=== PATIENT | female | born 1960 | race Caucasian/White ===

== ENCOUNTER → 2016-12-06 | Day surgery (SDC) | payer OTHER ==
[2016-12-06] VITALS (7 sets, daily range): BP systolic 112–132; BP diastolic 55–71; PULSE 58–78; RESP 16–20; TEMP 98.1–98.3; O2SAT 91–96
[~2016-12-06] VITALS: Ht 175.3 cm; Wt 69.9 kg
[~2016-12-06] MED LIST: ALBU6.7H INH; ALBUAER3 INH; ALPR0.5T3 PO; AMLO5TAB2 PO; CHLORHEXIDINE GLUCONATE 2 % 1 PACK (2 CLOTHS) TOPICAL PRN; FURO20TA PO; GABA300C5 PO; GLUCAGON 1 MG/ML VIAL IV PUSH ONE; HYDR200T3 PO; INSULIN HUMAN REGULAR 1,000 UNITS/10 ML VIAL SQ PRN; LACTATED RINGER'S 1000 ML IV PRN; LAMI250T PO; LEVO.125 PO; MACI1TAB2 PO; METOPROLOL TARTRATE 25 MG TAB PO PRN; MIDAZOLAM HCL 2 MG/2 ML VIAL ONE; OMEP20TA PO; ONDANSETRON HCL 4 MG/2 ML VIAL IV PUSH ONE; POVIDONE IODINE 5% (ANTISEPSIS KIT) 4 APPLICATIONS EACH NARE PRN; PRIL20CA9 PO; PROPOFOL 200 MG/20 ML AMP IV ONE; SILD20TA11 PO; SODIUM CHLORID 0.9% 500 ML IV PRN; SOMA350T PO; SPIRCAP INH; ZANT150T2 PO; ZOCO20TA PO
--- NOTE | 2016-12-06 11:06 | PD ---
HPI Chief Complaint: Foreign Body Time Seen by Provider: 11:03 Travel History International Travel<30 days: No Contact w/Intl Traveler<30days: No Traveled to known affect area: No History of Present Illness HPI 56-year-old female with history of scleroderma and crest syndrome, presents to the ER today because she states that she had eaten steak last night, choked on it, and some he had performed the Heimlich maneuver on her bringing up a small piece but she still feels like there is a piece stuck in her esophagus. She states it feels it is at the epigastric area and she has tried to eat and drink this morning but it feels like is not going down, she is bringing the liquid back up. She denies any trouble breathing or any other issues. Modifying Factors: None Associated Signs & Symptoms: Foreign body in esophagus Risk Factors scleroderma, crest syndrome PFSH Past Medical History Asthma: Yes Autoimmune Disease: Yes (CREST SYNDROME SCERODERMA) Blood Disorders: No Anxiety: Yes Depression: No Heart Rhythm Problems: No Cancer: No Cardiovascular Problems: No High Cholesterol: No Chemotherapy: No Chest Pain: No Congestive Heart Failure: No COPD: No Diabetes: No Diminished Hearing: No Endocrine: Yes Gastrointestinal Disorders: No GERD: Yes Genitourinary: No Hepatitis: No Hiatal Hernia: Yes Hypertension: No Immune Disorder: No Implanted Vascular Access Dvce: No Musculoskeletal: No Neurologic: No Psychiatric: No Reproductive: No Respiratory: Yes (COPD) Immunizations Current: Yes Radiation Therapy: No Sleep Apnea: Yes Thyroid Disease: Yes (HYPOTHYROID ) ?: Not Menopausal: Yes Past Surgical History Section: Yes Gynecologic Surgery: Yes (2 C SECTIONS) Pacemaker: No Thoracic Surgery: Yes (PNEMOTHORAX LEFT 2011) Tonsillectomy: Yes Other Surgery: Yes (LEFT BREAST BENIGN LUMP REMOVED) Social History Alcohol Use: Yes (soc) Tobacco Use: No Substance Use: No Allergies-Medications (Allergen,Severity, Reaction): Coded Allergies: Codeine (Unverified Adverse Reaction, Unknown, NAUSEA, 12/06/16) Reported Meds & Prescriptions Reported Meds & Active Scripts Active Reported Spiriva Handihaler (Tiotropium Inh) 18 Mcg Cap 18 Mcg INH DAILY 1 capsule = 18 mcg Gabapentin 300 Mg Cap 300 Mg PO TID Hydroxychloroquine (Hydroxychloroquine Sulfate) 200 Mg Tab 200 Mg PO BID Takw with food Lamisil (Terbinafine) 250 Mg Tab 250 Mg PO DAILY Soma (Carisoprodol) 350 Mg Tab 350 Mg PO QID PRN Omeprazole 20 Mg Tab 20 Mg PO DAILY Opsumit (Macitentan) 10 Mg Tab 10 Mg PO DAILY Zocor (Simvastatin) 20 Mg Tab 20 Mg PO DAILY Synthroid (Levothyroxine Sodium) 125 Mcg Tab 125 Mcg PO DAILY Sildenafil 20 Mg Tab 40 Mg PO TID Zantac (Ranitidine HCl) 150 Mg Tab 150 Mg PO DAILY Furosemide 20 Mg Tab 20 Mg PO DAILY Amlodipine (Amlodipine Besylate) 5 Mg Tab 5 Mg PO DAILY Alprazolam 0.5 Mg Tab 0.5 Mg PO Q6H PRN Proventil Hfa 6.7 GM Inh (Albuterol Sulfate) 90 Mcg/Act Aer 2 Puff INH Q4-6H PRN Proair Hfa 8.5 GM Inh (Albuterol Sulfate) 90 Mcg/Act Aer 2 Puff INH Q6H PRN 108 mcg/actuation Review of Systems Except as stated in HPI: all other systems reviewed are Neg Physical Exam Narrative GENERAL: Well-developed middle age white female patient currently in mild distress. Awake and oriented 3. No drooling. Airway patent. SKIN: Focused skin assessment warm/dry. HEAD: Atraumatic. Normocephalic. EYES: Pupils equal and round. No scleral icterus. No injection or drainage. ENT: No nasal bleeding or discharge. Mucous membranes pink and moist. NECK: Trachea midline. No JVD. CARDIOVASCULAR: Regular rate and rhythm. No murmur appreciated. RESPIRATORY: No accessory muscle use. Clear to auscultation. Breath sounds equal bilaterally. GASTROINTESTINAL: Abdomen soft, non-tender, nondistended. Hepatic and splenic margins not palpable. MUSCULOSKELETAL: No obvious deformities. No clubbing. No cyanosis. No edema. NEUROLOGICAL: Awake and alert. No obvious cranial nerve deficits. Motor grossly within normal limits. Normal speech. PSYCHIATRIC: Appropriate mood and affect; insight and judgment normal. Data Data Last Documented VS Vital Signs Date Time Temp Pulse Resp B/P Pulse Ox O2 Delivery O2 Flow Rate FiO2 12/06/16 11:46 20 12/06/16 11:32 78 129/65 Room Air 12/06/16 10:46 98.3 91 Orders Complete Blood Count With Diff (12/06/16 11:03) Comprehensive Metabolic Panel (12/06/16 11:03) Glucagon Inj (Glucagon Inj) (12/06/16 11:15) Chest, Single Ap (12/06/16 11:04) Ondansetron Inj (Zofran Inj) (12/06/16 11:45) Labs Laboratory Tests Test 12/06/16 11:15 White Blood Count 4.3 TH/MM3 Red Blood Count 4.95 MIL/MM3 Hemoglobin 14.4 GM/DL Hematocrit 43.3 % Mean Corpuscular Volume 87.3 FL Mean Corpuscular Hemoglobin 29.0 PG Mean Corpuscular Hemoglobin 33.2 % Concent Red Cell Distribution Width 14.1 % Platelet Count 237 TH/MM3 Mean Platelet Volume 7.5 FL Neutrophils (%) (Auto) 68.9 % Lymphocytes (%) (Auto) 16.2 % Monocytes (%) (Auto) 8.8 % Eosinophils (%) (Auto) 5.3 % Basophils (%) (Auto) 0.8 % Neutrophils # (Auto) 3.0 TH/MM3 Lymphocytes # (Auto) 0.7 TH/MM3 Monocytes # (Auto) 0.4 TH/MM3 Eosinophils # (Auto) 0.2 TH/MM3 Basophils # (Auto) 0.0 TH/MM3 CBC Comment DIFF FINAL Differential Comment Sodium Level 136 MEQ/L Potassium Level 3.9 MEQ/L Chloride Level 102 MEQ/L Carbon Dioxide Level 25.5 MEQ/L Anion Gap 9 MEQ/L Blood Urea Nitrogen 21 MG/DL Creatinine 1.00 MG/DL Estimat Glomerular Filtration 57 ML/MIN Rate Random Glucose 94 MG/DL Calcium Level 9.6 MG/DL Total Bilirubin 0.5 MG/DL Aspartate Amino Transf 37 U/L (AST/SGOT) Alanine Aminotransferase 34 U/L (ALT/SGPT) Alkaline Phosphatase 86 U/L Total Protein 8.1 GM/DL Albumin 4.7 GM/DL [facility] Medical Decision Making Medical Screen Exam Complete: Yes Emergency Medical Condition: Yes Medical Record Reviewed: Yes Interpretation(s) Laboratory Tests Test 12/06/16 11:15 Monocytes (%) (Auto) 8.8 % (0.0-8.0) Eosinophils (%) (Auto) 5.3 % (0.0-4.0) Lymphocytes # (Auto) 0.7 TH/MM3 (1.0-4.8) Blood Urea Nitrogen 21 MG/DL (7-18) Estimat Glomerular Filtration 57 ML/MIN (>89) Rate Differential Diagnosis Foreign body in esophagus Narrative Course Chest x-ray did not show obvious foreign body. Patient was given glucagon and 50 sodium without significant improvement. She vomited up the soda. She was given Zofran. Case was discussed with Dr. Desai and he states he would like the patient to be transferred to same-day surgery at the main hospital for scope. Diagnosis Primary Impression: Esophageal foreign body Admitting Information Admitting Physician Requests: it Harley Juarez MD Dec 06, 2016 11:06
[2016-12-06 11:26] LABS: BASOPHIL % 0.8 % (0.0-2.0); EOSINOPHIL # 0.2 TH/MM3 (0-0.4); EOSINOPHIL % 5.3 % (0.0-4.0); HEMATOCRIT 43.3 % (35.0-46.0); HEMO FLAGS DIFF FINAL; LYMPH % 16.2 % (9.0-44.0); LYMPHOCYTE # 0.7 TH/MM3 (1.0-4.8); MEAN CELL VOLUME 87.3 FL (80.0-100.0); MEAN CORPUSCULAR HGB CONC 33.2 % (32.0-36.0); MONO % 8.8 % (0.0-8.0); NEUT % 68.9 % (16.0-70.0); PLATELET COUNT 237 TH/MM3 (150-450); RED BLOOD COUNT 4.95 MIL/MM3 (4.00-5.30); RED CELL DISTRIBUTION WIDTH 14.1 % (11.6-17.2); WHITE BLOOD COUNT 4.3 TH/MM3 (4.0-11.0)
[2016-12-06 11:38] LABS: CHLORIDE 102 MEQ/L (98-107); POTASSIUM 3.9 MEQ/L (3.5-5.1); SODIUM (NA) 136 MEQ/L (136-145)
[2016-12-06 11:43] LABS: ANION GAP 9 MEQ/L (5-15); BICARBONATE 25.5 MEQ/L (21.0-32.0); BLOOD UREA NITROGEN 21 MG/DL (7-18)
[2016-12-06 11:46] LABS: ALT (GPT) 34 U/L (10-53); AST (GOT) 37 U/L (15-37); GLOMERULAR FILTRATION RATE 57 ML/MIN (>89)
[2016-12-06 11:47] LABS: TOTAL BILIRUBIN ADULT 0.5 MG/DL (0.2-1.0)
[2016-12-06 11:48] LABS: ALKALINE PHOSPHATASE 86 U/L (45-117)
--- NOTE | 2016-12-06 11:51 | RADRPT ---
EXAM DATE/TIME: 12/06/2016 11:15 [facility] COMPARISON: No previous studies available for comparison. INDICATIONS : States may have foreign body struck in esophagus, feels like it is mid lower anterior chest, states s he is unable eat or drink MEDICAL HISTORY : Chronic obstructive pulmonary disease. SURGICAL HISTORY : None. ENCOUNTER: Initial ACUITY: 1 day PAIN SCORE: 0/10 LOCATION: Bilateral chest FINDINGS: A single view of the chest demonstrates the lungs to be symmetrically aerated without evidence of mas s, infiltrate or effusion. The cardiomediastinal contours are unremarkable. Osseous structures are intact. CONCLUSION: No acute disease. Aldair Padgett MD on December 06, 2016 at 11:49 Board Certified Radiologist. This report was verified electronically.
--- NOTE | 2016-12-06 21:37 | MB ---
cc: COURT TYLER M.D. DATE OF CONSULTATION 12/06/2016 DATE OF 1960 REFERRING PHYSICIAN ER. REASON FOR REFERRAL Dysphagia. HISTORY OF THE PRESENT ILLNESS Thank you for the consultation. A 56-year-old lady who has known history of scleroderma. The patient came complaining after eating steak yesterday, she felt that a piece of it was stuck in her esophagus, unable to swallow any fluids on her saliva. She came to the emergency room because of that. She had difficulty swallowing in the past that she managed either by inducing vomiting or by waiting and drinking some water to try to push it in, but this time this did not happen. The patient denied any hematemesis. No other GI complaints. PAST MEDICAL HISTORY Significant for: 1. COPD. 2. Asthma. 3. CREST syndrome with scleroderma. 4. Anxiety. 5. Coronary artery disease. 6. Hypothyroidism. PAST SURGICAL HISTORY Significant for: 1. Benign lump removed from the left breast. 2. Pneumothorax. SOCIAL HISTORY Positive for tobacco and alcohol. ALLERGIES CODEINE. MEDICATIONS Reviewed in the chart. REVIEW OF SYSTEMS All 12-point negative except HPI. PHYSICAL EXAMINATION GENERAL: Alert, oriented, no acute distress. VITAL SIGNS: Stable. HEENT: Pupils are round and reactive to light. NECK: Supple. CHEST: Clear to auscultation and percussion. CARDIOVASCULAR: Regular rate and rhythm. ABDOMEN: Soft, nondistended. EXTREMITIES: No edema or clubbing. NEUROLOGIC: Alert, oriented. No nerve deficits and overall normal. PSYCHOLOGIC: Appropriate. LABORATORY DATA White count 4.3, hemoglobin 14.4, platelet 237. Liver function test is normal. ASSESSMENT/PLAN A 56-year-old lady with dysphagia, foreign-body, most likely related to scleroderma. I am planning on doing upper endoscopy today and we will do intubation for the patient. If there is narrowing or stricturing we will plan on dilation. The patient understands the procedure and complications. She is agreeable to have it done. This will be done on urgent basis today. We will call the team for the procedure. MD SHELTON Vega/OSKAR /7:53 PM /9:35 PM
--- NOTE | 2016-12-07 07:27 | MR ---
cc: COURT TYLER M.D. DATE OF 1960 DATE OF PROCEDURE 12/06/2016 PROCEDURE Upper gastrointestinal endoscopy with foreign-body removal and dilation. INDICATION A 56-year-old lady who came to the emergency room with food impaction. Patient known to have history of scleroderma. PROCEDURE After informing the patient about the procedure and complication, consent was signed. The patient was intubated. The scope was placed in the mouth after intubation, advanced under video guidance. In the mid-esophagus there was a large piece of meat which was removed by a net and there was some small residual that was flush into the stomach. The scope was advanced to the stomach and into the duodenum. Retroflexion was performed. A guidewire was passed through the scope and dilator with size 17 mm was done without immediate complication. FINDINGS 1. Esophagus: Esophageal food impaction, removed. 2. Esophageal stricture status post dilation. 3. Otherwise normal exam. RECOMMENDATIONS 1. No NSAIDs. 2. Chew food well. 3. Soft mechanical diet. 4. Consider PPI if the patient has any reflux symptoms. MD SHELTON Vega/MARLEN /7:50 PM /7:26 AM
--- NOTE | 2016-12-07 19:38 | EKG ---
Date Performed: 12/06/2016 Time Performed: 12:47:21 PTAGE: 56 years EKG: Sinus rhythm POSSIBLE LEFT ATRIAL ENLARGEMENT INDETERMINATE AXIS ABNORMAL ECG PREVIOUS TRACING : 02/04/2013 12.56.04 Since previous tracing, no significant change noted DOCTOR: Amee Fleming Interpretating Date/Time 12/07/2016 19:37:44
== END | disposition home or self-care (01) ==
LOC: PHED 10:42 → PHSDC 12:04 → PHEDA 12:22 → PHSDC 12:22
PROVIDERS: ATTEND Hospitalist
DX: T18.128A Food in esophagus causing other injury, initial encounter (principal); M34.9 Systemic sclerosis, unspecified; R13.10 Dysphagia, unspecified; M34.1 CR(E)ST syndrome; J45.909 Unspecified asthma, uncomplicated; K21.9 Gastro-esophageal reflux disease without esophagitis; J44.9 Chronic obstructive pulmonary disease, unspecified; E03.9 Hypothyroidism, unspecified; I25.10 Atherosclerotic heart disease of native coronary artery without angina pectoris; R94.31 Abnormal electrocardiogram [ECG] [EKG]
CPT/HCPCS: 00740; 43247; 43248; 71010; 80053; 85025; 93005; 96374; 96375; 99285; C1769; J1610; J2250; J2405; J3010; J7120

== ENCOUNTER 2017-04-22 15:57 | Emergency (ER) | payer OTHER ==
[~2017-04-22] VITALS: Ht 175.3 cm; Wt 74.0 kg
[~2017-04-22 15:57] MED LIST changes: -CHLORHEXIDINE GLUCONATE 2 % 1 PACK (2 CLOTHS) TOPICAL PRN; -GLUCAGON 1 MG/ML VIAL IV PUSH ONE; -INSULIN HUMAN REGULAR 1,000 UNITS/10 ML VIAL SQ PRN; -LACTATED RINGER'S 1000 ML IV PRN; -METOPROLOL TARTRATE 25 MG TAB PO PRN; -MIDAZOLAM HCL 2 MG/2 ML VIAL ONE; -OMEP20TA PO; +OMEP20TA93 PO; -ONDANSETRON HCL 4 MG/2 ML VIAL IV PUSH ONE; -POVIDONE IODINE 5% (ANTISEPSIS KIT) 4 APPLICATIONS EACH NARE PRN; -PRIL20CA9 PO; -PROPOFOL 200 MG/20 ML AMP IV ONE; -SODIUM CHLORID 0.9% 500 ML IV PRN
[2017-04-22 16:00] VITALS: BP 132/63; PULSE 88; RESP 20; TEMP 100.6; O2SAT 88
[2017-04-22 16:10] VITALS: O2SAT 90
[2017-04-22 16:14] VITALS: BP 137/63; PULSE 84; RESP 16; TEMP 101.8; O2SAT 90
[2017-04-22] MEDS ORDERED: ACETAMINOPHEN 325 MG TAB PO ONE (16:15)
[2017-04-22] MEDS ORDERED: SODIUM CHLOR 0.9% 1000 ML INJ 1,000 ML IV ONE ×2 (16:15)
[2017-04-22] MEDS ORDERED: SODIUM CHLOR 0.9% 1000 ML INJ 400 ML IV ONE (16:15)
[2017-04-22] MEDS ORDERED: AZITHROMYCIN INJ 500 MG in SODIUM CHLOR 0.9% 250 ML INJ 250 ML IV STA (16:15)
[2017-04-22] MEDS ORDERED: cefTRIAXone INJ 2,000 MG in SODIUM CHLORIDE 0.9% INJ 100 ML IV STA (16:15)
[2017-04-22 16:40] LABS: AUTOMATED NEUTROPHIL # 9.1 TH/MM3 (1.8-7.7); BASOPHIL # 0.1 TH/MM3 (0-0.2); BASOPHIL % 0.6 % (0.0-2.0); EOSINOPHIL # 0.1 TH/MM3 (0-0.4); EOSINOPHIL % 0.6 % (0.0-4.0); LYMPHOCYTE # 0.4 TH/MM3 (1.0-4.8); MEAN CELL VOLUME 85.9 FL (80.0-100.0); MEAN CORPUSCULAR HEMOGLOBIN 27.1 PG (27.0-34.0); MEAN CORPUSCULAR HGB CONC 31.6 % (32.0-36.0); MONO % 7.3 % (0.0-8.0); NEUT % 87.5 % (16.0-70.0); PLATELET COUNT 259 TH/MM3 (150-450); RED CELL DISTRIBUTION WIDTH 14.5 % (11.6-17.2); WHITE BLOOD COUNT 10.5 TH/MM3 (4.0-11.0)
--- NOTE | 2017-04-22 16:42 | RADRPT ---
EXAM DATE/TIME: 04/22/2017 16:29 [facility] COMPARISON: CHEST SINGLE AP, December 06, 2016, 11:15. INDICATIONS : Shortness of breath and cough for 5 days. MEDICAL HISTORY : Hypertension. Congestive heart failure. Hypothyroidism. COPD. Pulmonary hypertension. SURGICAL HISTORY : None. ENCOUNTER: Initial ACUITY: 4 - 6 days PAIN SCORE: 0/10 LOCATION: Bilateral chest FINDINGS: A single AP erect view of the chest was obtained and demonstrates mild patchy opacity in the left sarita g base. The right lung appears clear. The heart and mediastinal structures are within normal limits. There are mild atherosclerotic changes in the aorta. The bony thorax is intact with overlying electro cardiogram leads. CONCLUSION: New patchy opacity in the left lung base which could indicate early pneumonia. Juvenal Morrow MD on April 22, 2017 at 16:34 Board Certified Radiologist. This report was verified electronically.
[2017-04-22 16:47] LABS: HEMO FLAGS DIFF FINAL
[2017-04-22 16:49] LABS: CHLORIDE 97 MEQ/L (98-107); POTASSIUM 3.3 MEQ/L (3.5-5.1); SODIUM (NA) 132 MEQ/L (136-145)
[2017-04-22 16:52] LABS: ANION GAP 10 MEQ/L (5-15); BICARBONATE 24.9 MEQ/L (21.0-32.0); BLOOD UREA NITROGEN 10 MG/DL (7-18)
[2017-04-22 16:55] LABS: ALT (GPT) 57 U/L (10-53); AST (GOT) 50 U/L (15-37); GLOMERULAR FILTRATION RATE 73 ML/MIN (>89)
[2017-04-22 16:56] LABS: TOTAL BILIRUBIN ADULT 0.7 MG/DL (0.2-1.0)
[2017-04-22 16:58] LABS: ALKALINE PHOSPHATASE 126 U/L (45-117)
[2017-04-22] MEDS ORDERED: CALCTAB19 PO (17:09)
[2017-04-22] MEDS ORDERED: MELO15TA20 PO (17:09)
[2017-04-22] MEDS ORDERED: ALBU0.08 NEB (17:09)
[2017-04-22] MEDS ORDERED: VITA250T3 PO (17:09)
[2017-04-22] MEDS ORDERED: SYMB80AE INH (17:09)
[2017-04-22] MEDS ORDERED: PROM12.54 PO (17:09)
[2017-04-22] MEDS ORDERED: SPIR50TA PO (17:09)
[2017-04-22] MEDS ORDERED: VENTAER INH (17:09)
[2017-04-22] MEDS ORDERED: OXYGENDME NAS.CANULA (17:09)
[2017-04-22] MEDS ORDERED: OMEP20TA93 PO (17:09)
[2017-04-22] MEDS ORDERED: VITA100018 PO (17:09)
[2017-04-22] MEDS ORDERED: VITA500T4 PO (17:09)
[2017-04-22] MEDS ORDERED: LIDO5%T TOPICAL (17:09)
--- NOTE | 2017-04-22 17:15 | PD ---
HPI . Cough and fever Chief Complaint: Respiratory Symptoms Time Seen by Provider: 16:14 Travel History International Travel<30 days: No Contact w/Intl Traveler<30days: No Traveled to known affect area: No History of Present Illness HPI This patient presents to us from her primary care physician's office for the evaluation of cough, low oxygen saturation and fever. She has a history of scleroderma and pulmonary hypertension. She is on home oxygen at 3 L. She states that she became ill 4 days ago with cough and fever. She saw her doctor today and found her to be febrile with low oxygen saturation. She was sent to us for further evaluation and treatment. Her initial oxygen saturation was 88% . It is now 90% on 3 L. PFSH Past Medical History Hx Anticoagulant Therapy: No Arthritis: Yes Asthma: Yes Autoimmune Disease: Yes (CREST SYNDROME SCLERODERMA) Blood Disorders: No Anxiety: Yes Depression: No Heart Rhythm Problems: No Cancer: No Cardiovascular Problems: Yes (CHF, PULMONARY HTN) High Cholesterol: Yes Chemotherapy: No Chest Pain: No Congestive Heart Failure: No COPD: Yes Diabetes: No Diminished Hearing: No Endocrine: Yes (thyroid) Gastrointestinal Disorders: No GERD: Yes Genitourinary: No Hepatitis: No Hiatal Hernia: Yes Hypertension: Yes Immune Disorder: No Implanted Vascular Access Dvce: No Medical other: Yes (SLEEP APNEA, GERD) Musculoskeletal: No Neurologic: No Psychiatric: No Reproductive: No Respiratory: Yes (COPD) Immunizations Current: Yes Radiation Therapy: No Sleep Apnea: Yes Thyroid Disease: Yes (HYPOTHYROID ) ?: Not Menopausal: Yes Past Surgical History Section: Yes Gynecologic Surgery: Yes (2 C SECTIONS) Pacemaker: No Thoracic Surgery: Yes (PNEMOTHORAX LEFT 2011) Tonsillectomy: Yes Other Surgery: Yes (LEFT BREAST BENIGN LUMP REMOVED) Social History Alcohol Use: Yes (soc) Tobacco Use: No (quit 5 years ago) Substance Use: No Allergies-Medications (Allergen,Severity, Reaction): Coded Allergies: codeine (Unverified Adverse Reaction, Unknown, NAUSEA, 04/22/17) Reported Meds & Prescriptions Reported Meds & Active Scripts Active Reported Vitamin D3 (Cholecalciferol) 1,000 Unit Tab 1,000 Units PO DAILY Vitamin C (Ascorbic Acid) 250 Mg Tab 500 Mg PO DAILY Vitamin B-12 (Cyanocobalamin) 500 Mcg Tab 1,000 Mcg PO DAILY Ventolin Hfa 18 GM Inh (Albuterol Sulfate) 90 Mcg/Act Aer 2 Puff INH Q4-6H PRN Symbicort Inh (Budesonide/Formoterol Fumarate) 80-4.5 Mcg/Act Aero 1 Puff INH Q12HR Spironolactone 50 Mg Tab 50 Mg PO DAILY Promethazine (Promethazine HCl) 12.5 Mg Tab 12.5 Mg PO Q4H PRN Oxygen (O2) Device Liter BETITO.CANULA CONTINUOUS Oxygen Concentrator Portable Gaseous 2 L/min via Nasal Canula Continuous For 99 months Omeprazole 20 Mg Tab 20 Mg PO DAILY Meloxicam 15 Mg Tab 15 Mg PO DAILY PRN Lidocaine Topical (Lidocaine HCl) 5 % Oint 1 Applic TOPICAL QID PRN Calcium 600+D 200 (Calcium Carbonate-Vitamin D) 600-200 Mg-Unit Tab 1 Tab PO BID Albuterol Neb (Albuterol Sulfate) 2.5 Mg/3 Ml Neb 2.5 Mg NEB Q6HR NEB PRN While awake Spiriva Handihaler (Tiotropium Inh) 18 Mcg Cap 18 Mcg INH DAILY 1 capsule = 18 mcg Gabapentin 300 Mg Cap 300 Mg PO QID Lamisil (Terbinafine) 250 Mg Tab 250 Mg PO DAILY Soma (Carisoprodol) 350 Mg Tab 350 Mg PO BID PRN Opsumit (Macitentan) 10 Mg Tab 10 Mg PO DAILY Zocor (Simvastatin) 20 Mg Tab 20 Mg PO DAILY Synthroid (Levothyroxine Sodium) 125 Mcg Tab 137 Mcg PO DAILY Sildenafil 20 Mg Tab 40 Mg PO TID Furosemide 20 Mg Tab 60 Mg PO BID Amlodipine (Amlodipine Besylate) 5 Mg Tab 10 Mg PO DAILY Alprazolam 0.5 Mg Tab 1 Mg PO Q8HR PRN Review of Systems Except as stated in HPI: all other systems reviewed are Neg General / Constitutional: Positive: Fever, Chills Respiratory: Positive: Cough, Shortness of Breath Physical Exam Narrative GENERAL: This is a chronically ill-appearing patient. SKIN: warm/dry. Oscar. HEAD: Normocephalic. Atraumatic. EYES: Pupils equal and round. No scleral icterus. No injection or drainage. ENT: No nasal bleeding or discharge. Mucous membranes pink and moist. NECK: Trachea midline. Full range of motion without pain.. CARDIOVASCULAR: Regular rate and rhythm. Systolic ejection murmur. RESPIRATORY: No accessory muscle use. Rhonchi in the left mid lung field. Breath sounds equal bilaterally. GASTROINTESTINAL: Abdomen soft. Nontender. Bowel sounds present. Nondistended. : Deferred MUSCULOSKELETAL: No obvious deformities. No peripheral edema. NEUROLOGICAL: Awake and alert. No obvious cranial nerve deficits. Motor grossly within normal limits. Normal speech. PSYCHIATRIC: Appropriate mood and affect; insight and judgment normal. Data Data Last Documented VS Vital Signs Date Time Temp Pulse Resp B/P (MAP) Pulse Ox O2 Delivery O2 Flow Rate FiO2 04/22/17 17:31 101.2 80 16 119/54 (75) 91 Nasal Cannula 3.00 Orders Orders Sepsis Workup Initiated (04/22/17 ) Complete Blood Count With Diff (04/22/17 16:15) Comprehensive Metabolic Panel (04/22/17 16:15) Lactic Acid Sepsis Protocol (04/22/17 16:15) Urinalysis - C+S If Indicated (04/22/17 16:15) Blood Culture (04/22/17 16:15) Chest, Single Ap (04/22/17 16:15) Blood Glucose (04/22/17 16:15) Ecg Monitoring (04/22/17 16:15) Iv Access Insert/Monitor (04/22/17 16:15) Oximetry (04/22/17 16:15) Oxygen Administration (04/22/17 16:15) Acetaminophen (Tylenol) (04/22/17 16:15) Ceftriaxone Inj (Rocephin Inj) (04/22/17 16:15) Azithromycin Inj (Zithromax Inj) (04/22/17 16:15) B-Type Natriuretic Peptide (04/22/17 16:39) Labs Laboratory Tests Test 04/22/17 16:25 04/22/17 16:28 White Blood Count 10.5 TH/MM3 Red Blood Count 4.30 MIL/MM3 Hemoglobin 11.7 GM/DL Hematocrit 37.0 % Mean Corpuscular Volume 85.9 FL Mean Corpuscular Hemoglobin 27.1 PG Mean Corpuscular Hemoglobin Concent 31.6 % Red Cell Distribution Width 14.5 % Platelet Count 259 TH/MM3 Mean Platelet Volume 7.4 FL Neutrophils (%) (Auto) 87.5 % Lymphocytes (%) (Auto) 4.0 % Monocytes (%) (Auto) 7.3 % Eosinophils (%) (Auto) 0.6 % Basophils (%) (Auto) 0.6 % Neutrophils # (Auto) 9.1 TH/MM3 Lymphocytes # (Auto) 0.4 TH/MM3 Monocytes # (Auto) 0.8 TH/MM3 Eosinophils # (Auto) 0.1 TH/MM3 Basophils # (Auto) 0.1 TH/MM3 CBC Comment DIFF FINAL Differential Comment Blood Urea Nitrogen 10 MG/DL Creatinine 0.81 MG/DL Random Glucose 119 MG/DL Total Protein 7.8 GM/DL Albumin 3.5 GM/DL Calcium Level 8.5 MG/DL Alkaline Phosphatase 126 U/L Aspartate Amino Transf (AST/SGOT) 50 U/L Alanine Aminotransferase (ALT/SGPT) 57 U/L Total Bilirubin 0.7 MG/DL Sodium Level 132 MEQ/L Potassium Level 3.3 MEQ/L Chloride Level 97 MEQ/L Carbon Dioxide Level 24.9 MEQ/L Anion Gap 10 MEQ/L Estimat Glomerular Filtration Rate 73 ML/MIN Lactic Acid Level 0.7 mmol/L B-Type Natriuretic Peptide 287 PG/ML MDM Medical Decision Making Medical Screen Exam Complete: Yes Emergency Medical Condition: Yes Differential Diagnosis Differential diagnosis includes but is not limited to viral respiratory illness , bronchitis, pneumonia, allergies, CHF, asthma/COPD. Narrative Course Vital Signs Date Time Temp Pulse Resp B/P (MAP) Pulse Ox O2 Delivery O2 Flow Rate FiO2 04/22/17 16:10 90 Nasal Cannula 3.00 04/22/17 16:10 90 Nasal Cannula 3.00 04/22/17 16:10 90 Nasal Cannula 3.00 04/22/17 16:00 100.6 88 20 132/63 (86) 88 Patient presents with a cough, fever and low oxygen saturation. She has a history of scleroderma and pulmonary hypertension and is on home oxygen at 3 L. Septic workup has been initiated. She has been empirically treated with Rocephin and Zithromax. Last Impressions Chest X-Ray 04/22/17 1615 Signed Impressions: Service Date/Time: , April 22, 2017 16:29 - CONCLUSION: New patchy opacity in the left lung base which could indicate early pneumonia. Juvenal Morrow MD The chest x-ray was independently viewed by me. She does not meet SIRS criteria. We may be able to treat her as an outpatient. She has oxygen at home. I'll see what turns up with her lab work. CBC & BMP Diagram 04/22/17 16:25 Total Protein 7.8, Albumin 3.5, Calcium Level 8.5, Alkaline Phosphatase 126 H, Aspartate Amino Transf (AST/SGOT) 50 H, Alanine Aminotransferase (ALT/SGPT) 57 H , Total Bilirubin 0.7 LA 0.7 BNP 287 The patient is comfortable going home. She reports that her usual saturation on 3 L of oxygen is about 88%. Diagnosis Primary Impression: Pneumonia Qualified Codes: J18.1 - Lobar pneumonia, unspecified organism Patient Instructions: Community Acquired Pneumonia (DC), General Instructions Med/Other Pt SpecificInfo: Prescription(s) given Scripts Guaifenesin ER 12 HR (Guaifenesin ER 12 HR) 1,200 Mg Luis Alfredo 1200 MG PO BID for Chest Congestion/Cough for 10 Days, #2 TAB 0 Refills Prov: Binta Gilliam MD 04/22/17 Hydrocodone-Acetaminophen (Cheriton) 5 Mg-325 Mg Tab 1 TAB PO Q4H Y for PAIN, #12 TAB 0 Refills Prov: Binta Gilliam MD 04/22/17 Azithromycin (Zithromax) 250 Mg Tab 250 MG PO DIRECTED for Infection, #4 TAB 0 Refills Take 2 tabs (500 mg) on day 1 then 1 tab daily x 4 days. Prov: Binta Gilliam MD 04/22/17 Disposition: 01 DISCHARGE HOME Condition: Stable Binta Gilliam MD Apr 22, 2017 17:15
[2017-04-22 17:31] VITALS: BP 119/54; PULSE 80; RESP 16; TEMP 101.2; O2SAT 91
[2017-04-22] MEDS ORDERED: ZITH250T PO (18:23)
[2017-04-22] MEDS ORDERED: NORC5TAB PO (18:24)
[2017-04-22] MEDS ORDERED: GUAI10TA PO (18:24)
[2017-04-22 19:17] VITALS: BP 116/61; TEMP 98.9
== END 2017-04-22 19:22 | disposition home or self-care (01) ==
LOC: PHED 15:57
DX: J18.1 Lobar pneumonia, unspecified organism (principal); J44.0 Chronic obstructive pulmonary disease with (acute) lower respiratory infection; E03.9 Hypothyroidism, unspecified; I50.9 Heart failure, unspecified; I11.0 Hypertensive heart disease with heart failure; I27.20 Pulmonary hypertension, unspecified; Z87.891 Personal history of nicotine dependence; Z99.81 Dependence on supplemental oxygen
CPT/HCPCS: 71010; 80053; 83605; 83880; 85025; 87040; 96365; 96366; 96367; 99284; J0456; J0696; J7050

== ENCOUNTER 2017-07-03 11:31 | Inpatient (IN) | payer OTHER ==
[~2017-07-03] VITALS: Ht 170.2 cm; Wt 70.5 kg
[2017-07-03] VITALS (14 sets, daily range): BP systolic 125–196; BP diastolic 59–81; PULSE 65–114; RESP 16–32; TEMP 98–99; O2SAT 88–100
[~2017-07-03 11:31] MED LIST changes: +ALBU0.08 NEB; -ALBU6.7H INH; -ALBUAER3 INH; +CALCTAB19 PO; +GUAI10TA PO; -HYDR200T3 PO; +LIDO5%T TOPICAL; +MELO15TA20 PO; +NORC5TAB PO; +OXYGENDME NAS.CANULA; +PROM12.54 PO; +SPIR50TA PO; +SYMB80AE INH; +VENTAER INH; +VITA100018 PO; +VITA250T3 PO; +VITA500T4 PO; -ZANT150T2 PO; +ZITH250T PO
--- NOTE | 2017-07-03 11:37 | PD ---
HPI Chief Complaint: shortness of breath Time Seen by Provider: 11:33 Travel History International Travel<30 days: No Contact w/Intl Traveler<30days: No Traveled to known affect area: No History of Present Illness HPI 56-year-old patient with history of scleroderma, COPD, right sided heart failure , pulmonary hypertension, presents to the ER today, states that she had a coughing fit this morning and then started feeling right sided chest tightness, feels like she is very short of breath. She denies any fevers or any other issues. Modifying Factors: None Associated Signs & Symptoms: Right sided chest discomfort, shortness of breath Risk Factors: COPD, CHF history PFSH Past Medical History Hx Anticoagulant Therapy: No Arthritis: Yes Asthma: Yes Autoimmune Disease: Yes (CREST SYNDROME SCLERODERMA) Blood Disorders: No Anxiety: Yes Depression: No Heart Rhythm Problems: No Cancer: No Cardiovascular Problems: Yes (CHF, PULMONARY HTN) High Cholesterol: Yes Chemotherapy: No Chest Pain: No Congestive Heart Failure: No COPD: Yes Diabetes: No Diminished Hearing: No Endocrine: Yes (thyroid) Gastrointestinal Disorders: No GERD: Yes Genitourinary: No Hepatitis: No Hiatal Hernia: Yes Hypertension: Yes Immune Disorder: No Implanted Vascular Access Dvce: No Musculoskeletal: No Neurologic: No Psychiatric: No Reproductive: No Respiratory: Yes (COPD) Immunizations Current: Yes Radiation Therapy: No Sleep Apnea: Yes Thyroid Disease: Yes (HYPOTHYROID ) Menopausal: Yes Past Surgical History Section: Yes Gynecologic Surgery: Yes (2 C SECTIONS) Pacemaker: No Thoracic Surgery: Yes (PNEMOTHORAX LEFT 2012) Tonsillectomy: Yes Other Surgery: Yes (LEFT BREAST BENIGN LUMP REMOVED) Social History Alcohol Use: Yes (soc) Tobacco Use: No (quit 5 years ago) Substance Use: No Allergies-Medications (Allergen,Severity, Reaction): Coded Allergies: codeine (Unverified Adverse Reaction, Unknown, NAUSEA, 07/03/17) Reported Meds & Prescriptions Reported Meds & Active Scripts Active Guaifenesin ER 12 HR (Guaifenesin) 1,200 Mg Luis Alfredo 1,200 Mg PO BID 10 Days [place] (Hydrocodone-Acetaminophen) 5 Mg-325 Mg Tab 1 Tab PO Q4H PRN Zithromax (Azithromycin) 250 Mg Tab 250 Mg PO DIRECTED Take 2 tabs (500 mg) on day 1 then 1 tab daily x 4 days. Reported Vitamin D3 (Cholecalciferol) 1,000 Unit Tab 1,000 Units PO DAILY Vitamin C (Ascorbic Acid) 250 Mg Tab 500 Mg PO DAILY Vitamin B-12 (Cyanocobalamin) 500 Mcg Tab 1,000 Mcg PO DAILY Ventolin Hfa 18 GM Inh (Albuterol Sulfate) 90 Mcg/Act Aer 2 Puff INH Q4-6H PRN Symbicort Inh (Budesonide/Formoterol Fumarate) 80-4.5 Mcg/Act Aero 1 Puff INH Q12HR Spironolactone 50 Mg Tab 50 Mg PO DAILY Promethazine (Promethazine HCl) 12.5 Mg Tab 12.5 Mg PO Q4H PRN Oxygen (O2) Device Liter BETITO.CANULA CONTINUOUS Oxygen Concentrator Portable Gaseous 2 L/min via Nasal Canula Continuous For 99 months Omeprazole 20 Mg Tab 20 Mg PO DAILY Meloxicam 15 Mg Tab 15 Mg PO DAILY PRN Lidocaine Topical (Lidocaine HCl) 5 % Oint 1 Applic TOPICAL QID PRN Calcium 600+D 200 (Calcium Carbonate-Vitamin D) 600-200 Mg-Unit Tab 1 Tab PO BID Albuterol Neb (Albuterol Sulfate) 2.5 Mg/3 Ml Neb 2.5 Mg NEB Q6HR NEB PRN While awake Spiriva Handihaler (Tiotropium Inh) 18 Mcg Cap 18 Mcg INH DAILY 1 capsule = 18 mcg Gabapentin 300 Mg Cap 300 Mg PO QID Lamisil (Terbinafine) 250 Mg Tab 250 Mg PO DAILY Soma (Carisoprodol) 350 Mg Tab 350 Mg PO BID PRN Opsumit (Macitentan) 10 Mg Tab 10 Mg PO DAILY Zocor (Simvastatin) 20 Mg Tab 20 Mg PO DAILY Synthroid (Levothyroxine Sodium) 125 Mcg Tab 137 Mcg PO DAILY Sildenafil 20 Mg Tab 40 Mg PO TID Furosemide 20 Mg Tab 60 Mg PO BID Amlodipine (Amlodipine Besylate) 5 Mg Tab 10 Mg PO DAILY Alprazolam 0.5 Mg Tab 1 Mg PO Q8HR PRN Review of Systems Except as stated in HPI: all other systems reviewed are Neg Physical Exam Narrative GENERAL: Well-developed middle age female patient who appears currently anxious and in moderate respiratory distress. Awake and oriented 3. SKIN: Focused skin assessment warm/dry. HEAD: Atraumatic. Normocephalic. EYES: Pupils equal and round. No scleral icterus. No injection or drainage. ENT: No nasal bleeding or discharge. Mucous membranes pink and moist. NECK: Trachea midline. No JVD. CARDIOVASCULAR: Regular rate and rhythm. No murmur appreciated. RESPIRATORY: Moderate accessory muscle use. With decreased breath sounds throughout. Breath sounds more pronounced in the left compared to the right. GASTROINTESTINAL: Abdomen soft, non-tender, nondistended. Hepatic and splenic margins not palpable. MUSCULOSKELETAL: No obvious deformities. No clubbing. No cyanosis. No edema. NEUROLOGICAL: Awake and alert. No obvious cranial nerve deficits. Motor grossly within normal limits. Normal speech. PSYCHIATRIC: Appropriate mood and affect; insight and judgment normal. Data Data Last Documented VS Vital Signs Date Time Temp Pulse Resp B/P (MAP) Pulse Ox O2 Delivery O2 Flow Rate FiO2 07/03/17 12:53 87 16 151/66 (94) 94 Nasal Cannula 5.00 07/03/17 11:42 98.0 Orders Orders Complete Blood Count With Diff (07/03/17 11:33) Comprehensive Metabolic Panel (07/03/17 11:33) B-Type Natriuretic Peptide (07/03/17 11:33) Iv Access Insert/Monitor (07/03/17 11:33) Electrocardiogram (07/03/17 11:33) Ecg Monitoring (07/03/17 11:33) Oximetry (07/03/17 11:33) Oxygen Administration (07/03/17 11:33) Chest, Single Ap (07/03/17 11:33) Sodium Chloride 0.9% Flush (Ns Flush) (07/03/17 11:45) Methylprednisolone So Succ Inj (Solumedr (07/03/17 11:45) Albuterol-Ipratropium Neb (Duoneb Neb) (07/03/17 11:45) Lidocaine 1% Inj (50 Ml) (Xylocaine 1% I (07/03/17 12:00) Lidocaine 1% Inj (Xylocaine 1% Inj) (07/03/17 11:57) Chest, Single Ap (07/03/17 12:23) Consult General Surgery (07/03/17 ) Ct Thorax/ Chest Wo Iv Contras (07/03/17 13:10) Morphine Inj (Morphine Inj) (07/03/17 13:15) Ondansetron Inj (Zofran Inj) (07/03/17 13:15) (Hub Use Only)Inp Phy Cons/Ref (07/03/17 ) Admit Order (Ed Use Only) (07/03/17 13:15) Inpatient Certification (07/03/17 13:16) Labs Laboratory Tests Test 07/03/17 11:40 White Blood Count 16.9 TH/MM3 Red Blood Count 5.28 MIL/MM3 Hemoglobin 14.0 GM/DL Hematocrit 43.7 % Mean Corpuscular Volume 82.8 FL Mean Corpuscular Hemoglobin 26.6 PG Mean Corpuscular Hemoglobin Concent 32.1 % Red Cell Distribution Width 15.6 % Platelet Count 417 TH/MM3 Mean Platelet Volume 7.7 FL Neutrophils (%) (Auto) 84.8 % Lymphocytes (%) (Auto) 11.0 % Monocytes (%) (Auto) 2.5 % Eosinophils (%) (Auto) 0.6 % Basophils (%) (Auto) 1.1 % Neutrophils # (Auto) 14.3 TH/MM3 Lymphocytes # (Auto) 1.9 TH/MM3 Monocytes # (Auto) 0.4 TH/MM3 Eosinophils # (Auto) 0.1 TH/MM3 Basophils # (Auto) 0.2 TH/MM3 CBC Comment DIFF FINAL Differential Comment Blood Urea Nitrogen 19 MG/DL Creatinine 0.89 MG/DL Random Glucose 179 MG/DL Total Protein 8.2 GM/DL Albumin 4.5 GM/DL Calcium Level 9.7 MG/DL Alkaline Phosphatase 84 U/L Aspartate Amino Transf (AST/SGOT) 41 U/L Alanine Aminotransferase (ALT/SGPT) 30 U/L Total Bilirubin 0.4 MG/DL Sodium Level 131 MEQ/L Potassium Level 3.8 MEQ/L Chloride Level 96 MEQ/L Carbon Dioxide Level 25.9 MEQ/L Anion Gap 9 MEQ/L Estimat Glomerular Filtration Rate 66 ML/MIN B-Type Natriuretic Peptide 225 PG/ML MDM Medical Decision Making Medical Screen Exam Complete: Yes Emergency Medical Condition: Yes Medical Record Reviewed: Yes Interpretation(s) Last 24 hours Impressions Chest X-Ray 07/03/17 1223 Signed Impressions: Service Date/Time: Monday, July 03, 2017 12:46 - CONCLUSION: Placement of a right-sided chest tube with minimal reexpansion of the right lung.. Julissa Lewis MD Chest X-Ray 07/03/17 1133 Signed Impressions: Service Date/Time: Monday, July 03, 2017 11:44 - CONCLUSION: Large right-sided pneumothorax. No evidence of tension pneumothorax.. Julissa Lewis MD Laboratory Tests Test 07/03/17 11:40 White Blood Count 16.9 TH/MM3 (4.0-11.0) Mean Corpuscular Hemoglobin 26.6 PG (27.0-34.0) Neutrophils (%) (Auto) 84.8 % (16.0-70.0) Neutrophils # (Auto) 14.3 TH/MM3 (1.8-7.7) Blood Urea Nitrogen 19 MG/DL (7-18) Random Glucose 179 MG/DL (74-106) Aspartate Amino Transf (AST/SGOT) 41 U/L (15-37) Sodium Level 131 MEQ/L (136-145) Chloride Level 96 MEQ/L (98-107) Estimat Glomerular Filtration Rate 66 ML/MIN (>89) B-Type Natriuretic Peptide 225 PG/ML (0-100) Differential Diagnosis Pneumonia versus COPD exacerbation versus pneumothorax Narrative Course Chest x-ray shows a right sided large pneumothorax. A right sided pigtail was placed by me in the ER, and chest x-ray was done, shows some improvement in pneumothorax but not complete reexpansion. At this point, the case was discussed with Dr. Brink who states that he would like the patient to get a CAT scan and to be admitted to the [facility] for further treatment of this issue. He states that it is quite possible that she had ruptured a lung bleb that has caused the pneumothorax that she may have persistent air leak that could be causing persistent pneumothorax. At this point, plan would be to admit the patient for further treatment. Case is discussed with her to control care Dr. Yoon for admission. Aggregate critical care time was 30 minutes. Time to perform other separately billable procedures was not included in the critical care time. My time did not include minutes spent treating any other patients simultaneously or on activities that did not directly contribute to the patient's treatment. The services I provided to this patient were to treat and/or prevent clinically significant deterioration that could result in: Worsening pneumothorax, tension pneumothorax, respiratory arrest, I provided critical care services requiring my management, as noted below: Chart data review, documentation time, medication orders and management, vital sign assessments/reviewing monitor data, ordering and reviewing lab tests, ordering and interpreting/reviewing x-rays and diagnostic studies, care of the patient and discussion of the patient with the admitting physicians. Diagnosis Primary Impression: Pneumothorax, right Admitting Information Admitting Physician Requests: it Harley Juarez MD Jul 03, 2017 11:37
[2017-07-03] MEDS: RESP: ALBUTEROL 2.5 MG/IPRATROPIUM 0.5 MG NEB (SCH) INH ×3 (11:43→22:00)
[2017-07-03] MEDS ORDERED: SODIUM CHLORIDE 0.9% FLUSH 10 ML FLUSH IVF PRN (11:45)
[2017-07-03] MEDS ORDERED: methylPREDNISolone SOD SUCC 125 MG/2 ML VIAL IV PUSH ONE (11:45)
[2017-07-03 11:47] LABS: AUTOMATED NEUTROPHIL # 14.3 TH/MM3 (1.8-7.7); BASOPHIL # 0.2 TH/MM3 (0-0.2); BASOPHIL % 1.1 % (0.0-2.0); EOSINOPHIL # 0.1 TH/MM3 (0-0.4); EOSINOPHIL % 0.6 % (0.0-4.0); HEMATOCRIT 43.7 % (35.0-46.0); LYMPHOCYTE # 1.9 TH/MM3 (1.0-4.8); MEAN CELL VOLUME 82.8 FL (80.0-100.0); MEAN CORPUSCULAR HEMOGLOBIN 26.6 PG (27.0-34.0); MEAN CORPUSCULAR HGB CONC 32.1 % (32.0-36.0); MEAN PLATELET VOLUME 7.7 FL (7.0-11.0); MONO % 2.5 % (0.0-8.0); MONOCYTE # 0.4 TH/MM3 (0-0.9); NEUT % 84.8 % (16.0-70.0); PLATELET COUNT 417 TH/MM3 (150-450); RED BLOOD COUNT 5.28 MIL/MM3 (4.00-5.30); RED CELL DISTRIBUTION WIDTH 15.6 % (11.6-17.2); WHITE BLOOD COUNT 16.9 TH/MM3 (4.0-11.0)
[2017-07-03 11:57] LABS: CHLORIDE 96 MEQ/L (98-107); SODIUM (NA) 131 MEQ/L (136-145)
[2017-07-03] MEDS ORDERED: LIDOCAINE HCL 1% 30 ML VIAL ONE (11:57)
[2017-07-03 12:00] LABS: ALBUMIN 4.5 GM/DL (3.4-5.0); BICARBONATE 25.9 MEQ/L (21.0-32.0); BLOOD UREA NITROGEN 19 MG/DL (7-18); CALCIUM 9.7 MG/DL (8.5-10.1); GLUCOSE,RANDOM 179 MG/DL (74-106)
[2017-07-03] MEDS ORDERED: LIDOCAINE HCL 1% 50 ML VIAL INFIL ONE (12:00)
[2017-07-03 12:03] LABS: ALT (GPT) 30 U/L (10-53); AST (GOT) 41 U/L (15-37); CREATININE 0.89 MG/DL (0.50-1.00); GLOMERULAR FILTRATION RATE 66 ML/MIN (>89)
[2017-07-03 12:05] LABS: TOTAL BILIRUBIN ADULT 0.4 MG/DL (0.2-1.0); TOTAL PROTEIN 8.2 GM/DL (6.4-8.2)
[2017-07-03 12:06] LABS: ALKALINE PHOSPHATASE 84 U/L (45-117)
--- NOTE | 2017-07-03 12:13 | RADRPT ---
EXAM DATE/TIME: 07/03/2017 11:44 [facility] COMPARISON: CHEST SINGLE AP, April 22, 2017, 16:29. INDICATIONS : Short of breath MEDICAL HISTORY : Chronic obstructive pulmonary disease. Congestive heart failure. Hyperthyroidism. Pulmonary hyper tension SURGICAL HISTORY : None. ENCOUNTER: Initial ACUITY: 1 day PAIN SCORE: 5/10 LOCATION: Bilateral chest FINDINGS: There is a large right-sided pneumothorax present. No shift of the mediastinum. The left hemithorax i s clear. R. size is normal. CONCLUSION: Large right-sided pneumothorax. No evidence of tension pneumothorax.. Julissa Lewis MD on July 03, 2017 at 12:09 Board Certified Radiologist. This report was verified electronically.
--- NOTE | 2017-07-03 13:01 | RADRPT ---
EXAM DATE/TIME: 07/03/2017 12:46 [facility] COMPARISON: CHEST SINGLE AP, July 03, 2017, 11:44. INDICATIONS : Post chest tube placement MEDICAL HISTORY : Chronic obstructive pulmonary disease. Congestive heart failure. Hyperthyroidism. pulmonary hyper tension SURGICAL HISTORY : None. ENCOUNTER: Initial ACUITY: 1 day PAIN SCORE: 5/10 LOCATION: Right chest FINDINGS: Several right-sided chest tube. Minimal expansion of the right-sided pneumothorax. Left hemithorax re liliana clear. CONCLUSION: Placement of a right-sided chest tube with minimal reexpansion of the right lung.. Julissa Lewis MD on July 03, 2017 at 12:57 Board Certified Radiologist. This report was verified electronically.
[2017-07-03] MEDS ORDERED: ONDANSETRON HCL 4 MG/2 ML VIAL IV PUSH ONE (13:15)
[2017-07-03] MEDS ORDERED: MORPHINE SULFATE 2 MG/ML INJ IV PUSH ONE ×2 (13:15→14:45)
--- NOTE | 2017-07-03 14:19 | RADRPT ---
EXAM DATE/TIME: 07/03/2017 13:56 [facility] COMPARISON: CHEST SINGLE AP, July 03, 2017, 12:46. INDICATIONS : Spontaneous pneumothorax RADIATION DOSE: 8.92 CTDIvol (mGy) MEDICAL HISTORY : Chronic obstructive pulmonary disease. Pulmonary HTN, CHF,Chest syndrome scleroderma SURGICAL HISTORY : C sections, knee arthroscopy ENCOUNTER: Initial ACUITY: 1 day PAIN SCALE: 9/10 LOCATION: Right chest TECHNIQUE: Volumetric scanning of the chest was performed. Using automated exposure control and adjustment of t he mA and/or kV according to patient size, radiation dose was kept as low as reasonably achievable to obtain optimal diagnostic quality images. DICOM format image data is available electronically for r eview and comparison. Follow-up recommendations for detected pulmonary nodules are based at a minimum on nodule size and pa tient risk factors according to Fleischner Society Guidelines. FINDINGS: The bony structures are intact no evidence of fracture. Heart is normal size and configuration with s ome flecks of calcification left anterior descending coronary artery. There is a small bore right anterior chest tube in place pi gtailed in the anterior aspect of the mid to basilar lung sandhu with a large right pneumothorax. The re is mild collapse of the right lung with an area consolidation in the anterior aspect of the right mid lung field with no evidence of mass or adenopathy in normal open patent tracheobronchial tree. CONCLUSION: Moderate to large right pneumothorax with partial collapse of the right lung . No evidence of mass or adenopathy and bony structures are intact. Minimal area of parenchymal consolidation anterior to the right mid michael and in the right base Quinton Riggs MD on July 03, 2017 at 14:09 Board Certified Radiologist. This report was verified electronically.
[2017-07-03] MEDS ORDERED: RESP: ALBUTEROL 2.5 MG/IPRATROPIUM 0.5 MG NEB (PRN) INH (17:00)
[2017-07-03] MEDS ORDERED: BISACODYL 10 MG SUPP RECTAL PRN (17:00)
[2017-07-03] MEDS ORDERED: MISCELLANEOUS NURSING INFORMATION XX SCH (17:00)
[2017-07-03] MEDS ORDERED: ACETAMINOPHEN 325 MG TAB PO PRN (17:00)
[2017-07-03] MEDS ORDERED: SENNOSIDES 8.6 MG TAB PO PRN (17:00)
[2017-07-03] MEDS ORDERED: LACTULOSE SYRUP 20 GM/30 ML CUP PO PRN (17:00)
[2017-07-03] MEDS ORDERED: SODIUM CHLORIDE 0.9% FLUSH 10 ML FLUSH IV FLUSH PRN (17:00)
[2017-07-03] MEDS ORDERED: CHLORHEXIDINE GLUCONATE 2 % 1 PACK (2 CLOTHS) TOP PRN (17:00)
[2017-07-03] MEDS ORDERED: MAGNESIUM HYDROXIDE SUSP 30 ML CUP PO PRN (17:00)
[2017-07-03] MEDS ORDERED: DEXTROSE 50% IN WATER 50 ML VIAL(D50) IV PUSH PRN (17:15)
[2017-07-03] MEDS ORDERED: CARISOPRODOL 350 MG TAB PO PRN (17:15)
[2017-07-03] MEDS ORDERED: GLUCAGON 1 MG/ML VIAL OTHER PRN (17:15)
[2017-07-03] MEDS ORDERED: MELOXICAM 15 MG TAB PO PRN (17:15)
--- NOTE | 2017-07-03 17:37 | HHI.HP ---
HPI Service Critical Care Medicine Primary Care Physician Unknown Admission Diagnosis right pneumothorax/status post pigtail thoracostomy/incomplete reexp Diagnosis: Travel History International Travel<30 Days: No Contact w/Intl Traveler <30 Da: No Traveled to Known Affected Are: No History of Present Illness HPI This is a 56-year-old patient with history of scleroderma, COPD, right sided heart failure, pulmonary hypertension, esophageal dysmotility presents to the [facility] today, states that she had a coughing fit this morning and then started feeling right sided chest tightness, feels like she is very short of breath. She denies any fevers or any other issues. Imaging studies were performed that revealed a right pneumothorax. A chest tube was placed in the ED , Dr. Brink was consulted by ED physician. CT scan was ordered pending. The patient was transferred to [facility]. Critical care medicine was consulted. Of note patient is being seen by [facility] by research and development director and laborer concrete paving, no records request has been initiated. Modifying Factors: None Associated Signs & Symptoms: Right sided chest discomfort, shortness of breath Risk Factors: COPD, CHF history History PFSH Past Medical History Hx Anticoagulant Therapy: No Arthritis: Yes Asthma: Yes Autoimmune Disease: Yes (CREST SYNDROME SCLERODERMA) Blood Disorders: No Anxiety: Yes Depression: No Heart Rhythm Problems: No Cancer: No Cardiovascular Problems: Yes (CHF, PULMONARY HTN) High Cholesterol: Yes Chemotherapy: No Chest Pain: No Congestive Heart Failure: No COPD: Yes Diabetes: No Diminished Hearing: No Endocrine: Yes (thyroid) Gastrointestinal Disorders: No GERD: Yes Genitourinary: No Hepatitis: No Hiatal Hernia: Yes Hypertension: Yes Immune Disorder: No Implanted Vascular Access Dvce: No Musculoskeletal: No Neurologic: No Psychiatric: No Reproductive: No Respiratory: Yes (COPD) Immunizations Current: Yes Radiation Therapy: No Sleep Apnea: Yes Thyroid Disease: Yes (HYPOTHYROID ) Menopausal: Yes Past Surgical History Section: Yes Gynecologic Surgery: Yes (2 C SECTIONS) Pacemaker: No Thoracic Surgery: Yes (PNEMOTHORAX LEFT 2011) Tonsillectomy: Yes Other Surgery: Yes (LEFT BREAST BENIGN LUMP REMOVED) Social History Alcohol Use: Yes (soc) Tobacco Use: No (quit 5 years ago) Substance Use: No Allergies-Medications Allergies-Medications (Allergen,Severity, Reaction): Coded Allergies: codeine (Unverified Adverse Reaction, Unknown, NAUSEA, 07/03/17) Reported Meds & Prescriptions Reported Meds & Active Scripts Active Guaifenesin ER 12 HR (Guaifenesin) 1,200 Mg Luis Alfredo 1,200 Mg PO BID 10 Days [place] (Hydrocodone-Acetaminophen) 5 Mg-325 Mg Tab 1 Tab PO Q4H PRN Zithromax (Azithromycin) 250 Mg Tab 250 Mg PO DIRECTED Take 2 tabs (500 mg) on day 1 then 1 tab daily x 4 days. Reported Vitamin D3 (Cholecalciferol) 1,000 Unit Tab 1,000 Units PO DAILY Vitamin C (Ascorbic Acid) 250 Mg Tab 500 Mg PO DAILY Vitamin B-12 (Cyanocobalamin) 500 Mcg Tab 1,000 Mcg PO DAILY Ventolin Hfa 18 GM Inh (Albuterol Sulfate) 90 Mcg/Act Aer 2 Puff INH Q4-6H PRN Symbicort Inh (Budesonide/Formoterol Fumarate) 80-4.5 Mcg/Act Aero 1 Puff INH Q12HR Spironolactone 50 Mg Tab 50 Mg PO DAILY Promethazine (Promethazine HCl) 12.5 Mg Tab 12.5 Mg PO Q4H PRN Oxygen (O2) Device Liter BETITO.CANULA CONTINUOUS Oxygen Concentrator Portable Gaseous 2 L/min via Nasal Canula Continuous For 99 months Omeprazole 20 Mg Tab 20 Mg PO DAILY Meloxicam 15 Mg Tab 15 Mg PO DAILY PRN Lidocaine Topical (Lidocaine HCl) 5 % Oint 1 Applic TOPICAL QID PRN Calcium 600+D 200 (Calcium Carbonate-Vitamin D) 600-200 Mg-Unit Tab 1 Tab PO BID Albuterol Neb (Albuterol Sulfate) 2.5 Mg/3 Ml Neb 2.5 Mg NEB Q6HR NEB PRN While awake Spiriva Handihaler (Tiotropium Inh) 18 Mcg Cap 18 Mcg INH DAILY 1 capsule = 18 mcg Gabapentin 300 Mg Cap 300 Mg PO QID Lamisil (Terbinafine) 250 Mg Tab 250 Mg PO DAILY Soma (Carisoprodol) 350 Mg Tab 350 Mg PO BID PRN Opsumit (Macitentan) 10 Mg Tab 10 Mg PO DAILY Zocor (Simvastatin) 20 Mg Tab 20 Mg PO DAILY Synthroid (Levothyroxine Sodium) 125 Mcg Tab 137 Mcg PO DAILY Sildenafil 20 Mg Tab 40 Mg PO TID Furosemide 20 Mg Tab 60 Mg PO BID Amlodipine (Amlodipine Besylate) 5 Mg Tab 10 Mg PO DAILY Alprazolam 0.5 Mg Tab 1 Mg PO Q8HR PRN ROS Review of Systems Except as stated in HPI: all other systems reviewed are Neg Physical Exam Vital Signs Vital Signs Date Time Temp Pulse Resp B/P (MAP) Pulse Ox O2 Delivery O2 Flow Rate FiO2 07/03/17 16:00 98 Non-Rebreather 100 07/03/17 15:55 86 Nasal Cannula 5.00 07/03/17 15:17 07/03/17 15:17 81 18 152/70 (97) 93 Nasal Cannula 5.00 07/03/17 14:19 76 20 140/63 (88) 95 Nasal Cannula 5.00 07/03/17 13:28 82 18 145/65 (91) 93 Nasal Cannula 5.00 07/03/17 12:53 87 16 151/66 (94) 94 Nasal Cannula 5.00 07/03/17 12:50 98 Nasal Cannula 2.00 07/03/17 12:36 (119) 07/03/17 12:20 86 18 138/72 (94) 100 Nasal Cannula 5.00 07/03/17 12:10 112 26 96 Nasal Cannula 10.00 07/03/17 12:05 114 26 172/76 (108) 97 Nasal Cannula 10.00 07/03/17 11:45 96 15.00 07/03/17 11:45 98 Non-Rebreather 15.00 07/03/17 11:42 88 Non-Rebreather 10.00 07/03/17 11:42 98.0 86 28 196/81 (119) 88 Non-Rebreather 10.00 07/03/17 11:42 88 Non-Rebreather 10.00 07/03/17 11:42 88 Non-Rebreather 10.00 Laboratory Laboratory Tests Test 07/03/17 11:40 07/03/17 16:30 White Blood Count 16.9 Red Blood Count 5.28 Hemoglobin 14.0 Hematocrit 43.7 Mean Corpuscular Volume 82.8 Mean Corpuscular Hemoglobin 26.6 Mean Corpuscular Hemoglobin Concent 32.1 Red Cell Distribution Width 15.6 Platelet Count 417 Mean Platelet Volume 7.7 Neutrophils (%) (Auto) 84.8 Lymphocytes (%) (Auto) 11.0 Monocytes (%) (Auto) 2.5 Eosinophils (%) (Auto) 0.6 Basophils (%) (Auto) 1.1 Neutrophils # (Auto) 14.3 Lymphocytes # (Auto) 1.9 Monocytes # (Auto) 0.4 Eosinophils # (Auto) 0.1 Basophils # (Auto) 0.2 CBC Comment DIFF FINAL Differential Comment Blood Urea Nitrogen 19 Creatinine 0.89 Random Glucose 179 Total Protein 8.2 Albumin 4.5 Calcium Level 9.7 Alkaline Phosphatase 84 Aspartate Amino Transf (AST/SGOT) 41 Alanine Aminotransferase (ALT/SGPT) 30 Total Bilirubin 0.4 Sodium Level 131 Potassium Level 3.8 Chloride Level 96 Carbon Dioxide Level 25.9 Anion Gap 9 Estimat Glomerular Filtration Rate 66 B-Type Natriuretic Peptide 225 Result Diagram: 07/03/17 1140 07/03/17 1140 Imaging Last Impressions Chest CT 07/03/17 1310 Signed Impressions: Service Date/Time: Monday, July 03, 2017 13:56 - CONCLUSION: Moderate to large right pneumothorax with partial collapse of the right lung . No evidence of mass or adenopathy and bony structures are intact. Minimal area of parenchymal consolidation anterior to the right mid michael and in the right base Quinton Riggs MD Chest X-Ray 07/03/17 1223 Signed Impressions: Service Date/Time: Monday, July 03, 2017 12:46 - CONCLUSION: Placement of a right-sided chest tube with minimal reexpansion of the right lung.. Julissa Lewis MD Septic Shock Reassessment Septic shock perfusion: reassessment completed Caprini VTE Risk Assessment Caprini VTE Risk Assessment: Mod/High Risk (score >= 2) Caprini Risk Assessment Model Point Value = 1 Point Value = 2 Point Value = 3 Point Value = 5 Age 41-60 Minor surgery BMI > 25 kg/m2 Swollen legs Varicose veins or History of unexplained or recurrent spontaneous Oral contraceptives or hormone replacement Sepsis (< 1 month) Serious lung disease, including pneumonia (< 1 month) Abnormal pulmonary function Acute myocardial infarction Congestive heart failure (< 1 month) History of inflammatory bowel disease Medical patient at bed rest Age 61-74 Arthroscopic surgery Major open surgery (> 45 min) Laparoscopic surgery (> 45 min) Malignancy Confined to bed (> 72 hours) Immobilizing plaster cast Central venous access Age >= 75 History of VTE Family history of VTE Factor V Leiden Prothrombin [id number] Lupus anticoagulant Anticardiolipin antibodies Elevated serum homocysteine Heparin-induced thrombocytopenia Other congenital or acquired thrombophilia Stroke (< 1 month) Elective arthroplasty Hip, pelvis, or leg fracture Acute spinal cord injury (< 1 month) Prophylaxis Regimen Total Risk Factor Score Risk Level Prophylaxis Regimen 0-1 Low Early ambulation 2 Moderate Order ONE of the following: *Sequential Compression Device (SCD) *Heparin 5000 units SQ BID 3-4 Higher Order ONE of the following medications: *Heparin 5000 units SQ TID *Enoxaparin/Lovenox 40 mg SQ daily (WT < 150 kg, CrCl > 30 mL/min) *Enoxaparin/Lovenox 30 mg SQ daily (WT < 150 kg, CrCl > 10-29 mL/min) *Enoxaparin/Lovenox 30 mg SQ BID (WT < 150 kg, CrCl > 30 mL/min) AND/OR *Sequential Compression Device (SCD) 5 or more Highest Order ONE of the following medications: *Heparin 5000 units SQ TID (Preferred with Epidurals) *Enoxaparin/Lovenox 40 mg SQ daily (WT < 150 kg, CrCl > 30 mL/min) *Enoxaparin/Lovenox 30 mg SQ daily (WT < 150 kg, CrCl > 10-29 mL/min) *Enoxaparin/Lovenox 30 mg SQ BID (WT < 150 kg, CrCl > 30 mL/min) AND *Sequential Compression Device (SCD) Assessment and Plan Problem List: (1) Leukocytosis, unspecified ICD Code: D72.829 - Elevated white blood cell count, unspecified (2) Esophageal dysmotility due to systemic disease ICD Code: K22.4 - Dyskinesia of esophagus (3) Scleroderma ICD Code: M34.9 - Scleroderma Status: Acute (4) COPD (chronic obstructive pulmonary disease) ICD Code: J44.9 - COPD (chronic obstructive pulmonary disease) Status: Acute (5) Pulmonary hypertension ICD Code: I27.0 - Pulmonary hypertension Status: Acute (6) Hypothyroidism ICD Code: E03.9 - Hypothyroidism Status: Acute (7) Right knee pain ICD Code: M25.561 - Right knee pain Status: Acute (8) Gout ICD Code: M10.9 - Gout Status: Acute (9) Pneumothorax, right ICD Code: J93.9 - Pneumothorax, unspecified Status: Acute (10) Gouty arthritis ICD Code: M10.9 - Gout, unspecified Status: Acute Assessment and Plan This is a 56-year-old female with multiple comorbidities, with a rather large spontaneous pneumothorax S/P pigtail chest tube placement. Currently the patient is on a nonrebreather mask to maintain O2 saturation greater than 90%. Dr. Domingo vascular surgery has been consulted by ED reevaluation. Chest to suction increased to -30cm H20. A chin with acute respiratory insufficiency is at risk for possible intubation admit to ICU. Plan by systems: Neurologic: Anxiety disorder Chronic pain syndrome Continue home medications Soma Continue gabapentin 300 mg QID Alprazolam 0.25 mg q 4 hr PRN Dilaudid 1 mg every 4 hours when necessary for pain level 7-10 Tylenol 650 mg for temp greater than 101 Respiratory: Large right pneumothorax Acute hypoxic respiratory insufficiency Pulmonary hypertension Maintain chest tube to -[id number] ,may advance to -40 Currently on 100% nonrebreather mask, continue to wean Continue home medications-inhalers Symbicort and Spiriva Continue home medications for pulmonary hypertension-sildenafil 20 mg every 8 hours, Opsimid, and Macitentan Pulmonology consult Duo nebs every 6 hours scheduled every 4 hours when necessary Maintain O2 sat greater than 92% Dr. Brink consulted follow-up recommendations Cardiovascular: Hypertension Continue home medication amlodipine Renal: Insert Dodson-patient receiving diuretics-home meds include Lasix and spironolactone -- Strict I/Os FEN/GI: Hiatal hernia Esophageal dysmotility Zofran for nausea Maintain nothing by mouth status with exception of meds, tonight patient is at risk for intubation GI consulted Heme/ID: Leukocytosis Obtain blood urine and sputum cultures Obtain Legionella pneumococcal , influenza antigens Monitor CBC Endocrine: Hypothyroidism Hyperglycemia of critical illness Glucose monitoring per ICU protocol. Low dose regimen Continue home medication levothyroxine 137 mcg/d -- SSI Prophylaxis: GI Prophylaxis Famotidine DVT Prophylaxis -- SCDs Heparin SQ BID Lines: Peripheral IVs 2. Central line if indicated Dispo: my billing statement This patient remains critically ill with one or more organ systems which are or may become a threat to life. I have spent in excess of 30 minutes discontinuously in the care and management of this patient. This time is exclusive of procedures, and includes, but is not limited to, evaluation of the patient, review of the medical record, discussions with family, consultants, nursing staff, or respiratory therapy, and documentation in the medical record. Medical release form signed by patient attempts being made to obtain records from [facility] to include pulmonology and gastroenterology Code Status Full Discussed Condition With Dr. Larsen, patient, and TREAD BOOKER at bedside (Jayla) Brooke Huang MD Jul 03, 2017 17:37
[2017-07-03] MEDS: SODIUM CHLOR 0.9% 1000 ML INJ 1,000 ML IV SCH (18:15)
[2017-07-03] MEDS: HYDROmorphone HCL PF 2 MG/ML VIAL IV PRN ×2 (18:15→22:36)
[2017-07-03] MEDS: ALPRAZolam 1 MG TAB PO PRN (19:17)
[2017-07-03] MEDS: GABAPENTIN 300 MG CAP PO SCH ×2 (19:17→21:37)
[2017-07-03] MEDS: HEPARIN SODIUM - SQ 10,000 UNITS/ML VIAL SQ SCH (19:17)
[2017-07-03] MEDS: DOCUSATE SODIUM 50 MG/SENNA 8.6 MG TAB PO SCH (21:00)
[2017-07-03] MEDS: INSULIN ASPART SUPPLEMENTAL SCALE SQ SCH (21:00)
[2017-07-03] MEDS: FUROSEMIDE 20 MG TAB PO SCH (21:00)
[2017-07-03] MEDS: FAMOTIDINE 20 MG/2 ML VIAL IV PUSH SCH (21:37)
[2017-07-03] MEDS: SODIUM CHLORIDE 0.9% FLUSH 10 ML FLUSH IV FLUSH SCH (21:38)
[2017-07-03] MEDS: BUDESONIDE-FORMOTEROL 80/4.5 MCG INHALER INH SCH (21:38)
[2017-07-03] MEDS: SILDENAFIL CITRATE 20 MG TAB PO SCH (22:30)
[2017-07-04] VITALS (8 sets, daily range): BP systolic 119–150; BP diastolic 54–70; PULSE 48–70; RESP 16–20; TEMP 97.6–98.2; O2SAT 92–99
--- NOTE | 2017-07-04 00:41 | EKG ---
Date Performed: 07/03/2017 Time Performed: 17:32:58 PTAGE: 56 years EKG: Sinus rhythm Indeterminate axis Poor R wave progression - probable normal variant Borderline ECG PREVIOUS TRACING : 07/03/2017 12.44 Since the prior tracing, there has been no significant lane DOCTOR: En Capellan Interpretating Date/Time 07/04/2017 00:40:36
[2017-07-04] MEDS: HYDROmorphone HCL PF 2 MG/ML VIAL IV PRN ×5 (03:33→20:58)
[2017-07-04] MEDS: RESP: ALBUTEROL 2.5 MG/IPRATROPIUM 0.5 MG NEB (SCH) INH ×4 (03:58→21:48)
[2017-07-04] MEDS: CHLORHEXIDINE GLUCONATE 2 % 1 PACK (2 CLOTHS) TOP SCH (04:00)
[2017-07-04 04:37] LABS: AUTOMATED NEUTROPHIL # 7.5 TH/MM3 (1.8-7.7); BASOPHIL % 0.2 % (0.0-2.0); HEMATOCRIT 38.1 % (35.0-46.0); HEMOGLOBIN 12.8 GM/DL (11.6-15.3); LYMPH % 6.3 % (9.0-44.0); LYMPHOCYTE # 0.5 TH/MM3 (1.0-4.8); MEAN CELL VOLUME 82.6 FL (80.0-100.0); MEAN CORPUSCULAR HEMOGLOBIN 27.7 PG (27.0-34.0); MEAN CORPUSCULAR HGB CONC 33.5 % (32.0-36.0); MEAN PLATELET VOLUME 7.6 FL (7.0-11.0); MONO % 6.7 % (0.0-8.0); MONOCYTE # 0.6 TH/MM3 (0-0.9); NEUT % 86.8 % (16.0-70.0); PLATELET COUNT 276 TH/MM3 (150-450); RED BLOOD COUNT 4.61 MIL/MM3 (4.00-5.30); RED CELL DISTRIBUTION WIDTH 16.6 % (11.6-17.2); WHITE BLOOD COUNT 8.6 TH/MM3 (4.0-11.0)
[2017-07-04 04:49] LABS: BICARBONATE 29.9 MEQ/L (21.0-32.0); CALCIUM 8.9 MG/DL (8.5-10.1); CREATININE 0.7 MG/DL (0.50-1.00); MAGNESIUM 2.1 MG/DL (1.5-2.5); PHOSPHORUS 4.8 MG/DL (2.5-4.9)
[2017-07-04] MEDS: ONDANSETRON HCL 4 MG/2 ML VIAL IV PUSH PRN ×3 (05:03→20:59)
--- NOTE | 2017-07-04 05:30 | RADRPT ---
EXAM DATE/TIME: 07/04/2017 04:17 [place] COMPARISON: CHEST SINGLE AP, July 03, 2017, 12:46. INDICATIONS : Evaluate for pneumothorax, Right side chest tube MEDICAL HISTORY : Chronic obstructive pulmonary disease. Pulmonary HTN, CHF, SURGICAL HISTORY : section. ENCOUNTER: Subsequent ACUITY: 2 days PAIN SCORE: 7/10 LOCATION: Bilateral chest FINDINGS: A single view of the chest demonstrates a right-sided chest tube with a moderate to large right pneum othorax which is slightly larger than on the examination from July 03. Mild hazy airspace disease in left lung. No significant effusion. CONCLUSION: 1. Right chest tube present with slight increase in size of moderate to large right pneumothorax over the last day. Shade Suh MD on July 04, 2017 at 5:25 Board Certified Radiologist. This report was verified electronically.
[2017-07-04] MEDS: LEVOTHYROXINE SODIUM 25 MCG TAB PO SCH (06:02)
[2017-07-04] MEDS: LEVOTHYROXINE SODIUM 112 MCG TAB PO SCH (06:02)
[2017-07-04] MEDS: HEPARIN SODIUM - SQ 10,000 UNITS/ML VIAL SQ SCH ×2 (06:04→18:17)
[2017-07-04] MEDS: INSULIN ASPART SUPPLEMENTAL SCALE SQ SCH ×4 (08:00→21:00)
--- NOTE | 2017-07-04 08:05 | HHI.CCPN ---
Subjective Remarks/Hospital Course This is a 56-year-old patient with history of scleroderma, COPD, right sided heart failure, pulmonary hypertension, esophageal dysmotility presents to the [facility] today, states that she had a coughing fit this morning and then started feeling right sided chest tightness, feels like she is very short of breath. She denies any fevers or any other issues. Imaging studies were performed that revealed a right pneumothorax. A chest tube was placed in the ED , Dr. Brink was consulted by ED physician. CT scan was ordered pending. The patient was transferred to [facility]. Critical care medicine was consulted. Of note patient is being seen by [facility] by operations management trainee and hydrometer finisher, medical records request has been initiated. Subjective: 07/04: Afebrile. Leukocytosis resolved. Overnight the patient's oxygen requirements have decreased now currently on partial nonrebreather mask, however chest x-ray has worsened overnight a chin continues to have large right pneumothorax despite chest tube suction -[address] Hurst contacted this a.m., and he plans to replace chest tube this a.m.. Objective Vital Signs Date Time Temp Pulse Resp B/P (MAP) Pulse Ox O2 Delivery O2 Flow Rate FiO2 07/04/17 07:14 98 Partial Rebreather 12.00 07/04/17 05:03 18 07/04/17 03:00 97.6 48 121/58 (79) 07/04/17 03:00 70 Intake and Output 07/04/17 07/04/17 07/05/17 08:00 16:00 00:00 Intake Total 500 ml Output Total 1250 ml Balance -750 ml Result Diagram: 07/04/17 0320 07/04/17 0320 Other Results Microbiology Date/Time Source Procedure Growth Status 07/03/17 18:30 Nasal Washing Influenza Types A,B Antigen ([facility]) - Final NEGATIVE FOR FLU A AND B ANTIGEN.... Complete Imaging Last Impressions Chest X-Ray 07/04/17 0600 Signed Impressions: Service Date/Time: Tuesday, July 04, 2017 04:17 - CONCLUSION: 1. Right chest tube present with slight increase in size of moderate to large right pneumothorax over the last day. Shade Suh MD Chest CT 07/03/17 1310 Signed Impressions: Service Date/Time: Monday, July 03, 2017 13:56 - CONCLUSION: Moderate to large right pneumothorax with partial collapse of the right lung . No evidence of mass or adenopathy and bony structures are intact. Minimal area of parenchymal consolidation anterior to the right mid michael and in the right base Quinton Riggs MD Last Impressions Chest CT 07/03/17 1310 Signed Impressions: Service Date/Time: Monday, July 03, 2017 13:56 - CONCLUSION: Moderate to large right pneumothorax with partial collapse of the right lung . No evidence of mass or adenopathy and bony structures are intact. Minimal area of parenchymal consolidation anterior to the right mid michael and in the right base Quinton Riggs MD Chest X-Ray 07/03/17 1223 Signed Impressions: Service Date/Time: Monday, July 03, 2017 12:46 - CONCLUSION: Placement of a right-sided chest tube with minimal reexpansion of the right lung.. Julissa Lewis MD Objective Remarks GENERAL: This is a well-developed well-nourished female, in no respiratory distress currently on nonrebreather mask SKIN: Warm and dry. HEAD: Atraumatic. Normocephalic. EYES: Pupils equal and round. No scleral icterus. No injection or drainage. ENT: No nasal bleeding or discharge. Mucous membranes pink and moist. NECK: Trachea midline. No JVD. CARDIOVASCULAR: Normal rate, regular rhythm. RESPIRATORY: No accessory muscle use. Clear to auscultation. Breath sounds equal bilaterally. GASTROINTESTINAL: Abdomen soft, non-tender, nondistended. No guarding. MUSCULOSKELETAL: Extremities without clubbing, cyanosis, or edema. No obvious deformities. NEUROLOGICAL: Awake and alert. RASS 0. No gross focal/sensory deficits. Follows commands in all 4 extremities. Procedures 07/03: Pigtail chest tube ,( right)placement in ED Urinary Catheter: Yes Dodson insert reason: ICU Pt Getting Diuretics Date of Insertion: Jul 03, 2017 A/P Problem List: (1) Leukocytosis, unspecified ICD Code: D72.829 - Elevated white blood cell count, unspecified (2) Esophageal dysmotility due to systemic disease ICD Code: K22.4 - Dyskinesia of esophagus (3) Scleroderma ICD Code: M34.9 - Scleroderma Status: Acute (4) COPD (chronic obstructive pulmonary disease) ICD Code: J44.9 - COPD (chronic obstructive pulmonary disease) Status: Acute (5) Pulmonary hypertension ICD Code: I27.0 - Pulmonary hypertension Status: Acute (6) Hypothyroidism ICD Code: E03.9 - Hypothyroidism Status: Acute (7) Right knee pain ICD Code: M25.561 - Right knee pain Status: Acute (8) Gout ICD Code: M10.9 - Gout Status: Acute (9) Pneumothorax, right ICD Code: J93.9 - Pneumothorax, unspecified Status: Acute (10) Gouty arthritis ICD Code: M10.9 - Gout, unspecified Status: Acute Assessment and Plan This is a 56-year-old female with multiple comorbidities, with a rather large spontaneous pneumothorax S/P pigtail chest tube placement. Currently the patient is on a nonrebreather mask to maintain O2 saturation greater than 90%. Dr. Domingo vascular surgery has been consulted by ED reevaluation. Chest to suction increased to -30cm H20. A chin with acute respiratory insufficiency is at risk for possible intubation admit to ICU. Plan by systems: Neurologic: Anxiety disorder Chronic pain syndrome Continue home medications Soma Continue gabapentin 300 mg QID Alprazolam 0.25 mg q 4 hr PRN Dilaudid 1 mg every 4 hours when necessary for pain level 7-10 Tylenol 650 mg for temp greater than 101 Respiratory: Large right pneumothorax Acute hypoxic respiratory insufficiency Pulmonary hypertension Maintain chest tube to -[id number] ,may advance to -40 Currently on 100% nonrebreather mask, continue to wean Continue home medications-inhalers Symbicort and Spiriva Continue home medications for pulmonary hypertension-sildenafil 20 mg every 8 hours, Opsimid, and Macitentan Pulmonology [id number] recommendations Duo nebs every 6 hours scheduled every 4 hours when necessary Maintain O2 sat greater than 92% Dr. Brink consulted -plan for replacement of right chest tube this a.m. Cardiovascular: Hypertension Continue home medication amlodipine Renal: Maintain Dodson-patient receiving diuretics-home meds include Lasix and spironolactone -- Strict I/Os FEN/GI: Hiatal hernia Esophageal dysmotility Zofran for nausea Advance to heart healthy diet GI consulted Heme/ID: Leukocytosis-resolved blood urine and sputum cultures- NGTD Legionella pneumococcal antigens- Influenza antigen- negative Monitor CBC Endocrine: Hypothyroidism Hyperglycemia of critical illness Glucose monitoring per ICU protocol. Low dose regimen Continue home medication levothyroxine 137 mcg/d -- SSI Prophylaxis: GI Prophylaxis Famotidine DVT Prophylaxis -- SCDs Heparin SQ BID Lines: Peripheral IVs 2. Central line if indicated Dispo: Level 3 D/W Dr. Hurst, SLED MAKER (Jayla), and patient at bedside Medical release form signed by patient attempts being made to obtain records from [facility] to include pulmonology and gastroenterology Physician Brooke Holm MD Jul 04, 2017 08:05
[2017-07-04] MEDS ORDERED: MACITENTAN 10 MG PO SCH (09:00)
[2017-07-04] MEDS ORDERED: OPSUMIT 10 MG PO SCH (09:00)
[2017-07-04] MEDS: ALPRAZolam 1 MG TAB PO PRN ×2 (09:41→21:00)
--- NOTE | 2017-07-04 09:47 | PD.CONS ---
HPI History of Present Illness This is a 56 year old F with medical history significant for COPD, scleroderma ( diagnosed fiver years ago), history of pneumothorax (5 years ago), pulmonary HTN , HTN, right sided heart failure, and recent diagnosis of esophageal dysmotility. Pt presented to [facility] with complaints of SOB and chest tightness, chest x-ray revealed right sided pneumothorax. She is currently admitted to CVICU with pneumothorax, S/P chest tube placement yesterday, worsening of pneumothorax today on x-ray. Plan is to change the chest tube today. Reports she had an EGD and Barium swallow done 2 and a half week ago at [facility] when she was diagnosed with esophageal dysmotility. Medical records have been requested, have not been received yet. She finished a course of Flagyl last Wednesday for SIBO, her provider wanted her to take Xifaxan, however insurance did not cover it. GI symptoms include continued dysphagia, worse with solids, feels like her food is getting stuck. Did not have a dilation done during most recent EGD two weeks ago. History of dilation, last done in December when she was in [place] for food bolus. Also complaining of diarrhea , 10-15 episodes a day, with associated fecal incontinence for the past year. Last colonoscopy was approx 3 years ago, she states exam revealed polyps. Denies abdominal pain. Some nausea, intermittent, began yesterday. Has not eaten in a few days, due to the SOB. Pt currently on non-rebreather, VS stable. (Tasha Storm) PFSH Past Medical History HTN Pulmonary HTN scleroderma esophageal dysmotility COPD Pneumothorax Past Surgical History EGD colonoscopy (Tasha Storm) Coded Allergies: codeine (Unverified Adverse Reaction, Unknown, NAUSEA, 07/03/17) Review of Systems Gastrointestinal: COMPLAINS OF: Diarrhea, Nausea, Difficulty Swallowing, DENIES : Abdominal pain, Black stools, Bloody stools, Constipation, Vomiting, Odynophagia, Swelling of Abdomen, Heartburn, Hematemesis (Tasha Storm) GI Exam Vitals I&O Vital Signs Date Time Temp Pulse Resp B/P (MAP) Pulse Ox O2 Delivery O2 Flow Rate FiO2 07/04/17 07:14 98 Partial Rebreather 12.00 07/04/17 07:00 61 07/04/17 07:00 97.8 61 20 119/62 (81) 95 07/04/17 07:00 95 Non-Rebreather 70 07/04/17 05:03 18 07/04/17 03:00 97.6 48 18 121/58 (79) 97 07/04/17 03:00 97 Partial Non-Rebreather 70 07/04/17 03:00 70 07/03/17 23:00 98.9 67 18 125/59 (81) 97 07/03/17 23:00 97 Partial Non-Rebreather 70 07/03/17 23:00 65 07/03/17 22:55 94 Venturi Mask 6.00 50 07/03/17 19:00 99.0 85 18 164/70 (101) 99 07/03/17 19:00 83 07/03/17 19:00 99 Non-Rebreather 100 07/03/17 16:00 98 Non-Rebreather 100 07/03/17 16:00 78 07/03/17 15:55 98.0 78 32 147/69 (95) 90 07/03/17 15:55 86 Nasal Cannula 5.00 07/03/17 15:17 07/03/17 15:17 81 18 152/70 (97) 93 Nasal Cannula 5.00 07/03/17 14:19 76 20 140/63 (88) 95 Nasal Cannula 5.00 07/03/17 13:28 82 18 145/65 (91) 93 Nasal Cannula 5.00 07/03/17 12:53 87 16 151/66 (94) 94 Nasal Cannula 5.00 07/03/17 12:50 98 Nasal Cannula 2.00 07/03/17 12:36 (119) 07/03/17 12:20 86 18 138/72 (94) 100 Nasal Cannula 5.00 07/03/17 12:10 112 26 96 Nasal Cannula 10.00 07/03/17 12:05 114 26 172/76 (108) 97 Nasal Cannula 10.00 07/03/17 11:45 96 15.00 07/03/17 11:45 98 Non-Rebreather 15.00 07/03/17 11:42 88 Non-Rebreather 10.00 07/03/17 11:42 98.0 86 28 196/81 (119) 88 Non-Rebreather 10.00 07/03/17 11:42 88 Non-Rebreather 10.00 07/03/17 11:42 88 Non-Rebreather 10.00 I/O 07/03/17 07/03/17 07/03/17 07/04/17 07/04/17 07/04/17 07:00 15:00 23:00 07:00 15:00 23:00 Intake Total 500 ml Output Total 0 ml 1350 ml 1250 ml Balance 0 ml -1350 ml -750 ml Intake IV Total 500 ml Output Urine Total 1350 ml 1250 ml Stool Total 0 ml Chest Tube Drainage Total 0 ml 0 ml 0 ml # Voids 1 Imaging Last Impressions Chest X-Ray 07/04/17 0600 Signed Impressions: Service Date/Time: Tuesday, July 04, 2017 04:17 - CONCLUSION: 1. Right chest tube present with slight increase in size of moderate to large right pneumothorax over the last day. Shade Suh MD Chest CT 07/03/17 1310 Signed Impressions: Service Date/Time: Monday, July 03, 2017 13:56 - CONCLUSION: Moderate to large right pneumothorax with partial collapse of the right lung . No evidence of mass or adenopathy and bony structures are intact. Minimal area of parenchymal consolidation anterior to the right mid michael and in the right base Quinton Riggs MD Laboratory Test 07/03/17 11:40 07/03/17 16:30 07/04/17 03:20 White Blood Count 16.9 TH/MM3 8.6 TH/MM3 Red Blood Count 5.28 MIL/MM3 4.61 MIL/MM3 Hemoglobin 14.0 GM/DL 12.8 GM/DL Hematocrit 43.7 % 38.1 % Mean Corpuscular Volume 82.8 FL 82.6 FL Mean Corpuscular Hemoglobin 26.6 PG 27.7 PG Mean Corpuscular Hemoglobin Concent 32.1 % 33.5 % Red Cell Distribution Width 15.6 % 16.6 % Platelet Count 417 TH/MM3 276 TH/MM3 Mean Platelet Volume 7.7 FL 7.6 FL Neutrophils (%) (Auto) 84.8 % 86.8 % Lymphocytes (%) (Auto) 11.0 % 6.3 % Monocytes (%) (Auto) 2.5 % 6.7 % Eosinophils (%) (Auto) 0.6 % 0.0 % Basophils (%) (Auto) 1.1 % 0.2 % Neutrophils # (Auto) 14.3 TH/MM3 7.5 TH/MM3 Lymphocytes # (Auto) 1.9 TH/MM3 0.5 TH/MM3 Monocytes # (Auto) 0.4 TH/MM3 0.6 TH/MM3 Eosinophils # (Auto) 0.1 TH/MM3 0.0 TH/MM3 Basophils # (Auto) 0.2 TH/MM3 0.0 TH/MM3 CBC Comment DIFF FINAL DIFF FINAL Differential Comment Blood Urea Nitrogen 19 MG/DL 16 MG/DL Creatinine 0.89 MG/DL 0.70 MG/DL Random Glucose 179 MG/DL 111 MG/DL Total Protein 8.2 GM/DL Albumin 4.5 GM/DL Calcium Level 9.7 MG/DL 8.9 MG/DL Alkaline Phosphatase 84 U/L Aspartate Amino Transf (AST/SGOT) 41 U/L Alanine Aminotransferase (ALT/SGPT) 30 U/L Total Bilirubin 0.4 MG/DL Sodium Level 131 MEQ/L 133 MEQ/L Potassium Level 3.8 MEQ/L 3.8 MEQ/L Chloride Level 96 MEQ/L 96 MEQ/L Carbon Dioxide Level 25.9 MEQ/L 29.9 MEQ/L Anion Gap 9 MEQ/L 7 MEQ/L Estimat Glomerular Filtration Rate 66 ML/MIN 87 ML/MIN B-Type Natriuretic Peptide 225 PG/ML Nasal Screen MRSA (PCR) MRSA NOT DETECTED Phosphorus Level 4.8 MG/DL Magnesium Level 2.1 MG/DL Date/Time Source Procedure Growth Status 07/03/17 18:55 Blood Peripheral Aerobic Blood Culture Pending Received 07/03/17 18:55 Blood Peripheral Anaerobic Blood Culture Pending Received 07/03/17 19:00 Sputum Expectorated Sputum Gram Stain Pending Received 07/03/17 19:00 Sputum Expectorated Sputum Sputum Culture Pending Received 07/03/17 18:30 Urine Catheterized Urine Legionella Antigen Pending Received 07/03/17 18:30 Urine Catheterized Urine Streptococcus pneumoniae Antigen (M Pending Received Physical Examination HEENT: Normocephalic; atraumatic CHEST: Labored, tachypneic, O2 via NRB, chest tube to right side CARDIAC: RRR ABDOMEN: Soft, nondistended, nontender; bowel sounds active EXTREMITIES: No clubbing, cyanosis, or edema. SKIN: Normal; no rash; no jaundice. [employer]: No focal deficits; alert and oriented times three. (Tasha Storm) Assessment and Plan Plan Assessment - Esophageal dysmotility secondary to scleroderma- recently diagnosed at [facility] after was found to have aspiration pneumonia. EGD and barium swallow two and a half weeks ago, records requested, not received yet. Pt reports dysphagia with both liquids and solids, more so with solids. Last EGD with dilation was in December to resolve a food bolus. Speech therapy has been consulted, pending consult to evaluate. Given recurrence of aspiration pneumonia, PEG tube should be addressed with pt. EGD will also be done when pt is off NRB and more stable. - Fecal incontinence and diarrhea- 10-20 episodes a day for the past year, could be secondary to scleroderma, however, pt has not been worked up previously for this diarrhea. Will order stool studies. Add bulking agent. Biopsy of small intestine during EGD when pt stable. Last colonoscopy was approx 3 years ago, states polyps - SIBO- recent treated with Flagyl, finished last Wednesday - ? Urinary fistula- per RN difficulty placing catheter, and she thinks there may be an enterovesical fistula. Will start by ordering urine culture to assess for colonic bacteria. - Pneumothorax, chest tube, per CC Plan: - Protonix - Cholestyramine - Probiotics - Stool studies - EGD when stable - Obtain records from [facility] to review previous work up - Speech therapy eval pending - Urine culture - Supportive care - Further recommendations to follow baed on results of above Pt has been seen and examined by myself and Dr. Pelayo and this note is written on his behalf (Tasha Storm) Physician Comments patient seen and examined agree with above monitor labs continue present supportive care EGD/ Flex sig when more stable (Tomas Pelayo MD) Tasha Storm Jul 04, 2017 09:47 Tomas Pelayo MD Jul 04, 2017 22:35
[2017-07-04] MEDS ORDERED: MIDAZOLAM HCL 5 MG/ML VIAL (1 ML) ONE (09:53)
[2017-07-04] MEDS ORDERED: LIDOCAINE HCL 1% 50 ML VIAL ONE (09:54)
[2017-07-04] MEDS: SODIUM CHLORIDE 0.9% FLUSH 10 ML FLUSH IV FLUSH SCH ×2 (10:11→18:18)
[2017-07-04] MEDS ORDERED: MIDAZOLAM HCL 5 MG/ML VIAL (1 ML) IV ONE (10:30)
--- NOTE | 2017-07-04 10:52 | RADRPT ---
EXAM DATE/TIME: 07/04/2017 10:27 [facility] COMPARISON: CHEST SINGLE AP, July 04, 2017, 4:17. INDICATIONS : Post chest tube placement MEDICAL HISTORY : Chronic obstructive pulmonary disease. Pulmonary HTN, CHF, SURGICAL HISTORY : Tubal ligation. section ENCOUNTER: Subsequent ACUITY: 1 day PAIN SCORE: 0/10 LOCATION: chest FINDINGS: Portable AP view the chest demonstrates almost complete reexpansion of the right lung with only a sma ll apical pneumothorax present measuring 1 cm from the lung apices to the pleural surface. Right-side d chest tube in place. The lungs are clear. Heart size is normal. CONCLUSION: Almost complete reexpansion of the right lung with only a small right apical pneumothorax present. Julissa Lewis MD on July 04, 2017 at 10:48 Board Certified Radiologist. This report was verified electronically.
[2017-07-04] MEDS: FAMOTIDINE 20 MG/2 ML VIAL IV PUSH SCH ×2 (10:54→20:58)
[2017-07-04] MEDS: SILDENAFIL CITRATE 20 MG TAB PO SCH ×3 (10:54→18:18)
[2017-07-04] MEDS: GABAPENTIN 300 MG CAP PO SCH ×4 (10:54→21:00)
[2017-07-04] MEDS: PRAVASTATIN SOD 40 MG TAB PO SCH (10:56)
[2017-07-04] MEDS: SPIRONOLACTONE 50 MG TAB PO SCH (10:56)
[2017-07-04] MEDS: CALCIUM/VITAMIN D 250 MG/125 U TAB PO SCH (10:56)
[2017-07-04] MEDS: FUROSEMIDE 20 MG TAB PO SCH ×2 (10:56→21:00)
[2017-07-04] MEDS: DOCUSATE SODIUM 50 MG/SENNA 8.6 MG TAB PO SCH ×2 (10:56→21:00)
[2017-07-04] MEDS: BUDESONIDE-FORMOTEROL 80/4.5 MCG INHALER INH SCH ×2 (10:56→21:00)
--- NOTE | 2017-07-04 11:16 | PD.CAR.PN ---
CVT Progress Note Subjective/Hospital Course: 07/04/2017 Patient with known scleroderma and recurrent pneumothorax First pneumothorax was about 5 years ago and patient was diagnosed with scleroderma and now this repeated again 20 [place] chest tube placed in the lung is now reinflated As noted in the consultation, patients with immuno related reticuloendothelial and connective tissue diseases, like scleroderma sarcoidosis, Elmo's granulomatosis, lupus and such have a decreased pulmonary compliance and lungs are usually stiffer and harder to inflate pneumothoraces. Will occur from the same but also as a result of pleural blebs considering the patient has been smoker for most of her adult life Will order CT scan of the chest and reevaluate for thoracoscopy and possible bleb resection Objective: Vital Signs Date Time Temp Pulse Resp B/P (MAP) Pulse Ox O2 Delivery O2 Flow Rate FiO2 07/04/17 07:14 98 Partial Rebreather 12.00 07/04/17 07:00 61 07/04/17 07:00 97.8 61 20 119/62 (81) 95 07/04/17 07:00 95 Non-Rebreather 70 07/04/17 05:03 18 07/04/17 03:00 97.6 48 18 121/58 (79) 97 07/04/17 03:00 97 Partial Non-Rebreather 70 07/04/17 03:00 70 07/03/17 23:00 98.9 67 18 125/59 (81) 97 07/03/17 23:00 97 Partial Non-Rebreather 70 07/03/17 23:00 65 07/03/17 22:55 94 Venturi Mask 6.00 50 07/03/17 19:00 99.0 85 18 164/70 (101) 99 07/03/17 19:00 83 07/03/17 19:00 99 Non-Rebreather 100 07/03/17 16:00 98 Non-Rebreather 100 07/03/17 16:00 78 07/03/17 15:55 98.0 78 32 147/69 (95) 90 07/03/17 15:55 86 Nasal Cannula 5.00 07/03/17 15:17 07/03/17 15:17 81 18 152/70 (97) 93 Nasal Cannula 5.00 07/03/17 14:19 76 20 140/63 (88) 95 Nasal Cannula 5.00 07/03/17 13:28 82 18 145/65 (91) 93 Nasal Cannula 5.00 07/03/17 12:53 87 16 151/66 (94) 94 Nasal Cannula 5.00 07/03/17 12:50 98 Nasal Cannula 2.00 07/03/17 12:36 (119) 07/03/17 12:20 86 18 138/72 (94) 100 Nasal Cannula 5.00 07/03/17 12:10 112 26 96 Nasal Cannula 10.00 07/03/17 12:05 114 26 172/76 (108) 97 Nasal Cannula 10.00 07/03/17 11:45 96 15.00 07/03/17 11:45 98 Non-Rebreather 15.00 07/03/17 11:42 88 Non-Rebreather 10.00 07/03/17 11:42 98.0 86 28 196/81 (119) 88 Non-Rebreather 10.00 07/03/17 11:42 88 Non-Rebreather 10.00 07/03/17 11:42 88 Non-Rebreather 10.00 Labs: Laboratory Tests Test 07/04/17 03:20 White Blood Count 8.6 TH/MM3 (4.0-11.0) Red Blood Count 4.61 MIL/MM3 (4.00-5.30) Hemoglobin 12.8 GM/DL (11.6-15.3) Hematocrit 38.1 % (35.0-46.0) Mean Corpuscular Volume 82.6 FL (80.0-100.0) Mean Corpuscular Hemoglobin 27.7 PG (27.0-34.0) Mean Corpuscular Hemoglobin Concent 33.5 % (32.0-36.0) Red Cell Distribution Width 16.6 % (11.6-17.2) Platelet Count 276 TH/MM3 (150-450) Mean Platelet Volume 7.6 FL (7.0-11.0) Neutrophils (%) (Auto) 86.8 % (16.0-70.0) Lymphocytes (%) (Auto) 6.3 % (9.0-44.0) Monocytes (%) (Auto) 6.7 % (0.0-8.0) Eosinophils (%) (Auto) 0.0 % (0.0-4.0) Basophils (%) (Auto) 0.2 % (0.0-2.0) Neutrophils # (Auto) 7.5 TH/MM3 (1.8-7.7) Lymphocytes # (Auto) 0.5 TH/MM3 (1.0-4.8) Monocytes # (Auto) 0.6 TH/MM3 (0-0.9) Eosinophils # (Auto) 0.0 TH/MM3 (0-0.4) Basophils # (Auto) 0.0 TH/MM3 (0-0.2) CBC Comment DIFF FINAL Differential Comment Blood Urea Nitrogen 16 MG/DL (7-18) Creatinine 0.70 MG/DL (0.50-1.00) Random Glucose 111 MG/DL (74-106) Calcium Level 8.9 MG/DL (8.5-10.1) Phosphorus Level 4.8 MG/DL (2.5-4.9) Magnesium Level 2.1 MG/DL (1.5-2.5) Sodium Level 133 MEQ/L (136-145) Potassium Level 3.8 MEQ/L (3.5-5.1) Chloride Level 96 MEQ/L (98-107) Carbon Dioxide Level 29.9 MEQ/L (21.0-32.0) Anion Gap 7 MEQ/L (5-15) Estimat Glomerular Filtration Rate 87 ML/MIN (>89) Result Diagram: 07/04/1731907/04/17319 Triny Brink MD Jul 04, 2017 11:16
--- NOTE | 2017-07-04 12:34 | MB ---
cc: TRINY RODRIGUEZ MD DATE OF CONSULTATION: 07/04/2017. REASON FOR CONSULTATION: Recurrent right pneumothorax, hypoxia and scleroderma. HISTORY OF PRESENT ILLNESS: This 56-year-old lady who is known to have scleroderma for about five years presented to the [facility] Emergency Room with sudden shortness of breath and feeling tightness in the right chest after coughing. The patient was diagnosed with complete collapse of the right lung and a small PleurX catheter placed. I was at the time called by the emergency department physician and recommended that the patient be transferred to the [facility] hospital. The patient is now in the intensive care unit. It should be noted that the patient was diagnosed with scleroderma about five years ago when she dropped her lung the first time. PAST MEDICAL HISTORY: 1. COPD. 2. Right-sided heart failure. 3. Hypertension. 4. Esophageal dysmotility. PAST SURGICAL HISTORY: 1. Two C-sections. 2. Left breast biopsy. 3. Some sort of rectovaginal fistula repair in the past. MEDICATIONS: Medications can be found on the record. SOCIAL HISTORY: The patient stopped smoking five years ago cold turkey when she was diagnosed with scleroderma. She is a teacher. She smoked about a pack a day for most of her adult life. PHYSICAL EXAMINATION: GENERAL: The physical exam reveals a pleasant thin 56-year-old lady. HEAD, EYES, EARS, NOSE, THROAT: Normocephalic. No trauma to the head. Pupils are equal and reactive. Extraocular muscles intact. NECK: The neck is supple. Bilateral carotid pulses. No bruits. CHEST: Decreased breath sounds on the right side where the lung is completely collapsed, and on the left side the patient also has somewhat decreased breath sounds due to COPD. There is a clear loss of chest wall musculature consistent with some degree of pulmonary cachexia. HEART: Regular rhythm. ABDOMEN: Soft. Active bowel sounds. No rebound. No guarding. No masses. Scars from previous surgery. EXTREMITIES: The patient has bilateral femoral, popliteal, dorsalis pedis pulse and posterior tibial pulses. No signs of vascular deficit. BACK: Back is normal. IMPRESSION AND RECOMMENDATIONS: I reviewed laboratory and diagnostic procedures. This lady has systemic scleroderma, which is manifested now on pulmonary and GI levels. Patients with immunoreactive connective tissue disorders like lupus, ankylosing spondylitis, scleroderma and Elmo's granulomatosis, Preethi-Rich disease, lupus and such will present with various manifestations of connective tissue disorders, either in the locomotor system or visceral organs. In this particular situation, I am not sure if the patient's scleroderma is contributing to her current pneumothorax or if this is simply a pulmonary bleb caused by COPD and her long history of smoking. Nonetheless, any patients with connective diseases will have less compliant lungs and it will take a while for it to re-expand. I placed another chest tube and the lung is now fully expanded. The patient will need a full workup including CT of the chest to evaluate the morphology and anatomy of her lung and to see whether she would benefit from a thoracoscopy, a pleural bleb resection and possible pleurodesis. Further care by clinical indices. Triny BOWERS /11:39 AM /12:11 PM
[2017-07-04] MEDS: TIOTROPIUM BROMIDE 18 MCG INH INH SCH (12:41)
[2017-07-04] MEDS: SODIUM CHLOR 0.9% 1000 ML INJ 1,000 ML IV SCH (15:29)
[2017-07-04 15:52] LABS: PROTHROMBIN TIME - PATIENT 10.2 SEC (9.8-11.6)
--- NOTE | 2017-07-04 17:31 | EKG ---
Date Performed: 07/04/2017 Time Performed: 07:43:38 PTAGE: 56 years EKG: Sinus bradycardia Right axis deviation Possible right ventricular hypertrophy Abnormal ECG PREVIOUS TRACING : 07/03/2017 17.32 Since the prior tracing, there has been no significant lane DOCTOR: En Capellan Interpretating Date/Time 07/04/2017 17:31:12
--- NOTE | 2017-07-04 17:41 | EKG ---
Date Performed: 07/03/2017 Time Performed: 12:44:34 PTAGE: 56 years EKG: Sinus rhythm INDETERMINATE AXIS ABNORMAL ECG PREVIOUS TRACING : 12/06/2016 12.47 Since the prior tracing, there has been no significant lane DOCTOR: En Capellan Interpretating Date/Time 07/04/2017 17:41:16
[2017-07-04] MEDS ORDERED: MACI1TAB2 PO (20:41)
[2017-07-04] MEDS: PANTOPRAZOLE SOD 40 MG DELAYED RELEASE TAB PO SCH (21:00)
[2017-07-04] MEDS: OPSUMIT 10 MG PO SCH (21:49)
--- NOTE | 2017-07-04 22:23 | MB ---
cc: VIDHI GAUTAM MD DATE OF CONSULTATION 07/04/2017 REASON FOR CONSULTATION Pneumothorax. Pulmonary hypertension. HISTORY OF PRESENT ILLNESS The patient is a 66-year-old female who is known with history of diabetes, scleroderma, COPD, pulmonary hypertension, came to the hospital because she was having significant amount of coughing and chest tightness on the right side and shortness of breath. This has been much worse than her baseline and on x-ray she was found to have a right pneumothorax. The patient did have initial chest tube inserted, however, she needed to have another larger chest tube inserted by Surgery. Right now her lung is expanded pretty good. She said that she is feeling better. She is still having a little hypoxia. She is not having any significant chest pain at this point. The patient follows up with my clinic, pulmonary hypertension clinic. PAST MEDICAL HISTORY Reviewed. As mentioned in the History of Present Illness. PAST SURGICAL HISTORY Also reviewed in detail. MEDICATIONS Reviewed in detail. At home for pulmonary hypertension she does take - 1. Opsumit. 2. Sildenafil. For the COPD she is maintained on - 1. Spirolactone. 2. Symbicort. 3. Beta 2 agonist. 4. Also, she takes Spiriva. REVIEW OF SYSTEMS Negative except as mentioned in the HPI. PHYSICAL EXAMINATION VITAL SIGNS: Temperature is 97.8, pulse 68, respirations 18, blood pressure 138/64. She is sating 94% on 50% Ventimask at this point. HEAD: Atraumatic, normocephalic. LUNGS: Bilateral rhonchi and bilateral breath sounds. I do not hear any wheezing. HEART: Normal S1 and S2. ABDOMEN: Soft. Nontender. EXTREMITIES: Mild edema. NEUROLOGIC: Alert, oriented x 3. Moves all extremities. LABORATORY DATA WBC 8.6, hemoglobin 12.8, platelets 276. Sodium 133, potassium 3.8, BUN 16, creatinine 0.7. CHEST X-RAY I reviewed her last chest x-ray that did show a chest tube in place. ASSESSMENT AND PLAN 1. Pulmonary hypertension, most likely WHO Class 1 and possibly Class 3 as well. 2. COPD. 3. Pneumothorax. 4. Scleroderma. 5. Esophageal dysmotility. I do believe the patient is doing well. She responded well to the second chest tube. I agree with surgeon's recommendation that she will need to have a further evaluation and the patient may need to have pleurodesis/thoracoscopy. I would like her to continue on her outpatient pulmonary hypertension medications, namely the sildenafil and Opsumit. I would like to continue the same does she is on. I would like to thank you for this consultation and I will continue to follow up. MD HUANG Hill/MARLEN /9:27 PM /9:57 PM
[2017-07-05] VITALS (14 sets, daily range): BP systolic 115–128; BP diastolic 55–64; PULSE 55–84; RESP 18–20; TEMP 97.3–98.6; O2SAT 95–99
[2017-07-05] MEDS: HYDROmorphone HCL PF 2 MG/ML VIAL IV PRN ×4 (03:43→18:53)
[2017-07-05] MEDS: ONDANSETRON HCL 4 MG/2 ML VIAL IV PUSH PRN ×3 (03:49→20:09)
[2017-07-05] MEDS: CHLORHEXIDINE GLUCONATE 2 % 1 PACK (2 CLOTHS) TOP SCH (04:00)
[2017-07-05 05:12] LABS: AUTOMATED NEUTROPHIL # 9.7 TH/MM3 (1.8-7.7); BASOPHIL % 0.2 % (0.0-2.0); EOSINOPHIL # 0.1 TH/MM3 (0-0.4); EOSINOPHIL % 0.5 % (0.0-4.0); HEMATOCRIT 39.8 % (35.0-46.0); HEMOGLOBIN 13.1 GM/DL (11.6-15.3); LYMPH % 3.6 % (9.0-44.0); LYMPHOCYTE # 0.4 TH/MM3 (1.0-4.8); MEAN CELL VOLUME 83.8 FL (80.0-100.0); MEAN CORPUSCULAR HEMOGLOBIN 27.6 PG (27.0-34.0); MEAN PLATELET VOLUME 7.5 FL (7.0-11.0); MONO % 5.7 % (0.0-8.0); MONOCYTE # 0.6 TH/MM3 (0-0.9); PLATELET COUNT 250 TH/MM3 (150-450); RED BLOOD COUNT 4.76 MIL/MM3 (4.00-5.30); RED CELL DISTRIBUTION WIDTH 16.5 % (11.6-17.2); WHITE BLOOD COUNT 10.8 TH/MM3 (4.0-11.0)
[2017-07-05 05:18] LABS: BICARBONATE 31.8 MEQ/L (21.0-32.0); CALCIUM 8.7 MG/DL (8.5-10.1); CREATININE 0.79 MG/DL (0.50-1.00)
--- NOTE | 2017-07-05 05:23 | RADRPT ---
EXAM DATE/TIME: 07/05/2017 04:37 [facility] COMPARISON: CHEST SINGLE AP, July 04, 2017, 10:27. INDICATIONS : Short of breath. MEDICAL HISTORY : Chronic obstructive pulmonary disease. Pulmonary HTN, CHF, SURGICAL HISTORY : Tubal ligation. section ENCOUNTER: Subsequent ACUITY: 3 days PAIN SCORE: 0/10 LOCATION: Bilateral chest FINDINGS: Patchy interstitial prominence in bilateral alveolar infiltrates noted. Cardiomegaly. Right sided brinda st tube is noted. There is a small right apical pneumothorax again seen. CONCLUSION: Right apical pneumothorax again noted. Dhaval Overton MD on July 05, 2017 at 5:20 Board Certified Radiologist. This report was verified electronically.
[2017-07-05] MEDS: HEPARIN SODIUM - SQ 10,000 UNITS/ML VIAL SQ SCH ×2 (06:25→18:53)
[2017-07-05] MEDS: LEVOTHYROXINE SODIUM 112 MCG TAB PO SCH (06:25)
[2017-07-05] MEDS: LEVOTHYROXINE SODIUM 25 MCG TAB PO SCH (06:25)
[2017-07-05] MEDS: INSULIN ASPART SUPPLEMENTAL SCALE SQ SCH ×4 (08:00→23:13)
[2017-07-05] MEDS: RESP: ALBUTEROL 2.5 MG/IPRATROPIUM 0.5 MG NEB (SCH) INH ×3 (08:22→20:59)
[2017-07-05] MEDS: TIOTROPIUM BROMIDE 18 MCG INH INH SCH (09:00)
[2017-07-05] MEDS: DOCUSATE SODIUM 50 MG/SENNA 8.6 MG TAB PO SCH ×2 (09:00→20:10)
[2017-07-05] MEDS: OPSUMIT 10 MG PO SCH ×2 (09:00→20:12)
[2017-07-05] MEDS: GABAPENTIN 300 MG CAP PO SCH ×4 (09:06→20:10)
[2017-07-05] MEDS: SPIRONOLACTONE 50 MG TAB PO SCH (09:06)
[2017-07-05] MEDS: SILDENAFIL CITRATE 20 MG TAB PO SCH ×3 (09:06→18:52)
[2017-07-05] MEDS: CALCIUM/VITAMIN D 250 MG/125 U TAB PO SCH (09:07)
[2017-07-05] MEDS: PANTOPRAZOLE SOD 40 MG DELAYED RELEASE TAB PO SCH ×2 (09:07→20:08)
[2017-07-05] MEDS: PRAVASTATIN SOD 40 MG TAB PO SCH (09:07)
[2017-07-05] MEDS: SODIUM CHLORIDE 0.9% FLUSH 10 ML FLUSH IV FLUSH SCH ×2 (09:07→20:11)
[2017-07-05] MEDS: CHOLESTYRAMINE 4 GM PACKET PO SCH (09:07)
[2017-07-05] MEDS: FAMOTIDINE 20 MG/2 ML VIAL IV PUSH SCH ×2 (09:07→20:10)
[2017-07-05] MEDS: BUDESONIDE-FORMOTEROL 80/4.5 MCG INHALER INH SCH ×2 (09:08→20:12)
[2017-07-05] MEDS: FUROSEMIDE 20 MG TAB PO SCH ×2 (09:08→20:09)
[2017-07-05] MEDS ORDERED: IOHEXOL 350 MG/ML 10 ML VIAL (for RAD DIAG) IVCONTRAST ONE (09:43)
--- NOTE | 2017-07-05 10:47 | RADRPT ---
EXAM DATE/TIME: 07/05/2017 09:41 [facility] COMPARISON: CT THORAX W/O CONTRAST, July 03, 2017, 13:56. INDICATIONS : Recurrent right pneumothorax systemic scleroderma. IV CONTRAST: 70 cc Omnipaque 350 (iohexol) IV RADIATION DOSE: 7.46 CTDIvol (mGy) MEDICAL HISTORY : Cardiovascular disease. Congestive heart failure. Gastroesophageal reflux disease.Hypertension. SURGICAL HISTORY : None. ENCOUNTER: Subsequent ACUITY: 1 day PAIN SCALE: 0/10 LOCATION: Right chest TECHNIQUE: Volumetric scanning of the chest was performed. Using automated exposure control and adjustment of t he mA and/or kV according to patient size, radiation dose was kept as low as reasonably achievable to obtain optimal diagnostic quality images. DICOM format image data is available electronically for review and comparison. Follow-up recommendations for detected pulmonary nodules are based at a minimum on nodule size and pa tient risk factors according to Fleischner Society Guidelines. FINDINGS: LUNGS: Increasing bilateral airspace disease with compressive atelectatic changes most prominent in the righ t base. Incidental note is made of an azygous fissure in the right upper lung. Previously seen right- sided pneumothorax is much smaller post chest tube placement there is still a loculated component inf eriorly.. PLEURA: There is no pleural thickening or pleural effusion. Small right pneumothorax MEDIASTINUM: The heart and great vessels demonstrate no acute abnormality. There is no mediastinal or hilar lymph adenopathy. Thoracic esophagus is somewhat patulous and filled with debris AXILLAE: Within normal limits. No lymphadenopathy. SKELETAL: Within normal limits for patient age. MISCELLANEOUS: The visualized upper abdominal organs demonstrate no acute abnormality. Benign-appearing calcificatio n in the anterior aspect of the spleen. CONCLUSION: 1. Previously seen right-sided pneumothorax is definitely improved and much smaller but there is stil l a loculated component inferiorly. New surgical chest tube traverses the anterior aspect of the righ t hemithorax. 2. Increasing bilateral airspace disease with patchy foci in the apices and more consolidated, atelec tatic type changes in the bases, right greater than left. 3. Esophagus appears patulous and filled with debris. 4. None calcification in the anteroinferior aspect of the spleen. Sandro Villalobos MD on July 05, 2017 at 10:30 Board Certified Radiologist. This report was verified electronically.
--- NOTE | 2017-07-05 13:12 | PD.CAR.PN ---
CVT Progress Note Subjective/Hospital Course: 07/04/2017 Patient with known scleroderma and recurrent pneumothorax First pneumothorax was about 5 years ago and patient was diagnosed with scleroderma and now this repeated again 20 [place] chest tube placed in the lung is now reinflated As noted in the consultation, patients with immuno related reticuloendothelial and connective tissue diseases, like scleroderma sarcoidosis, Elmo's granulomatosis, lupus and such have a decreased pulmonary compliance and lungs are usually stiffer and harder to inflate pneumothoraces. Will occur from the same but also as a result of pleural blebs considering the patient has been smoker for most of her adult life Will order CT scan of the chest and reevaluate for thoracoscopy and possible bleb resection 07/05/2017 Patient with second spontaneous pneumothorax as a result of pleural blebs Chest is now expanded with placement of a lateral chest tube. CT scan reveals again some fibrotic changes and then in the tip of the lung there is some air-filled spaces consistent with blebs This is most likely due to long-standing smoking and COPD rather than any type of pulmonary fibrosis superimposed on it as result of scleroderma Considering that this is a second pneumothorax I believe it is appropriate for patient to undergo thoracoscopy and stapling of the blebs which are probably in the upper portion of the chest but will see once there. Discussed at length with the patient and will discuss with hypo dipper Tentatively we will schedule patient for Wednesday surgery Objective: Vital Signs Date Time Temp Pulse Resp B/P (MAP) Pulse Ox O2 Delivery O2 Flow Rate FiO2 07/05/17 11:43 98.1 62 20 119/58 (78) 96 07/05/17 08:22 99 Partial Rebreather 07/05/17 07:00 98.6 66 18 128/63 (84) 99 07/05/17 07:00 71 07/05/17 07:00 99 Partial Non-Rebreather 70 07/05/17 04:00 16 07/05/17 03:00 98.4 63 18 128/64 (85) 99 07/05/17 03:00 98 Partial Non-Rebreather 70 07/05/17 03:00 67 07/04/17 23:00 60 07/04/17 23:00 97.7 65 18 150/66 (94) 98 07/04/17 23:00 98 Partial Non-Rebreather 70 07/04/17 19:30 92 Venturi Mask 6.00 40 07/04/17 19:00 69 07/04/17 19:00 97.8 68 18 138/64 (88) 94 07/04/17 19:00 94 Venturi Mask 50 07/04/17 15:00 98.2 59 16 124/70 (88) 94 07/04/17 15:00 99 Non-Rebreather 70 07/04/17 15:00 59 Labs: Laboratory Tests Test 07/05/17 03:43 07/05/17 05:02 White Blood Count 10.8 TH/MM3 (4.0-11.0) Red Blood Count 4.76 MIL/MM3 (4.00-5.30) Hemoglobin 13.1 GM/DL (11.6-15.3) Hematocrit 39.8 % (35.0-46.0) Mean Corpuscular Volume 83.8 FL (80.0-100.0) Mean Corpuscular Hemoglobin 27.6 PG (27.0-34.0) Mean Corpuscular Hemoglobin Concent 33.0 % (32.0-36.0) Red Cell Distribution Width 16.5 % (11.6-17.2) Platelet Count 250 TH/MM3 (150-450) Mean Platelet Volume 7.5 FL (7.0-11.0) Neutrophils (%) (Auto) 90.0 % (16.0-70.0) Lymphocytes (%) (Auto) 3.6 % (9.0-44.0) Monocytes (%) (Auto) 5.7 % (0.0-8.0) Eosinophils (%) (Auto) 0.5 % (0.0-4.0) Basophils (%) (Auto) 0.2 % (0.0-2.0) Neutrophils # (Auto) 9.7 TH/MM3 (1.8-7.7) Lymphocytes # (Auto) 0.4 TH/MM3 (1.0-4.8) Monocytes # (Auto) 0.6 TH/MM3 (0-0.9) Eosinophils # (Auto) 0.1 TH/MM3 (0-0.4) Basophils # (Auto) 0.0 TH/MM3 (0-0.2) CBC Comment DIFF FINAL Differential Comment Blood Urea Nitrogen 15 MG/DL (7-18) Creatinine 0.79 MG/DL (0.50-1.00) Random Glucose 111 MG/DL (74-106) Calcium Level 8.7 MG/DL (8.5-10.1) Sodium Level 132 MEQ/L (136-145) Potassium Level 4.5 MEQ/L (3.5-5.1) Chloride Level 93 MEQ/L (98-107) Carbon Dioxide Level 31.8 MEQ/L (21.0-32.0) Anion Gap 7 MEQ/L (5-15) Estimat Glomerular Filtration Rate 75 ML/MIN (>89) B-Type Natriuretic Peptide 100 PG/ML (0-100) Result Diagram: 07/05/17 0343 07/05/17 0343 Triny Brink MD Jul 05, 2017 13:12
[2017-07-05] MEDS: SODIUM CHLOR 0.9% 1000 ML INJ 1,000 ML IV SCH (13:57)
--- NOTE | 2017-07-05 13:57 | MP ---
cc: TRINY RODRIGUEZ MD DATE OF SURGERY: 07/04/2017 PREOPERATIVE DIAGNOSIS Right spontaneous pneumothorax, scleroderma, respiratory insufficiency. POSTOPERATIVE DIAGNOSIS Right spontaneous pneumothorax, scleroderma, respiratory insufficiency. OPERATIVE PROCEDURE Right chest tube placement. SURGEON Dr. Rodriguez. ANESTHESIA 1% Xylocaine and IV Versed. ESTIMATED BLOOD LOSS 5 ccs. PROCEDURE The patient was prepped and draped in the usual fashion. The area was infiltrated with 1% Xylocaine and a small incision made over the right chest in about the fifth intercostal space in midaxillary line, deepened down with hemostat and 20-[place] chest tube placed, sutured in place with 0-Silk. Chest x-ray was obtained. The patient tolerated the procedure well. Triny Rodriguez SJ/TLL /12:53 PM /1:48 PM
--- NOTE | 2017-07-05 16:14 | HHI.GIFU ---
Subjective Remarks Has transferred down to private room Resting in the bed drowsy, just received pain and nausea meds Chest tubes 2 right side, pressure changes in upper tube with respirations Chief complaint nausea but no vomiting (Iliana Childs) Objective Vitals I&O Vital Signs Date Time Temp Pulse Resp B/P (MAP) Pulse Ox O2 Delivery O2 Flow Rate FiO2 07/05/17 15:12 Simple Mask 6.00 07/05/17 11:43 98.1 62 20 119/58 (78) 96 07/05/17 08:22 99 Partial Rebreather 07/05/17 07:00 98.6 66 18 128/63 (84) 99 07/05/17 07:00 71 07/05/17 07:00 99 Partial Non-Rebreather 70 07/05/17 04:00 16 07/05/17 03:00 98.4 63 18 128/64 (85) 99 07/05/17 03:00 98 Partial Non-Rebreather 70 07/05/17 03:00 67 07/04/17 23:00 60 07/04/17 23:00 97.7 65 18 150/66 (94) 98 07/04/17 23:00 98 Partial Non-Rebreather 70 07/04/17 19:30 92 Venturi Mask 6.00 40 07/04/17 19:00 69 07/04/17 19:00 97.8 68 18 138/64 (88) 94 07/04/17 19:00 94 Venturi Mask 50 I/O 07/04/17 07/04/17 07/04/17 07/05/17 07/05/17 07/05/17 07:00 15:00 23:00 07:00 15:00 23:00 Intake Total 500 ml 1674 ml 240 ml 480 ml Output Total 1250 ml 2040 ml 1016 ml 654 ml Balance -750 ml -366 ml -776 ml -174 ml Intake Oral 1162 ml 240 ml 480 ml IV Total 500 ml 512 ml Output Urine Total 1250 ml 2020 ml 1000 ml 650 ml Stool Total 0 ml 0 ml 0 ml Chest Tube Drainage Total 0 ml 20 ml 16 ml 4 ml Laboratory Laboratory Tests Test 07/05/17 03:43 07/05/17 05:02 White Blood Count 10.8 Red Blood Count 4.76 Hemoglobin 13.1 Hematocrit 39.8 Mean Corpuscular Volume 83.8 Mean Corpuscular Hemoglobin 27.6 Mean Corpuscular Hemoglobin Concent 33.0 Red Cell Distribution Width 16.5 Platelet Count 250 Mean Platelet Volume 7.5 Neutrophils (%) (Auto) 90.0 Lymphocytes (%) (Auto) 3.6 Monocytes (%) (Auto) 5.7 Eosinophils (%) (Auto) 0.5 Basophils (%) (Auto) 0.2 Neutrophils # (Auto) 9.7 Lymphocytes # (Auto) 0.4 Monocytes # (Auto) 0.6 Eosinophils # (Auto) 0.1 Basophils # (Auto) 0.0 CBC Comment DIFF FINAL Differential Comment Blood Urea Nitrogen 15 Creatinine 0.79 Random Glucose 111 Calcium Level 8.7 Sodium Level 132 Potassium Level 4.5 Chloride Level 93 Carbon Dioxide Level 31.8 Anion Gap 7 Estimat Glomerular Filtration Rate 75 B-Type Natriuretic Peptide 100 Date/Time Source Procedure Growth Status 07/03/17 18:55 Blood Peripheral Aerobic Blood Culture - Preliminary NO GROWTH IN 2 DAYS Resulted 07/03/17 18:55 Blood Peripheral Anaerobic Blood Culture - Preliminary NO GROWTH IN 2 DAYS Resulted 07/03/17 19:00 Sputum Expectorated Sputum Gram Stain - Final Complete 07/03/17 19:00 Sputum Expectorated Sputum Sputum Culture - Final HEAVY GROWTH NORMAL RESPIRATORY POOJA Complete 07/04/17 21:20 Urine Catheterized Urine Urine Culture - Preliminary Gram Negative Chris Resulted Imaging Last Impressions Chest X-Ray 07/05/17 0600 Signed Impressions: Service Date/Time: Wednesday, July 05, 2017 04:37 - CONCLUSION: Right apical pneumothorax again noted. Dhaval Overton MD Chest CT 07/05/17 0000 Signed Impressions: Service Date/Time: Wednesday, July 05, 2017 09:41 - CONCLUSION: 1. Previously seen right-sided pneumothorax is definitely improved and much smaller but there is still a loculated component inferiorly. New surgical chest tube traverses the anterior aspect of the right hemithorax. 2. Increasing bilateral airspace disease with patchy foci in the apices and more consolidated, atelectatic type changes in the bases, right greater than left. 3. Esophagus appears patulous and filled with debris. 4. None calcification in the anteroinferior aspect of the spleen. Sandro Villalobos MD Physical Exam HEENT: Pupils round and reactive to light; normocephalic; atraumatic; no jaundice. Oral cavity dry, pale NECK: Neck is supple, no JVD, no lymphadenopathy. CHEST: Chest diminished sounds right side, chest tubes 2 right side, fluctuation in upper tube with respirations, no audible rhonchi CARDIAC: Regular rate and rhythm ABDOMEN: Flat, Soft, nondistended, nontender; no hepatosplenomegaly; bowel sounds often EXTREMITIES: No clubbing, cyanosis, or edema. SKIN: Normal; no rash; no jaundice., Pale DAY CARE ASSISTANT: No focal deficits; drowsy but will awaken to verbal stimuli, answers questions appropriately (Iliana Childs) Assessment and Plan Plan Assessment/history - Esophageal dysmotility secondary to scleroderma- recently diagnosed at [facility] after was found to have aspiration pneumonia. EGD and barium swallow two and a half weeks ago, records requested, not received yet. Pt reports dysphagia with both liquids and solids, more so with solids. Last EGD with dilation was in December to resolve a food bolus. Speech therapy has been consulted, pending consult to evaluate. Given recurrence of aspiration pneumonia, PEG tube should be addressed with pt. Records ordered from [place] - Fecal incontinence and diarrhea- 10-20 episodes a day for the past year, could be secondary to scleroderma, however, pt has not been worked up previously for this diarrhea. Will order stool studies. Add bulking agent. Biopsy of small intestine during EGD when pt stable. Last colonoscopy was approx 3 years ago, states polyps - Recent history SIBO- recent treated with Flagyl, finished last Wednesday - Pneumothorax, chest tube, 2, small amount of clear red tinged fluid - AST level 41, LFT normal, hemoglobin 13.1 - CT chest 07/05/17 shows esophagus with some debris noted - Speech therapy eval for swallow, possible aspiration, states patient's diet can be regular with thin liquids. No dysphasia noted - Currently patient is fairly drowsy but is answering questions appropriately. Patient's son in room and is questioning some of his mom's decisions about her care. I encouraged him to talk to his mother about his feelings. Plan: - Pain management per attending -Zofran with mild effectiveness, patient asking about Phenergan which she was taking as an outpatient - Protonix - Cholestyramine - Bowel regimen meds if needed, - Probiotics - Stool studies - EGD TBA, son in room and doesn't feel she needs any procedures for now? - Supportive care - Further recommendations to follow based on symptoms and plating care needed. Pt seen by myself and Dr. Pelayo and this note is written on his behalf (Iliana Childs) Physician Comments Patient seen and examined Agree with above Continue with current supportive care Monitor labs We'll start Xifaxan 400 mg 3 times a day for SIBO (Tomas Pelayo MD) Iliana Childs Jul 05, 2017 16:14 Tomas Pelayo MD Jul 05, 2017 18:40
--- NOTE | 2017-07-05 18:45 | HHI.PR ---
Subjective Remarks Pt is a 56 y/o F with h/o COPD, scleroderma, and pulmonary HTN. Pt admitted with SOB and right-sided chest pain following coughing fit. Evaluation in the ER 07/03/17 revealed right pneumothorax. Pt had a pigtail catheter placed in the ER. Pt subsequently had a second chest tube placed by Dr. Brink (07/04/17) with reexpansion of the right lung. Pt transferred from [facility] to the Hospitalist service 07/05/17 Pt tolerating simple mask on 7 liters. Pt seen together with Pulmonary Medicine, Dr. Hendrix. Objective Vitals Vital Signs Date Time Temp Pulse Resp B/P (MAP) Pulse Ox O2 Delivery O2 Flow Rate FiO2 07/05/17 16:50 97.3 75 20 116/55 (75) 98 07/05/17 16:27 Simple Mask 8.00 07/05/17 16:00 67 07/05/17 15:12 Simple Mask 6.00 07/05/17 12:00 55 07/05/17 11:43 98.1 62 20 119/58 (78) 96 07/05/17 08:22 99 Partial Rebreather 07/05/17 07:00 98.6 66 18 128/63 (84) 99 07/05/17 07:00 71 07/05/17 07:00 99 Partial Non-Rebreather 70 07/05/17 04:00 16 07/05/17 03:00 98.4 63 18 128/64 (85) 99 07/05/17 03:00 98 Partial Non-Rebreather 70 07/05/17 03:00 67 07/04/17 23:00 60 07/04/17 23:00 97.7 65 18 150/66 (94) 98 07/04/17 23:00 98 Partial Non-Rebreather 70 07/04/17 19:30 92 Venturi Mask 6.00 40 07/04/17 19:00 69 07/04/17 19:00 97.8 68 18 138/64 (88) 94 07/04/17 19:00 94 Venturi Mask 50 07/05/17 07/05/17 07/06/17 15:00 23:00 07:00 Intake Total 480 ml 500 ml Output Total 654 ml 1600 ml Balance -174 ml -1100 ml Intake Oral 480 ml 500 ml Output Urine Total 650 ml 1600 ml Stool Total 0 ml Chest Tube Drainage Total 4 ml Result Diagram: 07/05/17 0343 07/05/17 0343 Imaging Last Impressions Chest X-Ray 07/05/17 0600 Signed Impressions: Service Date/Time: Wednesday, July 05, 2017 04:37 - CONCLUSION: Right apical pneumothorax again noted. Dhaval Overton MD Chest CT 07/05/17 0000 Signed Impressions: Service Date/Time: Wednesday, July 05, 2017 09:41 - CONCLUSION: 1. Previously seen right-sided pneumothorax is definitely improved and much smaller but there is still a loculated component inferiorly. New surgical chest tube traverses the anterior aspect of the right hemithorax. 2. Increasing bilateral airspace disease with patchy foci in the apices and more consolidated, atelectatic type changes in the bases, right greater than left. 3. Esophagus appears patulous and filled with debris. 4. None calcification in the anteroinferior aspect of the spleen. Sandro Villalobos MD Objective Remarks GENERAL: This is a well-nourished, well-developed patient, in no apparent distress. CARDIOVASCULAR: Regular rate and rhythm without murmurs, gallops, or rubs. RESPIRATORY: Clear to auscultation. Breath sounds equal bilaterally. No wheezes , rales, or rhonchi. GASTROINTESTINAL: Abdomen soft, non-tender, nondistended. Normal active bowel sounds MUSCULOSKELETAL: Extremities without clubbing, cyanosis, or edema. NEURO: Alert & Oriented x4 to person, place, time, situation. Moves all ext x4 Date of Insertion: Jul 03, 2017 A/P Problem List: (1) Pneumothorax, right ICD Codes: J93.9 - Pneumothorax, unspecified Status: Acute Plan: - comgmt with Pulmonary Medicine, and Surgery, Dr. Brink Pt is a 56 y/o F with h/o COPD, scleroderma, and pulmonary HTN. Pt admitted with SOB and right-sided chest pain following coughing fit. Evaluation in the ER 07/03/17 revealed right pneumothorax. Pt had a pigtail catheter placed in the ER. Pt subsequently had a second chest tube placed by Dr. Brink (07/04/17) with reexpansion of the right lung. Pt transferred from [facility] to the Hospitalist service 07/05/17 Pt tolerating simple mask on 7 liters. - Pt requests evaluation by Cardiothoracic Surgery - Case d/w Dr. Morris (07/05/17). He will consult - Case d/w Dr. Brink (07/05/17) - Case d/w Pulmonary Medicine, Dr. Hendrix. - DVT prophylaxis - supportive care. (2) Esophageal dysmotility due to systemic disease ICD Codes: K22.4 - Dyskinesia of esophagus Status: Chronic Plan: - comgmt with GI - Pt recently diagnosed at [facility] after was found to have aspiration pneumonia. - EGD and barium swallow two and a half weeks ago, records requested, not received yet. - Pt reports dysphagia with both liquids and solids, more so with solids. - Last EGD with dilation was in December to resolve a food bolus. - Speech therapy --> regular and thin liquids - GI had previously mentioned possibility of GEG d/t recurrence of aspiration pneumonia. Will d/w GI (3) Pulmonary hypertension ICD Codes: I27.0 - Pulmonary hypertension Status: Chronic Plan: - comgmt with Pulm Medicine - sildenafil - ?Pt also taking opsumit prior to admission (4) COPD (chronic obstructive pulmonary disease) ICD Codes: J44.9 - COPD (chronic obstructive pulmonary disease) Status: Chronic Plan: - comgmt with Pulm Med - symbicort - duonebs - spiriva (5) Scleroderma ICD Codes: M34.9 - Scleroderma Status: Chronic (6) Fecal incontinence ICD Codes: R15.9 - Full incontinence of feces Status: Chronic Plan: - Fecal incontinence and diarrhea - 10-20 episodes a day for the past year, could be secondary to scleroderma, however, pt has not been worked up previously for this diarrhea. - stool studies ordered - biopsy of small intestine during EGD when more stable - Last colonoscopy 3 years ago, pt states polyps - recent h/o SIBO - Pt treated with course of flagyl which was completed last Wednesday. - Pt started on Rifaximin (07/05 - present) (7) Hypothyroidism ICD Codes: E03.9 - Hypothyroidism Status: Chronic Plan: - levothyroxine Problem Qualifiers (1) COPD (chronic obstructive pulmonary disease): (2) Fecal incontinence: Qualified Codes: R15.9 - Full incontinence of feces (3) Hypothyroidism: Qualified Codes: E03.9 - Hypothyroidism, unspecified Angelo Gonsalez DO Jul 05, 2017 18:45
--- NOTE | 2017-07-05 18:54 | RADRPT ---
EXAM DATE/TIME: 07/05/2017 18:25 [place] COMPARISON: CT THORAX W CONTRAST, July 05, 2017, 9:41. INDICATIONS : Evaluate pneumothorax, new air leak to chest tube MEDICAL HISTORY : Cardiovascular disease. Congestive heart failure. Gastroesophageal reflux disease.Hypertension. SURGICAL HISTORY : Right chest tube placement ENCOUNTER: Subsequent ACUITY: 3 days PAIN SCORE: 0/10 LOCATION: Right chest FINDINGS: A single view of the chest demonstrates small caliber right chest tube with small right pneumothorax which appears slightly larger than the exam from earlier today. This patchy bilateral airspace diseas e is relatively stable. Cardiomegaly. CONCLUSION: 1. Small caliber right chest tube with small right pneumothorax that has increased in size slightly s em exam from earlier today. Shade Suh MD on July 05, 2017 at 18:50 Board Certified Radiologist. This report was verified electronically.
--- NOTE | 2017-07-05 18:56 | HHI.PR ---
Subjective Remarks She feels the same Still having chest tubes She has a leak Objective Vital Signs Date Time Temp Pulse Resp B/P (MAP) Pulse Ox O2 Delivery O2 Flow Rate FiO2 07/05/17 16:50 97.3 75 20 116/55 (75) 98 07/05/17 16:27 Simple Mask 8.00 07/05/17 16:00 67 07/05/17 15:12 Simple Mask 6.00 07/05/17 12:00 55 07/05/17 11:43 98.1 62 20 119/58 (78) 96 07/05/17 08:22 99 Partial Rebreather 07/05/17 07:00 98.6 66 18 128/63 (84) 99 07/05/17 07:00 71 07/05/17 07:00 99 Partial Non-Rebreather 70 07/05/17 04:00 16 07/05/17 03:00 98.4 63 18 128/64 (85) 99 07/05/17 03:00 98 Partial Non-Rebreather 70 07/05/17 03:00 67 07/04/17 23:00 60 07/04/17 23:00 97.7 65 18 150/66 (94) 98 07/04/17 23:00 98 Partial Non-Rebreather 70 07/04/17 19:30 92 Venturi Mask 6.00 40 07/04/17 19:00 69 07/04/17 19:00 97.8 68 18 138/64 (88) 94 07/04/17 19:00 94 Venturi Mask 50 I/O 07/04/17 07/04/17 07/04/17 07/05/17 07/05/17 07/05/17 07:00 15:00 23:00 07:00 15:00 23:00 Intake Total 500 ml 1674 ml 240 ml 480 ml 500 ml Output Total 1250 ml 2040 ml 1016 ml 654 ml 1600 ml Balance -750 ml -366 ml -776 ml -174 ml -1100 ml Intake Oral 1162 ml 240 ml 480 ml 500 ml IV Total 500 ml 512 ml Output Urine Total 1250 ml 2020 ml 1000 ml 650 ml 1600 ml Stool Total 0 ml 0 ml 0 ml Chest Tube Drainage Total 0 ml 20 ml 16 ml 4 ml Result Diagram: 07/05/17 0343 07/05/17 034 Objective Remarks Physical exam: General appearance: no acute distress Head and neck examination: atraumatic normocephalic Neck: supple trachea midline Lungs: clear bilaterally no wheezing or crackles, chest tube in place intermittent air leak Heart: normal S1-S2 Abdomen: soft nontender positive bowel sounds Extremities: no significant edema no cyanosis Neurological examination: nonfocal moves all extremities awake oriented Skin: no rashes seen Assessment and Plan Assessment and Plan Recurrent pneumothorax Pulmonary hypertension Scleroderma I do believe the patient is going to need thoracoscopy with pleurodesis because I do believe the pneumothorax is secondary to her blebs and the COPD and it is recurrent. I discussed this with the hospitalist and CV surgery it would be involved. The patient will need to continue her outpatient pulmonary hypertension medications. Geoffrey Hendrix MD Jul 05, 2017 18:56
[2017-07-05] MEDS: ALPRAZolam 1 MG TAB PO PRN (20:18)
[2017-07-05] MEDS: RIFAXIMIN 200 MG TAB PO SCH (23:09)
[2017-07-06] VITALS (34 sets, daily range): BP systolic 101–134; BP diastolic 52–82; PULSE 56–205; RESP 17–22; TEMP 97.1–98.6; O2SAT 90–100
[2017-07-06] MEDS: HYDROmorphone HCL PF 2 MG/ML VIAL IV PRN ×2 (03:43→18:24)
[2017-07-06] MEDS: RESP: ALBUTEROL 2.5 MG/IPRATROPIUM 0.5 MG NEB (SCH) INH ×4 (03:46→21:07)
[2017-07-06] MEDS: CHLORHEXIDINE GLUCONATE 2 % 1 PACK (2 CLOTHS) TOP SCH (04:00)
[2017-07-06] MEDS: LEVOTHYROXINE SODIUM 25 MCG TAB PO SCH (05:48)
[2017-07-06] MEDS: HEPARIN SODIUM - SQ 10,000 UNITS/ML VIAL SQ SCH ×2 (05:48→18:11)
[2017-07-06] MEDS: LEVOTHYROXINE SODIUM 112 MCG TAB PO SCH (05:48)
[2017-07-06] MEDS: RIFAXIMIN 200 MG TAB PO SCH ×3 (05:53→21:08)
[2017-07-06] MEDS: INSULIN ASPART SUPPLEMENTAL SCALE SQ SCH ×4 (08:46→20:20)
[2017-07-06] MEDS: SPIRONOLACTONE 50 MG TAB PO SCH (09:00)
[2017-07-06] MEDS ORDERED: ADENOSINE IV SOLN 3 MG/ML 2 ML VIAL IV PUSH ONE ×2 (09:00→09:15)
[2017-07-06] MEDS: FUROSEMIDE 20 MG TAB PO SCH ×2 (09:00→20:27)
[2017-07-06] MEDS: SODIUM CHLORIDE 0.9% FLUSH 10 ML FLUSH IV FLUSH SCH ×3 (09:07→20:21)
[2017-07-06] MEDS ORDERED: METOPROLOL TARTRATE 5 MG/5 ML VIAL ONE (09:16)
[2017-07-06] MEDS ORDERED: METOPROLOL TARTRATE 5 MG/5 ML VIAL IV PUSH ONE (09:30)
[2017-07-06] MEDS ORDERED: DILTIAZEM INJ 125 MG in SODIUM CHLORIDE 0.9% INJ 100 ML IV PRN (09:30)
[2017-07-06] MEDS: CALCIUM/VITAMIN D 250 MG/125 U TAB PO SCH (09:38)
--- NOTE | 2017-07-06 09:43 | HHI.PR ---
Subjective Remarks Called by nursing staff to evaluate pt for tachyrhythmia with HR into the 170s/ 190s Pt denied chest pain, palpitations, or worsening SOB. Objective Vitals Vital Signs Date Time Temp Pulse Resp B/P (MAP) Pulse Ox O2 Delivery O2 Flow Rate FiO2 07/06/17 08:33 98.0 150 18 134/76 (95) 98 07/06/17 04:58 205 07/06/17 04:04 74 07/06/17 03:46 97.1 76 22 113/55 (74) 97 07/06/17 03:00 70 07/06/17 02:00 70 07/06/17 01:00 68 07/06/17 00:52 98.6 70 21 125/60 (81) 97 07/06/17 00:01 71 07/06/17 00:00 98 Simple Mask 6.00 07/05/17 23:00 76 07/05/17 22:00 76 07/05/17 21:00 70 07/05/17 20:37 96 Simple Mask 7.00 70 07/05/17 20:32 98.5 67 18 115/57 (76) 95 07/05/17 20:09 84 07/05/17 19:00 78 07/05/17 16:50 97.3 75 20 116/55 (75) 98 07/05/17 16:27 Simple Mask 8.00 07/05/17 16:00 67 07/05/17 15:12 96 Simple Mask 6.00 07/05/17 12:00 55 07/05/17 11:43 98.1 62 20 119/58 (78) 96 07/06/17 07/06/17 07/07/17 15:00 23:00 07:00 Output Total 36 ml Balance -36 ml Chest Tube Drainage Total 36 ml Result Diagram: 07/05/17 0343 07/05/17 0343 Imaging Last Impressions Chest X-Ray 07/05/17 0600 Signed Impressions: Service Date/Time: Wednesday, July 05, 2017 04:37 - CONCLUSION: Right apical pneumothorax again noted. Dhaval Overton MD Chest CT 07/05/17 0000 Signed Impressions: Service Date/Time: Wednesday, July 05, 2017 09:41 - CONCLUSION: 1. Previously seen right-sided pneumothorax is definitely improved and much smaller but there is still a loculated component inferiorly. New surgical chest tube traverses the anterior aspect of the right hemithorax. 2. Increasing bilateral airspace disease with patchy foci in the apices and more consolidated, atelectatic type changes in the bases, right greater than left. 3. Esophagus appears patulous and filled with debris. 4. None calcification in the anteroinferior aspect of the spleen. Sandro Villalobos MD Objective Remarks GENERAL: This is a well-nourished, well-developed patient, in no apparent distress. CARDIOVASCULAR: tachycardic RESPIRATORY: Clear to auscultation. Breath sounds equal bilaterally. No wheezes , rales, or rhonchi. GASTROINTESTINAL: Abdomen soft, non-tender, nondistended. Normal active bowel sounds MUSCULOSKELETAL: Extremities without clubbing, cyanosis, or edema. NEURO: Alert & Oriented x4 to person, place, time, situation. Moves all ext x4 Date of Insertion: Jul 03, 2017 A/P Problem List: (1) Pneumothorax, right ICD Codes: J93.9 - Pneumothorax, unspecified Status: Acute Plan: - comgmt with Pulmonary Medicine, and Surgery, Dr. Brink Pt is a 56 y/o F with h/o COPD, scleroderma, and pulmonary HTN. Pt admitted with SOB and right-sided chest pain following coughing fit. Evaluation in the ER 07/03/17 revealed right pneumothorax. Pt had a pigtail catheter placed in the ER. Pt subsequently had a second chest tube placed by Dr. Brink (07/04/17) with reexpansion of the right lung. Pt transferred from [facility] to the Hospitalist service 07/05/17 Pt tolerating simple mask on 7 liters. - Case d/w Dr. Brink (07/05/17) - Case d/w Pulmonary Medicine, Dr. Hendrix. (07/05/17) - Case d/w Dr. Morris, [facility], (07/06/17) - will likely take pt to OR (07/09/17) - VATS - staple apical blebs - pleurodesis - DVT prophylaxis - supportive care. (2) Tachyarrhythmia ICD Codes: R00.0 - Tachycardia, unspecified Plan: - pt developed tachyarrhythmia, narrow complex, with HR into the 170s/ 190s - some mild, transient improvement in pt's HR with Valsalva maneuver - initially pt thought to have SVT - Pt given adenosine 6mg with transient improvement & then resumption of HR into the 150s - Pt seen by Dr. Cox - reevaluation of rhythm --> likely afib with RVR - Pt given IV metoprolol 5mg - start amiodarone drip (3) Esophageal dysmotility due to systemic disease ICD Codes: K22.4 - Dyskinesia of esophagus Status: Chronic Plan: - comgmt with GI - Pt recently diagnosed at [facility] after was found to have aspiration pneumonia. - EGD and barium swallow two and a half weeks ago, records requested, not received yet. - Pt reports dysphagia with both liquids and solids, more so with solids. - Last EGD with dilation was in December to resolve a food bolus. - Speech therapy --> regular and thin liquids - GI had previously mentioned possibility of PEG d/t recurrence of aspiration pneumonia. Will d/w GI (4) Pulmonary hypertension ICD Codes: I27.0 - Pulmonary hypertension Status: Chronic Plan: - comgmt with Pulm Medicine - sildenafil - ?Pt also taking opsumit prior to admission (5) COPD (chronic obstructive pulmonary disease) ICD Codes: J44.9 - COPD (chronic obstructive pulmonary disease) Status: Chronic Plan: - comgmt with Pulm Med - symbicort - duonebs - spiriva (6) Scleroderma ICD Codes: M34.9 - Scleroderma Status: Chronic (7) Fecal incontinence ICD Codes: R15.9 - Full incontinence of feces Status: Chronic Plan: - Fecal incontinence and diarrhea - 10-20 episodes a day for the past year, could be secondary to scleroderma, however, pt has not been worked up previously for this diarrhea. - stool studies ordered - biopsy of small intestine during EGD when more stable - Last colonoscopy 3 years ago, pt states polyps - recent h/o SIBO - Pt treated with course of flagyl which was completed last Wednesday. - Pt started on Rifaximin (07/05 - present) (8) Hypothyroidism ICD Codes: E03.9 - Hypothyroidism Status: Chronic Plan: - levothyroxine Problem Qualifiers (1) COPD (chronic obstructive pulmonary disease): (2) Fecal incontinence: Qualified Codes: R15.9 - Full incontinence of feces (3) Hypothyroidism: Qualified Codes: E03.9 - Hypothyroidism, unspecified Angelo Gonsalez DO Jul 06, 2017 09:43
[2017-07-06] MEDS ORDERED: AMIODARONE INJ 150 MG in DEXTROSE 5% IN WATER 100ML INJ 100 ML IV ONE ×2 (09:45)
[2017-07-06] MEDS: TIOTROPIUM BROMIDE 18 MCG INH INH SCH (09:47)
[2017-07-06] MEDS: OPSUMIT 10 MG PO SCH ×2 (09:48→20:28)
[2017-07-06] MEDS: BUDESONIDE-FORMOTEROL 80/4.5 MCG INHALER INH SCH ×2 (09:49→20:21)
[2017-07-06] MEDS: GABAPENTIN 300 MG CAP PO SCH ×4 (09:49→20:23)
[2017-07-06] MEDS: PRAVASTATIN SOD 40 MG TAB PO SCH (09:49)
[2017-07-06] MEDS: CHOLESTYRAMINE 4 GM PACKET PO SCH (09:49)
[2017-07-06] MEDS: PANTOPRAZOLE SOD 40 MG DELAYED RELEASE TAB PO SCH ×2 (09:49→20:24)
[2017-07-06] MEDS: SILDENAFIL CITRATE 20 MG TAB PO SCH ×3 (09:50→18:11)
[2017-07-06] MEDS: DOCUSATE SODIUM 50 MG/SENNA 8.6 MG TAB PO SCH ×2 (09:50→20:23)
[2017-07-06] MEDS: FAMOTIDINE 20 MG/2 ML VIAL IV PUSH SCH ×2 (09:51→20:25)
[2017-07-06] MEDS: AMIODARONE INJ 450 MG in DEXTROSE 5% IN WATE(EXCEL) INJ 241 ML IV PRN ×4 (10:19→20:31)
[2017-07-06 10:27] LABS: BICARBONATE 34.3 MEQ/L (21.0-32.0); CALCIUM 8.8 MG/DL (8.5-10.1); CREATININE 0.72 MG/DL (0.50-1.00); MAGNESIUM 2.1 MG/DL (1.5-2.5)
--- NOTE | 2017-07-06 10:33 | MB ---
cc: YESENIA RED DATE OF CONSULTATION 07/06/2017 INDICATION Tachycardia HISTORY OF PRESENT ILLNESS This is a 56-year-old female with history of scleroderma, COPD, pulmonary hypertension with right-sided heart failure, and esophageal dysmotility. She presented initially to [facility] on July 03 with coughing and shortness of breath associated with chest pain. Imaging study showed a right pneumothorax and she had a chest tube placed at that time and was transferred over to [facility] for critical care unit. She is followed primarily at [facility] with a sugar presser and airfield operations specialist and she had a second chest tube placed the next day with appropriate reexpansion of the right lung. Earlier this morning, she developed rapid tachycardia with a heart rate as high as 160-190 beats per minute. She denies any prior history of known heart disease or arrhythmia. She denied any chest pain. She did have some palpitations, but the shortness of breath was at baseline. She did receive 60 mg of adenosine prior to my arrival with a very brief pause, but reinitiation of her arrhythmia to narrow complex tachycardia, irregular. PAST MEDICAL HISTORY 1. Arthritis 2. Asthma 3. CREST syndrome 4. Scleroderma 5. CHF 6. Right-sided heart failure 7. Pulmonary hypertension 9. Hyperlipidemia 10. Hypothyroidism 11. COPD 12. She had a pneumothorax on the left in 2011. SOCIAL HISTORY Occasional alcohol use. Quit smoking about five years ago. Denies any drug use. ALLERGIES CODEINE REPORTED MEDICATIONS See med reconciliation. REVIEW OF SYSTEMS A 12-point reviews was performed and is negative unless otherwise as noted in the history of present illness. PHYSICAL EXAMINATION Temperature is 97, heart rate 150 beats per minute, blood pressure 134/76 mmHg. GENERAL: Alert and oriented x3 in no acute distress. HEENT: Exam shows pupils reactive to light and accommodation. Extraocular movements are intact. NECK: No elevation in jugular venous distension. No thyromegaly or lymphadenopathy. No carotid bruits. LUNGS: Clear to auscultation bilaterally. CARDIAC: Irregular, irregular rhythm without murmurs, rubs or gallops. ABDOMEN: Exam is nontender and nondistended with good bowel sounds. No hepatosplenomegaly. EXTREMITIES: Show no clubbing, cyanosis or edema. Good peripheral pulses. NEUROLOGIC: Cranial nerves intact. Motor and sensory grossly intact. LABORATORY DATA WBC 10.8, hemoglobin is 13.1, platelet counts 250, INR is 1. Sodium 132, potassium 4.5, BUN 15, creatinine 0.79. ASSESSMENT 1. Tachycardia 2. Spontaneous pneumothorax 3. Scleroderma 4. Pulmonary hypertension with right-sided heart failure. PLAN Reviewed telemetry rhythm. It appears to be irregularly irregular. There are frequent PVCs within the rhythm that does not reset the arrhythmia, therefore it does not appear to be reentrant. There is no apparent organizational activity. I think this atrial fibrillation is likely induced secondary to increased adrenergic tone. We gave 5 mg of intravenous metoprolol. Heart rate slowed down to 140 beats per minute. At this point, we know the time of onset. She has no previously known structural heart disease, although she probably has some right-sided enlargement due to pulmonary hypertension. We will initiate amiodarone, see if we can chemically convert her. In the meantime, we will also administer a Cardizem drip to see if we can slow her down. We will get a 2-D echocardiogram. Hopefully if she does convert chemically, we will not need to initiate any long-term anticoagulation. Prior to this, just monitor to see if she has any further paroxysmal episodes and consider even an outpatient event monitor to confirm that. We will follow along. MD MARYLOU Kumar/PIOTR /9:35 AM /10:05 AM
[2017-07-06] MEDS: ACETAMINOPHEN/HYDROcodone 325 MG/5 MG TAB PO PRN ×2 (11:37→22:48)
--- NOTE | 2017-07-06 12:57 | HHI.GIFU ---
Subjective Remarks Pt resting in bed, now on step down unit. On 4 L NC. Continued dysphagia. Reports no more diarrhea since being in hospital. (Tasha Storm) Objective Vitals I&O Vital Signs Date Time Temp Pulse Resp B/P (MAP) Pulse Ox O2 Delivery O2 Flow Rate FiO2 07/06/17 12:02 111 07/06/17 11:58 93 Nasal Cannula 4.00 07/06/17 11:38 98.0 120 19 113/58 (76) 94 07/06/17 11:00 137 07/06/17 10:34 117/58 (77) 07/06/17 10:20 152 17 104/61 (75) 99 07/06/17 10:19 137 102/66 07/06/17 10:07 147 20 114/65 (81) 100 07/06/17 09:57 92 Nasal Cannula 4.00 07/06/17 09:57 151 18 122/82 (95) 90 07/06/17 09:54 163 109/78 07/06/17 08:33 98.0 150 18 134/76 (95) 98 07/06/17 04:58 205 07/06/17 04:04 74 07/06/17 03:46 97.1 76 22 113/55 (74) 97 07/06/17 03:00 70 07/06/17 02:00 70 07/06/17 01:00 68 07/06/17 00:52 98.6 70 21 125/60 (81) 97 07/06/17 00:01 71 07/06/17 00:00 98 Simple Mask 6.00 07/05/17 23:00 76 07/05/17 22:00 76 07/05/17 21:00 70 07/05/17 20:37 96 Simple Mask 7.00 70 07/05/17 20:32 98.5 67 18 115/57 (76) 95 07/05/17 20:09 84 07/05/17 19:00 78 07/05/17 16:50 97.3 75 20 116/55 (75) 98 07/05/17 16:27 Simple Mask 8.00 07/05/17 16:00 67 07/05/17 15:12 96 Simple Mask 6.00 I/O 2/12/18 2/12/07/05/17 07/06/17 07/06/17 07/06/17 07:00 15:00 23:00 07:00 15:00 23:00 Intake Total 240 ml 480 ml 500 ml 100 ml Output Total 1016 ml 654 ml 1912 ml 500 ml 36 ml Balance -776 ml -174 ml -1412 ml -500 ml 64 ml Intake Oral 240 ml 480 ml 500 ml IV Total 100 ml Output Urine Total 1000 ml 650 ml 1900 ml 500 ml Stool Total 0 ml 0 ml Chest Tube Drainage Total 16 ml 4 ml 12 ml 36 ml Laboratory Laboratory Tests Test 07/06/17 08:45 Blood Urea Nitrogen 20 Creatinine 0.72 Random Glucose 80 Calcium Level 8.8 Magnesium Level 2.1 Sodium Level 130 Potassium Level 3.7 Chloride Level 87 Carbon Dioxide Level 34.3 Anion Gap 9 Estimat Glomerular Filtration Rate 84 Date/Time Source Procedure Growth Status 07/03/17 18:55 Blood Peripheral Aerobic Blood Culture - Preliminary NO GROWTH IN 3 DAYS Resulted 07/03/17 18:55 Blood Peripheral Anaerobic Blood Culture - Preliminary NO GROWTH IN 3 DAYS Resulted 07/03/17 19:00 Sputum Expectorated Sputum Gram Stain - Final Complete 07/03/17 19:00 Sputum Expectorated Sputum Sputum Culture - Final HEAVY GROWTH NORMAL RESPIRATORY POOJA Complete 07/04/17 21:20 Urine Catheterized Urine Urine Culture - Preliminary Pseudomonas Aeruginosa Group D Enterococcus Resulted Imaging Last Impressions Chest X-Ray 07/05/17 0600 Signed Impressions: Service Date/Time: Wednesday, July 05, 2017 04:37 - CONCLUSION: Right apical pneumothorax again noted. Dhaval Overton MD Chest CT 07/05/17 0000 Signed Impressions: Service Date/Time: Wednesday, July 05, 2017 09:41 - CONCLUSION: 1. Previously seen right-sided pneumothorax is definitely improved and much smaller but there is still a loculated component inferiorly. New surgical chest tube traverses the anterior aspect of the right hemithorax. 2. Increasing bilateral airspace disease with patchy foci in the apices and more consolidated, atelectatic type changes in the bases, right greater than left. 3. Esophagus appears patulous and filled with debris. 4. None calcification in the anteroinferior aspect of the spleen. Sandro Villalobos MD Physical Exam HEENT: Normocephalic; atraumatic CHEST: Chest diminished sounds right side, chest tube x 2 CARDIAC: Irregularly irregular ABDOMEN: Soft, nondistended, nontender; bowel sounds active EXTREMITIES: No clubbing, cyanosis, or edema. TABLEAU ARCHITECT: Alert and oriented x 3 (Tasha Storm) Assessment and Plan Plan Assessment/history - Esophageal dysmotility secondary to scleroderma- recently diagnosed at [facility] after was found to have aspiration pneumonia. EGD and barium swallow two and a half weeks ago, records requested, not received yet. Pt reports dysphagia with both liquids and solids, more so with solids. Last EGD with dilation was in December to resolve a food bolus. Speech therapy has been consulted, pending consult to evaluate. Given recurrence of aspiration pneumonia, PEG tube should be addressed with pt. Records ordered from [place] - Fecal incontinence and diarrhea- 10-20 episodes a day for the past year, could be secondary to scleroderma, however, pt has not been worked up previously for this diarrhea. Will order stool studies. Add bulking agent. Biopsy of small intestine during EGD when pt stable. Last colonoscopy was approx 3 years ago, states polyps - Recent history SIBO- recent treated with Flagyl, finished last Wednesday - Pneumothorax, chest tube, 2, small amount of clear red tinged fluid (07/06) --> Pt now with chest tube x 2 on right side, with improvement in breathing, Currently on 4L O2 via NC. Pts heart rate elevated earlier today, irregularly irregular, per Dr. Cox's note likely a-fib. They are planning on 2-D echo, Cardizem gtt, and amiodarone. Pt with continued dysphagia states last time she choked was two days ago on chicken. Denies diarrhea since admission. Chest CT (07/05) noted --> Esophagus appears patulous and filled with debris. Discussed with the pt the possibility of a PEG tube to resolve the recurrence of aspiration pneumonia, however, she states she is not ready for a feeding tube. Diet per ST, regular with thin liquids. Plan: - Rifaximin - Cholestyramine - Protonix - Zofran PRN - EGD when clinically stable if pt is agreeable - Further recommendations to follow based on clinical course Pt seen by myself and Dr. Pelayo and this note is written on his behalf (Tasha Storm) Physician Comments Patient seen and examined Agree with above Continue current supportive care Monitor labs (Tomas Pelayo MD) Tasha Storm Jul 06, 2017 12:57 Tomas Pelayo MD Jul 06, 2017 15:38
--- NOTE | 2017-07-06 14:10 | PD.CAR.PN ---
CVT Progress Note Subjective/Hospital Course: 07/04/2017 Patient with known scleroderma and recurrent pneumothorax First pneumothorax was about 5 years ago and patient was diagnosed with scleroderma and now this repeated again 20 Mauritanian chest tube placed in the lung is now reinflated As noted in the consultation, patients with immuno related reticuloendothelial and connective tissue diseases, like scleroderma sarcoidosis, Elmo's granulomatosis, lupus and such have a decreased pulmonary compliance and lungs are usually stiffer and harder to inflate pneumothoraces. Will occur from the same but also as a result of pleural blebs considering the patient has been smoker for most of her adult life Will order CT scan of the chest and reevaluate for thoracoscopy and possible bleb resection 07/05/2017 Patient with second spontaneous pneumothorax as a result of pleural blebs Chest is now expanded with placement of a lateral chest tube. CT scan reveals again some fibrotic changes and then in the tip of the lung there is some air-filled spaces consistent with blebs This is most likely due to long-standing smoking and COPD rather than any type of pulmonary fibrosis superimposed on it as result of scleroderma Considering that this is a second pneumothorax I believe it is appropriate for patient to undergo thoracoscopy and stapling of the blebs which are probably in the upper portion of the chest but will see once there. Discussed at length with the patient and will discuss with organ pipe finisher Tentatively we will schedule patient for Wednesday surgery 06/05/17 Patient requested heart surgeon to evaluate and treat. Will sign off J Objective: Vital Signs Date Time Temp Pulse Resp B/P (MAP) Pulse Ox O2 Delivery O2 Flow Rate FiO2 07/06/17 12:02 111 07/06/17 11:58 93 Nasal Cannula 4.00 07/06/17 11:38 98.0 120 19 113/58 (76) 94 07/06/17 11:00 137 07/06/17 10:34 117/58 (77) 07/06/17 10:20 152 17 104/61 (75) 99 07/06/17 10:19 137 102/66 07/06/17 10:15 Partial Non-Rebreather 07/06/17 10:07 147 20 114/65 (81) 100 07/06/17 09:57 92 Nasal Cannula 4.00 07/06/17 09:57 151 18 122/82 (95) 90 07/06/17 09:54 163 109/78 07/06/17 08:33 98.0 150 18 134/76 (95) 98 07/06/17 07:00 68 07/06/17 04:58 205 07/06/17 04:04 74 07/06/17 03:46 97.1 76 22 113/55 (74) 97 07/06/17 03:00 70 07/06/17 02:00 70 07/06/17 01:00 68 07/06/17 00:52 98.6 70 21 125/60 (81) 97 07/06/17 00:01 71 07/06/17 00:00 98 Simple Mask 6.00 07/05/17 23:00 76 07/05/17 22:00 76 07/05/17 21:00 70 07/05/17 20:37 96 Simple Mask 7.00 70 07/05/17 20:32 98.5 67 18 115/57 (76) 95 07/05/17 20:09 84 07/05/17 19:00 78 07/05/17 16:50 97.3 75 20 116/55 (75) 98 07/05/17 16:27 Simple Mask 8.00 07/05/17 16:00 67 07/05/17 15:12 96 Simple Mask 6.00 Labs: Laboratory Tests Test 07/06/17 08:45 Blood Urea Nitrogen 20 MG/DL (7-18) Creatinine 0.72 MG/DL (0.50-1.00) Random Glucose 80 MG/DL (74-106) Calcium Level 8.8 MG/DL (8.5-10.1) Magnesium Level 2.1 MG/DL (1.5-2.5) Sodium Level 130 MEQ/L (136-145) Potassium Level 3.7 MEQ/L (3.5-5.1) Chloride Level 87 MEQ/L (98-107) Carbon Dioxide Level 34.3 MEQ/L (21.0-32.0) Anion Gap 9 MEQ/L (5-15) Estimat Glomerular Filtration Rate 84 ML/MIN (>89) Result Diagram: 07/05/17 0343 07/06/17 0845 Triny Brink MD Jul 06, 2017 14:10
[2017-07-06] MEDS ORDERED: CEFAZOLIN INJ 500 MG in SODIUM CHLORIDE 0.9% IRR BTL 500 ML IRRIGATION SCH (14:30)
[2017-07-06] MEDS ORDERED: SODIUM CHLORIDE 0.9% FLUSH 10 ML FLUSH IV FLUSH PRN (14:30)
[2017-07-06] MEDS ORDERED: DEXTROSE 50% IN WATER 50 ML VIAL(D50) IV PUSH PRN (14:30)
[2017-07-06] MEDS ORDERED: ceFAZolin 2 GM PREMIX 50 ML IV SCH (14:30)
[2017-07-06] MEDS ORDERED: CHLORHEXIDINE GLUCONATE 4% SOLN 120 ML BTL TOPICAL SCH (14:30)
--- NOTE | 2017-07-06 15:51 | MB ---
cc: GLADIS MORRIS DATE OF CONSULTATION 07/06/2017 DATE OF 1960 HISTORY OF PRESENT ILLNESS A 66-year-old female with history of scleroderma, COPD, pulmonary hypertension who is followed by pulmonology at the [facility]. She also has esophageal dysmotility and is followed by gastroenterology at the [facility]. She presented with shortness of breath after she had a coughing episode. Imaging studies revealed a right pneumothorax. A chest tube was placed in the emergency department, in the ED a pigtail catheter. She had some improvement but not complete expansion. They did consult Dr. Brink. A second chest tube was placed, a 20 Italian which reinflated the lung. We were consulted per the patient's request after she had continued air leak, probably secondary to her blebs and chronic COPD. Dr. Morris did speak with Dr. Brink and also with Dr. Gonsalez. The patient is being evaluated for right video-assisted thoracoscopy with possible bleb resection and pleurodesis on Wednesday. After interviewing the patient it was noted that she did go into atrial fibrillation with RVR. Cardiology was consulted, Dr. Cox. The patient was given at first some adenosine followed by Cardizem and an amiodarone drip. She was also on 6 liters face mask during the interview. PAST MEDICAL HISTORY She has quite an extensive history to include: 1. Scleroderma. 2. Sarcoidosis. 3. Elmo's granulomatosis. 4. Pulmonary hypertension. 5. Longstanding history of tobacco abuse. 6. COPD. PAST SURGICAL HISTORY 1. Two C-sections. 2. Pneumothorax on the left in 2011. 3. Benign left breast lumpectomy. ALLERGIES CODEINE WHICH CAUSES NAUSEA. MEDICATIONS Home medications are quite extensive includin. Phenergan. 2. Lamisil. 3. O2 at 3 liters continuous. 4. Spiriva inhaler. 5. Ventolin inhaler. 6. Soma compound. 7. Zocor. 8. Sildenafil for pulmonary hypertension. 9. Amlodipine. 10.Spironolactone. 11.Mobic. 12.Gabapentin. 13.Xanax. 14.Lasix. 15.Symbicort. 16.Guaifenesin. 17.Macitentan/Opsumit for pulmonary hypertension. 18.Omeprazole. 19.Levothyroxine. 20.Multivitamin. SOCIAL HISTORY Occasional alcohol. Quit smoking 5 years ago. REVIEW OF SYSTEMS As above in the HPI; systems are otherwise unremarkable. PHYSICAL EXAMINATION VITAL SIGNS: Blood pressure 114/60, heart rate now 110, was as high as 152. O2 sat is now 93% on 4 liters. The patient is awake, alert, in no acute distress. HEENT: Head is normocephalic, atraumatic. Pupils equal and reactive. Oral mucosa pink and moist. She is now on 4 liters nasal cannula. HEART: Heart sounds S1, S2, irregular rate and rhythm. No audible rubs, murmurs or gallops. LUNGS: Diminished in the bases, more on the right. She has two chest tubes. There is an air leak in the lateral side chest tube. It did drain about 56 cc of some serosanguineous drainage. There was minimal drainage in the anterior chest tube or the pigtail. ABDOMEN: Soft, nontender. No masses or organomegaly. EXTREMITIES: No cyanosis, clubbing or edema. LABORATORY Hemoglobin 13, hematocrit 39, white cell count 10, platelet count 250. Sodium 130, potassium 3.7, BUN 20, creatinine 0.72, magnesium 2.1. INR was 1.0. MRSA non-detected. Micro did show urinalysis group-D enterococcus, Pseudomonas. Sputum was negative. Blood cultures were negative. Negative influenza A and B. Current antibiotic includes rifaximin. IMAGING CT chest did show right-sided pneumothorax improved. The CT was done on the in comparison to the 10th. There is still a loculated component inferiorly. EKG EKG on admission was sinus rhythm with no acute changes, with a new development today of atrial fibrillation with RVR. IMPRESSION AND PLAN 1. This is a 56-year-old female with significant history of scleroderma, COPD, pulmonary hypertension with right-sided heart failure, CREST syndrome, CHF, esophageal dysmotility, and admission with right-sided pneumothorax status post chest tube placement with a pigtail catheter and a 20 Italian on the right lateral chest wall. She has an intermittent air leak which continues on the right. We have been asked to evaluate for possible surgery. The films have been evaluated by Dr. Gladis Morris. The plan will be for right video-assisted thoracoscopy with possible bleb resection and pleurodesis on Wednesday. 2. She has new onset of atrial fibrillation with RVR. Currently Dr. Cox is following. She is currently now on Cardizem and amiodarone. She is on heparin subcu. 3. She has pulmonary hypertension, WHO class 1, that is followed by pulmonology apparently at the [facility]. She is to continue her pulmonary hypertensive medication. 4. In the meantime once her heart rate stabilizes would recommend the patient be out of bed, up in a chair, discontinue her Dodson. Will repeat labs on morning. Will monitor her closely and will follow accordingly. Dictated by: SHAHIDA Wright MD ARNOLDO Lovelace/CALISTA /2:40 PM /3:31 PM
[2017-07-06 17:27] LABS: BACTERIA, URINE OCC /hpf; BILIRUBIN, URINE NEG (NEG); BLOOD, URINE SMALL (NEG); GLUCOSE,URINE NEG (NEG); HYALINE CAST, URINE 3 /lpf (RARE); KETONE, URINE TRACE mg/dL (NEG); NITRITE,URINE POS (NEG); PH, URINE 5.5 (5.0-8.5); URINE COLOR YELLOW (YELLW/STRAW); URINE LEUKOCYTE ESTERASE MOD (NEG); WHITE BLOOD CELL CLUMPS RARE
--- NOTE | 2017-07-06 17:32 | ECHRPT ---
Indication: a fib/flutter CONCLUSIONS The left ventricular systolic function is hyperdynamic with an estimated ejection fraction in the ra nge of 65- 70%. Normal left ventricular size. Mild mitral valve regurgitation. No aortic valve regurgitation. No aortic valve stenosis. There is mild tricuspid valve regurgitation. The estimated pulmonary arterial pressure is 44.3 mmHg. BP: / HR: Rhythm: MEASUREMENTS (Male / Female) Normal Values Technical Quality:Good 2D ECHO LV Diastolic Diameter PLAX 5.3 cm 4.2 - 5.9 / 3.9 - 5.3 cm LV Systolic Diameter PLAX 3.7 cm IVS Diastolic Thickness 1.0 cm 0.6 - 1.0 / 0.6 - 0.9 cm LVPW Diastolic Thickness 1.1 cm 0.6 - 1.0 / 0.6 - 0.9 cm LV Relative Wall Thickness 0.4 RV Internal Dim ED PLAX 2.6 cm M-MODE Aortic Root Diameter MM 3.0 cm LA Systolic Diameter MM 4.2 cm LA Ao Ratio MM 1.4 AV Cusp Separation MM 2.0 cm DOPPLER Mitral E Point Velocity 69.1 cm/s Mitral A Point Velocity 64.7 cm/s Mitral E to A Ratio 1.1 LV E' Lateral Velocity 5.8 cm/s Mitral E to LV E' Lateral Ratio 12.0 LV E' Septal Velocity 8.0 cm/s Mitral E to LV E' Septal Ratio 8.6 TR Peak Velocity 293.0 cm/s TR Peak Gradient 34.3 mmHg Right Atrial Pressure 10.0 mmHg Pulmonary Artery Systolic Pressu 44.3 mmHg Right Ventricular Systolic Press 44.3 mmHg FINDINGS LEFT VENTRICLE The left ventricular systolic function is hyperdynamic with an estimated ejection fraction in the ra nge of 65- 70%. Normal left ventricular size. RIGHT VENTRICLE Normal right ventricular size and systolic function. LEFT ATRIUM The left atrial size is normal. RIGHT ATRIUM The right atrial size is normal. ATRIAL SEPTUM Normal atrial septal thickness without atrial level shunting by limited color doppler interrogation. AORTA The aortic root and proximal ascending aorta are normal in size on limited imaging. MITRAL VALVE Structurally normal mitral valve. Mild mitral valve regurgitation. AORTIC VALVE Trileaflet aortic valve. No aortic valve regurgitation. No aortic valve stenosis. TRICUSPID VALVE Structurally normal tricuspid valve. There is mild tricuspid valve regurgitation. The estimated pulmonary arterial pressure is 44.3 mmHg. PULMONARY VALVE No pulmonary valve regurgitation or stenosis. VESSELS The inferior vena cava is normal in size. PERICARDIUM No pericardial effusion. Clinton Cox MD, FACC (Electronically Signed) Final Date:06 July 2017 17:32
[2017-07-06] MEDS: SODIUM CHLOR 0.9% 1000 ML INJ 1,000 ML IV SCH (18:11)
--- NOTE | 2017-07-06 18:23 | HHI.PR ---
Subjective Remarks She feels the same Still having chest tubes has had a fib with rvr Objective Vital Signs Date Time Temp Pulse Resp B/P (MAP) Pulse Ox O2 Delivery O2 Flow Rate FiO2 07/06/17 16:28 95 Nasal Cannula 3.50 07/06/17 16:11 98.3 66 19 107/52 (70) 94 07/06/17 16:00 66 07/06/17 15:00 62 07/06/17 14:00 64 07/06/17 13:00 136 07/06/17 12:02 111 07/06/17 11:58 93 Nasal Cannula 4.00 07/06/17 11:38 98.0 120 19 113/58 (76) 94 07/06/17 11:00 137 07/06/17 10:34 117/58 (77) 07/06/17 10:20 152 17 104/61 (75) 99 07/06/17 10:19 137 102/66 07/06/17 10:15 Partial Non-Rebreather 07/06/17 10:07 147 20 114/65 (81) 100 07/06/17 09:57 92 Nasal Cannula 4.00 07/06/17 09:57 151 18 122/82 (95) 90 07/06/17 09:54 163 109/78 07/06/17 09:05 155 07/06/17 08:33 98.0 150 18 134/76 (95) 98 07/06/17 08:30 190 07/06/17 07:00 68 07/06/17 04:58 205 07/06/17 04:04 74 07/06/17 03:46 97.1 76 22 113/55 (74) 97 07/06/17 03:00 70 07/06/17 02:00 70 07/06/17 01:00 68 07/06/17 00:52 98.6 70 21 125/60 (81) 97 07/06/17 00:01 71 07/06/17 00:00 98 Simple Mask 6.00 07/05/17 23:00 76 07/05/17 22:00 76 07/05/17 21:00 70 07/05/17 20:37 96 Simple Mask 7.00 70 07/05/17 20:32 98.5 67 18 115/57 (76) 95 07/05/17 20:09 84 07/05/17 19:00 78 I/O 07/05/17 07/05/17 07/05/17 07/06/17 07/06/17 07/06/17 07:00 15:00 23:00 07:00 15:00 23:00 Intake Total 240 ml 480 ml 500 ml 100 ml Output Total 1016 ml 654 ml 1912 ml 500 ml 36 ml Balance -776 ml -174 ml -1412 ml -500 ml 64 ml Intake Oral 240 ml 480 ml 500 ml IV Total 100 ml Output Urine Total 1000 ml 650 ml 1900 ml 500 ml Stool Total 0 ml 0 ml Chest Tube Drainage Total 16 ml 4 ml 12 ml 36 ml Result Diagram: 07/05/17 0343 07/06/17 0845 Objective Remarks Physical exam: General appearance: no acute distress Head and neck examination: atraumatic normocephalic Neck: supple trachea midline Lungs: clear bilaterally no wheezing or crackles, chest tube in place no air leak seen Heart: normal S1-S2 Abdomen: soft nontender positive bowel sounds Extremities: no significant edema no cyanosis Neurological examination: nonfocal moves all extremities awake oriented Skin: no rashes seen Assessment and Plan Assessment and Plan Recurrent pneumothorax Pulmonary hypertension Scleroderma awaiting surgery wednesday no new recs d/w family at bedside . Geoffrey Hendrix MD Jul 06, 2017 18:23
[2017-07-06] MEDS: ONDANSETRON HCL 4 MG/2 ML VIAL IV PUSH PRN (18:24)
[2017-07-06] MEDS: ALPRAZolam 1 MG TAB PO PRN (21:08)
[2017-07-07] VITALS (28 sets, daily range): BP systolic 102–120; BP diastolic 54–61; PULSE 56–84; RESP 17–20; TEMP 97.4–98.6; O2SAT 92–96
[2017-07-07] MEDS: CHLORHEXIDINE GLUCONATE 2 % 1 PACK (2 CLOTHS) TOP SCH (04:00)
[2017-07-07] MEDS: RESP: ALBUTEROL 2.5 MG/IPRATROPIUM 0.5 MG NEB (SCH) INH ×3 (04:02→17:02)
[2017-07-07] MEDS: HEPARIN SODIUM - SQ 10,000 UNITS/ML VIAL SQ SCH ×2 (06:21→17:15)
[2017-07-07] MEDS: LEVOTHYROXINE SODIUM 112 MCG TAB PO SCH (06:21)
[2017-07-07] MEDS: RIFAXIMIN 200 MG TAB PO SCH ×3 (06:21→21:29)
[2017-07-07] MEDS: LEVOTHYROXINE SODIUM 25 MCG TAB PO SCH (06:21)
[2017-07-07] MEDS: HYDROmorphone HCL PF 2 MG/ML VIAL IV PRN ×2 (06:40→21:38)
[2017-07-07] MEDS: INSULIN ASPART SUPPLEMENTAL SCALE SQ SCH ×2 (08:00→11:53)
[2017-07-07] MEDS: BUDESONIDE-FORMOTEROL 80/4.5 MCG INHALER INH SCH ×2 (08:14→21:25)
[2017-07-07] MEDS: SODIUM CHLORIDE 0.9% FLUSH 10 ML FLUSH IV FLUSH SCH ×3 (08:14→21:00)
[2017-07-07] MEDS: TIOTROPIUM BROMIDE 18 MCG INH INH SCH (08:14)
[2017-07-07] MEDS: CALCIUM/VITAMIN D 250 MG/125 U TAB PO SCH (08:15)
[2017-07-07] MEDS: PANTOPRAZOLE SOD 40 MG DELAYED RELEASE TAB PO SCH ×2 (08:16→21:27)
[2017-07-07] MEDS: CHOLESTYRAMINE 4 GM PACKET PO SCH (08:16)
[2017-07-07] MEDS: DOCUSATE SODIUM 50 MG/SENNA 8.6 MG TAB PO SCH ×2 (08:16→21:27)
[2017-07-07] MEDS: GABAPENTIN 300 MG CAP PO SCH ×4 (08:16→21:27)
[2017-07-07] MEDS: PRAVASTATIN SOD 40 MG TAB PO SCH (08:16)
[2017-07-07] MEDS: SILDENAFIL CITRATE 20 MG TAB PO SCH ×3 (08:16→17:15)
[2017-07-07] MEDS: FUROSEMIDE 20 MG TAB PO SCH ×2 (08:16→21:29)
[2017-07-07] MEDS: SPIRONOLACTONE 50 MG TAB PO SCH (08:17)
[2017-07-07] MEDS: OPSUMIT 10 MG PO SCH ×2 (08:17→21:00)
[2017-07-07] MEDS: FAMOTIDINE 20 MG/2 ML VIAL IV PUSH SCH ×2 (08:17→21:30)
--- NOTE | 2017-07-07 08:37 | EKG ---
Date Performed: 07/06/2017 Time Performed: 10:00:30 PTAGE: 56 years EKG: Atrial fibrillation with rapid ventricular response Severe right axis deviation Right ventr icular hypertrophy Extensive ST-T changes may be due to hypertrophy and/or ischemia Compared to previ ous tracing atrial fibrillation with rapid v. response has replaced Sinus rhythm , diffuse ST changes are new, consider ischemia though they may be rate related Abnormal ECG PREVIOUS TRACING : 07/04/2017 07.43 DOCTOR: Boo Merida Interpretating Date/Time 07/07/2017 08:36:31
--- NOTE | 2017-07-07 08:37 | PD.CARD.PN ---
Subjective Subjective Remarks Complaints of some chest tube leaking this morning. Has been in normal sinus rhythm overnight, rate currently 60. Denies any palpitations. She wants to make sure the amiodarone won't interfere with her surgery on Wednesday. RN at bedside, patient did not require any Cardizem. Objective Medications Current Medications Medications (Trade) Dose Ordered Sig/Mila Route Start Time Stop Time Status Last Admin Sodium Chloride 1,000 ml @ 42 mls/hr [id number] IV 07/03/17 18:00 07/06/17 18:11 (NS Flush) 2 ml UNSCH PRN IV FLUSH 07/03/17 17:00 (NS Flush) 2 ml BID IV FLUSH 07/03/17 21:00 07/07/17 08:14 (Tylenol) 650 mg Q6H PRN PO 07/03/17 17:00 07/05/17 08:41 (Dilaudid Pf Inj) 1 mg Q4H PRN IV 07/03/17 18:00 07/07/17 06:40 (Pepcid Inj) 20 mg Q12HR IV PUSH 07/03/17 21:00 07/07/17 08:17 (Zofran Inj) 4 mg Q6H PRN IV PUSH 07/03/17 17:00 07/06/17 18:24 (Duoneb Neb) 1 ampule Q6HR NEB INH 07/03/17 17:00 07/07/17 04:02 (Duoneb Neb) 1 ampule Q2HR NEB PRN INH 07/03/17 17:00 (Heparin Inj) 5,000 units Q12H SQ 07/03/17 18:00 Future Hold 07/07/17 06:21 Miscellaneous Information 1 Q361D XX 07/03/17 17:00 (Chlorhexidine 2% Cloth) 3 pack Taper DAILY@04 TOP 07/04/17 04:00 06/30/18 03:59 07/06/17 04:00 (Chlorhexidine 2% Cloth) 3 pack UNSCH PRN TOP 07/03/17 17:00 (Lanny-Colace) 1 tab BID PO 07/03/17 21:00 07/07/17 08:16 (Milk Of Magnesia Liq) 30 ml Q12H PRN PO 07/03/17 17:00 (Senokot) 17.2 mg Q12H PRN PO 07/03/17 17:00 (Dulcolax Supp) 10 mg DAILY PRN RECTAL 07/03/17 17:00 (Lactulose Liq) 30 ml DAILY PRN PO 07/03/17 17:00 (D50w (Vial) Inj) 50 ml UNSCH PRN IV PUSH 07/03/17 17:15 (Glucagon Inj) 1 mg UNSCH PRN OTHER 07/03/17 17:15 (NovoLOG SUPPLEMENTAL SCALE) 1 ACHS SLIDING SCALE SQ 07/03/17 21:00 07/05/17 23:13 (Xanax) 1 mg Q8H PRN PO 07/03/17 17:45 07/06/17 21:08 (Norvasc) 10 mg DAILY PO 07/04/17 09:00 07/07/17 08:16 (Symbicort 80-4.5 Mcg Inh) 1 puff Q12HR INH 07/03/17 21:00 07/07/17 08:14 (Soma) 350 mg BID PRN PO 07/03/17 17:15 (Lasix) 60 mg BID PO 07/03/17 21:00 07/07/17 08:16 (Neurontin) 300 mg QID PO 07/03/17 18:00 07/07/17 08:16 (Synthroid) 112 mcg DAILY@0600 PO 07/04/17 06:00 07/07/17 06:21 (Mobic) 15 mg DAILY PRN PO 07/03/17 17:15 (Revatio) 40 mg TID PO 07/03/17 18:00 07/07/17 08:16 (Aldactone) 50 mg DAILY PO 07/04/17 09:00 07/07/17 08:17 (Spiriva Inh) 18 mcg DAILY INH 07/04/17 09:00 07/07/17 08:14 (Oscal-D 250-125) 500 mg DAILY PO 07/04/17 09:00 07/07/17 08:15 (Pravachol) 40 mg DAILY PO 07/04/17 09:00 07/07/17 08:16 (Synthroid) 25 mcg DAILY@0600 PO 07/04/17 06:00 07/07/17 06:21 (Questran 4 Gm Pkt) 4 gm DAILY PO 07/05/17 09:00 07/07/17 08:16 (Protonix) 40 mg Q12HR PO 07/04/17 21:00 07/07/17 08:16 Patient Own Medication BID PO 07/04/17 22:00 07/07/17 08:17 (Xifaxan) 400 mg Q8HR PO 07/05/17 22:00 07/07/17 06:21 Diltiazem HCl 125 mg/Sodium Chloride 125 ml @ 5 mls/hr TITRATE PRN IV 07/06/17 09:30 Amiodarone HCl 450 mg/Dextrose 250 ml @ 33.33 mls/ hr Q7H31M PRN IV 07/06/17 09:45 07/06/17 20:31 ([place] 5-325 Mg) 1 tab Q6H PRN PO 07/06/17 09:30 07/06/17 22:48 (NS Flush) 2 ml BID IV FLUSH 07/06/17 21:00 (NS Flush) 2 ml UNSCH PRN IV FLUSH 07/06/17 14:30 Cefazolin Sodium 500 mg/Sodium Chloride 505 ml @ 0 mls/hr [employer]PLOYMENT OFFICER IRRIGATION 07/06/17 14:30 07/13/17 14:29 Cefazolin Sodium/ Dextrose 50 ml @ 150 mls/hr EMPLOYMENT OFFICER IV 07/06/17 14:30 07/13/17 14:29 (Hibiclens 4% Top Soln) 1 applic EMPLOYMENT OFFICER TOPICAL 07/06/17 14:30 07/13/17 14:29 (D50w (Vial) Inj) 50 ml UNSCH PRN IV PUSH 07/06/17 14:30 Vital Signs / I&O Vital Signs Date Time Temp Pulse Resp B/P (MAP) Pulse Ox O2 Delivery O2 Flow Rate FiO2 07/07/17 07:00 98.1 64 20 111/54 (73) 96 07/07/17 07:00 62 07/07/17 07:00 96 Nasal Cannula 3.00 07/07/17 06:01 66 07/07/17 05:04 63 07/07/17 04:00 67 07/07/17 03:00 97 Nasal Cannula 3.00 07/07/17 03:00 97.4 62 17 102/56 (71) 94 07/07/17 03:00 63 07/07/17 02:00 67 07/07/17 01:00 72 07/07/17 00:22 17 07/07/17 00:00 65 07/06/17 23:15 95 Nasal Cannula 3.00 07/06/17 23:15 97.6 60 18 101/52 (68) 95 07/06/17 23:00 61 07/06/17 22:00 66 07/06/17 21:07 95 Nasal Cannula 3.00 07/06/17 21:00 64 07/06/17 20:31 89 119/59 07/06/17 20:00 56 07/06/17 19:00 96 Nasal Cannula 3.00 07/06/17 19:00 59 07/06/17 19:00 97.4 64 18 119/54 (75) 96 07/06/17 18:00 68 07/06/17 17:00 92 07/06/17 16:28 95 Nasal Cannula 3.50 07/06/17 16:11 98.3 66 19 107/52 (70) 94 07/06/17 16:00 66 07/06/17 15:00 62 07/06/17 14:00 64 07/06/17 13:00 136 07/06/17 12:02 111 07/06/17 11:58 93 Nasal Cannula 4.00 07/06/17 11:38 98.0 120 19 113/58 (76) 94 07/06/17 11:00 137 07/06/17 10:34 117/58 (77) 07/06/17 10:20 152 17 104/61 (75) 99 07/06/17 10:19 137 102/66 07/06/17 10:15 Partial Non-Rebreather 07/06/17 10:07 147 20 114/65 (81) 100 07/06/17 09:57 92 Nasal Cannula 4.00 07/06/17 09:57 151 18 122/82 (95) 90 07/06/17 09:54 163 109/78 07/06/17 09:05 155 I/O 07/06/17 07/06/17 07/06/17 07/07/17 07/07/17 07/07/17 07:00 15:00 23:00 07:00 15:00 23:00 Intake Total 100 ml 720 ml 1566 ml Output Total 500 ml 36 ml 850 ml 416 ml Balance -500 ml 64 ml -130 ml 1150 ml Intake Oral 720 ml 720 ml IV Total 100 ml 846 ml Output Urine Total 500 ml 850 ml 400 ml Chest Tube Drainage Total 36 ml 16 ml Physical Exam GENERAL: Well-developed well-nourished. In no acute distress. NECK: No carotid bruits. No JVD. CARDIOVASCULAR: Regular rate and rhythm. No murmur appreciated. Chest tubes in place on right chest. RESPIRATORY: No accessory muscle use. Diminished breath sounds in the bases. MUSCULOSKELETAL: No clubbing or cyanosis. No edema. NEUROLOGICAL: Awake and alert. Normal speech. Laboratory Laboratory Tests Test 07/06/17 08:45 07/06/17 15:45 Blood Urea Nitrogen 20 MG/DL Creatinine 0.72 MG/DL Random Glucose 80 MG/DL Calcium Level 8.8 MG/DL Magnesium Level 2.1 MG/DL Sodium Level 130 MEQ/L Potassium Level 3.7 MEQ/L Chloride Level 87 MEQ/L Carbon Dioxide Level 34.3 MEQ/L Anion Gap 9 MEQ/L Estimat Glomerular Filtration Rate 84 ML/MIN Urine Color YELLOW Urine Turbidity CLEAR Urine pH 5.5 Urine Specific [place] 1.016 Urine Protein TRACE mg/dL Urine Glucose (UA) NEG mg/dL Urine Ketones TRACE mg/dL Urine Occult Blood SMALL Urine Nitrite POS Urine Bilirubin NEG Urine Urobilinogen LESS THAN 2.0 MG/DL Urine Leukocyte Esterase MOD Urine RBC 4 /hpf Urine WBC 12 /hpf Urine WBC Clumps RARE Urine Bacteria OCC /hpf Urine Hyaline Casts 3 /lpf Microscopic Urinalysis Comment CULTURE INDICATED Imaging Last Impressions Chest X-Ray 07/05/17 0600 Signed Impressions: Service Date/Time: Wednesday, July 05, 2017 04:37 - CONCLUSION: Right apical pneumothorax again noted. Dhaval Overton MD Chest CT 07/05/17 0000 Signed Impressions: Service Date/Time: Wednesday, July 05, 2017 09:41 - CONCLUSION: 1. Previously seen right-sided pneumothorax is definitely improved and much smaller but there is still a loculated component inferiorly. New surgical chest tube traverses the anterior aspect of the right hemithorax. 2. Increasing bilateral airspace disease with patchy foci in the apices and more consolidated, atelectatic type changes in the bases, right greater than left. 3. Esophagus appears patulous and filled with debris. 4. None calcification in the anteroinferior aspect of the spleen. Sandro Villalobos MD Assessment and Plan Assessment and Plan 56-year-old female whom we were consulted for rapid irregularly irregular rhythm. Atrial fibrillation: Likely induced secondary to increased adrenergic tone. Started on amiodarone gtt with conversion to NSR with controlled rate. With NSR conversion, no need to initiate any long-term anticoagulation at this time. Monitor on telemetry. Stephan Reilly Jul 07, 2017 08:37
--- NOTE | 2017-07-07 10:28 | HHI.PR ---
Subjective Remarks No new complaints. Objective Vitals Vital Signs Date Time Temp Pulse Resp B/P (MAP) Pulse Ox O2 Delivery O2 Flow Rate FiO2 07/07/17 09:00 56 07/07/17 08:50 92 Nasal Cannula 3.00 07/07/17 08:00 64 07/07/17 07:00 98.1 64 20 111/54 (73) 96 07/07/17 07:00 62 07/07/17 07:00 96 Nasal Cannula 3.00 07/07/17 06:01 66 07/07/17 05:04 63 07/07/17 04:00 67 07/07/17 03:00 97 Nasal Cannula 3.00 07/07/17 03:00 97.4 62 17 102/56 (71) 94 07/07/17 03:00 63 07/07/17 02:00 67 07/07/17 01:00 72 07/07/17 00:22 17 07/07/17 00:00 65 07/06/17 23:15 95 Nasal Cannula 3.00 07/06/17 23:15 97.6 60 18 101/52 (68) 95 07/06/17 23:00 61 07/06/17 22:00 66 07/06/17 21:07 95 Nasal Cannula 3.00 07/06/17 21:00 64 07/06/17 20:31 89 119/59 07/06/17 20:00 56 07/06/17 19:00 96 Nasal Cannula 3.00 07/06/17 19:00 59 07/06/17 19:00 97.4 64 18 119/54 (75) 96 07/06/17 18:00 68 07/06/17 17:00 92 07/06/17 16:28 95 Nasal Cannula 3.50 07/06/17 16:11 98.3 66 19 107/52 (70) 94 07/06/17 16:00 66 07/06/17 15:00 62 07/06/17 14:00 64 07/06/17 13:00 136 07/06/17 12:02 111 07/06/17 11:58 93 Nasal Cannula 4.00 07/06/17 11:38 98.0 120 19 113/58 (76) 94 07/06/17 11:00 137 07/06/17 10:34 117/58 (77) Result Diagram: 2/12/18 0343 07/06/17 0845 Imaging Last Impressions Chest X-Ray 07/05/17 0600 Signed Impressions: Service Date/Time: Wednesday, July 05, 2017 04:37 - CONCLUSION: Right apical pneumothorax again noted. Dhaval Overton MD Chest CT 07/05/17 0000 Signed Impressions: Service Date/Time: Wednesday, July 05, 2017 09:41 - CONCLUSION: 1. Previously seen right-sided pneumothorax is definitely improved and much smaller but there is still a loculated component inferiorly. New surgical chest tube traverses the anterior aspect of the right hemithorax. 2. Increasing bilateral airspace disease with patchy foci in the apices and more consolidated, atelectatic type changes in the bases, right greater than left. 3. Esophagus appears patulous and filled with debris. 4. None calcification in the anteroinferior aspect of the spleen. Sandor Villalobos MD Objective Remarks GENERAL: This is a well-nourished, well-developed patient, in no apparent distress. CARDIOVASCULAR: tachycardic RESPIRATORY: Clear to auscultation. Breath sounds equal bilaterally. No wheezes , rales, or rhonchi. GASTROINTESTINAL: Abdomen soft, non-tender, nondistended. Normal active bowel sounds MUSCULOSKELETAL: Extremities without clubbing, cyanosis, or edema. NEURO: Alert & Oriented x4 to person, place, time, situation. Moves all ext x4 Date of Insertion: Jul 03, 2017 A/P Problem List: (1) Pneumothorax, right ICD Codes: J93.9 - Pneumothorax, unspecified Status: Acute Plan: - comgmt with Pulmonary Medicine, and Surgery, Dr. Brink Pt is a 56 y/o F with h/o COPD, scleroderma, and pulmonary HTN. Pt admitted with SOB and right-sided chest pain following coughing fit. Evaluation in the ER 07/03/17 revealed right pneumothorax. Pt had a pigtail catheter placed in the ER. Pt subsequently had a second chest tube placed by Dr. Brink (07/04/17) with reexpansion of the right lung. Pt transferred from [facility] to the Hospitalist service 07/05/17 Pt tolerating simple mask on 7 liters. - Case d/w Dr. Brink (07/05/17) - Case d/w Pulmonary Medicine, Dr. Hendrix. (07/05/17) - Case d/w Dr. Morris, CTS, (07/06/17) - will likely take pt to OR (07/09/17) - VATS - staple apical blebs - pleurodesis - pt stilled planned for OR 07/09 - DVT prophylaxis - supportive care. (2) Tachyarrhythmia ICD Codes: R00.0 - Tachycardia, unspecified Plan: - pt converted back to NSR (07/06) - pt developed tachyarrhythmia, narrow complex, with HR into the 170s/190s (07/06 ) - some mild, transient improvement in pt's HR with Valsalva maneuver - initially pt thought to have SVT - Pt given adenosine 6mg with transient improvement & then resumption of HR into the 150s - Pt seen by Dr. Cox (07/06) - reevaluation of rhythm --> likely afib with RVR - Pt given IV metoprolol 5mg - amiodarone drip started (07/06) - Case d/w Cardiology, Dr. Cox, (07/07) - once 24 hour of amiodarone has completed, will NOT give further amiodarone - observe off amiodarone. (3) Esophageal dysmotility due to systemic disease ICD Codes: K22.4 - Dyskinesia of esophagus Status: Chronic Plan: - comgmt with GI - Pt recently diagnosed at [facility] after was found to have aspiration pneumonia. - EGD and barium swallow two and a half weeks ago, records requested, not received yet. - Pt reports dysphagia with both liquids and solids, more so with solids. - Last EGD with dilation was in December to resolve a food bolus. - Speech therapy --> regular and thin liquids - GI had previously mentioned possibility of PEG d/t recurrence of aspiration pneumonia. Will d/w GI (4) Pulmonary hypertension ICD Codes: I27.0 - Pulmonary hypertension Status: Chronic Plan: - comgmt with Pulm Medicine - sildenafil - ?Pt also taking opsumit prior to admission (5) COPD (chronic obstructive pulmonary disease) ICD Codes: J44.9 - COPD (chronic obstructive pulmonary disease) Status: Chronic Plan: - comgmt with Pulm Med - symbicort - duonebs - spiriva (6) Scleroderma ICD Codes: M34.9 - Scleroderma Status: Chronic (7) Fecal incontinence ICD Codes: R15.9 - Full incontinence of feces Status: Chronic Plan: - Fecal incontinence and diarrhea - 10-20 episodes a day for the past year, could be secondary to scleroderma, however, pt has not been worked up previously for this diarrhea. - stool studies ordered - biopsy of small intestine during EGD when more stable - Last colonoscopy 3 years ago, pt states polyps - recent h/o SIBO - Pt treated with course of flagyl which was completed last Wednesday. - Pt started on Rifaximin (07/05 - present) (8) Hypothyroidism ICD Codes: E03.9 - Hypothyroidism Status: Chronic Plan: - levothyroxine Problem Qualifiers (1) COPD (chronic obstructive pulmonary disease): (2) Fecal incontinence: Qualified Codes: R15.9 - Full incontinence of feces (3) Hypothyroidism: Qualified Codes: E03.9 - Hypothyroidism, unspecified Angelo Gonsalez DO Jul 07, 2017 10:28
--- NOTE | 2017-07-07 12:21 | RADRPT ---
EXAM DATE/TIME: 07/07/2017 11:54 [place] COMPARISON: CHEST SINGLE AP, July 05, 2017, 18:25. INDICATIONS : Post chest tube placement, right side. MEDICAL HISTORY : Cardiovascular disease. Congestive heart failure. Gastroesophageal reflux disease.Hypertension. SURGICAL HISTORY : Right chest tube placement ENCOUNTER: Subsequent ACUITY: 1 day PAIN SCORE: 5/10 LOCATION: Bilateral chest FINDINGS: Portable upright AP view of the chest demonstrates a normal-sized cardiac silhouette. Lungs are under inflated with interstitial and airspace opacity in the lower lung zones bilaterally. A large bore brinda st tube remains present in the right mid to inferior hemithorax. The pigtail pleural catheter has bee n removed. There is a moderate size right apical pneumothorax. No definite pleural effusion is seen. CONCLUSION: 1. There is a single right chest tube remaining and a moderate size right apical pneumothorax is pres ent likely slightly increased from the study from 2 days ago. 2. There is stable airspace disease in the lower lung zones bilaterally. Coy Espinoza MD on July 07, 2017 at 12:17 Board Certified Radiologist. This report was verified electronically.
[2017-07-07] MEDS: ACETAMINOPHEN/HYDROcodone 325 MG/5 MG TAB PO PRN ×2 (12:30→18:23)
[2017-07-07] MEDS ORDERED: cefTRIAXone INJ 1,000 MG in SODIUM CHLORIDE 0.9% INJ 100 ML IV SCH (13:00)
--- NOTE | 2017-07-07 15:53 | PD.CAR.PN ---
CVT Progress Note Subjective/Hospital Course: Patient with known scleroderma and recurrent pneumothorax First pneumothorax was about 5 years ago and patient was diagnosed with scleroderma ,[address] [place] chest tube [address] CT scan reveals again some fibrotic changes and then in the tip of the lung there is some air-filled spaces consistent with blebs This is most likely due to long-standing smoking and COPD rather than any type of pulmonary fibrosis superimposed on it as result of scleroderma pt was seen by Dr Hernández initially and recommended thoracoscopy and stapling of blebs Considering that this is a second pneumothorax I believe it is appropriate for patient to undergo thoracoscopy and stapling of the blebs which are probably in the upper portion of the chest but will see once there. 06/05/17 Patient requested heart surgeon to evaluate and treat/ pt also went into afib RVR treated with amiodarone and seen by Dr Cox 06/06/17 pt converted to NSR, on nasal cannula 3 liters / feels better today re-explained surgical procedure on schedule for right VATS with possible bleb resection and pleurodesis /wednesday per nursing, right anterior pigtail cath dislodged and fell out/ immediately covered with vaseline gauze dressing repeat CXR : slight increase right apical ptx, right lateral chest tube still has intermittent air leak at 20cm suction Objective: GENERAL: SKIN: Warm and dry. HEAD: Normocephalic. EYES: No scleral icterus. No injection or drainage. NECK: Supple, trachea midline. No JVD or lymphadenopathy. CARDIOVASCULAR: Regular rate and rhythm without murmurs, gallops, or rubs. RESPIRATORY: Breath sounds equal bilaterally. No accessory muscle use. diminsihed right lower lobe, chest tube to 20 cm suction / + intermittent air leak GASTROINTESTINAL: Abdomen soft, non-tender, nondistended. MUSCULOSKELETAL: No cyanosis, or edema. BACK: Nontender without obvious deformity. No CVA tenderness. Vital Signs Date Time Temp Pulse Resp B/P (MAP) Pulse Ox O2 Delivery O2 Flow Rate FiO2 07/07/17 15:00 95 Nasal Cannula 3.00 07/07/17 15:00 63 07/07/17 15:00 98.6 83 20 120/58 (78) 95 07/07/17 14:00 77 07/07/17 13:00 64 07/07/17 12:00 66 07/07/17 11:00 97.9 78 20 108/61 (77) 93 07/07/17 11:00 93 Nasal Cannula 3.00 07/07/17 11:00 65 07/07/17 10:00 72 07/07/17 09:00 56 07/07/17 08:50 92 Nasal Cannula 3.00 07/07/17 08:00 64 07/07/17 07:00 98.1 64 20 111/54 (73) 96 07/07/17 07:00 62 07/07/17 07:00 96 Nasal Cannula 3.00 07/07/17 06:01 66 07/07/17 05:04 63 07/07/17 04:00 67 07/07/17 03:00 97 Nasal Cannula 3.00 07/07/17 03:00 97.4 62 17 102/56 (71) 94 07/07/17 03:00 63 07/07/17 02:00 67 07/07/17 01:00 72 07/07/17 00:22 17 07/07/17 00:00 65 07/06/17 23:15 95 Nasal Cannula 3.00 07/06/17 23:15 97.6 60 18 101/52 (68) 95 07/06/17 23:00 61 07/06/17 22:00 66 07/06/17 21:07 95 Nasal Cannula 3.00 07/06/17 21:00 64 07/06/17 20:31 89 119/59 07/06/17 20:00 56 07/06/17 19:00 96 Nasal Cannula 3.00 07/06/17 19:00 59 07/06/17 19:00 97.4 64 18 119/54 (75) 96 07/06/17 18:00 68 07/06/17 17:00 92 07/06/17 16:28 95 Nasal Cannula 3.50 07/06/17 16:11 98.3 66 19 107/52 (70) 94 07/06/17 16:00 66 Result Diagram: 07/05/17 0343 07/06/17 0845 Telemetry: NSR (1) COPD (chronic obstructive pulmonary disease) (2) Pulmonary hypertension (3) Tachyarrhythmia Plan: converted to NSR (4) Pneumothorax, right Plan: for surgery on wednesday Problem Qualifiers (1) COPD (chronic obstructive pulmonary disease): Julissa Beauchamp Jul 07, 2017 15:53
--- NOTE | 2017-07-07 16:11 | HHI.GIFU ---
Subjective Remarks Resting in the bed but arouses easily to verbal stimuli Chest tube 1 intact, patient states the other one popped out New atrial fib in the past 24 hours, stable heart rate Denies any current dysphagia, nausea or vomiting (Iliana Childs) Objective Vitals I&O Vital Signs Date Time Temp Pulse Resp B/P (MAP) Pulse Ox O2 Delivery O2 Flow Rate FiO2 07/07/17 15:00 95 Nasal Cannula 3.00 07/07/17 15:00 63 07/07/17 15:00 98.6 83 20 120/58 (78) 95 07/07/17 14:00 77 07/07/17 13:00 64 07/07/17 12:00 66 07/07/17 11:00 97.9 78 20 108/61 (77) 93 07/07/17 11:00 93 Nasal Cannula 3.00 07/07/17 11:00 65 07/07/17 10:00 72 07/07/17 09:00 56 07/07/17 08:50 92 Nasal Cannula 3.00 07/07/17 08:00 64 07/07/17 07:00 98.1 64 20 111/54 (73) 96 07/07/17 07:00 62 07/07/17 07:00 96 Nasal Cannula 3.00 07/07/17 06:01 66 07/07/17 05:04 63 07/07/17 04:00 67 07/07/17 03:00 97 Nasal Cannula 3.00 07/07/17 03:00 97.4 62 17 102/56 (71) 94 07/07/17 03:00 63 07/07/17 02:00 67 07/07/17 01:00 72 07/07/17 00:22 17 07/07/17 00:00 65 07/06/17 23:15 95 Nasal Cannula 3.00 07/06/17 23:15 97.6 60 18 101/52 (68) 95 07/06/17 23:00 61 07/06/17 22:00 66 07/06/17 21:07 95 Nasal Cannula 3.00 07/06/17 21:00 64 07/06/17 20:31 89 119/59 07/06/17 20:00 56 07/06/17 19:00 96 Nasal Cannula 3.00 07/06/17 19:00 59 07/06/17 19:00 97.4 64 18 119/54 (75) 96 07/06/17 18:00 68 07/06/17 17:00 92 07/06/17 16:28 95 Nasal Cannula 3.50 07/06/17 16:11 98.3 66 19 107/52 (70) 94 07/06/17 16:00 66 I/O 07/06/17 07/06/17 07/06/17 07/07/17 07/07/17 07/07/17 07:00 15:00 23:00 07:00 15:00 23:00 Intake Total 100 ml 720 ml 1566 ml 100 ml Output Total 500 ml 36 ml 850 ml 416 ml Balance -500 ml 64 ml -130 ml 1150 ml 100 ml Intake Oral 720 ml 720 ml IV Total 100 ml 846 ml 100 ml Output Urine Total 500 ml 850 ml 400 ml Chest Tube Drainage Total 36 ml 16 ml Laboratory Date/Time Source Procedure Growth Status 07/03/17 18:55 Blood Peripheral Aerobic Blood Culture - Preliminary NO GROWTH IN 4 DAYS Resulted 07/03/17 18:55 Blood Peripheral Anaerobic Blood Culture - Preliminary NO GROWTH IN 4 DAYS Resulted 07/03/17 19:00 Sputum Expectorated Sputum Gram Stain - Final Complete 07/03/17 19:00 Sputum Expectorated Sputum Sputum Culture - Final HEAVY GROWTH NORMAL RESPIRATORY POOJA Complete 07/06/17 15:45 Urine Clean Catch Urine Culture - Preliminary Pseudomonas Aeruginosa Resulted Imaging Last Impressions Chest X-Ray 07/07/17 0000 Signed Impressions: Service Date/Time: Friday, July 07, 2017 11:54 - CONCLUSION: 1. There is a single right chest tube remaining and a moderate size right apical pneumothorax is present likely slightly increased from the study from 2 days ago. 2. There is stable airspace disease in the lower lung zones bilaterally. Coy Espinoza MD Chest CT 07/05/17 0000 Signed Impressions: Service Date/Time: Wednesday, July 05, 2017 09:41 - CONCLUSION: 1. Previously seen right-sided pneumothorax is definitely improved and much smaller but there is still a loculated component inferiorly. New surgical chest tube traverses the anterior aspect of the right hemithorax. 2. Increasing bilateral airspace disease with patchy foci in the apices and more consolidated, atelectatic type changes in the bases, right greater than left. 3. Esophagus appears patulous and filled with debris. 4. None calcification in the anteroinferior aspect of the spleen. Sandro Villalobos MD Physical Exam HEENT: Normocephalic; atraumatic, no facial edema, oral cavity dry Neck slim, supple CHEST: Chest diminished sounds right side, chest tube x 1, right side CARDIAC: irregular , heart rate controlled ABDOMEN: Flat, Soft, nondistended, nontender; bowel sounds active EXTREMITIES: No clubbing, cyanosis, or edema. [employer]IVER: Alert and oriented x 3 (Iliana Childs) Assessment and Plan Plan Assessment/history Scleroderma - Esophageal dysmotility secondary to scleroderma- recently diagnosed at [facility] after was found to have aspiration pneumonia. EGD and barium swallow two and a half weeks ago, records requested, not received yet. Pt reports previous dysphagia and continues to have heartburn . Before hospital stay was taking omeprazole twice a day. Now transitioned to Protonix Last EGD with dilation was in December to resolve a food bolus. Patient states now she chews slowly and takes very small bites. Has had dilatation in the past Records ordered from [place] - Fecal incontinence and diarrhea- 10-20 episodes a day for the past year, could be secondary to scleroderma, however, pt has not been worked up previously for this diarrhea. Will order stool studies. Add bulking agent. Biopsy of small intestine during EGD when pt stable. Last colonoscopy was approx 3 years ago, states polyps - Recent history SIBO- recent treated with Flagyl, finished last Wednesday - Pneumothorax, chest tube, one in place now, 07/06/17 chest x-ray shows moderate right apical pneumothorax Diet per ST, regular with thin liquids. 07/07/17, patient has now been transitioned to room 459, chest tube 1, patient states #2 popped out by mistake. She is now planned for VAT Wednesday. Very aware of chewing her food slowly and take small bites secondary to dysphasia, and food lodging Patient states heartburn controlled with omeprazole twice a day , denies any current nausea vomiting, currently diarrhea controlled with meds Plan: - Rifaximin - Cholestyramine - Protonix twice a day - Zofran PRN - Monitor labs and any change in GI symptoms - EGD when clinically stable if pt is agreeable, TBA, possible next week -Currently VAT is planned for Wednesday. - Further recommendations to follow based on clinical course Supportive care Pt seen by myself and Dr. Pelayo and this note is written on his behalf (Iliana Childs) Physician Comments Patient seen and examined Agree with above Continue current supportive care Monitor labs Currently no appreciable dysphagia and the diarrhea has resolved Patient will probably benefit from an endoscopy but this could be done on an outpatient basis when patient is much improved clinically Not much to add at this point therefore we will sign off Patient follow-up with GI post discharge (Tomas Pelayo MD) Iliana Childs Jul 07, 2017 16:11 Tomas Pelayo MD Jul 07, 2017 20:18
[2017-07-07] MEDS: SODIUM CHLOR 0.9% 1000 ML INJ 1,000 ML IV SCH (17:16)
[2017-07-07] MEDS: CIPROFLOXACIN 500 MG TAB PO SCH (21:28)
[2017-07-08] VITALS (26 sets, daily range): BP systolic 110–126; BP diastolic 55–65; PULSE 61–142; RESP 17–20; TEMP 98–98.6; O2SAT 93–98
[2017-07-08] MEDS: ONDANSETRON HCL 4 MG/2 ML VIAL IV PUSH PRN (01:47)
[2017-07-08] MEDS: CHLORHEXIDINE GLUCONATE 2 % 1 PACK (2 CLOTHS) TOP SCH (03:18)
[2017-07-08] MEDS: ACETAMINOPHEN/HYDROcodone 325 MG/5 MG TAB PO PRN ×4 (03:56→21:47)
[2017-07-08 05:03] LABS: AUTOMATED NEUTROPHIL # 5.5 TH/MM3 (1.8-7.7); BASOPHIL % 0.4 % (0.0-2.0); EOSINOPHIL # 0.3 TH/MM3 (0-0.4); EOSINOPHIL % 3.9 % (0.0-4.0); HEMATOCRIT 35.2 % (35.0-46.0); HEMOGLOBIN 11.7 GM/DL (11.6-15.3); LYMPH % 7.3 % (9.0-44.0); LYMPHOCYTE # 0.5 TH/MM3 (1.0-4.8); MEAN CORPUSCULAR HEMOGLOBIN 27.3 PG (27.0-34.0); MEAN CORPUSCULAR HGB CONC 33.3 % (32.0-36.0); MEAN PLATELET VOLUME 7.3 FL (7.0-11.0); MONO % 8.5 % (0.0-8.0); MONOCYTE # 0.6 TH/MM3 (0-0.9); NEUT % 79.9 % (16.0-70.0); PLATELET COUNT 218 TH/MM3 (150-450); RED CELL DISTRIBUTION WIDTH 15.6 % (11.6-17.2); WHITE BLOOD COUNT 6.9 TH/MM3 (4.0-11.0)
[2017-07-08] MEDS: RIFAXIMIN 200 MG TAB PO SCH ×3 (05:06→21:16)
[2017-07-08] MEDS: LEVOTHYROXINE SODIUM 112 MCG TAB PO SCH (05:06)
[2017-07-08] MEDS: LEVOTHYROXINE SODIUM 25 MCG TAB PO SCH (05:06)
[2017-07-08] MEDS: HEPARIN SODIUM - SQ 10,000 UNITS/ML VIAL SQ SCH ×2 (05:06→17:19)
[2017-07-08 05:16] LABS: INTERNATIONAL NORMALIZED RATIO 0.9 RATIO; PROTHROMBIN TIME - PATIENT 9.5 SEC (9.8-11.6)
[2017-07-08 05:36] LABS: ALT (GPT) 19 U/L (10-53); AST (GOT) 15 U/L (15-37); BICARBONATE 35.1 MEQ/L (21.0-32.0); BLOOD UREA NITROGEN 13 MG/DL (7-18); CALCIUM 8.2 MG/DL (8.5-10.1); CHLORIDE 90 MEQ/L (98-107); CREATININE 0.57 MG/DL (0.50-1.00); GLOMERULAR FILTRATION RATE 110 ML/MIN (>89); GLUCOSE,RANDOM 120 MG/DL (74-106); SODIUM (NA) 131 MEQ/L (136-145)
[2017-07-08 05:38] LABS: ALKALINE PHOSPHATASE 65 U/L (45-117); TOTAL BILIRUBIN ADULT 0.3 MG/DL (0.2-1.0); TOTAL PROTEIN 6.5 GM/DL (6.4-8.2)
--- NOTE | 2017-07-08 07:48 | PD.CARD.PN ---
Subjective Subjective Remarks No chest pain, shortness breath, or palpitations. Telemetry appears to show frequent PACs overnight and conversion back to atrial fibrillation this morning. Objective Medications Current Medications Medications (Trade) Dose Ordered Sig/Mila Route Start Time Stop Time Status Last Admin Sodium Chloride 1,000 ml @ 42 mls/hr [id number] IV 07/03/17 18:00 07/07/17 17:16 (Tylenol) 650 mg Q6H PRN PO 07/03/17 17:00 07/05/17 08:41 (Dilaudid Pf Inj) 1 mg Q4H PRN IV 07/03/17 18:00 07/07/17 21:38 (Pepcid Inj) 20 mg Q12HR IV PUSH 07/03/17 21:00 07/07/17 21:30 (Zofran Inj) 4 mg Q6H PRN IV PUSH 07/03/17 17:00 07/08/17 01:47 (Duoneb Neb) 1 ampule Q2HR NEB PRN INH 07/03/17 17:00 07/07/17 20:15 (Heparin Inj) 5,000 units Q12H SQ 07/03/17 18:00 Future Hold 07/08/17 05:06 Miscellaneous Information 1 Q361D XX 07/03/17 17:00 (Chlorhexidine 2% Cloth) 3 pack Taper DAILY@04 TOP 07/04/17 04:00 06/30/18 03:59 07/06/17 04:00 (Chlorhexidine 2% Cloth) 3 pack UNSCH PRN TOP 07/03/17 17:00 (Lanny-Colace) 1 tab BID PO 07/03/17 21:00 07/07/17 21:27 (Milk Of Magnesia Liq) 30 ml Q12H PRN PO 07/03/17 17:00 (Senokot) 17.2 mg Q12H PRN PO 07/03/17 17:00 (Dulcolax Supp) 10 mg DAILY PRN RECTAL 07/03/17 17:00 (Lactulose Liq) 30 ml DAILY PRN PO 07/03/17 17:00 (Xanax) 1 mg Q8H PRN PO 07/03/17 17:45 07/06/17 21:08 (Symbicort 80-4.5 Mcg Inh) 1 puff Q12HR INH 07/03/17 21:00 07/07/17 21:25 (Soma) 350 mg BID PRN PO 07/03/17 17:15 (Lasix) 60 mg BID PO 07/03/17 21:00 07/07/17 21:29 (Neurontin) 300 mg QID PO 07/03/17 18:00 07/07/17 21:27 (Synthroid) 112 mcg DAILY@0600 PO 07/04/17 06:00 07/08/17 05:06 (Mobic) 15 mg DAILY PRN PO 07/03/17 17:15 (Revatio) 40 mg TID PO 07/03/17 18:00 07/07/17 17:15 (Aldactone) 50 mg DAILY PO 07/04/17 09:00 07/07/17 08:17 (Spiriva Inh) 18 mcg DAILY INH 07/04/17 09:00 07/07/17 08:14 (Pravachol) 40 mg DAILY PO 07/04/17 09:00 07/07/17 08:16 (Synthroid) 25 mcg DAILY@0600 PO 07/04/17 06:00 07/08/17 05:06 (Questran 4 Gm Pkt) 4 gm DAILY PO 07/05/17 09:00 07/07/17 08:16 (Protonix) 40 mg Q12HR PO 07/04/17 21:00 07/07/17 21:27 Patient Own Medication BID PO 07/04/17 22:00 07/07/17 08:17 (Xifaxan) 400 mg Q8HR PO 07/05/17 22:00 07/08/17 05:06 ([place] 5-325 Mg) 1 tab Q6H PRN PO 07/06/17 09:30 07/08/17 03:56 (NS Flush) 2 ml BID IV FLUSH 07/06/17 21:00 (NS Flush) 2 ml UNSCH PRN IV FLUSH 07/06/17 14:30 Cefazolin Sodium 500 mg/Sodium Chloride 505 ml @ 0 mls/hr [employer] IRRIGATION 07/06/17 14:30 07/13/17 14:29 Cefazolin Sodium/ Dextrose 50 ml @ 150 mls/hr [employer]POR[employer] ATTORNEY IV 07/06/17 14:30 07/13/17 14:29 (Hibiclens 4% Top Soln) 1 applic [employer]POR[employer] ATTORNEY TOPICAL 07/06/17 14:30 07/13/17 14:29 (Cipro) 500 mg Q12HR PO 07/07/17 21:00 07/07/17 21:28 (Oscal-D 250-125) 500 mg DAILY@1300 PO 07/08/17 13:00 Vital Signs / I&O Vital Signs Date Time Temp Pulse Resp B/P (MAP) Pulse Ox O2 Delivery O2 Flow Rate FiO2 07/08/17 07:00 94 Nasal Cannula 3.00 07/08/17 07:00 98.2 72 20 120/59 (79) 94 07/08/17 07:00 69 07/08/17 06:00 61 07/08/17 05:06 17 07/08/17 05:00 72 07/08/17 04:05 72 07/08/17 03:05 98.2 66 17 110/55 (73) 95 07/08/17 03:04 95 Nasal Cannula 3.00 07/08/17 03:00 63 07/08/17 01:00 72 07/08/17 00:00 76 07/07/17 23:45 94 Nasal Cannula 3.00 07/07/17 23:44 97.9 79 17 115/58 (77) 94 07/07/17 23:00 67 07/07/17 22:27 17 07/07/17 22:00 76 07/07/17 21:00 72 07/07/17 20:15 93 Nasal Cannula 4.00 07/07/17 20:00 74 07/07/17 19:41 97.8 74 17 120/59 (79) 94 07/07/17 19:40 93 Nasal Cannula 3.00 07/07/17 19:00 71 07/07/17 18:00 75 07/07/17 17:00 64 07/07/17 16:00 84 07/07/17 15:00 95 Nasal Cannula 3.00 07/07/17 15:00 63 07/07/17 15:00 98.6 83 20 120/58 (78) 95 07/07/17 14:00 77 07/07/17 13:00 64 07/07/17 12:00 66 07/07/17 11:00 97.9 78 20 108/61 (77) 93 07/07/17 11:00 93 Nasal Cannula 3.00 07/07/17 11:00 65 07/07/17 10:00 72 07/07/17 09:00 56 07/07/17 08:50 92 Nasal Cannula 3.00 07/07/17 08:00 64 I/O 07/07/17 07/07/17 07/07/17 07/08/17 07/08/17 07/08/17 07:00 15:00 23:00 07:00 15:00 23:00 Intake Total 1566 ml 100 ml 720 ml 720 ml Output Total 416 ml 1145 ml 1160 ml Balance 1150 ml 100 ml -425 ml -440 ml Intake Oral 720 ml 720 ml 720 ml IV Total 846 ml 100 ml Output Urine Total 400 ml 1100 ml 1050 ml Chest Tube Drainage Total 16 ml 45 ml 110 ml # Bowel Movements 2 Physical Exam GENERAL: Well-developed well-nourished. In no acute distress. NECK: No carotid bruits. No JVD. CARDIOVASCULAR: Irregular tachycardic rate and rhythm. No murmur appreciated. Chest tubes in place. RESPIRATORY: No accessory muscle use. Diminished breath sounds in the bases. MUSCULOSKELETAL: No clubbing or cyanosis. No edema. NEUROLOGICAL: Awake and alert. Normal speech. Laboratory Laboratory Tests Test 07/08/17 04:25 07/08/17 04:26 Blood Urea Nitrogen 13 MG/DL Creatinine 0.57 MG/DL Random Glucose 120 MG/DL Total Protein 6.5 GM/DL Albumin 3.0 GM/DL Calcium Level 8.2 MG/DL Alkaline Phosphatase 65 U/L Aspartate Amino Transf (AST/SGOT) 15 U/L Alanine Aminotransferase (ALT/SGPT) 19 U/L Total Bilirubin 0.3 MG/DL Sodium Level 131 MEQ/L Potassium Level 3.2 MEQ/L Chloride Level 90 MEQ/L Carbon Dioxide Level 35.1 MEQ/L Anion Gap 6 MEQ/L Estimat Glomerular Filtration Rate 110 ML/MIN White Blood Count 6.9 TH/MM3 Red Blood Count 4.30 MIL/MM3 Hemoglobin 11.7 GM/DL Hematocrit 35.2 % Mean Corpuscular Volume 82.0 FL Mean Corpuscular Hemoglobin 27.3 PG Mean Corpuscular Hemoglobin Concent 33.3 % Red Cell Distribution Width 15.6 % Platelet Count 218 TH/MM3 Mean Platelet Volume 7.3 FL Neutrophils (%) (Auto) 79.9 % Lymphocytes (%) (Auto) 7.3 % Monocytes (%) (Auto) 8.5 % Eosinophils (%) (Auto) 3.9 % Basophils (%) (Auto) 0.4 % Neutrophils # (Auto) 5.5 TH/MM3 Lymphocytes # (Auto) 0.5 TH/MM3 Monocytes # (Auto) 0.6 TH/MM3 Eosinophils # (Auto) 0.3 TH/MM3 Basophils # (Auto) 0.0 TH/MM3 CBC Comment DIFF FINAL Differential Comment Prothrombin Time 9.5 SEC Prothromb Time International Ratio 0.9 RATIO Imaging Last Impressions Chest X-Ray 07/07/17 0000 Signed Impressions: Service Date/Time: Friday, July 07, 2017 11:54 - CONCLUSION: 1. There is a single right chest tube remaining and a moderate size right apical pneumothorax is present likely slightly increased from the study from 2 days ago. 2. There is stable airspace disease in the lower lung zones bilaterally. Coy Espinoza MD Chest CT 07/05/17 0000 Signed Impressions: Service Date/Time: Wednesday, July 05, 2017 09:41 - CONCLUSION: 1. Previously seen right-sided pneumothorax is definitely improved and much smaller but there is still a loculated component inferiorly. New surgical chest tube traverses the anterior aspect of the right hemithorax. 2. Increasing bilateral airspace disease with patchy foci in the apices and more consolidated, atelectatic type changes in the bases, right greater than left. 3. Esophagus appears patulous and filled with debris. 4. None calcification in the anteroinferior aspect of the spleen. Sandro Villalobos MD Assessment and Plan Problem List: (1) COPD (chronic obstructive pulmonary disease) ICD Codes: J44.9 - COPD (chronic obstructive pulmonary disease) Status: Chronic (2) Pulmonary hypertension ICD Codes: I27.0 - Pulmonary hypertension Status: Chronic (3) Tachyarrhythmia ICD Codes: R00.0 - Tachycardia, unspecified (4) Pneumothorax, right ICD Codes: J93.9 - Pneumothorax, unspecified Status: Acute Assessment and Plan 56-year-old female whom we were consulted for rapid irregularly irregular rhythm. Atrial fibrillation: Converted to NSR on amiodarone gtt which was stopped yesterday. Recurrence of A. fib RVR today. Start Cardizem for rate control. Pending VATS surgery tomorrow, no anticoagulation at this time. Monitor on telemetry. Problem Qualifiers (1) COPD (chronic obstructive pulmonary disease): Stephan Reilly Jul 08, 2017 07:48
[2017-07-08] MEDS: TIOTROPIUM BROMIDE 18 MCG INH INH SCH (07:59)
[2017-07-08] MEDS: SILDENAFIL CITRATE 20 MG TAB PO SCH ×3 (08:00→17:20)
[2017-07-08] MEDS: SODIUM CHLORIDE 0.9% FLUSH 10 ML FLUSH IV FLUSH SCH ×2 (08:00→21:18)
[2017-07-08] MEDS: CIPROFLOXACIN 500 MG TAB PO SCH ×2 (08:00→21:16)
[2017-07-08] MEDS: FUROSEMIDE 20 MG TAB PO SCH ×2 (08:00→21:17)
[2017-07-08] MEDS: GABAPENTIN 300 MG CAP PO SCH ×4 (08:00→21:16)
[2017-07-08] MEDS: DOCUSATE SODIUM 50 MG/SENNA 8.6 MG TAB PO SCH ×2 (08:00→21:17)
[2017-07-08] MEDS: FAMOTIDINE 20 MG/2 ML VIAL IV PUSH SCH ×3 (08:00→21:18)
[2017-07-08] MEDS: BUDESONIDE-FORMOTEROL 80/4.5 MCG INHALER INH SCH ×2 (08:00→21:18)
[2017-07-08] MEDS: SPIRONOLACTONE 50 MG TAB PO SCH (08:00)
[2017-07-08] MEDS: CHOLESTYRAMINE 4 GM PACKET PO SCH (08:00)
[2017-07-08] MEDS: PRAVASTATIN SOD 40 MG TAB PO SCH (08:00)
[2017-07-08] MEDS: PANTOPRAZOLE SOD 40 MG DELAYED RELEASE TAB PO SCH ×2 (08:00→21:16)
[2017-07-08] MEDS: OPSUMIT 10 MG PO SCH ×2 (08:01→21:00)
[2017-07-08] MEDS: DILTIAZEM HCL 30 MG TAB PO SCH ×4 (08:19→21:16)
[2017-07-08] MEDS ORDERED: DIGOXIN 0.5 MG/2 ML VIAL IV PUSH ONE (09:15)
[2017-07-08] MEDS: ALPRAZolam 1 MG TAB PO PRN ×2 (10:10→21:17)
--- NOTE | 2017-07-08 10:45 | PD.CAR.PN ---
CVT Progress Note Subjective/Hospital Course: Patient with known scleroderma and recurrent pneumothorax First pneumothorax was about 5 years ago and patient was diagnosed with scleroderma ,20 [place] chest tube placed CT scan reveals again some fibrotic changes and then in the tip of the lung there is some air-filled spaces consistent with blebs This is most likely due to long-standing smoking and COPD rather than any type of pulmonary fibrosis superimposed on it as result of scleroderma pt was seen by Dr Hernández initially and recommended thoracoscopy and stapling of blebs Considering that this is a second pneumothorax I believe it is appropriate for patient to undergo thoracoscopy and stapling of the blebs which are probably in the upper portion of the chest but will see once there. 06/05/17 Patient requested heart surgeon to evaluate and treat/ pt also went into afib RVR treated with amiodarone and seen by Dr Cox 06/06/17 pt converted to NSR, on nasal cannula 3 liters / feels better today re-explained surgical procedure on schedule for right VATS with possible bleb resection and pleurodesis /wednesday per nursing, right anterior pigtail cath dislodged and fell out/ immediately covered with vaseline gauze dressing repeat CXR : slight increase right apical ptx, right lateral chest tube still has intermittent air leak at 20cm suction 07/08 right lateral chest tube intermittent air leak will recheck CXR today, to f/u right apical PTX for surgery in am afib this am , now back in NSR Objective: GENERAL: doing well , up in chair SKIN: Warm and dry. HEAD: Normocephalic. EYES: No scleral icterus. No injection or drainage. NECK: Supple, trachea midline. No JVD or lymphadenopathy. CARDIOVASCULAR: Regular rate and rhythm without murmurs, gallops, or rubs. RESPIRATORY: Breath sounds equal bilaterally. diminished right upper lobe chest tube to wall suction, + intermittent air leak , No accessory muscle use. GASTROINTESTINAL: Abdomen soft, non-tender, nondistended. MUSCULOSKELETAL: No cyanosis, or edema. BACK: Nontender without obvious deformity. No CVA tenderness. Vital Signs Date Time Temp Pulse Resp B/P (MAP) Pulse Ox O2 Delivery O2 Flow Rate FiO2 07/08/17 10:25 98 Nasal Cannula 5.00 07/08/17 10:00 142 07/08/17 09:00 136 07/08/17 08:00 120 07/08/17 07:00 94 Nasal Cannula 3.00 07/08/17 07:00 98.2 72 20 120/59 (79) 94 07/08/17 07:00 69 07/08/17 06:00 61 07/08/17 05:06 17 07/08/17 05:00 72 07/08/17 04:05 72 07/08/17 03:05 98.2 66 17 110/55 (73) 95 07/08/17 03:04 95 Nasal Cannula 3.00 07/08/17 03:00 63 07/08/17 01:00 72 07/08/17 00:00 76 07/07/17 23:45 94 Nasal Cannula 3.00 07/07/17 23:44 97.9 79 17 115/58 (77) 94 07/07/17 23:00 67 07/07/17 22:27 17 07/07/17 22:00 76 07/07/17 21:00 72 07/07/17 20:15 93 Nasal Cannula 4.00 07/07/17 20:00 74 07/07/17 19:41 97.8 74 17 120/59 (79) 94 07/07/17 19:40 93 Nasal Cannula 3.00 07/07/17 19:00 71 07/07/17 18:00 75 07/07/17 17:00 64 07/07/17 16:00 84 07/07/17 15:00 95 Nasal Cannula 3.00 07/07/17 15:00 63 07/07/17 15:00 98.6 83 20 120/58 (78) 95 07/07/17 14:00 77 07/07/17 13:00 64 07/07/17 12:00 66 07/07/17 11:00 97.9 78 20 108/61 (77) 93 07/07/17 11:00 93 Nasal Cannula 3.00 07/07/17 11:00 65 Labs: Laboratory Tests Test 07/08/17 04:25 07/08/17 04:26 Blood Urea Nitrogen 13 MG/DL (7-18) Creatinine 0.57 MG/DL (0.50-1.00) Random Glucose 120 MG/DL (74-106) Total Protein 6.5 GM/DL (6.4-8.2) Albumin 3.0 GM/DL (3.4-5.0) Calcium Level 8.2 MG/DL (8.5-10.1) Alkaline Phosphatase 65 U/L (45-117) Aspartate Amino Transf (AST/SGOT) 15 U/L (15-37) Alanine Aminotransferase (ALT/SGPT) 19 U/L (10-53) Total Bilirubin 0.3 MG/DL (0.2-1.0) Sodium Level 131 MEQ/L (136-145) Potassium Level 3.2 MEQ/L (3.5-5.1) Chloride Level 90 MEQ/L (98-107) Carbon Dioxide Level 35.1 MEQ/L (21.0-32.0) Anion Gap 6 MEQ/L (5-15) Estimat Glomerular Filtration Rate 110 ML/MIN (>89) White Blood Count 6.9 TH/MM3 (4.0-11.0) Red Blood Count 4.30 MIL/MM3 (4.00-5.30) Hemoglobin 11.7 GM/DL (11.6-15.3) Hematocrit 35.2 % (35.0-46.0) Mean Corpuscular Volume 82.0 FL (80.0-100.0) Mean Corpuscular Hemoglobin 27.3 PG (27.0-34.0) Mean Corpuscular Hemoglobin Concent 33.3 % (32.0-36.0) Red Cell Distribution Width 15.6 % (11.6-17.2) Platelet Count 218 TH/MM3 (150-450) Mean Platelet Volume 7.3 FL (7.0-11.0) Neutrophils (%) (Auto) 79.9 % (16.0-70.0) Lymphocytes (%) (Auto) 7.3 % (9.0-44.0) Monocytes (%) (Auto) 8.5 % (0.0-8.0) Eosinophils (%) (Auto) 3.9 % (0.0-4.0) Basophils (%) (Auto) 0.4 % (0.0-2.0) Neutrophils # (Auto) 5.5 TH/MM3 (1.8-7.7) Lymphocytes # (Auto) 0.5 TH/MM3 (1.0-4.8) Monocytes # (Auto) 0.6 TH/MM3 (0-0.9) Eosinophils # (Auto) 0.3 TH/MM3 (0-0.4) Basophils # (Auto) 0.0 TH/MM3 (0-0.2) CBC Comment DIFF FINAL Differential Comment Prothrombin Time 9.5 SEC (9.8-11.6) Prothromb Time International Ratio 0.9 RATIO Result Diagram: 07/08/1742507/08/17424 (1) COPD (chronic obstructive pulmonary disease) (2) Pulmonary hypertension (3) Tachyarrhythmia Plan: converted to NSR (4) Pneumothorax, right Plan: for surgery on wednesday f/u CXT today Problem Qualifiers (1) COPD (chronic obstructive pulmonary disease): Julissa Beauchamp Jul 08, 2017 10:45
--- NOTE | 2017-07-08 11:03 | RADRPT ---
EXAM DATE/TIME: 07/08/2017 10:45 [facility] COMPARISON: CT THORAX W CONTRAST, July 05, 2017, 9:41. CHEST SINGLE AP, July 07, 2017, 11:54. INDICATIONS : Evaluate right apical pneumonthrax MEDICAL HISTORY : Cardiovascular disease. Congestive heart failure. Gastroesophageal reflux disease.Hypertension. SURGICAL HISTORY : Right chest tube placement ENCOUNTER: Subsequent ACUITY: 2 days PAIN SCORE: 0/10 LOCATION: Right chest FINDINGS: Right thoracostomy tube remains in place. A slightly greater than 4 cm apical pneumothorax is noted w hich represents slight worsening from prior exam patchy bilateral interstitial and alveolar parenchym al opacities persist grossly unchanged. Cardiac contours are grossly stable. CONCLUSION: Probably slight interval worsening in right apical pneumothorax. Persistent diffuse parenchymal lung disease Coy Andrews MD on July 08, 2017 at 10:59 Board Certified Radiologist. This report was verified electronically.
[2017-07-08] MEDS: CALCIUM/VITAMIN D 250 MG/125 U TAB PO SCH (12:38)
[2017-07-08] MEDS: SODIUM CHLOR 0.9% 1000 ML INJ 1,000 ML IV SCH (17:05)
[2017-07-08] MEDS ORDERED: POTASSIUM CHLORIDE 20 MEQ CONTROLLED RELEASE TAB PO ONE (17:30)
--- NOTE | 2017-07-08 17:42 | HHI.PR ---
Subjective Remarks Pt developed Afib with RVR this AM. Pt had previously converted to NSR after receiving IV amiodarone. Pt started on PO cardizem and digoxin by cardiology. Telemetry: NSR Pt denies chest pain or palpitations. Objective Vitals Vital Signs Date Time Temp Pulse Resp B/P (MAP) Pulse Ox O2 Delivery O2 Flow Rate FiO2 07/08/17 17:00 70 07/08/17 16:00 87 07/08/17 15:00 98.0 84 20 110/58 (75) 97 07/08/17 15:00 67 07/08/17 15:00 97 Nasal Cannula 3.00 07/08/17 14:00 81 07/08/17 13:00 64 07/08/17 12:00 73 07/08/17 11:00 93 Nasal Cannula 3.00 07/08/17 11:00 98.6 110 20 112/65 (81) 93 07/08/17 11:00 65 07/08/17 10:25 98 Nasal Cannula 5.00 07/08/17 10:00 142 07/08/17 09:00 136 07/08/17 08:00 120 07/08/17 07:00 94 Nasal Cannula 3.00 07/08/17 07:00 98.2 72 20 120/59 (79) 94 07/08/17 07:00 69 07/08/17 06:00 61 07/08/17 05:06 17 07/08/17 05:00 72 07/08/17 04:05 72 07/08/17 03:05 98.2 66 17 110/55 (73) 95 07/08/17 03:04 95 Nasal Cannula 3.00 07/08/17 03:00 63 07/08/17 01:00 72 07/08/17 00:00 76 07/07/17 23:45 94 Nasal Cannula 3.00 07/07/17 23:44 97.9 79 17 115/58 (77) 94 07/07/17 23:00 67 07/07/17 22:27 17 07/07/17 22:00 76 07/07/17 21:00 72 07/07/17 20:15 93 Nasal Cannula 4.00 07/07/17 20:00 74 07/07/17 19:41 97.8 74 17 120/59 (79) 94 07/07/17 19:40 93 Nasal Cannula 3.00 07/07/17 19:00 71 07/07/17 18:00 75 07/08/17 07/08/17 07/09/17 15:00 23:00 07:00 Intake Total 720 ml Output Total 990 ml Balance -270 ml Intake Oral 720 ml Output Urine Total 950 ml Chest Tube Drainage Total 40 ml # Bowel Movements 0 Result Diagram: 07/08/17 0426 07/08/17 0425 Imaging Last Impressions Chest X-Ray 07/05/17 0600 Signed Impressions: Service Date/Time: Wednesday, July 05, 2017 04:37 - CONCLUSION: Right apical pneumothorax again noted. Dhaval Overton MD Chest CT 07/05/17 0000 Signed Impressions: Service Date/Time: Wednesday, July 05, 2017 09:41 - CONCLUSION: 1. Previously seen right-sided pneumothorax is definitely improved and much smaller but there is still a loculated component inferiorly. New surgical chest tube traverses the anterior aspect of the right hemithorax. 2. Increasing bilateral airspace disease with patchy foci in the apices and more consolidated, atelectatic type changes in the bases, right greater than left. 3. Esophagus appears patulous and filled with debris. 4. None calcification in the anteroinferior aspect of the spleen. Sandro Villalobos MD Objective Remarks GENERAL: This is a well-nourished, well-developed patient, in no apparent distress. CARDIOVASCULAR: tachycardic RESPIRATORY: Clear to auscultation. Breath sounds equal bilaterally. No wheezes , rales, or rhonchi. GASTROINTESTINAL: Abdomen soft, non-tender, nondistended. Normal active bowel sounds MUSCULOSKELETAL: Extremities without clubbing, cyanosis, or edema. NEURO: Alert & Oriented x4 to person, place, time, situation. Moves all ext x4 Date of Insertion: Jul 03, 2017 A/P Problem List: (1) Pneumothorax, right ICD Codes: J93.9 - Pneumothorax, unspecified Status: Acute Plan: - comgmt with Pulmonary Medicine, and Surgery, Dr. Brink Pt is a 56 y/o F with h/o COPD, scleroderma, and pulmonary HTN. Pt admitted with SOB and right-sided chest pain following coughing fit. Evaluation in the ER 07/03/17 revealed right pneumothorax. Pt had a pigtail catheter placed in the ER. Pt subsequently had a second chest tube placed by Dr. Brink (07/04/17) with reexpansion of the right lung. Pt transferred from [facility] to the Hospitalist service 07/05/17 Pt tolerating simple mask on 7 liters. - Case d/w Dr. Brink (07/05/17) - Case d/w Pulmonary Medicine, Dr. Hendrix. (07/05/17) - Case d/w Dr. Morris, CTS, (07/06/17) - will likely take pt to OR (07/09/17) - VATS - staple apical blebs - pleurodesis - pt planned for OR 07/09 - DVT prophylaxis - supportive care. (2) Tachyarrhythmia ICD Codes: R00.0 - Tachycardia, unspecified Plan: - pt converted back to NSR (07/06) - pt developed tachyarrhythmia, narrow complex, with HR into the 170s/190s (07/06 ) - some mild, transient improvement in pt's HR with Valsalva maneuver - initially pt thought to have SVT - Pt given adenosine 6mg with transient improvement & then resumption of HR into the 150s - Pt seen by Dr. Cox (07/06) - reevaluation of rhythm --> likely afib with RVR - Pt given IV metoprolol 5mg - IV amiodarone stopped 07/07 - Case d/w Cardiology, Dr. Cox, (07/07) - pt developed recurrent Afib/RVR (07/08) - pt started on PO cardizem and digoxin - pt converted back to NSR - Telemetry: NSR (3) Esophageal dysmotility due to systemic disease ICD Codes: K22.4 - Dyskinesia of esophagus Status: Chronic Plan: - comgmt with GI - Pt recently diagnosed at [facility] after was found to have aspiration pneumonia. - EGD and barium swallow two and a half weeks ago, records requested, not received yet. - Pt reports dysphagia with both liquids and solids, more so with solids. - Last EGD with dilation was in December to resolve a food bolus. - Speech therapy --> regular and thin liquids - GI had previously mentioned possibility of PEG d/t recurrence of aspiration pneumonia. Will d/w GI (4) Pulmonary hypertension ICD Codes: I27.0 - Pulmonary hypertension Status: Chronic Plan: - comgmt with Pulm Medicine - sildenafil - ?Pt also taking opsumit prior to admission (5) COPD (chronic obstructive pulmonary disease) ICD Codes: J44.9 - COPD (chronic obstructive pulmonary disease) Status: Chronic Plan: - comgmt with Pulm Med - symbicort - duonebs - spiriva (6) Scleroderma ICD Codes: M34.9 - Scleroderma Status: Chronic (7) Fecal incontinence ICD Codes: R15.9 - Full incontinence of feces Status: Chronic Plan: - Fecal incontinence and diarrhea - 10-20 episodes a day for the past year, could be secondary to scleroderma, however, pt has not been worked up previously for this diarrhea. - stool studies ordered - biopsy of small intestine during EGD when more stable - Last colonoscopy 3 years ago, pt states polyps - recent h/o SIBO - Pt treated with course of flagyl which was completed last Wednesday. - Pt started on Rifaximin (07/05 - present) (8) Hypothyroidism ICD Codes: E03.9 - Hypothyroidism Status: Chronic Plan: - levothyroxine Problem Qualifiers (1) COPD (chronic obstructive pulmonary disease): (2) Fecal incontinence: Qualified Codes: R15.9 - Full incontinence of feces (3) Hypothyroidism: Qualified Codes: E03.9 - Hypothyroidism, unspecified Angelo Gonsalez DO Jul 08, 2017 17:42
--- NOTE | 2017-07-08 18:55 | HHI.PR ---
Subjective Remarks doing well for VATS in am Objective Vital Signs Date Time Temp Pulse Resp B/P (MAP) Pulse Ox O2 Delivery O2 Flow Rate FiO2 07/08/17 18:00 80 07/08/17 17:00 70 07/08/17 16:00 87 07/08/17 15:00 98.0 84 20 110/58 (75) 97 07/08/17 15:00 67 07/08/17 15:00 97 Nasal Cannula 3.00 07/08/17 14:00 81 07/08/17 13:00 64 07/08/17 12:00 73 07/08/17 11:00 93 Nasal Cannula 3.00 07/08/17 11:00 98.6 110 20 112/65 (81) 93 07/08/17 11:00 65 07/08/17 10:25 98 Nasal Cannula 5.00 07/08/17 10:00 142 07/08/17 09:00 136 07/08/17 08:00 120 07/08/17 07:00 94 Nasal Cannula 3.00 07/08/17 07:00 98.2 72 20 120/59 (79) 94 07/08/17 07:00 69 07/08/17 06:00 61 07/08/17 05:06 17 07/08/17 05:00 72 07/08/17 04:05 72 07/08/17 03:05 98.2 66 17 110/55 (73) 95 07/08/17 03:04 95 Nasal Cannula 3.00 07/08/17 03:00 63 07/08/17 01:00 72 07/08/17 00:00 76 07/07/17 23:45 94 Nasal Cannula 3.00 07/07/17 23:44 97.9 79 17 115/58 (77) 94 07/07/17 23:00 67 07/07/17 22:27 17 07/07/17 22:00 76 07/07/17 21:00 72 07/07/17 20:15 93 Nasal Cannula 4.00 07/07/17 20:00 74 07/07/17 19:41 97.8 74 17 120/59 (79) 94 07/07/17 19:40 93 Nasal Cannula 3.00 07/07/17 19:00 71 I/O 2/14/18 2/07/07/17 07/08/17 07/08/17 07/08/17 07:00 15:00 23:00 07:00 15:00 23:00 Intake Total 1566 ml 100 ml 720 ml 720 ml 720 ml Output Total 416 ml 1145 ml 1160 ml 990 ml Balance 1150 ml 100 ml -425 ml -440 ml -270 ml Intake Oral 720 ml 720 ml 720 ml 720 ml IV Total 846 ml 100 ml Output Urine Total 400 ml 1100 ml 1050 ml 950 ml Chest Tube Drainage Total 16 ml 45 ml 110 ml 40 ml # Bowel Movements 2 0 Result Diagram: 07/08/1742507/08/17424 Objective Remarks Physical exam: General appearance: no acute distress Head and neck examination: atraumatic normocephalic Neck: supple trachea midline Lungs: clear bilaterally no wheezing or crackles, chest tube in place no air leak seen Heart: normal S1-S2 Abdomen: soft nontender positive bowel sounds Extremities: no significant edema no cyanosis Neurological examination: nonfocal moves all extremities awake oriented Skin: no rashes seen Assessment and Plan Assessment and Plan Recurrent pneumothorax Pulmonary hypertension Scleroderma VATS in am cont same tx otherwise i will be off for the next week.. please call [facility] if needed,.. care per cv surgery . Geoffrey Hendrix MD Jul 08, 2017 18:55
[2017-07-09] VITALS (20 sets, daily range): BP systolic 109–126; BP diastolic 48–67; PULSE 59–80; RESP 12–18; TEMP 97.8–98; O2SAT 91–100
[2017-07-09] MEDS: SODIUM CHLOR 0.9% 1000 ML INJ 1,000 ML IV SCH (00:08)
[2017-07-09] MEDS: CHLORHEXIDINE GLUCONATE 2 % 1 PACK (2 CLOTHS) TOP SCH (04:00)
[2017-07-09] MEDS: ACETAMINOPHEN/HYDROcodone 325 MG/5 MG TAB PO PRN (04:34)
[2017-07-09] MEDS: LEVOTHYROXINE SODIUM 112 MCG TAB PO SCH (05:59)
[2017-07-09] MEDS: LEVOTHYROXINE SODIUM 25 MCG TAB PO SCH (06:00)
[2017-07-09] MEDS: RIFAXIMIN 200 MG TAB PO SCH ×3 (06:00→22:03)
[2017-07-09 06:13] LABS: CALCIUM 8.8 MG/DL (8.5-10.1); CREATININE 0.72 MG/DL (0.50-1.00); MAGNESIUM 1.6 MG/DL (1.5-2.5)
[2017-07-09] MEDS ORDERED: fentaNYL CITRATE 1000 MCG/20 ML VIAL ONE (07:05)
[2017-07-09] MEDS ORDERED: BUPIVACAINE HCL PF 0.5% 30 ML VIAL ONE (08:18)
[2017-07-09] MEDS: PRAVASTATIN SOD 40 MG TAB PO SCH (09:00)
[2017-07-09] MEDS: CHOLESTYRAMINE 4 GM PACKET PO SCH (09:00)
[2017-07-09] MEDS: SPIRONOLACTONE 50 MG TAB PO SCH (09:00)
[2017-07-09] MEDS: BUDESONIDE-FORMOTEROL 80/4.5 MCG INHALER INH SCH ×2 (09:00→22:05)
[2017-07-09] MEDS: FAMOTIDINE 20 MG/2 ML VIAL IV PUSH SCH ×2 (09:00→22:05)
[2017-07-09] MEDS: SILDENAFIL CITRATE 20 MG TAB PO SCH ×3 (09:00→17:53)
[2017-07-09] MEDS: FUROSEMIDE 20 MG TAB PO SCH ×2 (09:00→22:04)
[2017-07-09] MEDS: DOCUSATE SODIUM 50 MG/SENNA 8.6 MG TAB PO SCH ×2 (09:00→22:04)
[2017-07-09] MEDS: GABAPENTIN 300 MG CAP PO SCH ×4 (09:00→22:04)
[2017-07-09] MEDS: TIOTROPIUM BROMIDE 18 MCG INH INH SCH (09:00)
[2017-07-09] MEDS: CIPROFLOXACIN 500 MG TAB PO SCH ×2 (09:00→21:00)
[2017-07-09] MEDS: OPSUMIT 10 MG PO SCH ×2 (09:00→21:00)
[2017-07-09] MEDS: DILTIAZEM HCL 30 MG TAB PO SCH ×4 (09:00→22:04)
[2017-07-09] MEDS ORDERED: SUGAMMADEX SODIUM 200 MG/2 ML VIAL IV PUSH ONE (09:10)
[2017-07-09] MEDS ORDERED: oxyCODONE/ACETAMINOPHEN 5 MG/325 MG TAB PO PRN (09:15)
[2017-07-09] MEDS ORDERED: POTASSIUM CHLOR 20 MEQ PREMIX 100 ML IV PRN (09:15)
[2017-07-09] MEDS ORDERED: SODIUM CHLORIDE 0.9% FLUSH 10 ML FLUSH IV FLUSH PRN (09:15)
[2017-07-09] MEDS ORDERED: MAGNESIUM HYDROXIDE SUSP 30 ML CUP PO PRN (09:15)
[2017-07-09] MEDS ORDERED: ACETAMINOPHEN 325 MG TAB PO PRN (09:15)
[2017-07-09] MEDS ORDERED: Post-op Orders (for Pharmacy) OTHER ONE (09:15)
--- NOTE | 2017-07-09 09:20 | PD.OP ---
cc: Gladis Morris MD; Geoffrey Hendrix MD; Angelo Gonsalez DO Operative Report Date of Surgery: Jul 09, 2017 Preoperative Diagnosis: (1) Pneumothorax, right (2) COPD (chronic obstructive pulmonary disease) Postoperative Diagnosis: same Procedure: Right VATS with apical bleb resection, chemical and mechanical pleuradesis Anesthesia: Dr Kaye Surgeon: Gladis Morris Winding Lathe Operator(s): Viri Browne, [facility] Operation and Findings: Specimen: apical blebs Drains: 32F chest tube Procedure Details After adequate general anesthesia the patient was placed in the left lateral decubitus position and the right chest was prepped and draped in usual manner. A small anterior port incision was performed and electrocautery was used to obtain hemostasis and carry the dissection down through the fascia. A port was initially placed followed by the camera. There were a few anterior adhesions encountered and apical blebs were observed. A second inferolateral and third posterior ports were placed.. Apical blebs were resected using an Endo ERASMO stapler. Staple line was sealed with aerosolized Evicel. A chemical pleuradesis was performed with betadine. A mechanical pleuradesis was performed as well with a bovie sponge. A 32F chest tube was positioned through the anterior port, and secured with a 0-silk suture. The lung was ventilated and no significant air leaks were found. The ports were closed using running 2-0 Vicryl suture for the subcutaneous tissue and the skin was approximated using running 4-0 Monocryl subcuticular stitch. All sponge and history counts were correct at the close the procedure and the patient was transferred to the PACU for recovery purposes. Gladis Morris MD Jul 09, 2017 09:20
[2017-07-09] MEDS ORDERED: PROPOFOL 1000 MG/100 ML INJ 100 ML ONE (09:56)
[2017-07-09] MEDS ORDERED: PROPOFOL 1000 MG/100 ML IV PRN (10:00)
[2017-07-09] MEDS ORDERED: DO NOT ADM ANY ANTICOAGULANT DRUGS PRN (10:00)
--- NOTE | 2017-07-09 10:50 | RADRPT ---
EXAM DATE/TIME: 07/09/2017 10:04 [facility] COMPARISON: CHEST SINGLE AP, July 08, 2017, 10:45. INDICATIONS : Post op thoracotomy. MEDICAL HISTORY : Cardiovascular disease. Congestive heart failure. Hypertension. GERD SURGICAL HISTORY : Right chest tube placement ENCOUNTER: Subsequent ACUITY: 4 - 6 days PAIN SCORE: Non-responsive. LOCATION: Bilateral chest FINDINGS: ETT 37 is above the lena. NGT in the stomach. Right-sided chest tube in the superior right hemithor ax. Small right apical pneumothorax and likely trace pleural effusion with progression of patchy pare nchymal opacities in the right mid to lower lung zones. Cardiomediastinal contours are stable. Remain epi of exam is unchanged. CONCLUSION: 1. Well-positioned ETT and NGT. 2. Right superior chest tube in place with small right hydropneumothorax. 3. Progression of patchy parenchymal opacities in the right mid to lower lung zones. Florin Braun MD on July 09, 2017 at 10:45 Board Certified Radiologist. This report was verified electronically.
[2017-07-09] MEDS ORDERED: LIDOCAINE HCL 1% PF 5 ML SYRINGE OTHER ONE (12:00)
[2017-07-09] MEDS ORDERED: DEXAMETHASONE SOD PHOS 4 MG/ML VIAL IV ONE (12:00)
[2017-07-09] MEDS ORDERED: ceFAZolin INJ 1,000 MG VIAL IV ONE (12:00)
[2017-07-09] MEDS ORDERED: KETOROLAC TROMETHAMINE 30 MG/ML (IVP) VIAL IV PUSH SCH (12:00)
[2017-07-09] MEDS ORDERED: PROPOFOL 200 MG/20 ML AMP IV ONE (12:00)
[2017-07-09] MEDS ORDERED: ONDANSETRON HCL 4 MG/2 ML VIAL IV ONE (12:00)
[2017-07-09] MEDS ORDERED: ROCURONIUM INJ 50 MG/5 ML SYRINGE IV PUSH ONE (12:00)
--- NOTE | 2017-07-09 12:50 | HHI.CCPN ---
Subjective Remarks/Hospital Course This is a 56-year-old patient with history of scleroderma, COPD, right sided heart failure, pulmonary hypertension, esophageal dysmotility presents to the [facility] today, states that she had a coughing fit this morning and then started feeling right sided chest tightness, feels like she is very short of breath. She denies any fevers or any other issues. Imaging studies were performed that revealed a right pneumothorax. A chest tube was placed in the ED , Dr. Brink was consulted by ED physician. CT scan was ordered pending. The patient was transferred to [facility]. Critical care medicine was consulted. Of note patient is being seen by [facility] by benefits advisor and social media coordinator, medical records request has been initiated. Subjective: 07/04: Afebrile. Leukocytosis resolved. Overnight the patient's oxygen requirements have decreased now currently on partial nonrebreather mask, however chest x-ray has worsened overnight a chin continues to have large right pneumothorax despite chest tube suction -[address] Hurst contacted this a.m., and he plans to replace chest tube this a.m.. CCM reconsult: Critical care is consulted for postoperative failure requiring reintubation in the PACU. Patient underwent right VATS with apical bleb resection, chemical and mechanical pleurodesis. Postop was extubated in the PACU but was lethargic, not protecting airway and was reintubated by anesthesia. Postintubation x-ray showed right lower lobe infiltrate question of aspiration. I evaluated the patient in the CVICU. She remains on propofol after holding it patient is slightly lethargic, but wakes up and follows commands Objective Vital Signs Date Time Temp Pulse Resp B/P (MAP) Pulse Ox O2 Delivery O2 Flow Rate FiO2 07/09/17 11:55 40 07/09/17 11:55 94 07/09/17 07:00 59 07/09/17 05:39 16 07/09/17 03:00 Nasal Cannula 4.00 07/09/17 03:00 98.0 109/51 (70) Intake and Output 07/09/17 07/09/17 07/10/17 08:00 16:00 00:00 Intake Total 1059 ml 1500 ml Output Total 1360 ml 450 ml Balance -301 ml 1050 ml Result Diagram: 07/08/17 0426 07/09/17 0436 Other Results Microbiology Date/Time Source Procedure Growth Status 07/06/17 15:45 Urine Clean Catch Urine Culture - Final Pseudomonas Aeruginosa Complete Imaging Last Impressions Chest X-Ray 07/04/17 0600 Signed Impressions: Service Date/Time: Tuesday, July 04, 2017 04:17 - CONCLUSION: 1. Right chest tube present with slight increase in size of moderate to large right pneumothorax over the last day. Shade Suh MD Chest CT 07/03/17 1310 Signed Impressions: Service Date/Time: Monday, July 03, 2017 13:56 - CONCLUSION: Moderate to large right pneumothorax with partial collapse of the right lung . No evidence of mass or adenopathy and bony structures are intact. Minimal area of parenchymal consolidation anterior to the right mid michael and in the right base Quinton Riggs MD Last Impressions Chest CT 07/03/17 1310 Signed Impressions: Service Date/Time: Monday, July 03, 2017 13:56 - CONCLUSION: Moderate to large right pneumothorax with partial collapse of the right lung . No evidence of mass or adenopathy and bony structures are intact. Minimal area of parenchymal consolidation anterior to the right mid michael and in the right base Quinton Riggs MD Chest X-Ray 07/03/17 1223 Signed Impressions: Service Date/Time: Monday, July 03, 2017 12:46 - CONCLUSION: Placement of a right-sided chest tube with minimal reexpansion of the right lung.. Julissa Lewis MD Procedures 07/03: Pigtail chest tube ,( right)placement in ED Objective Remarks GENERAL: This is a well-developed well-nourished female, intubated sedated SKIN: Warm and dry. HEAD: Atraumatic. Normocephalic. EYES: Pupils equal and round. No scleral icterus. No injection or drainage. ENT: Orotracheally intubated NECK: Trachea midline. No JVD. CARDIOVASCULAR: Normal rate, regular rhythm. RESPIRATORY: No accessory muscle use. Placed on CPAP. Breath sounds equal bilaterally. GASTROINTESTINAL: Abdomen soft, non-tender, nondistended. No guarding. MUSCULOSKELETAL: Extremities without clubbing, cyanosis, or edema. No obvious deformities. NEUROLOGICAL: Intubated and sedated on sedation hold lethargic but follows commands 4 Date of Insertion: Jul 03, 2017 A/P Problem List: (1) Leukocytosis, unspecified ICD Code: D72.829 - Elevated white blood cell count, unspecified (2) Esophageal dysmotility due to systemic disease ICD Code: K22.4 - Dyskinesia of esophagus Status: Chronic (3) Scleroderma ICD Code: M34.9 - Scleroderma Status: Chronic (4) COPD (chronic obstructive pulmonary disease) ICD Code: J44.9 - COPD (chronic obstructive pulmonary disease) Status: Chronic (5) Pulmonary hypertension ICD Code: I27.0 - Pulmonary hypertension Status: Chronic (6) Hypothyroidism ICD Code: E03.9 - Hypothyroidism Status: Chronic (7) Right knee pain ICD Code: M25.561 - Right knee pain Status: Acute (8) Gout ICD Code: M10.9 - Gout Status: Acute (9) Pneumothorax, right ICD Code: J93.9 - Pneumothorax, unspecified Status: Acute (10) Gouty arthritis ICD Code: M10.9 - Gout, unspecified Status: Acute Assessment and Plan This is a 56-year-old female with multiple comorbidities, persistent spontaneous pneumothorax S/P Right VATS with apical bleb resection, chemical and mechanical pleuradesis, critical rn patient care for postop respiratory failure Plan by systems: Neurologic: Anxiety disorder Chronic pain syndrome Hold propofol to facilitate spontaneous breathing trials Dilaudid 1 mg every 4 hours when necessary for pain level 7-10 Tylenol 650 mg for temp greater than 101 continue home medications Soma Continue gabapentin 300 mg QID Alprazolam 0.25 mg q 4 hr PRN Respiratory: Reintubated in PACU for failure to protect airway Acute hypercarbic respiratory failure Large right pneumothorax s/p VATS, blood resection and pleurodesis Acute hypoxic respiratory insufficiency Pulmonary hypertension Attempt SBT once more awake with parameters and ABG Currently on full vent support, place on CPAP Continue home medications-inhalers Symbicort and Spiriva Continue home medications for pulmonary hypertension-sildenafil 20 mg every 8 hours, Opsimid, and Asif Pulmonology consulted, Dr. Hendrix following Duo nebs every 6 hours scheduled every 4 hours when necessary Maintain O2 sat greater than 92% Post op management per Dr. Varela Cardiovascular: Hypertension Continue home medication amlodipine Renal: Maintain Dodson -patient receiving diuretics-home Meds include Lasix and spironolactone -- Strict I/Os FEN/GI: Hiatal hernia Esophageal dysmotility Zofran for nausea Keep NPO GI following Heme/ID: Leukocytosis-resolved Send sputum culture Perioperative antibiotics per Dr. Varela Legionella pneumococcal antigens Influenza antigen- negative Monitor CBC Endocrine: Hypothyroidism Hyperglycemia of critical illness Glucose monitoring per ICU protocol. Low dose regimen Continue home medication levothyroxine 137 mcg/d, post extubation -- SSI Prophylaxis: GI Prophylaxis Famotidine DVT Prophylaxis -- SCDs Start back on chemical prophylaxis once cleared by CT surgery Lines: Peripheral IVs 2. Central line if indicated Dispo: Level 3 D/W Dr. Varela, PLATE EMBOSSER (Strang), Once patient is extubated and stable, Dr. Gonsalez to assume care back from am . I have communicated with him Problem Qualifiers (1) COPD (chronic obstructive pulmonary disease): (2) Hypothyroidism: Qualified Codes: E03.9 - Hypothyroidism, unspecified Goldie Cespedes MD Jul 09, 2017 12:50
[2017-07-09] MEDS: CALCIUM/VITAMIN D 250 MG/125 U TAB PO SCH (13:00)
[2017-07-09] MEDS: KETOROLAC TROMETHAMINE 30 MG/ML (IVP) VIAL IV PUSH SCH (17:55)
[2017-07-09] MEDS: DOCUSATE CALCIUM 240 MG CAP PO SCH (22:04)
[2017-07-09] MEDS: SODIUM CHLORIDE 0.9% FLUSH 10 ML FLUSH IV FLUSH SCH (22:05)
[2017-07-09] MEDS: oxyCODONE/ACETAMINOPHEN 7.5 MG/325 MG TAB PO PRN (22:11)
[2017-07-10] VITALS (9 sets, daily range): BP systolic 101–128; BP diastolic 50–71; PULSE 56–75; RESP 16–18; TEMP 97.9–98.2; O2SAT 90–96
[2017-07-10] MEDS: ALPRAZolam 1 MG TAB PO PRN ×2 (01:41→22:40)
[2017-07-10] MEDS: CHLORHEXIDINE GLUCONATE 2 % 1 PACK (2 CLOTHS) TOP SCH (04:00)
--- NOTE | 2017-07-10 04:42 | RADRPT ---
EXAM DATE/TIME: 07/10/2017 03:56 [facility] COMPARISON: CHEST SINGLE AP, July 09, 2017, 10:04. INDICATIONS : Shortness of breath, possible pulmonary disease. MEDICAL HISTORY : Cardiovascular disease. Congestive heart failure. Hypertension. GERD SURGICAL HISTORY : Thoracotomy ENCOUNTER: Subsequent ACUITY: 1 week PAIN SCORE: 10/10 LOCATION: Bilateral chest FINDINGS: Chest tube is present on the right side. There is a loculated pneumothorax in the right apex not sign ificantly changed. Small right pleural effusion is present with parenchymal process in the right lung slightly worse since the prior exam. CONCLUSION: No change in loculated pneumothorax in right apex, however parenchymal process right lung appears sli ghtly worse in the perihilar location. Magdi Neri MD on July 10, 2017 at 4:39 Board Certified Radiologist. This report was verified electronically.
[2017-07-10 04:52] LABS: AUTOMATED NEUTROPHIL # 8.1 TH/MM3 (1.8-7.7); BASOPHIL % 0.2 % (0.0-2.0); EOSINOPHIL # 0.1 TH/MM3 (0-0.4); EOSINOPHIL % 0.7 % (0.0-4.0); HEMATOCRIT 38.6 % (35.0-46.0); HEMOGLOBIN 12.9 GM/DL (11.6-15.3); LYMPH % 6.3 % (9.0-44.0); LYMPHOCYTE # 0.6 TH/MM3 (1.0-4.8); MEAN CELL VOLUME 81.9 FL (80.0-100.0); MEAN CORPUSCULAR HEMOGLOBIN 27.4 PG (27.0-34.0); MEAN CORPUSCULAR HGB CONC 33.5 % (32.0-36.0); MEAN PLATELET VOLUME 7.3 FL (7.0-11.0); MONO % 10.7 % (0.0-8.0); MONOCYTE # 1.1 TH/MM3 (0-0.9); NEUT % 82.1 % (16.0-70.0); PLATELET COUNT 293 TH/MM3 (150-450); RED BLOOD COUNT 4.72 MIL/MM3 (4.00-5.30); RED CELL DISTRIBUTION WIDTH 16.1 % (11.6-17.2); WHITE BLOOD COUNT 9.8 TH/MM3 (4.0-11.0)
[2017-07-10 05:22] LABS: BICARBONATE 30.8 MEQ/L (21.0-32.0); CALCIUM 8.6 MG/DL (8.5-10.1); CREATININE 0.71 MG/DL (0.50-1.00)
[2017-07-10] MEDS: KETOROLAC TROMETHAMINE 30 MG/ML (IVP) VIAL IV PUSH SCH ×2 (06:20)
[2017-07-10] MEDS: LEVOTHYROXINE SODIUM 25 MCG TAB PO SCH (06:20)
[2017-07-10] MEDS: LEVOTHYROXINE SODIUM 112 MCG TAB PO SCH (06:20)
[2017-07-10] MEDS: RIFAXIMIN 200 MG TAB PO SCH ×3 (06:20→21:44)
[2017-07-10] MEDS: SODIUM CHLOR 0.9% 1000 ML INJ 1,000 ML IV SCH ×2 (06:21→16:43)
[2017-07-10] MEDS: OPSUMIT 10 MG PO SCH ×2 (09:00→21:00)
[2017-07-10] MEDS: BUDESONIDE-FORMOTEROL 80/4.5 MCG INHALER INH SCH ×2 (09:13→21:44)
[2017-07-10] MEDS: SODIUM CHLORIDE 0.9% FLUSH 10 ML FLUSH IV FLUSH SCH ×2 (09:13→21:44)
[2017-07-10] MEDS: TIOTROPIUM BROMIDE 18 MCG INH INH SCH (09:13)
[2017-07-10] MEDS: FAMOTIDINE 20 MG/2 ML VIAL IV PUSH SCH ×2 (09:14→21:46)
[2017-07-10] MEDS: GABAPENTIN 300 MG CAP PO SCH ×4 (09:14→21:44)
[2017-07-10] MEDS: PRAVASTATIN SOD 40 MG TAB PO SCH (09:14)
[2017-07-10] MEDS: DILTIAZEM HCL 30 MG TAB PO SCH ×4 (09:15→21:44)
[2017-07-10] MEDS: oxyCODONE/ACETAMINOPHEN 7.5 MG/325 MG TAB PO PRN ×3 (09:15→21:45)
[2017-07-10] MEDS: CIPROFLOXACIN 500 MG TAB PO SCH ×2 (09:15→21:44)
[2017-07-10] MEDS: SPIRONOLACTONE 50 MG TAB PO SCH (09:15)
[2017-07-10] MEDS: DOCUSATE SODIUM 50 MG/SENNA 8.6 MG TAB PO SCH ×2 (09:15→21:44)
[2017-07-10] MEDS: FUROSEMIDE 20 MG TAB PO SCH ×2 (09:16→21:45)
[2017-07-10] MEDS: CHOLESTYRAMINE 4 GM PACKET PO SCH (09:16)
[2017-07-10] MEDS: SILDENAFIL CITRATE 20 MG TAB PO SCH ×3 (09:18→17:47)
[2017-07-10] MEDS ORDERED: BISACODYL 10 MG SUPP RECTAL PRN (10:00)
[2017-07-10] MEDS ORDERED: INSULIN ASPART SUPPLEMENTAL SCALE SQ SCH (10:00)
[2017-07-10] MEDS ORDERED: GLUCAGON 1 MG/ML VIAL OTHER PRN (10:00)
[2017-07-10] MEDS ORDERED: DEXTROSE 50% IN WATER 50 ML VIAL(D50) IV PUSH PRN (10:00)
--- NOTE | 2017-07-10 10:13 | PD.CAR.PN ---
CVT Progress Note CVT: POD #: 1 Subjective/Hospital Course: Patient with known scleroderma and recurrent pneumothorax First pneumothorax was about 5 years ago and patient was diagnosed with scleroderma ,20 [place] chest tube placed CT scan reveals again some fibrotic changes and then in the tip of the lung there is some air-filled spaces consistent with blebs This is most likely due to long-standing smoking and COPD rather than any type of pulmonary fibrosis superimposed on it as result of scleroderma pt was seen by Dr Hernández initially and recommended thoracoscopy and stapling of blebs Considering that this is a second pneumothorax I believe it is appropriate for patient to undergo thoracoscopy and stapling of the blebs which are probably in the upper portion of the chest but will see once there. 06/05/17 Patient requested heart surgeon to evaluate and treat/ pt also went into afib RVR treated with amiodarone and seen by Dr Cox 06/06/17 pt converted to NSR, on nasal cannula 3 liters / feels better today re-explained surgical procedure on schedule for right VATS with possible bleb resection and pleurodesis /wednesday per nursing, right anterior pigtail cath dislodged and fell out/ immediately covered with vaseline gauze dressing repeat CXR : slight increase right apical ptx, right lateral chest tube still has intermittent air leak at 20cm suction 2/15 right lateral chest tube intermittent air leak will recheck CXR today, to f/u right apical PTX for surgery in am afib this am , now back in NSR 07/10/17 s/p R VATS bleb resection/pleuradesis No complaints today Objective: Vital Signs Date Time Temp Pulse Resp B/P (MAP) Pulse Ox O2 Delivery O2 Flow Rate FiO2 07/10/17 07:36 95 Nasal Cannula 6.00 07/10/17 07:00 56 07/10/17 07:00 94 Nasal Cannula 6.00 07/10/17 07:00 98.1 56 18 102/50 (67) 94 07/10/17 03:45 56 07/10/17 03:45 98.0 57 16 121/52 (75) 95 07/10/17 03:45 95 Nasal Cannula 5.00 07/09/17 23:20 98.0 60 16 109/48 (68) 95 07/09/17 23:20 60 2/16/18 23:20 95 Nasal Cannula 5.00 07/09/17 20:10 97 Nasal Cannula 4.00 07/09/17 19:32 98.0 73 16 126/60 (82) 95 07/09/17 19:32 95 Nasal Cannula 4.00 07/09/17 19:00 73 07/09/17 17:18 18 07/09/17 16:00 97.8 76 18 116/60 (78) 99 07/09/17 16:00 98 Nasal Cannula 4.00 07/09/17 14:06 91 Nasal Cannula 5 07/09/17 14:06 92 Nasal Cannula 5.00 07/09/17 14:00 95 Nasal Cannula 5.00 07/09/17 14:00 80 18 124/67 (86) 95 07/09/17 12:00 97.8 63 12 114/64 (81) 95 07/09/17 12:00 95 Mechanical Ventilator 40 07/09/17 11:55 40 07/09/17 11:55 94 40 07/09/17 11:46 100 100 07/09/17 11:30 60 13 132/63 (86) 98 Mechanical Ventilator 40 07/09/17 11:15 59 14 119/62 (81) 99 Mechanical Ventilator 40 07/09/17 11:00 97.8 63 12 114/64 (81) 95 07/09/17 11:00 63 21 104/58 (73) 99 Mechanical Ventilator 40 07/09/17 11:00 95 Mechanical Ventilator 40 07/09/17 10:45 52 12 104/58 (73) 100 Mechanical Ventilator 40 07/09/17 10:30 54 19 114/56 (75) 99 Mechanical Ventilator 40 07/09/17 10:15 56 12 109/59 (76) 96 Mechanical Ventilator 40 07/09/17 10:00 50 12 103/56 (72) 100 Mechanical Ventilator 40 Labs: Laboratory Tests Test 07/10/17 04:30 White Blood Count 9.8 TH/MM3 (4.0-11.0) Red Blood Count 4.72 MIL/MM3 (4.00-5.30) Hemoglobin 12.9 GM/DL (11.6-15.3) Hematocrit 38.6 % (35.0-46.0) Mean Corpuscular Volume 81.9 FL (80.0-100.0) Mean Corpuscular Hemoglobin 27.4 PG (27.0-34.0) Mean Corpuscular Hemoglobin Concent 33.5 % (32.0-36.0) Red Cell Distribution Width 16.1 % (11.6-17.2) Platelet Count 293 TH/MM3 (150-450) Mean Platelet Volume 7.3 FL (7.0-11.0) Neutrophils (%) (Auto) 82.1 % (16.0-70.0) Lymphocytes (%) (Auto) 6.3 % (9.0-44.0) Monocytes (%) (Auto) 10.7 % (0.0-8.0) Eosinophils (%) (Auto) 0.7 % (0.0-4.0) Basophils (%) (Auto) 0.2 % (0.0-2.0) Neutrophils # (Auto) 8.1 TH/MM3 (1.8-7.7) Lymphocytes # (Auto) 0.6 TH/MM3 (1.0-4.8) Monocytes # (Auto) 1.1 TH/MM3 (0-0.9) Eosinophils # (Auto) 0.1 TH/MM3 (0-0.4) Basophils # (Auto) 0.0 TH/MM3 (0-0.2) CBC Comment DIFF FINAL Differential Comment Blood Urea Nitrogen 18 MG/DL (7-18) Creatinine 0.71 MG/DL (0.50-1.00) Random Glucose 107 MG/DL (74-106) Calcium Level 8.6 MG/DL (8.5-10.1) Sodium Level 131 MEQ/L (136-145) Potassium Level 4.3 MEQ/L (3.5-5.1) Chloride Level 93 MEQ/L (98-107) Carbon Dioxide Level 30.8 MEQ/L (21.0-32.0) Anion Gap 7 MEQ/L (5-15) Estimat Glomerular Filtration Rate 85 ML/MIN (>89) Result Diagram: 07/10/170 07/10/17 043 Imaging: Last 24 hours Impressions Chest X-Ray 07/10/17 0500 Signed Impressions: Service Date/Time: Monday, July 10, 2017 03:56 - CONCLUSION: No change in loculated pneumothorax in right apex, however parenchymal process right lung appears slightly worse in the perihilar location. K. Bandar Neri MD Cardiovascular: RRR Telemetry: NSR Pulmonary: few crackles on right GI/: NABS Incision: dry and intact CT: ~150 ml since OR, no air leak Plan: Continues to have small loculated apical PTX. Some increase consolidation on right - ? aspiration Transfer to stepdown Encourage ambulation, up to chair Advance diet Cont current meds Dr. Gonsalez to follow as well. (1) COPD (chronic obstructive pulmonary disease) (2) Pulmonary hypertension (3) Tachyarrhythmia Plan: converted to NSR (4) Pneumothorax, right Plan: for surgery on wednesday f/u CXT today Problem Qualifiers (1) COPD (chronic obstructive pulmonary disease): Gladis Morris MD Jul 10, 2017 10:13
[2017-07-10] MEDS: CALCIUM/VITAMIN D 250 MG/125 U TAB PO SCH (12:51)
--- NOTE | 2017-07-10 16:22 | HHI.PR ---
Subjective Remarks No new complaints. Pain is controlled. Pt has been out-of-bed with PT. Objective Vitals Vital Signs Date Time Temp Pulse Resp B/P (MAP) Pulse Ox O2 Delivery O2 Flow Rate FiO2 07/10/17 15:00 97.9 56 18 114/54 (74) 95 07/10/17 15:00 95 Nasal Cannula 5.00 07/10/17 15:00 57 07/10/17 13:50 18 07/10/17 11:00 95 Nasal Cannula 6.00 07/10/17 11:00 98.2 59 18 101/54 (70) 95 07/10/17 11:00 58 07/10/17 07:36 95 Nasal Cannula 6.00 07/10/17 07:00 56 07/10/17 07:00 94 Nasal Cannula 6.00 07/10/17 07:00 98.1 56 18 102/50 (67) 94 07/10/17 03:45 56 07/10/17 03:45 98.0 57 16 121/52 (75) 95 07/10/17 03:45 95 Nasal Cannula 5.00 07/09/17 23:20 98.0 60 16 109/48 (68) 95 07/09/17 23:20 60 07/09/17 23:20 95 Nasal Cannula 5.00 07/09/17 20:10 97 Nasal Cannula 4.00 07/09/17 19:32 98.0 73 16 126/60 (82) 95 07/09/17 19:32 95 Nasal Cannula 4.00 07/09/17 19:00 73 07/10/17 07/10/17 07/11/17 15:00 23:00 07:00 Intake Total 100 ml Balance 100 ml IV Total 100 ml Result Diagram: 07/10/17 0430 07/10/17 0430 Imaging Last Impressions Chest X-Ray 07/10/17 0500 Signed Impressions: Service Date/Time: Monday, July 10, 2017 03:56 - CONCLUSION: No change in loculated pneumothorax in right apex, however parenchymal process right lung appears slightly worse in the perihilar location. Magdi Neri MD Chest CT 07/05/17 0000 Signed Impressions: Service Date/Time: Wednesday, July 05, 2017 09:41 - CONCLUSION: 1. Previously seen right-sided pneumothorax is definitely improved and much smaller but there is still a loculated component inferiorly. New surgical chest tube traverses the anterior aspect of the right hemithorax. 2. Increasing bilateral airspace disease with patchy foci in the apices and more consolidated, atelectatic type changes in the bases, right greater than left. 3. Esophagus appears patulous and filled with debris. 4. None calcification in the anteroinferior aspect of the spleen. Sandro Villalobos MD Objective Remarks GENERAL: This is a well-nourished, well-developed patient, in no apparent distress. CARDIOVASCULAR: tachycardic RESPIRATORY: Clear to auscultation. Breath sounds equal bilaterally. No wheezes , rales, or rhonchi. GASTROINTESTINAL: Abdomen soft, non-tender, nondistended. Normal active bowel sounds MUSCULOSKELETAL: Extremities without clubbing, cyanosis, or edema. NEURO: Alert & Oriented x4 to person, place, time, situation. Moves all ext x4 Date of Insertion: Jul 03, 2017 A/P Problem List: (1) Pneumothorax, right ICD Codes: J93.9 - Pneumothorax, unspecified Status: Acute Plan: - comgmt with Pulmonary Medicine, and Surgery, Dr. Brink Pt is a 56 y/o F with h/o COPD, scleroderma, and pulmonary HTN. Pt admitted with SOB and right-sided chest pain following coughing fit. Evaluation in the ER 07/03/17 revealed right pneumothorax. Pt had a pigtail catheter placed in the ER. Pt subsequently had a second chest tube placed by Dr. Brink (07/04/17) with reexpansion of the right lung. Pt transferred from [facility] to the Hospitalist service 07/05/17 Pt tolerating simple mask on 7 liters. - Case d/w Dr. Brink (07/05/17) - Case d/w Pulmonary Medicine, Dr. Hendrix. (07/05/17) - Case d/w Dr. Morris, [facility], (07/06/17) - Pt taken to the OR (07/09/17) with Dr. Morris - VATS - apical bleb resection - chemical/mechanical pleurodesis - Chest tube mgmt per Surgery - stable on 6L NC - repeat CXR 07/11/17 - DVT prophylaxis with SCDs - PT - supportive care. (2) Tachyarrhythmia ICD Codes: R00.0 - Tachycardia, unspecified Plan: - pt converted back to NSR (07/06) - pt developed tachyarrhythmia, narrow complex, with HR into the 170s/190s (07/06 ) - some mild, transient improvement in pt's HR with Valsalva maneuver - initially pt thought to have SVT - Pt given adenosine 6mg with transient improvement & then resumption of HR into the 150s - Pt seen by Dr. Cox (07/06) - reevaluation of rhythm --> likely afib with RVR - Pt given IV metoprolol 5mg - IV amiodarone stopped 07/07 - Case d/w Cardiology, Dr. Cox, (07/07) - pt developed recurrent Afib/RVR (07/08) - pt converted back to NSR - continue PO cardizem for now - Telemetry: NSR (3) Esophageal dysmotility due to systemic disease ICD Codes: K22.4 - Dyskinesia of esophagus Status: Chronic Plan: - comgmt with GI - Pt recently diagnosed at [facility] after was found to have aspiration pneumonia. - EGD and barium swallow two and a half weeks ago, records requested, not received yet. - Pt reports dysphagia with both liquids and solids, more so with solids. - Last EGD with dilation was in December to resolve a food bolus. - Speech therapy --> regular and thin liquids - GI had previously mentioned possibility of PEG d/t recurrence of aspiration pneumonia. Will d/w GI (4) Pulmonary hypertension ICD Codes: I27.0 - Pulmonary hypertension Status: Chronic Plan: - comgmt with Pulm Medicine - sildenafil - ?Pt also taking opsumit prior to admission (5) COPD (chronic obstructive pulmonary disease) ICD Codes: J44.9 - COPD (chronic obstructive pulmonary disease) Status: Chronic Plan: - comgmt with Pulm Med - symbicort - duonebs - spiriva (6) Scleroderma ICD Codes: M34.9 - Scleroderma Status: Chronic (7) Fecal incontinence ICD Codes: R15.9 - Full incontinence of feces Status: Chronic Plan: - Fecal incontinence and diarrhea - 10-20 episodes a day for the past year, could be secondary to scleroderma, however, pt has not been worked up previously for this diarrhea. - stool studies ordered - biopsy of small intestine during EGD when more stable - Last colonoscopy 3 years ago, pt states polyps - recent h/o SIBO - Pt treated with course of flagyl which was completed last Wednesday. - Pt started on Rifaximin (07/05 - present) (8) Hypothyroidism ICD Codes: E03.9 - Hypothyroidism Status: Chronic Plan: - levothyroxine (9) Pseudomonas urinary tract infection ICD Codes: N39.0 - Urinary tract infection, site not specified; B96.5 - Pseudomonas (aeruginosa) (mallei) (pseudomallei) as the cause of diseases classified elsewhere Status: Acute Plan: - Pt treated with ciprofloxin (07/07 - present) - stop cipro 07/12 - observe Problem Qualifiers (1) COPD (chronic obstructive pulmonary disease): (2) Fecal incontinence: Qualified Codes: R15.9 - Full incontinence of feces (3) Hypothyroidism: Qualified Codes: E03.9 - Hypothyroidism, unspecified Angelo Gonsalez DO Jul 10, 2017 16:22
[2017-07-10] MEDS: ONDANSETRON HCL 4 MG/2 ML VIAL IV PUSH PRN (20:42)
[2017-07-10] MEDS: SENNOSIDES 8.6 MG TAB PO SCH (21:00)
[2017-07-10] MEDS: DOCUSATE SODIUM 100 MG CAP PO SCH (21:00)
[2017-07-10] MEDS: DOCUSATE CALCIUM 240 MG CAP PO SCH (21:44)
[2017-07-11] VITALS (18 sets, daily range): BP systolic 106–129; BP diastolic 1–56; PULSE 58–71; RESP 18–20; TEMP 97.5–98.6; O2SAT 92–95
[2017-07-11] MEDS: CHLORHEXIDINE GLUCONATE 2 % 1 PACK (2 CLOTHS) TOP SCH (03:42)
--- NOTE | 2017-07-11 04:49 | RADRPT ---
EXAM DATE/TIME: 07/11/2017 04:18 [place] COMPARISON: CHEST SINGLE AP, July 10, 2017, 3:56. CHEST SINGLE AP, July 04, 2017, 4:17. INDICATIONS : Shortness of breath, possible pulmonary disease. MEDICAL HISTORY : Cardiovascular disease. Congestive heart failure. Hypertension. GERD SURGICAL HISTORY : Thoracotomy ENCOUNTER: Subsequent ACUITY: 1 week PAIN SCORE: 0/10 LOCATION: Bilateral chest FINDINGS: A single view of the chest demonstrates right chest tube with stable small right pneumothorax. Bilate ral airspace disease, right greater than left is also relatively stable. Small right effusion. Trace left pleural fluid. CONCLUSION: 1. Right chest tube with small right apical pneumothorax similar to July 10. Stable bilateral air space disease, right greater than left. Shade Suh MD on July 11, 2017 at 4:46 Board Certified Radiologist. This report was verified electronically.
[2017-07-11] MEDS: LEVOTHYROXINE SODIUM 112 MCG TAB PO SCH (05:55)
[2017-07-11] MEDS: RIFAXIMIN 200 MG TAB PO SCH ×3 (05:55→20:41)
[2017-07-11] MEDS: LEVOTHYROXINE SODIUM 25 MCG TAB PO SCH (05:55)
[2017-07-11] MEDS: oxyCODONE/ACETAMINOPHEN 7.5 MG/325 MG TAB PO PRN (05:56)
[2017-07-11 06:30] LABS: AUTOMATED NEUTROPHIL # 7.5 TH/MM3 (1.8-7.7); BASOPHIL % 0.3 % (0.0-2.0); EOSINOPHIL # 0.3 TH/MM3 (0-0.4); EOSINOPHIL % 3.1 % (0.0-4.0); HEMATOCRIT 33.7 % (35.0-46.0); HEMOGLOBIN 11.2 GM/DL (11.6-15.3); LYMPHOCYTE # 0.8 TH/MM3 (1.0-4.8); MEAN CORPUSCULAR HEMOGLOBIN 27.6 PG (27.0-34.0); MEAN CORPUSCULAR HGB CONC 33.3 % (32.0-36.0); MEAN PLATELET VOLUME 7.4 FL (7.0-11.0); MONO % 9.6 % (0.0-8.0); MONOCYTE # 0.9 TH/MM3 (0-0.9); PLATELET COUNT 217 TH/MM3 (150-450); RED BLOOD COUNT 4.07 MIL/MM3 (4.00-5.30); WHITE BLOOD COUNT 9.5 TH/MM3 (4.0-11.0)
[2017-07-11 06:41] LABS: BICARBONATE 31.8 MEQ/L (21.0-32.0); CALCIUM 8.5 MG/DL (8.5-10.1); CREATININE 0.68 MG/DL (0.50-1.00); MAGNESIUM 1.8 MG/DL (1.5-2.5)
[2017-07-11] MEDS: MAGNESIUM HYDROXIDE SUSP 30 ML CUP PO SCH (08:41)
[2017-07-11] MEDS: SODIUM CHLORIDE 0.9% FLUSH 10 ML FLUSH IV FLUSH SCH ×2 (08:41→20:42)
[2017-07-11] MEDS: POLYETHYLENE GLYCOL 17 GM PKG PO SCH (08:42)
[2017-07-11] MEDS: DOCUSATE SODIUM 50 MG/SENNA 8.6 MG TAB PO SCH ×2 (08:42→20:40)
[2017-07-11] MEDS: OPSUMIT 10 MG PO SCH ×2 (09:00→20:43)
[2017-07-11] MEDS: DOCUSATE SODIUM 100 MG CAP PO SCH ×2 (09:00→20:40)
[2017-07-11] MEDS: PRAVASTATIN SOD 40 MG TAB PO SCH (09:06)
[2017-07-11] MEDS: GABAPENTIN 300 MG CAP PO SCH ×4 (09:06→20:40)
[2017-07-11] MEDS: DILTIAZEM HCL 30 MG TAB PO SCH (09:06)
[2017-07-11] MEDS: SPIRONOLACTONE 50 MG TAB PO SCH (09:07)
[2017-07-11] MEDS: MULTIVITAMINS/MINERALS THERAPEUTIC TAB PO SCH (09:07)
[2017-07-11] MEDS: CIPROFLOXACIN 500 MG TAB PO SCH ×2 (09:07→20:40)
[2017-07-11] MEDS: FAMOTIDINE 20 MG/2 ML VIAL IV PUSH SCH ×2 (09:07→20:42)
[2017-07-11] MEDS: SILDENAFIL CITRATE 20 MG TAB PO SCH ×3 (09:08→17:15)
[2017-07-11] MEDS: FUROSEMIDE 20 MG TAB PO SCH ×2 (09:08→17:15)
[2017-07-11] MEDS: TIOTROPIUM BROMIDE 18 MCG INH INH SCH (09:08)
[2017-07-11] MEDS: CHOLESTYRAMINE 4 GM PACKET PO SCH (09:08)
[2017-07-11] MEDS: BUDESONIDE-FORMOTEROL 80/4.5 MCG INHALER INH SCH ×2 (09:08→20:42)
--- NOTE | 2017-07-11 10:09 | HHI.PR ---
Subjective Remarks Pt is tolerating PO intake. Pt had BM yesterday. Objective Vitals Vital Signs Date Time Temp Pulse Resp B/P (MAP) Pulse Ox O2 Delivery O2 Flow Rate FiO2 07/11/17 07:00 92 Nasal Cannula 5.00 Humidified 07/11/17 07:00 98.1 68 18 129/51 (77) 92 07/11/17 07:00 68 07/11/17 03:43 98.0 71 18 112/50 (70) 92 07/11/17 03:43 70 07/11/17 03:43 92 Nasal Cannula 4.00 Humidified 07/10/17 23:31 65 07/10/17 23:31 92 Nasal Cannula 4.00 Humidified 07/10/17 23:31 98.0 66 18 117/56 (76) 92 07/10/17 19:40 96 Nasal Cannula 5.00 07/10/17 19:21 90 Nasal Cannula 4.00 Humidified 07/10/17 19:21 97.9 75 18 128/71 (90) 90 07/10/17 19:00 75 07/10/17 15:00 97.9 56 18 114/54 (74) 95 07/10/17 15:00 95 Nasal Cannula 5.00 07/10/17 15:00 57 07/10/17 13:50 18 07/10/17 11:00 95 Nasal Cannula 6.00 07/10/17 11:00 98.2 59 18 101/54 (70) 95 07/10/17 11:00 58 Result Diagram: 07/11/17 0543 07/11/17 0543 Imaging Last Impressions Chest X-Ray 07/11/17 0600 Signed Impressions: Service Date/Time: Tuesday, July 11, 2017 04:18 - CONCLUSION: 1. Right chest tube with small right apical pneumothorax similar to July 10. Stable bilateral airspace disease, right greater than left. Shade Suh MD Chest CT 07/05/17 0000 Signed Impressions: Service Date/Time: Wednesday, July 05, 2017 09:41 - CONCLUSION: 1. Previously seen right-sided pneumothorax is definitely improved and much smaller but there is still a loculated component inferiorly. New surgical chest tube traverses the anterior aspect of the right hemithorax. 2. Increasing bilateral airspace disease with patchy foci in the apices and more consolidated, atelectatic type changes in the bases, right greater than left. 3. Esophagus appears patulous and filled with debris. 4. None calcification in the anteroinferior aspect of the spleen. Sandro Villalobos MD Objective Remarks GENERAL: This is a well-nourished, well-developed patient, in no apparent distress. CARDIOVASCULAR: tachycardic RESPIRATORY: Clear to auscultation. Breath sounds equal bilaterally. No wheezes , rales, or rhonchi. GASTROINTESTINAL: Abdomen soft, non-tender, nondistended. Normal active bowel sounds MUSCULOSKELETAL: Extremities without clubbing, cyanosis, or edema. NEURO: Alert & Oriented x4 to person, place, time, situation. Moves all ext x4 Date of Insertion: Jul 03, 2017 A/P Problem List: (1) Pneumothorax, right ICD Codes: J93.9 - Pneumothorax, unspecified Status: Acute Plan: - comgmt with Pulmonary Medicine, and Surgery, Dr. Brink Pt is a 56 y/o F with h/o COPD, scleroderma, and pulmonary HTN. Pt admitted with SOB and right-sided chest pain following coughing fit. Evaluation in the ER 07/03/17 revealed right pneumothorax. Pt had a pigtail catheter placed in the ER. Pt subsequently had a second chest tube placed by Dr. Brink (07/04/17) with reexpansion of the right lung. Pt transferred from [facility] to the Hospitalist service 07/05/17 Pt tolerating simple mask on 7 liters. - Case d/w Dr. Brink (07/05/17) - Case d/w Pulmonary Medicine, Dr. Hendrix. (07/05/17) - Case d/w Dr. Morris, [facility], (07/06/17) - Pt taken to the OR (07/09/17) with Dr. Morris - VATS - apical bleb resection - chemical/mechanical pleurodesis - Chest tube mgmt per Surgery - stable on 5L NC - CXR 07/11/17 --> unchanged - Percocet 10mg q4h prn - fentanyl q6h prn - DVT prophylaxis with SCDs - PT - supportive care. (2) Tachyarrhythmia ICD Codes: R00.0 - Tachycardia, unspecified Plan: - pt converted back to NSR (07/06) - pt developed tachyarrhythmia, narrow complex, with HR into the 170s/190s (07/06 ) - some mild, transient improvement in pt's HR with Valsalva maneuver - initially pt thought to have SVT - Pt given adenosine 6mg with transient improvement & then resumption of HR into the 150s - Pt seen by Dr. Cox (07/06) - reevaluation of rhythm --> likely afib with RVR - Pt given IV metoprolol 5mg - IV amiodarone stopped 07/07 - Case d/w Cardiology, Dr. Cox, (07/07) - pt developed recurrent Afib/RVR (07/08) - pt converted back to NSR - continue PO cardizem --> change to cardizem CD - Telemetry: NSR (3) Esophageal dysmotility due to systemic disease ICD Codes: K22.4 - Dyskinesia of esophagus Status: Chronic Plan: - comgmt with GI - Pt recently diagnosed at [facility] after was found to have aspiration pneumonia. - EGD and barium swallow two and a half weeks ago, records requested, not received yet. - Pt reports dysphagia with both liquids and solids, more so with solids. - Last EGD with dilation was in December to resolve a food bolus. - Speech therapy --> regular and thin liquids - GI had previously mentioned possibility of PEG d/t recurrence of aspiration pneumonia. Will d/w GI (4) Pulmonary hypertension ICD Codes: I27.0 - Pulmonary hypertension Status: Chronic Plan: - comgmt with Pulm Medicine - sildenafil - ?Pt also taking opsumit prior to admission (5) COPD (chronic obstructive pulmonary disease) ICD Codes: J44.9 - COPD (chronic obstructive pulmonary disease) Status: Chronic Plan: - comgmt with Pulm Med - symbicort - duonebs - spiriva (6) Scleroderma ICD Codes: M34.9 - Scleroderma Status: Chronic (7) Fecal incontinence ICD Codes: R15.9 - Full incontinence of feces Status: Chronic Plan: - Fecal incontinence and diarrhea - 10-20 episodes a day for the past year, could be secondary to scleroderma, however, pt has not been worked up previously for this diarrhea. - stool studies ordered - biopsy of small intestine during EGD when more stable - Last colonoscopy 3 years ago, pt states polyps - recent h/o SIBO - Pt treated with course of flagyl which was completed last Wednesday. - Pt started on Rifaximin (07/05 - present) (8) Hypothyroidism ICD Codes: E03.9 - Hypothyroidism Status: Chronic Plan: - levothyroxine (9) Pseudomonas urinary tract infection ICD Codes: N39.0 - Urinary tract infection, site not specified; B96.5 - Pseudomonas (aeruginosa) (mallei) (pseudomallei) as the cause of diseases classified elsewhere Status: Acute Plan: - Pt treated with ciprofloxin (07/07 - present) - stop cipro 07/12 - observe Problem Qualifiers (1) COPD (chronic obstructive pulmonary disease): (2) Fecal incontinence: Qualified Codes: R15.9 - Full incontinence of feces (3) Hypothyroidism: Qualified Codes: E03.9 - Hypothyroidism, unspecified Angelo Gonsalez DO Jul 11, 2017 10:09
[2017-07-11] MEDS: oxyCODONE/ACETAMINOPHEN 10 MG/325 MG TAB PO PRN ×3 (10:28→23:36)
--- NOTE | 2017-07-11 11:13 | PD.CAR.PN ---
CVT Progress Note CVT: POD #: 2 Subjective/Hospital Course: Patient with known scleroderma and recurrent pneumothorax First pneumothorax was about 5 years ago and patient was diagnosed with scleroderma ,[address] [place] chest tube [address] CT scan reveals again some fibrotic changes and then in the tip of the lung there is some air-filled spaces consistent with blebs This is most likely due to long-standing smoking and COPD rather than any type of pulmonary fibrosis superimposed on it as result of scleroderma pt was seen by Dr Hernández initially and recommended thoracoscopy and stapling of blebs Considering that this is a second pneumothorax I believe it is appropriate for patient to undergo thoracoscopy and stapling of the blebs which are probably in the upper portion of the chest but will see once there. 06/05/17 Patient requested heart surgeon to evaluate and treat/ pt also went into afib RVR treated with amiodarone and seen by Dr Cox 06/06/17 pt converted to NSR, on nasal cannula 3 liters / feels better today re-explained surgical procedure on schedule for right VATS with possible bleb resection and pleurodesis /wednesday per nursing, right anterior pigtail cath dislodged and fell out/ immediately covered with vaseline gauze dressing repeat CXR : slight increase right apical ptx, right lateral chest tube still has intermittent air leak at 20cm suction 2/15 right lateral chest tube intermittent air leak will recheck CXR today, to f/u right apical PTX for surgery in am afib this am , now back in NSR 07/10/17 s/p R VATS bleb resection/pleuradesis No complaints today 07/11/17 No complaints, doing well Objective: Vital Signs Date Time Temp Pulse Resp B/P (MAP) Pulse Ox O2 Delivery O2 Flow Rate FiO2 07/11/17 11:00 98.0 65 18 113/56 (75) 93 07/11/17 11:00 93 Nasal Cannula 5.00 07/11/17 07:00 92 Nasal Cannula 5.00 Humidified 07/11/17 07:00 98.1 68 18 129/51 (77) 92 07/11/17 07:00 68 07/11/17 03:43 98.0 71 18 112/50 (70) 92 07/11/17 03:43 70 07/11/17 03:43 92 Nasal Cannula 4.00 Humidified 07/10/17 23:31 65 07/10/17 23:31 92 Nasal Cannula 4.00 Humidified 07/10/17 23:31 98.0 66 18 117/56 (76) 92 07/10/17 19:40 96 Nasal Cannula 5.00 07/10/17 19:21 90 Nasal Cannula 4.00 Humidified 07/10/17 19:21 97.9 75 18 128/71 (90) 90 07/10/17 19:00 75 07/10/17 15:00 97.9 56 18 114/54 (74) 95 07/10/17 15:00 95 Nasal Cannula 5.00 07/10/17 15:00 57 07/10/17 13:50 18 Labs: Laboratory Tests Test 07/11/17 05:43 White Blood Count 9.5 TH/MM3 (4.0-11.0) Red Blood Count 4.07 MIL/MM3 (4.00-5.30) Hemoglobin 11.2 GM/DL (11.6-15.3) Hematocrit 33.7 % (35.0-46.0) Mean Corpuscular Volume 83.0 FL (80.0-100.0) Mean Corpuscular Hemoglobin 27.6 PG (27.0-34.0) Mean Corpuscular Hemoglobin Concent 33.3 % (32.0-36.0) Red Cell Distribution Width 16.0 % (11.6-17.2) Platelet Count 217 TH/MM3 (150-450) Mean Platelet Volume 7.4 FL (7.0-11.0) Neutrophils (%) (Auto) 79.0 % (16.0-70.0) Lymphocytes (%) (Auto) 8.0 % (9.0-44.0) Monocytes (%) (Auto) 9.6 % (0.0-8.0) Eosinophils (%) (Auto) 3.1 % (0.0-4.0) Basophils (%) (Auto) 0.3 % (0.0-2.0) Neutrophils # (Auto) 7.5 TH/MM3 (1.8-7.7) Lymphocytes # (Auto) 0.8 TH/MM3 (1.0-4.8) Monocytes # (Auto) 0.9 TH/MM3 (0-0.9) Eosinophils # (Auto) 0.3 TH/MM3 (0-0.4) Basophils # (Auto) 0.0 TH/MM3 (0-0.2) CBC Comment DIFF FINAL Differential Comment Blood Urea Nitrogen 15 MG/DL (7-18) Creatinine 0.68 MG/DL (0.50-1.00) Random Glucose 113 MG/DL (74-106) Calcium Level 8.5 MG/DL (8.5-10.1) Magnesium Level 1.8 MG/DL (1.5-2.5) Sodium Level 131 MEQ/L (136-145) Potassium Level 4.1 MEQ/L (3.5-5.1) Chloride Level 92 MEQ/L (98-107) Carbon Dioxide Level 31.8 MEQ/L (21.0-32.0) Anion Gap 7 MEQ/L (5-15) Estimat Glomerular Filtration Rate 90 ML/MIN (>89) Result Diagram: 07/11/17 0543 07/11/17 0543 Imaging: Last 24 hours Impressions Chest X-Ray 07/11/17 0600 Signed Impressions: Service Date/Time: Tuesday, July 11, 2017 04:18 - CONCLUSION: 1. Right chest tube with small right apical pneumothorax similar to July 10. Stable bilateral airspace disease, right greater than left. Shade Suh MD Cardiovascular: RRR Telemetry: NSR Pulmonary: Few crackles on right GI/: NABS, NT Incision: dry and intact CT: min output, no air leak Plan: Chest tube to water seal CXR in AM If CXR stable, d/c tomorrow (1) COPD (chronic obstructive pulmonary disease) (2) Pulmonary hypertension (3) Tachyarrhythmia Plan: converted to NSR (4) Pneumothorax, right Plan: for surgery on wednesday f/u CXT today Problem Qualifiers (1) COPD (chronic obstructive pulmonary disease): Gladis Morris MD Jul 11, 2017 11:13
[2017-07-11] MEDS ORDERED: diphenhydrAMINE HCL 50 MG CAP PO PRN (11:30)
[2017-07-11] MEDS: ONDANSETRON HCL 4 MG/2 ML VIAL IV PUSH PRN (12:24)
[2017-07-11] MEDS: CALCIUM/VITAMIN D 250 MG/125 U TAB PO SCH (13:21)
[2017-07-11] MEDS: DILTIAZEM-CD 120 MG CAP ER PO SCH (13:21)
[2017-07-11] MEDS: ALPRAZolam 1 MG TAB PO PRN (17:27)
[2017-07-11] MEDS: DOCUSATE CALCIUM 240 MG CAP PO SCH (20:41)
[2017-07-11] MEDS: SENNOSIDES 8.6 MG TAB PO SCH (20:41)
[2017-07-12] VITALS (29 sets, daily range): BP systolic 117–132; BP diastolic 55–67; PULSE 58–73; RESP 18–20; TEMP 97.4–98.6; O2SAT 90–94
[2017-07-12] MEDS: CHLORHEXIDINE GLUCONATE 2 % 1 PACK (2 CLOTHS) TOP SCH (04:00)
--- NOTE | 2017-07-12 04:47 | RADRPT ---
EXAM DATE/TIME: 07/12/2017 03:54 [facility] COMPARISON: CHEST SINGLE AP, July 11, 2017, 4:18. INDICATIONS : Shortness of breath, right pneumothorax. MEDICAL HISTORY : Cardiovascular disease. Congestive heart failure. Hypertension. GERD SURGICAL HISTORY : Thoracotomy ENCOUNTER: Subsequent ACUITY: 1 week PAIN SCORE: 7/10 LOCATION: Right chest FINDINGS: A single AP erect view of the chest was obtained and demonstrates a right-sided chest tube in place w ith stable small right apical pneumothorax. Dense opacity remains in the right upper lobe with more p atchy infiltrates in the right mid and lower lobe. Left lung is clear. The heart size remains mildly prominent. Bony thorax is intact with multiple overlying electrocardiogram leads. CONCLUSION: 1. The right-sided chest tube remains in place with small right apical pneumothorax without significa nt change. 2. Stable airspace disease on the right. Juvenal Morrow MD on July 12, 2017 at 4:44 Board Certified Radiologist. This report was verified electronically.
[2017-07-12] MEDS: RIFAXIMIN 200 MG TAB PO SCH ×3 (05:33→21:32)
[2017-07-12] MEDS: LEVOTHYROXINE SODIUM 25 MCG TAB PO SCH (05:33)
[2017-07-12] MEDS: LEVOTHYROXINE SODIUM 112 MCG TAB PO SCH (05:33)
[2017-07-12] MEDS: oxyCODONE/ACETAMINOPHEN 10 MG/325 MG TAB PO PRN ×4 (05:37→18:16)
--- NOTE | 2017-07-12 07:54 | PD.CARD.PN ---
Subjective Subjective Remarks No complaints of palpitations. Chest discomfort and shortness of breath are stable. Telemetry overnight shows NSR rate 60s. Objective Medications Current Medications Medications (Trade) Dose Ordered Sig/Mila Route Start Time Stop Time Status Last Admin (Pepcid Inj) 20 mg Q12HR IV PUSH 07/03/17 21:00 07/11/17 20:42 (Duoneb Neb) 1 ampule Q2HR NEB PRN INH 07/03/17 17:00 07/07/17 20:15 (Heparin Inj) 5,000 units Q12H SQ 07/03/17 18:00 Future Hold 07/08/17 17:19 Miscellaneous Information 1 Q361D XX 07/03/17 17:00 (Chlorhexidine 2% Cloth) Taper DAILY@04 TOP 07/04/17 04:00 06/30/18 03:59 07/11/17 03:42 (Chlorhexidine 2% Cloth) 3 pack UNSCH PRN TOP 07/03/17 17:00 (Lanny-Colace) 1 tab BID PO 07/03/17 21:00 07/11/17 20:40 (Senokot) 17.2 mg Q12H PRN PO 07/03/17 17:00 (Dulcolax Supp) 10 mg DAILY PRN RECTAL 07/03/17 17:00 (Lactulose Liq) 30 ml DAILY PRN PO 07/03/17 17:00 (Xanax) 1 mg Q8H PRN PO 07/03/17 17:45 07/11/17 17:27 (Symbicort 80-4.5 Mcg Inh) 1 puff Q12HR INH 07/03/17 21:00 07/11/17 20:42 (Soma) 350 mg BID PRN PO 07/03/17 17:15 (Neurontin) 300 mg QID PO 07/03/17 18:00 07/11/17 20:40 (Synthroid) 112 mcg DAILY@0600 PO 07/04/17 06:00 07/12/17 05:33 (Mobic) 15 mg DAILY PRN PO 07/03/17 17:15 (Revatio) 40 mg TID PO 07/03/17 18:00 07/11/17 17:15 (Aldactone) 50 mg DAILY PO 07/04/17 09:00 07/11/17 09:07 (Spiriva Inh) 18 mcg DAILY INH 07/04/17 09:00 07/11/17 09:08 (Pravachol) 40 mg DAILY PO 07/04/17 09:00 07/11/17 09:06 (Synthroid) 25 mcg DAILY@0600 PO 07/04/17 06:00 07/12/17 05:33 (Questran 4 Gm Pkt) 4 gm DAILY PO 07/05/17 09:00 07/11/17 09:08 Patient Own Medication BID PO 07/04/17 22:00 07/11/17 09:00 (Xifaxan) 400 mg Q8HR PO 07/05/17 22:00 07/12/17 05:33 Cefazolin Sodium 500 mg/Sodium Chloride 505 ml @ 0 mls/hr DERMATOLOGY NURSE IRRIGATION 07/06/17 14:30 07/13/17 14:29 Cefazolin Sodium/ Dextrose 50 ml @ 150 mls/hr DERMATOLOGY NURSE IV 07/06/17 14:30 07/13/17 14:29 07/09/17 09:14 (Hibiclens 4% Top Soln) 1 applic DERMATOLOGY NURSE TOPICAL 07/06/17 14:30 07/13/17 14:29 (Cipro) 500 mg Q12HR PO 07/07/17 21:00 07/12/17 23:00 07/11/17 20:40 (Oscal-D 250-125) 500 mg DAILY@1300 PO 07/08/17 13:00 07/11/17 13:21 (NS Flush) 2 ml BID IV FLUSH 07/09/17 21:00 07/11/17 20:42 (NS Flush) 2 ml UNSCH PRN IV FLUSH 07/09/17 09:15 (Zofran Inj) 4 mg Q6H PRN IV PUSH 07/09/17 09:15 07/11/17 12:24 (Surfak) 240 mg HS PO 07/09/17 21:00 07/11/17 20:41 (Milk Of Magnesia Liq) 30 ml DAILY PRN PO 07/09/17 09:15 (Tylenol) 650 mg Q4H PRN PO 07/09/17 09:15 Potassium Chloride 100 ml @ 50 mls/hr UNSCH PRN IV 07/09/17 09:15 Propofol 100 ml @ 4.05 mls/hr TITRATE PRN IV 07/09/17 10:00 07/09/17 10:00 (Colace) 100 mg BID PO 07/10/17 21:00 07/11/17 20:40 (Theragran M Tab) 1 tab DAILY PO 07/11/17 09:00 07/11/17 09:07 (Milk Of Magnesia Liq) 30 ml DAILY PO 07/11/17 09:00 (Dulcolax Supp) 10 mg UNSCH PRN RECTAL 07/10/17 10:00 (Miralax) 17 gm DAILY PO 07/11/17 09:00 (Senokot) 8.6 mg HS PO 07/10/17 21:00 (fentaNYL INJ) 25 mcg Q6H PRN IV PUSH 07/11/17 10:15 07/12/17 03:50 (Percocet 10-325 Mg) 1 tab Q4H PRN PO 07/11/17 10:15 07/12/17 05:37 (Cardizem Cd) 120 mg DAILY PO 07/11/17 13:00 07/11/17 13:21 (Benadryl) 50 mg HS PRN PO 07/11/17 11:30 (Lasix) 60 mg BID@0900,1700 PO 07/11/17 17:00 07/11/17 17:15 Vital Signs / I&O Vital Signs Date Time Temp Pulse Resp B/P (MAP) Pulse Ox O2 Delivery O2 Flow Rate FiO2 07/12/17 07:31 92 Nasal Cannula 6.00 07/12/17 06:40 17 07/12/17 06:00 66 07/12/17 05:17 18 07/12/17 05:00 68 07/12/17 04:00 67 07/12/17 03:00 73 07/12/17 03:00 92 Blow By 6.00 07/12/17 03:00 98.4 72 20 127/67 (87) 92 07/12/17 02:00 72 07/12/17 01:05 69 07/12/17 00:00 66 07/11/17 23:00 59 07/11/17 23:00 94 Blow By 6.00 07/11/17 23:00 98.6 60 18 115/56 (75) 94 07/11/17 22:00 65 18 21:00 64 18 20:57 93 Nasal Cannula 6.00 07/11/17 20:00 68 07/11/17 19:00 98.5 63 20 106/51 (69) 94 07/11/17 19:00 94 Blow By 6.00 07/11/17 19:00 64 18 18:00 64 07/11/17 17:00 66 07/11/17 16:00 67 07/11/17 15:26 95 Nasal Cannula 5.00 07/11/17 15:26 97.5 61 18 127/1 (43) 95 07/11/17 15:00 58 07/11/17 14:00 68 07/11/17 13:00 67 07/11/17 12:38 93 Nasal Cannula 5.00 07/11/17 12:00 62 07/11/17 11:00 59 07/11/17 11:00 98.0 65 18 113/56 (75) 93 07/11/17 11:00 93 Nasal Cannula 5.00 I/O 07/11/17 2/18 218 218 07/12/17 07/12/17 07:00 15:00 23:00 07:00 15:00 23:00 Intake Total 984 ml 240 ml 960 ml 720 ml Output Total 1520 ml 1000 ml 10 ml 1510 ml Balance -536 ml -760 ml 950 ml -790 ml Intake Oral 480 ml 240 ml 960 ml 720 ml IV Total 504 ml Output Urine Total 1500 ml 1000 ml 1500 ml Chest Tube Drainage Total 20 ml 0 ml 10 ml 10 ml # Voids 2 # Bowel Movements 0 Physical Exam GENERAL: Well-developed well-nourished. In no acute distress. NECK: No carotid bruits. No JVD. CARDIOVASCULAR: Regular rate and rhythm. No murmur appreciated. Chest tube in place. RESPIRATORY: No accessory muscle use. Diminished breath sounds in the bases. MUSCULOSKELETAL: No clubbing or cyanosis. No edema. NEUROLOGICAL: Awake and alert. Normal speech. Imaging Last 24 hours Impressions Chest X-Ray 07/12/17 0600 Signed Impressions: Service Date/Time: Wednesday, July 12, 2017 03:54 - CONCLUSION: 1. The right-sided chest tube remains in place with small right apical pneumothorax without significant change. 2. Stable airspace disease on the right. Juvenal Morrow MD Assessment and Plan Problem List: (1) COPD (chronic obstructive pulmonary disease) ICD Codes: J44.9 - COPD (chronic obstructive pulmonary disease) Status: Chronic (2) Pulmonary hypertension ICD Codes: I27.0 - Pulmonary hypertension Status: Chronic (3) Tachyarrhythmia ICD Codes: R00.0 - Tachycardia, unspecified (4) Pneumothorax, right ICD Codes: J93.9 - Pneumothorax, unspecified Status: Acute Assessment and Plan 56-year-old female whom we were consulted for rapid irregularly irregular rhythm. New-onset Atrial fibrillation which has converted to NSR: Continue on Cardizem. Monitor on telemetry. Problem Qualifiers (1) COPD (chronic obstructive pulmonary disease): Stephan Reilly Jul 12, 2017 07:54
[2017-07-12] MEDS: PRAVASTATIN SOD 40 MG TAB PO SCH (08:46)
[2017-07-12] MEDS: DILTIAZEM-CD 120 MG CAP ER PO SCH (08:46)
[2017-07-12] MEDS: MULTIVITAMINS/MINERALS THERAPEUTIC TAB PO SCH (08:46)
[2017-07-12] MEDS: CIPROFLOXACIN 500 MG TAB PO SCH ×2 (08:46→21:33)
[2017-07-12] MEDS: DOCUSATE SODIUM 50 MG/SENNA 8.6 MG TAB PO SCH (08:46)
[2017-07-12] MEDS: FAMOTIDINE 20 MG/2 ML VIAL IV PUSH SCH (08:46)
[2017-07-12] MEDS: GABAPENTIN 300 MG CAP PO SCH ×4 (08:46→21:33)
[2017-07-12] MEDS: SPIRONOLACTONE 50 MG TAB PO SCH (08:46)
[2017-07-12] MEDS: SILDENAFIL CITRATE 20 MG TAB PO SCH ×3 (08:46→16:26)
[2017-07-12] MEDS: SODIUM CHLORIDE 0.9% FLUSH 10 ML FLUSH IV FLUSH SCH ×2 (08:47→21:32)
[2017-07-12] MEDS: DOCUSATE SODIUM 100 MG CAP PO SCH ×2 (08:48→21:33)
[2017-07-12] MEDS: OPSUMIT 10 MG PO SCH ×2 (08:48→21:00)
[2017-07-12] MEDS: TIOTROPIUM BROMIDE 18 MCG INH INH SCH (08:48)
[2017-07-12] MEDS: POLYETHYLENE GLYCOL 17 GM PKG PO SCH (08:48)
[2017-07-12] MEDS: BUDESONIDE-FORMOTEROL 80/4.5 MCG INHALER INH SCH ×2 (08:48→21:32)
[2017-07-12] MEDS: MAGNESIUM HYDROXIDE SUSP 30 ML CUP PO SCH (08:48)
[2017-07-12] MEDS: FUROSEMIDE 20 MG TAB PO SCH ×2 (08:55→16:27)
[2017-07-12] MEDS: CHOLESTYRAMINE 4 GM PACKET PO SCH (08:58)
[2017-07-12] MEDS: CALCIUM/VITAMIN D 250 MG/125 U TAB PO SCH (12:42)
[2017-07-12] MEDS: ONDANSETRON HCL 4 MG/2 ML VIAL IV PUSH PRN (13:50)
--- NOTE | 2017-07-12 14:12 | PD.CAR.PN ---
CVT Progress Note Subjective/Hospital Course: Patient with known scleroderma and recurrent pneumothorax First pneumothorax was about 5 years ago and patient was diagnosed with scleroderma ,[address] [place] chest tube placed CT scan reveals again some fibrotic changes and then in the tip of the lung there is some air-filled spaces consistent with blebs This is most likely due to long-standing smoking and COPD rather than any type of pulmonary fibrosis superimposed on it as result of scleroderma pt was seen by Dr Hernández initially and recommended thoracoscopy and stapling of blebs Considering that this is a second pneumothorax I believe it is appropriate for patient to undergo thoracoscopy and stapling of the blebs which are probably in the upper portion of the chest but will see once there. 06/05/17 Patient requested heart surgeon to evaluate and treat/ pt also went into afib RVR treated with amiodarone and seen by Dr Cox 06/06/17 pt converted to NSR, on nasal cannula 3 liters / feels better today re-explained surgical procedure on schedule for right VATS with possible bleb resection and pleurodesis /wednesday per nursing, right anterior pigtail cath dislodged and fell out/ immediately covered with vaseline gauze dressing repeat CXR : slight increase right apical ptx, right lateral chest tube still has intermittent air leak at 20cm suction 2/15 right lateral chest tube intermittent air leak will recheck CXR today, to f/u right apical PTX for surgery in am afib this am , now back in NSR 07/10/17 s/p R VATS bleb resection/pleuradesis No complaints today 07/11/17 No complaints, doing well 07/12 remains in NSR minimal chest tube drainage, no air leak chest tube removed without difficulty wean 02 as tolerated Objective: Vital Signs Date Time Temp Pulse Resp B/P (MAP) Pulse Ox O2 Delivery O2 Flow Rate FiO2 07/12/17 13:00 62 07/12/17 12:00 64 07/12/17 11:14 92 Nasal Cannula 5.00 07/12/17 11:12 97.4 61 18 121/57 (78) 92 07/12/17 11:00 60 07/12/17 10:00 58 07/12/17 09:00 66 07/12/17 08:00 65 07/12/17 07:38 92 Nasal Cannula 5.00 2/19/18 07:32 98.2 65 18 117/55 (75) 92 07/12/17 07:31 92 Nasal Cannula 6.00 07/12/17 07:00 69 07/12/17 06:40 17 07/12/17 06:00 66 07/12/17 05:17 18 07/12/17 05:00 68 07/12/17 04:00 67 07/12/17 03:00 73 07/12/17 03:00 92 Blow By 6.00 07/12/17 03:00 98.4 72 20 127/67 (87) 92 07/12/17 02:00 72 07/12/17 01:05 69 07/12/17 00:00 66 07/11/17 23:00 59 07/11/17 23:00 94 Blow By 6.00 07/11/17 23:00 98.6 60 18 115/56 (75) 94 07/11/17 22:00 65 07/11/17 21:00 64 07/11/17 20:57 93 Nasal Cannula 6.00 07/11/17 20:00 68 07/11/17 19:00 98.5 63 20 106/51 (69) 94 07/11/17 19:00 94 Blow By 6.00 07/11/17 19:00 64 07/11/17 18:00 64 07/11/17 17:00 66 07/11/17 16:00 67 07/11/17 15:26 95 Nasal Cannula 5.00 07/11/17 15:26 97.5 61 18 127/1 (43) 95 07/11/17 15:00 58 Result Diagram: 07/11/17 0543 07/11/17 0543 Telemetry: NSR (1) COPD (chronic obstructive pulmonary disease) (2) Pulmonary hypertension (3) Tachyarrhythmia Plan: converted to NSR (4) Pneumothorax, right Plan: for surgery on wednesday f/u CXT today (5) Right VATS with apical bleb resection, chemical and mechanical pleuradesis Plan: chest tube removed, f/u CXR in am wean 02 as tolerated pulm toileting Problem Qualifiers (1) COPD (chronic obstructive pulmonary disease): Julissa Beauchamp Jul 12, 2017 14:12
--- NOTE | 2017-07-12 14:17 | HHI.FF ---
Face to Face Verification Diagnosis: (1) COPD (chronic obstructive pulmonary disease) (2) Pulmonary hypertension (3) Right VATS with apical bleb resection, chemical and mechanical pleuradesis (4) Pneumothorax, right Home Health Nursing Order: Signs/symptoms of disease process Medication education-adverse effect Wound care and dressing changes Nursing assessment with vital signs Instructions: Thoracic Surgery patients Mandatory frequency Assess and evaluation, 2-3 x a week for one week Initial visit 1. Review post chest surgery instructions chest precautions, Activity, Elastic hose, Incision care, Driving, Incentive spirometry, Smoking, [place] , Work and other) 2. Need Betadine to paint incision 3. Medication reconciliation 4. Importance of follow up care/ check on appointments 5. Make calendar record temperature daily 6. When to call Home nurse, review instructions, phone list 7. Incentive Spirometry, demonstration Visit 1- Begin discharge instruction for patient family and/ or caregiver using teach back method- 1. Signs and symptoms of infection 2. Disease characteristics 3. Medicines and side effects 4. Foods and nutrition/ appetite 5. Infection control/ hand washing/ hygiene Visit 2- Continue teaching 1. Discharge instructions- include additional information on smoking cessation , Visit 3- Continue teaching- 1. Cough and deep breathing, incision monitoring. For any questions please call : / [facility] Cardiothoracic Surgery Incentive spirometry Q1 hr x 10, while awake, also use acapella device hourly whole awake chest wall Precautions: NO pushing or pulling, ( pt must use chest pillow to support chest with all activities and with coughing Daily incision care: ok to shower daily( starting 07/14) , no tub bath. Wash all incisions with liquid dial soap, clean wash cloth to each site, rinse and pat dry. Observe for any signs of infection, such as drainage which is dark yellow, jaramillo, green or foul smelling. Immediately report to the surgeon any drainage from the chest incision, or legs, and for any abnormal drainage from the chest tube sites. Notify surgeon if any temp >101.5 degrees F. When specialty dressing removed/ or if you do not have one, continue to shower daily as above, then rinse and pat incision dry and paint with betadine daily x 5 days. Allow steri strips to fall off if you have any. Avoid lotions, creams, salves, oils, etc. for the first month For Dr. Morris patients , please obtain CBC, BMP, PA & Lat CXR in 2 weeks, results to Dr. Morris ( prescription will be given) ( ) (Tele: [phone]) , Valve replacement pts will need 2decho in 2 weeks with results to Dr. Morris . Please obtain 2 d echo at your plate grainer office if possible F/U appointment: as per DC instructions: PCP in 2 weeks, CV surgeon 2 weeks, Night Order Selector 3-4 weeks, reversal print inspector 4 weeks For any questions regarding incisions/ dressing / meds / post op care or above Symptoms, Wednesday 8am-5pm Heart & Vascular Surgery Office ( Dr. Mari & Dr. Morris), After Hours / Nights (5pm -8am) Weekends and Holidays Please call [facility] Cardiac Inter[facility] Care Unit (CIC) Charge Nurse I have seen patient Rosamaria Ramirez on 07/12/17. My clinical findings support the need for the requested home health care services because: Deconditioned w/ increased weakness I certify that my clinical findings support that this patient is homebound because: Post-op weakness Hx COPD- exertion dyspnea/weakness (Resp to eval and treat) Julissa Beauchamp Jul 12, 2017 14:17
[2017-07-12] MEDS: ALPRAZolam 1 MG TAB PO PRN (16:26)
--- NOTE | 2017-07-12 18:34 | HHI.PR ---
Subjective Remarks No new complaints. Pt is tolerating PO intake. No n/v/d. Objective Vitals Vital Signs Date Time Temp Pulse Resp B/P (MAP) Pulse Ox O2 Delivery O2 Flow Rate FiO2 07/12/17 18:00 60 07/12/17 17:08 62 07/12/17 16:00 61 07/12/17 15:17 97.9 60 18 124/61 (82) 90 07/12/17 15:00 92 Nasal Cannula 5.00 07/12/17 15:00 61 07/12/17 14:00 69 07/12/17 13:00 62 07/12/17 12:00 64 07/12/17 11:14 92 Nasal Cannula 5.00 07/12/17 11:12 97.4 61 18 121/57 (78) 92 07/12/17 11:00 60 07/12/17 10:00 58 07/12/17 09:00 66 07/12/17 08:00 65 07/12/17 07:38 92 Nasal Cannula 5.00 07/12/17 07:32 98.2 65 18 117/55 (75) 92 07/12/17 07:31 92 Nasal Cannula 6.00 07/12/17 07:00 69 07/12/17 06:40 17 07/12/17 06:00 66 07/12/17 05:17 18 07/12/17 05:00 68 07/12/17 04:00 67 07/12/17 03:00 73 07/12/17 03:00 92 Blow By 6.00 07/12/17 03:00 98.4 72 20 127/67 (87) 92 07/12/17 02:00 72 07/12/17 01:05 69 07/12/17 00:00 66 07/11/17 23:00 59 07/11/17 23:00 94 Blow By 6.00 07/11/17 23:00 98.6 60 18 115/56 (75) 94 07/11/17 22:00 65 07/11/17 21:00 64 07/11/17 20:57 93 Nasal Cannula 6.00 07/11/17 20:00 68 07/11/17 19:00 98.5 63 20 106/51 (69) 94 07/11/17 19:00 94 Blow By 6.00 07/11/17 19:00 64 07/12/17 07/12/17 07/13/17 15:00 23:00 07:00 Intake Total 920 ml Output Total 1400 ml Balance -480 ml Intake Oral 920 ml Output Urine Total 1400 ml Result Diagram: 07/11/17 0543 07/11/17 0543 Imaging Last Impressions Chest X-Ray 07/12/17 0600 Signed Impressions: Service Date/Time: Wednesday, July 12, 2017 03:54 - CONCLUSION: 1. The right-sided chest tube remains in place with small right apical pneumothorax without significant change. 2. Stable airspace disease on the right. Juvenal Morrow MD Chest CT 07/05/17 0000 Signed Impressions: Service Date/Time: Wednesday, July 05, 2017 09:41 - CONCLUSION: 1. Previously seen right-sided pneumothorax is definitely improved and much smaller but there is still a loculated component inferiorly. New surgical chest tube traverses the anterior aspect of the right hemithorax. 2. Increasing bilateral airspace disease with patchy foci in the apices and more consolidated, atelectatic type changes in the bases, right greater than left. 3. Esophagus appears patulous and filled with debris. 4. None calcification in the anteroinferior aspect of the spleen. Sandro Villalobos MD Objective Remarks GENERAL: This is a well-nourished, well-developed patient, in no apparent distress. CARDIOVASCULAR: tachycardic RESPIRATORY: Clear to auscultation. Breath sounds equal bilaterally. No wheezes , rales, or rhonchi. GASTROINTESTINAL: Abdomen soft, non-tender, nondistended. Normal active bowel sounds MUSCULOSKELETAL: Extremities without clubbing, cyanosis, or edema. NEURO: Alert & Oriented x4 to person, place, time, situation. Moves all ext x4 Date of Insertion: Jul 03, 2017 A/P Problem List: (1) Pneumothorax, right ICD Codes: J93.9 - Pneumothorax, unspecified Status: Acute Plan: - comgmt with Pulmonary Medicine, and Surgery, Dr. Brink Pt is a 56 y/o F with h/o COPD, scleroderma, and pulmonary HTN. Pt admitted with SOB and right-sided chest pain following coughing fit. Evaluation in the ER 07/03/17 revealed right pneumothorax. Pt had a pigtail catheter placed in the ER. Pt subsequently had a second chest tube placed by Dr. Brink (07/04/17) with reexpansion of the right lung. Pt transferred from [facility] to the Hospitalist service 07/05/17 Pt tolerating simple mask on 7 liters. - Case d/w Dr. Brink (07/05/17) - Case d/w Pulmonary Medicine, Dr. Hendrix. (07/05/17) - Case d/w Dr. Morris, CTS, (07/06/17) - Pt taken to the OR (07/09/17) with Dr. Morris - VATS - apical bleb resection - chemical/mechanical pleurodesis - Chest tube removed per CTS (07/12) - Pt still requiring 5L NC - Percocet 10mg q4h prn - DVT prophylaxis with SCDs - PT - supportive care. (2) Tachyarrhythmia ICD Codes: R00.0 - Tachycardia, unspecified Status: Acute Plan: - pt converted back to NSR (07/06) - pt developed tachyarrhythmia, narrow complex, with HR into the 170s/190s (07/06 ) - some mild, transient improvement in pt's HR with Valsalva maneuver - initially pt thought to have SVT - Pt given adenosine 6mg with transient improvement & then resumption of HR into the 150s - Pt seen by Dr. Cox (07/06) - reevaluation of rhythm --> likely afib with RVR - Pt given IV metoprolol 5mg - IV amiodarone stopped 07/07 - Case d/w Cardiology, Dr. Cox, (07/07) - pt developed recurrent Afib/RVR (07/08) - pt converted back to NSR - continue PO cardizem --> change to cardizem CD - Telemetry: NSR (3) Esophageal dysmotility due to systemic disease ICD Codes: K22.4 - Dyskinesia of esophagus Status: Chronic Plan: - comgmt with GI - Pt recently diagnosed at [facility] after was found to have aspiration pneumonia. - EGD and barium swallow two and a half weeks ago, records requested, not received yet. - Pt reports dysphagia with both liquids and solids, more so with solids. - Last EGD with dilation was in December to resolve a food bolus. - Speech therapy --> regular and thin liquids - GI had previously mentioned possibility of PEG d/t recurrence of aspiration pneumonia. Will d/w GI (4) Pulmonary hypertension ICD Codes: I27.0 - Pulmonary hypertension Status: Chronic Plan: - comgmt with Pulm Medicine - sildenafil - ?Pt also taking opsumit prior to admission (5) COPD (chronic obstructive pulmonary disease) ICD Codes: J44.9 - COPD (chronic obstructive pulmonary disease) Status: Chronic Plan: - comgmt with Pulm Med - symbicort - duonebs - spiriva (6) Scleroderma ICD Codes: M34.9 - Scleroderma Status: Chronic (7) Fecal incontinence ICD Codes: R15.9 - Full incontinence of feces Status: Chronic Plan: - Fecal incontinence and diarrhea - 10-20 episodes a day for the past year, could be secondary to scleroderma, however, pt has not been worked up previously for this diarrhea. - stool studies ordered - biopsy of small intestine during EGD when more stable - Last colonoscopy 3 years ago, pt states polyps - recent h/o SIBO - Pt treated with course of flagyl which was completed last Wednesday. - Pt started on Rifaximin (07/05 - present) (8) Hypothyroidism ICD Codes: E03.9 - Hypothyroidism Status: Chronic Plan: - levothyroxine (9) Pseudomonas urinary tract infection ICD Codes: N39.0 - Urinary tract infection, site not specified; B96.5 - Pseudomonas (aeruginosa) (mallei) (pseudomallei) as the cause of diseases classified elsewhere Status: Acute Plan: - Pt treated with ciprofloxin (07/07 - present) - stop cipro 07/12 - observe Problem Qualifiers (1) COPD (chronic obstructive pulmonary disease): (2) Fecal incontinence: Qualified Codes: R15.9 - Full incontinence of feces (3) Hypothyroidism: Qualified Codes: E03.9 - Hypothyroidism, unspecified Angelo Gonsalez DO Jul 12, 2017 18:34
[2017-07-12] MEDS ORDERED: PILL SPLITTER OTHER PRN (19:00)
[2017-07-12] MEDS ORDERED: PROMETHAZINE HCL 25 MG TAB PO ONE (19:00)
[2017-07-12] MEDS: SENNOSIDES 8.6 MG TAB PO SCH (21:33)
[2017-07-12] MEDS: FAMOTIDINE 20 MG TAB PO SCH (21:33)
[2017-07-13] VITALS (27 sets, daily range): BP systolic 101–129; BP diastolic 52–63; PULSE 58–93; RESP 19–20; TEMP 98–99.2; O2SAT 88–97
[2017-07-13] MEDS: LEVOTHYROXINE SODIUM 25 MCG TAB PO SCH (05:37)
[2017-07-13] MEDS: LEVOTHYROXINE SODIUM 112 MCG TAB PO SCH (05:37)
[2017-07-13] MEDS: RIFAXIMIN 200 MG TAB PO SCH ×3 (05:37→21:00)
[2017-07-13] MEDS: HEPARIN SODIUM - SQ 10,000 UNITS/ML VIAL SQ SCH ×2 (05:38→18:20)
[2017-07-13] MEDS: oxyCODONE/ACETAMINOPHEN 10 MG/325 MG TAB PO PRN ×4 (05:42→22:32)
[2017-07-13 06:00] LABS: AUTOMATED NEUTROPHIL # 9.4 TH/MM3 (1.8-7.7); BASOPHIL # 0.1 TH/MM3 (0-0.2); BASOPHIL % 0.5 % (0.0-2.0); EOSINOPHIL # 0.1 TH/MM3 (0-0.4); EOSINOPHIL % 0.9 % (0.0-4.0); HEMATOCRIT 31.5 % (35.0-46.0); HEMOGLOBIN 10.6 GM/DL (11.6-15.3); LYMPH % 3.7 % (9.0-44.0); LYMPHOCYTE # 0.4 TH/MM3 (1.0-4.8); MEAN CELL VOLUME 81.3 FL (80.0-100.0); MEAN CORPUSCULAR HEMOGLOBIN 27.4 PG (27.0-34.0); MEAN CORPUSCULAR HGB CONC 33.7 % (32.0-36.0); MEAN PLATELET VOLUME 7.3 FL (7.0-11.0); MONO % 7.5 % (0.0-8.0); MONOCYTE # 0.8 TH/MM3 (0-0.9); NEUT % 87.4 % (16.0-70.0); PLATELET COUNT 317 TH/MM3 (150-450); RED BLOOD COUNT 3.87 MIL/MM3 (4.00-5.30); WHITE BLOOD COUNT 10.8 TH/MM3 (4.0-11.0)
[2017-07-13 06:10] LABS: BICARBONATE 36.5 MEQ/L (21.0-32.0); CALCIUM 8.7 MG/DL (8.5-10.1); CREATININE 0.77 MG/DL (0.50-1.00); MAGNESIUM 1.7 MG/DL (1.5-2.5)
--- NOTE | 2017-07-13 06:31 | RADRPT ---
EXAM DATE/TIME: 07/13/2017 05:42 [facility] COMPARISON: CHEST SINGLE AP, July 07, 2017, 11:54. CHEST SINGLE AP, July 05, 2017, 18:25. CT THORAX W C ONTRAST, July 05, 2017, 9:41. CHEST SINGLE AP, July 12, 2017, 3:54. INDICATIONS : Short of breath. MEDICAL HISTORY : Cardiovascular disease. Congestive heart failure. Hypertension. GERD SURGICAL HISTORY : Thoracotomy ENCOUNTER: Subsequent ACUITY: 1 week PAIN SCORE: 6/10 LOCATION: Bilateral chest FINDINGS: A single AP portable semierect view of the chest was obtained and again demonstrates dense consolidat ion in portions of the right lung with right apical pleural parenchymal change and residual small rig ht apical pneumothorax. The right costophrenic angle remains blunted. The left lung demonstrates mild patchy opacity at the lung base. The heart size is mildly prominent. The previously noted right-side d chest tube has been removed. CONCLUSION: 1. Interval removal of right-sided chest tube with no change in the small right apical pneumothorax. 2. Areas of dense consolidation remain in the right lung. Juveanl Morrow MD on July 13, 2017 at 6:27 Board Certified Radiologist. This report was verified electronically.
--- NOTE | 2017-07-13 08:19 | HHI.PR ---
Subjective Remarks no complaints Objective Vitals heart reg lung good air entry abd s/nt ext no edema Vital Signs Date Time Temp Pulse Resp B/P (MAP) Pulse Ox O2 Delivery O2 Flow Rate FiO2 07/13/17 07:45 88 Nasal Cannula 5.00 07/13/17 07:37 99.2 78 19 101/57 (72) 88 07/13/17 06:34 17 07/13/17 06:00 71 07/13/17 05:00 72 07/13/17 04:09 98.2 80 20 123/57 (79) 90 07/13/17 04:00 91 07/13/17 03:00 92 Blow By 5.00 07/13/17 03:00 88 07/13/17 01:00 93 07/13/17 00:00 81 07/12/17 23:00 98.6 69 20 126/61 (82) 93 07/12/17 23:00 93 Blow By 5.00 07/12/17 23:00 68 07/12/17 22:05 65 07/12/17 21:03 60 07/12/17 20:29 94 6.00 07/12/17 20:00 61 07/12/17 19:15 93 Blow By 5.00 07/12/17 19:00 98.6 68 20 132/60 (84) 93 07/12/17 19:00 62 07/12/17 18:00 60 07/12/17 17:08 62 07/12/17 16:00 61 07/12/17 15:17 97.9 60 18 124/61 (82) 90 07/12/17 15:00 92 Nasal Cannula 5.00 07/12/17 15:00 61 07/12/17 14:00 69 07/12/17 13:00 62 07/12/17 12:00 64 07/12/17 11:14 92 Nasal Cannula 5.00 07/12/17 11:12 97.4 61 18 121/57 (78) 92 07/12/17 11:00 60 07/12/17 10:00 58 07/12/17 09:00 66 Result Diagram: 07/13/17 0439 07/13/17 0439 Imaging Last Impressions Chest X-Ray 07/12/17 0600 Signed Impressions: Service Date/Time: Wednesday, July 12, 2017 03:54 - CONCLUSION: 1. The right-sided chest tube remains in place with small right apical pneumothorax without significant change. 2. Stable airspace disease on the right. Juvenal Morrow MD Chest CT 07/05/17 0000 Signed Impressions: Service Date/Time: Wednesday, July 05, 2017 09:41 - CONCLUSION: 1. Previously seen right-sided pneumothorax is definitely improved and much smaller but there is still a loculated component inferiorly. New surgical chest tube traverses the anterior aspect of the right hemithorax. 2. Increasing bilateral airspace disease with patchy foci in the apices and more consolidated, atelectatic type changes in the bases, right greater than left. 3. Esophagus appears patulous and filled with debris. 4. None calcification in the anteroinferior aspect of the spleen. Sandro Villalobos MD Date of Insertion: Jul 03, 2017 A/P Problem List: (1) Pneumothorax, right ICD Codes: J93.9 - Pneumothorax, unspecified Status: Acute Plan: Pt is a 56 y/o F with h/o COPD, scleroderma, and pulmonary HTN. Pt admitted with SOB and right-sided chest pain following coughing fit. Evaluation in the ER 07/03/17 revealed right pneumothorax. Pt had a pigtail catheter placed in the ER. Pt subsequently had a second chest tube placed by Dr. Brink (07/04/17) with reexpansion of the right lung. Pt transferred from [facility] to the Hospitalist service 07/05/17 Pt tolerating simple mask on 7 liters. - Case d/w Dr. Brink (07/05/17) - Case d/w Pulmonary Medicine, Dr. Hendrix. (07/05/17) - Case d/w Dr. Morris, CTS, (07/06/17) - Pt taken to the OR (07/09/17) with Dr. Morris - VATS - apical bleb resection - chemical/mechanical pleurodesis - Chest tube removed per CTS (07/12) - Pt still requiring 5L NC. 3lnc is her baseline. - Percocet prn for pain. - DVT prophylaxis with SCDs - PT - hold lasix today for hyponatremia. resume tomorrow after recheck. (2) Tachyarrhythmia ICD Codes: R00.0 - Tachycardia, unspecified Status: Acute Plan: - pt converted back to NSR (07/06) - pt developed tachyarrhythmia, narrow complex, with HR into the 170s/190s (07/06 ) - some mild, transient improvement in pt's HR with Valsalva maneuver - initially pt thought to have SVT - Pt given adenosine 6mg with transient improvement & then resumption of HR into the 150s - Pt seen by Dr. Cox (07/06) - reevaluation of rhythm --> likely afib with RVR - Pt given IV metoprolol 5mg - IV amiodarone stopped 07/07 - Case d/w Cardiology, Dr. Cox, (07/07) - pt developed recurrent Afib/RVR (07/08) - pt converted back to NSR - continue PO cardizem --> changed to cardizem CD (3) Esophageal dysmotility due to systemic disease ICD Codes: K22.4 - Dyskinesia of esophagus Status: Chronic Plan: - comgmt with GI - Pt recently diagnosed at [facility] after was found to have aspiration pneumonia. - evaluated by GI. no aspiration currently. (4) Pulmonary hypertension ICD Codes: I27.0 - Pulmonary hypertension Status: Chronic Plan: - comgmt with Pulm Medicine - sildenafil - ?Pt also taking opsumit prior to admission (5) COPD (chronic obstructive pulmonary disease) ICD Codes: J44.9 - COPD (chronic obstructive pulmonary disease) Status: Chronic Plan: - comgmt with Pulm Med - symbicort - duonebs - spiriva (6) Scleroderma ICD Codes: M34.9 - Scleroderma Status: Chronic (7) Fecal incontinence ICD Codes: R15.9 - Full incontinence of feces Status: Chronic Plan: - Fecal incontinence and diarrhea - 10-20 episodes a day for the past year, could be secondary to scleroderma, however, pt has not been worked up previously for this diarrhea. - stool studies ordered - Last colonoscopy 3 years ago, pt states polyps - recent h/o SIBO - Pt treated with course of flagyl prior to admission - Pt started on Rifaximin (07/05 - present) per GI. diarrhea better. (8) Hypothyroidism ICD Codes: E03.9 - Hypothyroidism Status: Chronic Plan: - levothyroxine (9) Pseudomonas urinary tract infection ICD Codes: N39.0 - Urinary tract infection, site not specified; B96.5 - Pseudomonas (aeruginosa) (mallei) (pseudomallei) as the cause of diseases classified elsewhere Status: Acute Plan: - Pt treated with ciprofloxin Problem Qualifiers (1) COPD (chronic obstructive pulmonary disease): (2) Fecal incontinence: Qualified Codes: R15.9 - Full incontinence of feces (3) Hypothyroidism: Qualified Codes: E03.9 - Hypothyroidism, unspecified Jeff Perez MD Jul 13, 2017 08:19
[2017-07-13] MEDS: OPSUMIT 10 MG PO SCH ×2 (09:00→21:00)
[2017-07-13] MEDS: SODIUM CHLORIDE 0.9% FLUSH 10 ML FLUSH IV FLUSH SCH ×2 (09:00→21:00)
[2017-07-13] MEDS: MAGNESIUM HYDROXIDE SUSP 30 ML CUP PO SCH (09:41)
[2017-07-13] MEDS: POLYETHYLENE GLYCOL 17 GM PKG PO SCH (09:41)
[2017-07-13] MEDS: CHOLESTYRAMINE 4 GM PACKET PO SCH (09:42)
[2017-07-13] MEDS: MULTIVITAMINS/MINERALS THERAPEUTIC TAB PO SCH (09:43)
[2017-07-13] MEDS: DILTIAZEM-CD 120 MG CAP ER PO SCH (09:43)
[2017-07-13] MEDS: GABAPENTIN 300 MG CAP PO SCH ×4 (09:43→21:00)
[2017-07-13] MEDS: DOCUSATE SODIUM 100 MG CAP PO SCH ×2 (09:43→21:00)
[2017-07-13] MEDS: SILDENAFIL CITRATE 20 MG TAB PO SCH ×3 (09:43→19:04)
[2017-07-13] MEDS: SPIRONOLACTONE 50 MG TAB PO SCH (09:43)
[2017-07-13] MEDS: PRAVASTATIN SOD 40 MG TAB PO SCH (09:43)
[2017-07-13] MEDS: TIOTROPIUM BROMIDE 18 MCG INH INH SCH (09:45)
[2017-07-13] MEDS: BUDESONIDE-FORMOTEROL 80/4.5 MCG INHALER INH SCH ×2 (09:45→20:59)
[2017-07-13] MEDS: CALCIUM/VITAMIN D 250 MG/125 U TAB PO SCH (12:39)
--- NOTE | 2017-07-13 14:22 | PD.CAR.PN ---
CVT Progress Note Subjective/Hospital Course: Patient with known scleroderma and recurrent pneumothorax First pneumothorax was about 5 years ago and patient was diagnosed with scleroderma ,20 [place] chest tube placed CT scan reveals again some fibrotic changes and then in the tip of the lung there is some air-filled spaces consistent with blebs This is most likely due to long-standing smoking and COPD rather than any type of pulmonary fibrosis superimposed on it as result of scleroderma pt was seen by Dr Hernández initially and recommended thoracoscopy and stapling of blebs Considering that this is a second pneumothorax I believe it is appropriate for patient to undergo thoracoscopy and stapling of the blebs which are probably in the upper portion of the chest but will see once there. 06/05/17 Patient requested heart surgeon to evaluate and treat/ pt also went into afib RVR treated with amiodarone and seen by Dr Cox 06/06/17 pt converted to NSR, on nasal cannula 3 liters / feels better today re-explained surgical procedure on schedule for right VATS with possible bleb resection and pleurodesis /wednesday per nursing, right anterior pigtail cath dislodged and fell out/ immediately covered with vaseline gauze dressing repeat CXR : slight increase right apical ptx, right lateral chest tube still has intermittent air leak at 20cm suction 07/08 right lateral chest tube intermittent air leak will recheck CXR today, to f/u right apical PTX for surgery in am afib this am , now back in NSR 07/10/17 s/p R VATS bleb resection/pleuradesis No complaints today 07/11/17 No complaints, doing well 07/12 remains in NSR minimal chest tube drainage, no air leak chest tube removed without difficulty wean 02 as tolerated 07/13 CXR noted small stable PTX would continue to wean 02 for sat > 90% / pt baseline is 3 liters at home has f/u appointment with Dr Morris in 2 weeks Objective: GENERAL: A&O SKIN: Warm and dry. dressing to chest tube site , incision intact left posterior chest wall / and prior chest tube sites HEAD: Normocephalic. EYES: No scleral icterus. No injection or drainage. NECK: Supple, trachea midline. No JVD or lymphadenopathy. CARDIOVASCULAR: Regular rate and rhythm without murmurs, gallops, or rubs. RESPIRATORY: Breath sounds equal bilaterally. No accessory muscle use. GASTROINTESTINAL: Abdomen soft, non-tender, nondistended. MUSCULOSKELETAL: No cyanosis, or edema. BACK: Nontender without obvious deformity. No CVA tenderness. Vital Signs Date Time Temp Pulse Resp B/P (MAP) Pulse Ox O2 Delivery O2 Flow Rate FiO2 07/13/17 13:00 60 07/13/17 12:21 94 Nasal Cannula 4.00 07/13/17 12:00 98.3 73 19 119/63 (81) 97 07/13/17 12:00 60 07/13/17 11:00 61 07/13/17 10:00 58 07/13/17 09:00 60 07/13/17 08:50 92 Nasal Cannula 5.00 07/13/17 08:00 64 07/13/17 07:45 88 Nasal Cannula 5.00 07/13/17 07:37 99.2 78 19 101/57 (72) 88 07/13/17 07:00 71 07/13/17 06:34 17 07/13/17 06:00 71 07/13/17 05:00 72 07/13/17 04:09 98.2 80 20 123/57 (79) 90 07/13/17 04:00 91 07/13/17 03:00 92 Blow By 5.00 07/13/17 03:00 88 07/13/17 01:00 93 07/13/17 00:00 81 07/12/17 23:00 98.6 69 20 126/61 (82) 93 07/12/17 23:00 93 Blow By 5.00 07/12/17 23:00 68 07/12/17 22:05 65 07/12/17 21:03 60 07/12/17 20:29 94 6.00 07/12/17 20:00 61 07/12/17 19:15 93 Blow By 5.00 07/12/17 19:00 98.6 68 20 132/60 (84) 93 07/12/17 19:00 62 07/12/17 18:00 60 07/12/17 17:08 62 07/12/17 16:00 61 07/12/17 15:17 97.9 60 18 124/61 (82) 90 07/12/17 15:00 92 Nasal Cannula 5.00 07/12/17 15:00 61 Labs: Laboratory Tests Test 07/13/17 04:39 White Blood Count 10.8 TH/MM3 (4.0-11.0) Red Blood Count 3.87 MIL/MM3 (4.00-5.30) Hemoglobin 10.6 GM/DL (11.6-15.3) Hematocrit 31.5 % (35.0-46.0) Mean Corpuscular Volume 81.3 FL (80.0-100.0) Mean Corpuscular Hemoglobin 27.4 PG (27.0-34.0) Mean Corpuscular Hemoglobin Concent 33.7 % (32.0-36.0) Red Cell Distribution Width 16.0 % (11.6-17.2) Platelet Count 317 TH/MM3 (150-450) Mean Platelet Volume 7.3 FL (7.0-11.0) Neutrophils (%) (Auto) 87.4 % (16.0-70.0) Lymphocytes (%) (Auto) 3.7 % (9.0-44.0) Monocytes (%) (Auto) 7.5 % (0.0-8.0) Eosinophils (%) (Auto) 0.9 % (0.0-4.0) Basophils (%) (Auto) 0.5 % (0.0-2.0) Neutrophils # (Auto) 9.4 TH/MM3 (1.8-7.7) Lymphocytes # (Auto) 0.4 TH/MM3 (1.0-4.8) Monocytes # (Auto) 0.8 TH/MM3 (0-0.9) Eosinophils # (Auto) 0.1 TH/MM3 (0-0.4) Basophils # (Auto) 0.1 TH/MM3 (0-0.2) CBC Comment DIFF FINAL Differential Comment Blood Urea Nitrogen 16 MG/DL (7-18) Creatinine 0.77 MG/DL (0.50-1.00) Random Glucose 132 MG/DL (74-106) Calcium Level 8.7 MG/DL (8.5-10.1) Magnesium Level 1.7 MG/DL (1.5-2.5) Sodium Level 126 MEQ/L (136-145) Potassium Level 4.6 MEQ/L (3.5-5.1) Chloride Level 84 MEQ/L (98-107) Carbon Dioxide Level 36.5 MEQ/L (21.0-32.0) Anion Gap 6 MEQ/L (5-15) Estimat Glomerular Filtration Rate 78 ML/MIN (>89) Result Diagram: 07/13/1743807/13/17438 (1) COPD (chronic obstructive pulmonary disease) (2) Pulmonary hypertension (3) Tachyarrhythmia Plan: converted to NSR (4) Pneumothorax, right (5) Right VATS with apical bleb resection, chemical and mechanical pleuradesis Plan: chest tube removed, f/u CXR in am / stable wean 02 as tolerated for sat >90% pulm toileting will sign off see prn has f/u appointment with Dr Morris in 2 weeks Problem Qualifiers (1) COPD (chronic obstructive pulmonary disease): Julissa Beauchamp Jul 13, 2017 14:22
[2017-07-13] MEDS: SENNOSIDES 8.6 MG TAB PO SCH (21:00)
[2017-07-13] MEDS: FAMOTIDINE 20 MG TAB PO SCH (21:00)
[2017-07-13] MEDS: ALPRAZolam 1 MG TAB PO PRN (21:04)
[2017-07-14] VITALS (31 sets, daily range): BP systolic 120–135; BP diastolic 55–62; PULSE 60–99; RESP 19–20; TEMP 97.6–99.6; O2SAT 90–95
[2017-07-14 05:03] LABS: BICARBONATE 34.7 MEQ/L (21.0-32.0); CALCIUM 9.2 MG/DL (8.5-10.1); CREATININE 0.59 MG/DL (0.50-1.00)
[2017-07-14] MEDS: LEVOTHYROXINE SODIUM 25 MCG TAB PO SCH (05:27)
[2017-07-14] MEDS: HEPARIN SODIUM - SQ 10,000 UNITS/ML VIAL SQ SCH ×2 (05:27→18:41)
[2017-07-14] MEDS: RIFAXIMIN 200 MG TAB PO SCH ×3 (05:27→22:40)
[2017-07-14] MEDS: LEVOTHYROXINE SODIUM 112 MCG TAB PO SCH (05:27)
--- NOTE | 2017-07-14 08:15 | HHI.PR ---
Subjective Remarks no new complaints Objective Vitals heart reg lung course bs abd s/nt ext no edema Vital Signs Date Time Temp Pulse Resp B/P (MAP) Pulse Ox O2 Delivery O2 Flow Rate FiO2 07/14/17 07:37 94 4.00 07/14/17 07:32 99.6 65 19 135/62 (86) 94 07/14/17 06:01 66 07/14/17 05:54 92 Nasal Cannula 4.00 07/14/17 05:00 63 07/14/17 04:00 72 07/14/17 03:00 69 07/14/17 03:00 90 Nasal Cannula 6.00 07/14/17 03:00 97.6 62 20 128/58 (81) 90 07/14/17 02:00 69 07/14/17 01:00 63 07/14/17 00:00 73 07/13/17 23:32 20 07/13/17 23:00 98.0 67 20 119/58 (78) 90 07/13/17 23:00 70 07/13/17 23:00 90 Nasal Cannula 5.00 07/13/17 22:05 64 07/13/17 21:08 92 Nasal Cannula 5.00 07/13/17 21:00 69 07/13/17 20:00 76 07/13/17 19:00 98.4 65 20 129/63 (85) 90 07/13/17 19:00 68 07/13/17 19:00 92 Nasal Cannula 5.00 07/13/17 18:27 66 07/13/17 17:14 66 07/13/17 16:06 61 07/13/17 15:33 92 Nasal Cannula 5.00 07/13/17 15:00 62 07/13/17 15:00 98.5 71 19 112/52 (72) 92 07/13/17 14:00 72 07/13/17 13:00 60 07/13/17 12:21 94 Nasal Cannula 4.00 07/13/17 12:00 98.3 73 19 119/63 (81) 97 07/13/17 12:00 60 07/13/17 11:00 61 07/13/17 10:00 58 07/13/17 09:00 60 07/13/17 08:50 92 Nasal Cannula 5.00 Result Diagram: 07/13/17 0439 07/14/17 0335 Imaging Last Impressions Chest X-Ray 07/12/17 0600 Signed Impressions: Service Date/Time: Wednesday, July 12, 2017 03:54 - CONCLUSION: 1. The right-sided chest tube remains in place with small right apical pneumothorax without significant change. 2. Stable airspace disease on the right. Juvenal Morrow MD Chest CT 07/05/17 0000 Signed Impressions: Service Date/Time: Wednesday, July 05, 2017 09:41 - CONCLUSION: 1. Previously seen right-sided pneumothorax is definitely improved and much smaller but there is still a loculated component inferiorly. New surgical chest tube traverses the anterior aspect of the right hemithorax. 2. Increasing bilateral airspace disease with patchy foci in the apices and more consolidated, atelectatic type changes in the bases, right greater than left. 3. Esophagus appears patulous and filled with debris. 4. None calcification in the anteroinferior aspect of the spleen. Sandro Villalobos MD Date of Insertion: Jul 03, 2017 A/P Problem List: (1) Pneumothorax, right ICD Codes: J93.9 - Pneumothorax, unspecified Status: Acute Plan: Pt is a 56 y/o F with h/o COPD, scleroderma, and pulmonary HTN. Pt admitted with SOB and right-sided chest pain following coughing fit. Evaluation in the ER 07/03/17 revealed right pneumothorax. Pt had a pigtail catheter placed in the ER. Pt subsequently had a second chest tube placed by Dr. Brink (07/04/17) with reexpansion of the right lung. Pt transferred from [facility] to the Hospitalist service 07/05/17 Pt tolerating simple mask on 7 liters. - Case d/w Dr. Brink (07/05/17) - Case d/w Pulmonary Medicine, Dr. Hendrix. (07/05/17) - Case d/w Dr. Morris, CTS, (07/06/17) - Pt taken to the OR (07/09/17) with Dr. Morris - VATS - apical bleb resection - chemical/mechanical pleurodesis - Chest tube removed per CTS (07/12) - pt down to 4lnc. 3lnc is her baseline. oob today and wean o2 - Percocet prn for pain. - DVT prophylaxis with SCDs - PT - plan for d/c home tomorrow with hhc/pt (2) Tachyarrhythmia ICD Codes: R00.0 - Tachycardia, unspecified Status: Acute Plan: - pt converted back to NSR (07/06) - pt developed tachyarrhythmia, narrow complex, with HR into the 170s/190s (07/06 ) - some mild, transient improvement in pt's HR with Valsalva maneuver - initially pt thought to have SVT - Pt given adenosine 6mg with transient improvement & then resumption of HR into the 150s - Pt seen by Dr. Cox (07/06) - reevaluation of rhythm --> likely afib with RVR - Pt given IV metoprolol 5mg - IV amiodarone stopped 07/07 - Case d/w Cardiology, Dr. Cox, (07/07) - pt developed recurrent Afib/RVR (07/08) - pt converted back to NSR - continue PO cardizem --> changed to cardizem CD (3) Esophageal dysmotility due to systemic disease ICD Codes: K22.4 - Dyskinesia of esophagus Status: Chronic Plan: - comgmt with GI - Pt recently diagnosed at [facility] after was found to have aspiration pneumonia. - evaluated by GI. no aspiration currently. (4) Pulmonary hypertension ICD Codes: I27.0 - Pulmonary hypertension Status: Chronic Plan: - comgmt with Pulm Medicine - sildenafil - ?Pt also taking opsumit prior to admission (5) COPD (chronic obstructive pulmonary disease) ICD Codes: J44.9 - COPD (chronic obstructive pulmonary disease) Status: Chronic Plan: - comgmt with Pulm Med - symbicort - duonebs - spiriva (6) Scleroderma ICD Codes: M34.9 - Scleroderma Status: Chronic (7) Fecal incontinence ICD Codes: R15.9 - Full incontinence of feces Status: Chronic Plan: - Fecal incontinence and diarrhea - 10-20 episodes a day for the past year, could be secondary to scleroderma, however, pt has not been worked up previously for this diarrhea. - stool studies ordered - Last colonoscopy 3 years ago, pt states polyps - recent h/o SIBO - Pt treated with course of flagyl prior to admission - Pt started on Rifaximin (07/05 - present) per GI. diarrhea better. (8) Hypothyroidism ICD Codes: E03.9 - Hypothyroidism Status: Chronic Plan: - levothyroxine (9) Pseudomonas urinary tract infection ICD Codes: N39.0 - Urinary tract infection, site not specified; B96.5 - Pseudomonas (aeruginosa) (mallei) (pseudomallei) as the cause of diseases classified elsewhere Status: Acute Plan: - Pt treated with ciprofloxin Problem Qualifiers (1) COPD (chronic obstructive pulmonary disease): (2) Fecal incontinence: Qualified Codes: R15.9 - Full incontinence of feces (3) Hypothyroidism: Qualified Codes: E03.9 - Hypothyroidism, unspecified Jeff Perez MD Jul 14, 2017 08:15
[2017-07-14] MEDS: SODIUM CHLORIDE 0.9% FLUSH 10 ML FLUSH IV FLUSH SCH ×2 (09:00→20:42)
[2017-07-14] MEDS: TIOTROPIUM BROMIDE 18 MCG INH INH SCH (09:00)
[2017-07-14] MEDS: MAGNESIUM HYDROXIDE SUSP 30 ML CUP PO SCH (09:00)
[2017-07-14] MEDS: BUDESONIDE-FORMOTEROL 80/4.5 MCG INHALER INH SCH ×2 (09:00→20:43)
[2017-07-14] MEDS: OPSUMIT 10 MG PO SCH ×2 (09:00→20:42)
[2017-07-14] MEDS: FUROSEMIDE 20 MG TAB PO SCH ×2 (09:29→18:43)
[2017-07-14] MEDS: MULTIVITAMINS/MINERALS THERAPEUTIC TAB PO SCH (09:29)
[2017-07-14] MEDS: CHOLESTYRAMINE 4 GM PACKET PO SCH (09:30)
[2017-07-14] MEDS: SILDENAFIL CITRATE 20 MG TAB PO SCH ×3 (09:30→18:41)
[2017-07-14] MEDS: PRAVASTATIN SOD 40 MG TAB PO SCH (09:30)
[2017-07-14] MEDS: DOCUSATE SODIUM 100 MG CAP PO SCH ×2 (09:30→20:41)
[2017-07-14] MEDS: POLYETHYLENE GLYCOL 17 GM PKG PO SCH (09:30)
[2017-07-14] MEDS: GABAPENTIN 300 MG CAP PO SCH ×4 (09:30→20:40)
[2017-07-14] MEDS: SPIRONOLACTONE 50 MG TAB PO SCH (09:30)
[2017-07-14] MEDS: DILTIAZEM-CD 120 MG CAP ER PO SCH (09:30)
[2017-07-14] MEDS: CALCIUM/VITAMIN D 250 MG/125 U TAB PO SCH (13:22)
[2017-07-14] MEDS ORDERED: oxyCODONE/ACETAMINOPHEN 5 MG/325 MG TAB PO PRN (14:45)
[2017-07-14] MEDS ORDERED: ALPRAZolam 1 MG TAB PO PRN (14:45)
[2017-07-14] MEDS: FAMOTIDINE 20 MG TAB PO SCH (20:40)
[2017-07-14] MEDS: SENNOSIDES 8.6 MG TAB PO SCH (20:41)
[2017-07-15] VITALS (13 sets, daily range): BP systolic 118–119; BP diastolic 56–59; PULSE 68–94; RESP 19–20; TEMP 98.7; O2SAT 92–95
[2017-07-15] MEDS: LEVOTHYROXINE SODIUM 112 MCG TAB PO SCH (06:22)
[2017-07-15] MEDS: LEVOTHYROXINE SODIUM 25 MCG TAB PO SCH (06:22)
[2017-07-15] MEDS: RIFAXIMIN 200 MG TAB PO SCH (06:22)
[2017-07-15] MEDS: HEPARIN SODIUM - SQ 10,000 UNITS/ML VIAL SQ SCH (06:24)
[2017-07-15] MEDS ORDERED: DILT120C50 PO (07:58)
[2017-07-15] MEDS ORDERED: OXYC1TAB63 PO (07:58)
--- NOTE | 2017-07-15 07:59 | HHI.DCPOC ---
Discharge Care Plan Diagnosis: (1) Pneumothorax, right (2) Scleroderma (3) Pulmonary hypertension (4) COPD (chronic obstructive pulmonary disease) (5) Esophageal dysmotility due to systemic disease (6) Tachyarrhythmia Goals to Promote Your Health * To prevent worsening of your condition and complications * To maintain your health at the optimal level Directions to Meet Your Goals Take your medications as prescribed Follow your dietary instruction Follow activity as directed Keep your appointments as scheduled Take your immunizations and boosters as scheduled If your symptoms worsen call your PCP, if no PCP go to Urgent Care Center or Emergency Room Smoking is Dangerous to Your Health. Avoid second hand smoke Call the 24-hour hour crisis hotline for domestic abuse at Jeff Perez MD Jul 15, 2017 07:59
[2017-07-15] MEDS ORDERED: CHOL4POW4 PO (08:02)
[2017-07-15] MEDS: OPSUMIT 10 MG PO SCH (09:00)
[2017-07-15] MEDS: POLYETHYLENE GLYCOL 17 GM PKG PO SCH (09:00)
[2017-07-15] MEDS: SODIUM CHLORIDE 0.9% FLUSH 10 ML FLUSH IV FLUSH SCH (09:00)
[2017-07-15] MEDS: MAGNESIUM HYDROXIDE SUSP 30 ML CUP PO SCH (09:00)
[2017-07-15] MEDS: CHOLESTYRAMINE 4 GM PACKET PO SCH (09:10)
[2017-07-15] MEDS: SPIRONOLACTONE 50 MG TAB PO SCH (09:11)
[2017-07-15] MEDS: DOCUSATE SODIUM 100 MG CAP PO SCH (09:11)
[2017-07-15] MEDS: GABAPENTIN 300 MG CAP PO SCH (09:11)
[2017-07-15] MEDS: MULTIVITAMINS/MINERALS THERAPEUTIC TAB PO SCH (09:11)
[2017-07-15] MEDS: DILTIAZEM-CD 120 MG CAP ER PO SCH (09:11)
[2017-07-15] MEDS: PRAVASTATIN SOD 40 MG TAB PO SCH (09:11)
[2017-07-15] MEDS: SILDENAFIL CITRATE 20 MG TAB PO SCH (09:11)
[2017-07-15] MEDS: BUDESONIDE-FORMOTEROL 80/4.5 MCG INHALER INH SCH (09:12)
[2017-07-15] MEDS: TIOTROPIUM BROMIDE 18 MCG INH INH SCH (09:13)
[2017-07-15] MEDS: FUROSEMIDE 20 MG TAB PO SCH (09:18)
--- NOTE | 2017-07-15 09:49 | HHI.DS ---
Discharge Summary Admission Date Jul 03, 2017 at 13:17 Admitting Diagnosis right pneumothorax/status post pigtail thoracostomy/incomplete reexp (1) Pneumothorax, right Diagnosis: Principal ICD Codes: J93.9 - Pneumothorax, unspecified Status: Acute (2) Tachyarrhythmia ICD Codes: R00.0 - Tachycardia, unspecified Status: Acute (3) Esophageal dysmotility due to systemic disease Diagnosis: Principal ICD Codes: K22.4 - Dyskinesia of esophagus Status: Chronic (4) Pulmonary hypertension Diagnosis: Secondary ICD Codes: I27.0 - Pulmonary hypertension Status: Chronic (5) COPD (chronic obstructive pulmonary disease) Diagnosis: Secondary ICD Codes: J44.9 - COPD (chronic obstructive pulmonary disease) Status: Chronic (6) Scleroderma Diagnosis: Secondary ICD Codes: M34.9 - Scleroderma Status: Chronic (7) Fecal incontinence Diagnosis: Secondary ICD Codes: R15.9 - Full incontinence of feces Status: Chronic (8) Hypothyroidism Diagnosis: Secondary ICD Codes: E03.9 - Hypothyroidism Status: Chronic (9) Pseudomonas urinary tract infection Diagnosis: Secondary ICD Codes: N39.0 - Urinary tract infection, site not specified; B96.5 - Pseudomonas (aeruginosa) (mallei) (pseudomallei) as the cause of diseases classified elsewhere Status: Acute CBC/BMP: 07/13/17 0439 07/14/17 0335 Significant Findings Laboratory Tests Test 07/13/17 04:39 07/14/17 03:35 Red Blood Count 3.87 MIL/MM3 (4.00-5.30) Hemoglobin 10.6 GM/DL (11.6-15.3) Hematocrit 31.5 % (35.0-46.0) Neutrophils (%) (Auto) 87.4 % (16.0-70.0) Lymphocytes (%) (Auto) 3.7 % (9.0-44.0) Neutrophils # (Auto) 9.4 TH/MM3 (1.8-7.7) Lymphocytes # (Auto) 0.4 TH/MM3 (1.0-4.8) Random Glucose 132 MG/DL (74-106) 121 MG/DL (74-106) Sodium Level 126 MEQ/L (136-145) 130 MEQ/L (136-145) Chloride Level 84 MEQ/L (98-107) 88 MEQ/L (98-107) Carbon Dioxide Level 36.5 MEQ/L (21.0-32.0) 34.7 MEQ/L (21.0-32.0) Estimat Glomerular Filtration Rate 78 ML/MIN (>89) Hospital Course (1) Pneumothorax, right Pt is a 56 y/o F with h/o COPD, scleroderma, and pulmonary HTN. Pt admitted with SOB and right-sided chest pain following coughing fit. Evaluation in the ER 07/03/17 revealed right pneumothorax. Pt had a pigtail catheter placed in the ER. Pt subsequently had a second chest tube placed by Dr. Brink (07/04/17) with reexpansion of the right lung. Pt transferred from [facility] to the Hospitalist service 07/05/17 Pt tolerating simple mask on 7 liters. - Case d/w Dr. Morris, CTS, (07/06/17) - Pt taken to the OR (07/09/17) with Dr. Morris - VATS - apical bleb resection - chemical/mechanical pleurodesis - Chest tube removed per CTS (07/12) - pt down to 3lnc. 3lnc is her baseline. - DVT prophylaxis with SCDs - PT - DC home today with [facility] evaluation and f/u. (2) Tachyarrhythmia - pt converted back to NSR (07/06) - pt developed tachyarrhythmia, narrow complex, with HR into the 170s/190s (07/06 ) - some mild, transient improvement in pt's HR with Valsalva maneuver - initially pt thought to have SVT - Pt given adenosine 6mg with transient improvement & then resumption of HR into the 150s - Pt seen by Dr. Cox (07/06) - reevaluation of rhythm --> likely afib with RVR - Pt given IV metoprolol 5mg - IV amiodarone stopped 07/07 - Case d/w Cardiology, Dr. Cox, (07/07) - pt developed recurrent Afib/RVR (07/08) - pt converted back to NSR - continue PO cardizem --> changed to cardizem CD (3) Esophageal dysmotility due to systemic disease - Pt recently diagnosed at [facility] after was found to have aspiration pneumonia. - evaluated by GI. no aspiration currently. (4) Pulmonary hypertension (5) COPD (chronic obstructive pulmonary disease) (6) Scleroderma (7) Fecal incontinence - 10-20 episodes a day for the past year, could be secondary to scleroderma, however, pt has not been worked up previously for this diarrhea. - stool studies ordered - Last colonoscopy 3 years ago, pt states polyps - recent h/o SIBO - Pt treated with course of flagyl prior to admission - Pt started on Rifaximin (07/05 - present) per GI. diarrhea better. f/u GI (8) Hypothyroidism (9) Pseudomonas urinary tract infection pseudomonas/enterococcus.- Pt treated with ciprofloxin Pt Condition on Discharge: Stable Discharge Disposition: Disch w/ Home Health Serv Discharge Instructions DIET: Follow Instructions for: As Tolerated, No Restrictions Activities you can perform: Regular-No Restrictions Follow up Referrals: Cardiology - 4 Weeks with Clinton Cox MD PCP Follow-up - 2 Weeks with Azam Vega Md Surgical - 2 Weeks with Julissa Beauchamp New Medications: Cholestyramine (Cholestyramine) 4 Gm/Pkt Powd 4 GM PO DAILY for diarrhea, #30 PACKET 1 packet contains 4 grams of cholestyramine. Diltiazem CD 24 HR (Diltiazem CD 24 HR) 120 Mg Caper 120 MG PO DAILY for tachycardia, #30 CAP 3 Refills Oxycodone HCl/Acetaminophen (Oxycodone-Acetaminophen 5-325) 5 Mg-325 Mg Tablet 1 TAB PO Q6H PRN for pain, #20 TAB Continued Medications: Albuterol 18 GM Inh (Ventolin Hfa 18 GM Inh) 90 Mcg/Act Aer 2 PUFF INH Q4-6H PRN for SHORTNESS OF BREATH, #1 INHALER 0 Refills Albuterol Neb (Albuterol Neb) 2.5 Mg/3 Ml Neb 2.5 MG NEB Q6HR NEB PRN for SHORTNESS OF BREATH, #60 NEBULE 0 Refills While awake Alprazolam (Alprazolam) 0.5 Mg Tab 1 MG PO Q8HR PRN for ANXIETY, TAB 0 Refills Ascorbic Acid (Vitamin C) 250 Mg Tab 500 MG PO DAILY for Nutritional Supplement, TAB 0 Refills Budesonide-Formoterol Inh (Symbicort Inh) 80-4.5 Mcg/Act Aero 1 PUFF INH Q12HR for Asthma Management, #1 INHALER 0 Refills Calcium Carbonate-Vitamin D (Calcium 600+D 200) 600-200 Mg-Unit Tab 1 TAB PO BID for Nutritional Supplement, TAB 0 Refills Cholecalciferol (Vitamin D3) 1,000 Unit Tab 1000 UNITS PO DAILY for Nutritional Supplement, #1 BOTTLE 0 Refills Cyanocobalamin (Vitamin B-12) 500 Mcg Tab 1000 MCG PO DAILY for Nutritional Supplement, #1 BOTTLE 0 Refills Furosemide (Furosemide) 20 Mg Tab 60 MG PO BID, #30 TAB 0 Refills Gabapentin (Gabapentin) 300 Mg Cap 300 MG PO QID, #90 CAP 0 Refills Guaifenesin ER 12 HR (Guaifenesin ER 12 HR) 1,200 Mg Luis Alfredo 1200 MG PO BID for Chest Congestion/Cough for 10 Days, #2 TAB 0 Refills Levothyroxine (Synthroid) 125 Mcg Tab 137 MCG PO DAILY for Thyroid, #30 TAB 0 Refills Lidocaine Topical (Lidocaine Topical) 5 % Oint 1 APPLIC TOPICAL QID PRN for PAIN, #1 TUBE 0 Refills Macitentan (Opsumit) 10 Mg Tab 10 MG PO BID for Pulm. arterial hypertension, #30 TAB 0 Refills Meloxicam (Meloxicam) 15 Mg Tab 15 MG PO DAILY PRN for PAIN SCALE 1 TO 10, #30 TAB 0 Refills Omeprazole (Omeprazole) 20 Mg Tab 20 MG PO DAILY, #30 TAB 0 Refills Oxygen (O2) (Oxygen (O2)) Device LITER BETITO.CANULA CONTINUOUS for Prevent Hypoxemia, #3 Oxygen Concentrator Portable Gaseous 2 L/min via Nasal Canula Continuous For 99 months Promethazine (Promethazine) 12.5 Mg Tab 12.5 MG PO Q4H PRN for NAUSEA OR VOMITING, TAB 0 Refills Sildenafil (Sildenafil) 20 Mg Tab 40 MG PO TID for Pulm. arterial hypertension, #90 TAB 0 Refills Simvastatin (Zocor) 20 Mg Tab 20 MG PO DAILY for Cholesterol Management, #30 TAB 0 Refills Spironolactone (Spironolactone) 50 Mg Tab 50 MG PO DAILY, #30 TAB 0 Refills Terbinafine (Lamisil) 250 Mg Tab 250 MG PO DAILY for Manage Fungal Infection, TAB 0 Refills Tiotropium Inh (Spiriva Handihaler) 18 Mcg Cap 18 MCG INH DAILY for COPD, #30 CAP 0 Refills 1 capsule = 18 mcg Discontinued Medications: Amlodipine (Amlodipine) 5 Mg Tab 10 MG PO DAILY for Blood Pressure Management, #30 TAB 0 Refills Carisoprodol (Soma) 350 Mg Tab 350 MG PO BID PRN for PAIN, TAB 0 Refills Jeff Perez MD Jul 15, 2017 09:49
== END 2017-07-15 11:26 | disposition home health service (06) | DRG 163 ==
LOC: PHED 11:31 → PHEDA 13:17 → HCVI 16:00 → HCIN 07-05 11:07 → HCPC 07-06 10:15 → HCVI 07-09 11:30 → HCPC 07-11 10:30
PROVIDERS: ADMIT Hospitalist; ATTEND Hospitalist
PROC: 0W9930Z Drainage of Right Pleural Cavity with Drainage Device, Percutaneous Approach (ICD-10-PCS; 2017-07-03)
PROC: 0W9930Z Drainage of Right Pleural Cavity with Drainage Device, Percutaneous Approach (ICD-10-PCS; 2017-07-04)
PROC: 5A1935Z Respiratory Ventilation, Less than 24 Consecutive Hours (ICD-10-PCS; 2017-07-09)
PROC: 0B5N4ZZ Destruction of Right Pleura, Percutaneous Endoscopic Approach (ICD-10-PCS; 2017-07-09)
PROC: 3E0L4GC Introduction of Other Therapeutic Substance into Pleural Cavity, Percutaneous Endoscopic Approach (ICD-10-PCS; 2017-07-09)
PROC: 0BH17EZ Insertion of Endotracheal Airway into Trachea, Via Natural or Artificial Opening (ICD-10-PCS; 2017-07-09)
PROC: 0BBK4ZZ Excision of Right Lung, Percutaneous Endoscopic Approach (ICD-10-PCS; principal; 2017-07-09 07:26)
DX: J93.83 Other pneumothorax (principal); J95.821 Acute postprocedural respiratory failure; M31.30 Wegener's granulomatosis without renal involvement; I27.20 Pulmonary hypertension, unspecified; I11.0 Hypertensive heart disease with heart failure; I50.810 Right heart failure, unspecified; M34.1 CR(E)ST syndrome; E87.1 Hypo-osmolality and hyponatremia; N39.0 Urinary tract infection, site not specified; I48.91 Unspecified atrial fibrillation; J44.9 Chronic obstructive pulmonary disease, unspecified; R15.9 Full incontinence of feces; M19.90 Unspecified osteoarthritis, unspecified site; E03.9 Hypothyroidism, unspecified; K22.4 Dyskinesia of esophagus; M25.561 Pain in right knee; D86.9 Sarcoidosis, unspecified; M10.9 Gout, unspecified; G89.4 Chronic pain syndrome; F41.9 Anxiety disorder, unspecified; K44.9 Diaphragmatic hernia without obstruction or gangrene; R11.0 Nausea; K21.9 Gastro-esophageal reflux disease without esophagitis; R19.7 Diarrhea, unspecified; E78.5 Hyperlipidemia, unspecified; R73.9 Hyperglycemia, unspecified; R00.0 Tachycardia, unspecified; J93.82 Other air leak; B96.5 Pseudomonas (aeruginosa) (mallei) (pseudomallei) as the cause of diseases classified elsewhere; B95.2 Enterococcus as the cause of diseases classified elsewhere; Z79.899 Other long term (current) drug therapy; Z87.891 Personal history of nicotine dependence
CPT/HCPCS: 32551; 71045; 71250; 71260; 80048; 80053; 81001; 82948; 83735; 83880; 84100; 85025; 85610; 86850; 86900; 86901; 87040; 87070; 87077; 87086; 87186; 87205; 87449; 87641; 87804; 88305; 93005; 93306; 94010; 94150; 94640; 94664; 94667; 94668; J0153; J0282; J0690; J0696; J1100; J1160; J1170; J1644; J1815; J1885; J2250; J2270; J2405; J2930; J3010; J7030; J7060; Q0163; Q0169; Q9967

== ENCOUNTER 2017-12-13 09:41 | Inpatient (IN) ==
[2017-12-13 10:49] LABS: Baso % (Auto) 0.3 % (0.0-2.0); Eos # (Auto) 0.2 th/mm3 (0.0-0.4); Eos % (Auto) 2.8 % (0.0-4.0); Hematocrit 39.2 % (35.0-46.0); Hemoglobin 13.4 gm/dL (11.6-15.3); Lymph # (Auto) 0.4 th/mm3 (1.0-4.8); Lymph % (Auto) 5.3 % (9.0-44.0); Mean Corpuscular HGB Conc 34.1 % (32.0-36.0); Mean Corpuscular Hemoglobin 29.5 pg (27.0-34.0); Mean Corpuscular Volume 86.7 fL (80.0-100.0); Mean Platelet Volume 7.1 fL (7.0-11.0); Mono # (Auto) 0.5 th/mm3 (0.0-0.9); Mono % (Auto) 6.8 % (0.0-8.0); Neut # (Auto) 6.1 th/mm3 (1.8-7.7); Neut % (Auto) 84.8 % (16.0-70.0); Platelet Count 267 th/mm3 (150-450); Red Blood Count 4.52 mil/mm3 (4.00-5.30); Red Cell Distribution Width 20.8 % (11.6-17.2); White Blood Count 7.1 th/mm3 (4.0-11.0)
--- NOTE | 2017-12-13 11:09 | XR ---
EXAM DATE: 12/13/2017 11:04 AM EDT AGE/SEX: 57 years / Female INDICATIONS: . Very short of breath for past 2 days, lethargic, difficulty staying awake CLINICAL DATA: This is the patient's initial encounter. Patient reports that signs and symptoms have been present for 2 days and indicates a pain score of 0/10. MEDICAL/SURGICAL HISTORY: Cardiovascular disease. Compression fracture. Gastroesophageal refl ux disease. Scleroderma . thoracotomy [place] [facility] [place]. . FINDINGS: AP erect and lateral views of the chest were obtained.. There is focal right apical pleural parenchym al change most consistent with scarring. This is improved in appearance from the prior study. There a re no new confluent infiltrates or effusions. There is apparent mild scarring. The heart size remains within normal limits. There are mild chronic changes in the aorta. The bony thorax is intact. CONCLUSION: 1. Right apical pleural parenchymal change most characteristic of scarring. This is improved from th e prior study. 2. Scarring with no new confluent infiltrates or effusions. Electronically signed by: Juvenal Morrow MD 12/13/2017 11:07 AM EDT
[2017-12-13 11:33] LABS: ABG Base Excess 6.5 mmol/L (-2-2); ABG PCO2 35 mmHg (38-42); ABG PO2 54 mmHg (61-120)
[2017-12-13 12:11] LABS: Alanine Aminotransferase 29 U/L (10-53); Albumin 3.4 g/dL (3.4-5.0); Anion Gap 12 meq/L (5-15); Aspartate Aminotransferase 22 U/L (15-37); Blood Urea Nitrogen 14 mg/dL (7-18); Carbon Dioxide 26.1 meq/L (21.0-32.0); Chloride 94 meq/L (98-107); Glomerular Filtration Rate 68 mL/min (>89); Glucose,Random 146 mg/dL (74-106); Potassium 3.4 meq/L (3.5-5.1); Sodium 132 meq/L (136-145)
[2017-12-13 12:15] LABS: Alkaline Phosphatase 92 U/L (45-117); Total Protein 7.4 g/dL (6.4-8.2)
[2017-12-13 12:17] LABS: Creatine Kinase 47 U/L (26-192)
--- NOTE | 2017-12-13 13:26 | CT ---
EXAM DATE: 12/13/2017 1:19 PM EDT AGE/SEX: 57 years / Female INDICATIONS: Shortness of breath. CLINICAL DATA: This is the patient's initial encounter. Patient reports that signs and symptoms have been present for 1 day and indicates a pain score of 0/10. MEDICAL/SURGICAL HISTORY: Congestive heart failure. None. RADIATION DOSE: 8.06 CTDI (mGy) [place]PAR[place]: [facility] [place] 2[place]&LAT, [place]/13/2017. . TECHNIQUE: Volumetric scanning was performed using a multi-row detector CT scanner during bolus infu jasmin of 70 ml Omnipaque 350 (iohexol) nonionic water-soluble contrast as a single exam dose. The ej a was post processed with a variety of visualization algorithms including full volume maximum intensi ty projection and sliding thin slab reformation. Using automated exposure control and adjustment of t he mA and/or kV according to patient size, radiation dose was kept as low as reasonably achievable to obtain optimal diagnostic quality images. DICOM format image data is available electronically for r eview and comparison. FINDINGS: Pulmonary Arteries: No filling defects are seen in the pulmonary arteries out to the subsegmental ve ssels. The left and right pulmonary arteries are normal in diameter. Lung: There are scattered small areas of groundglass opacity throughout both lungs. Right apical ple ural parenchymal changes noted most characteristic with scarring. There are postoperative changes wit h clips in this region as well. An azygos lobe variant is noted. There are no large areas of consolid ative infiltrate or mass. Effusion: None. Mediastinum: No evidence of mediastinal or hilar adenopathy. There is air in the upper esophagus. Th e lower esophagus demonstrates fluid centrally. There is no distinct mass. Other: The axilla is unremarkable. As a benign dense calcification in the anterior spleen. CONCLUSION: 1. No evidence of pulmonary embolism. 2. Scattered areas of groundglass opacity in both lungs which may be infectious or inflammatory. Thi s could indicate underlying interstitial lung disease. 3. Air and fluid in the esophagus.. Electronically signed by: Juvenal Morrow MD 12/13/2017 1:25 PM EDT
[2017-12-13] MEDS ORDERED: MethylPREDNISolone Sod Succinate Inj 125 MG/2 ML Vial IV.PUSH ONE (14:48)
[2017-12-13] MEDS ORDERED: RESP: Albuterol Concentrated 2.5 MG/0.5 ML Neb NEB ONE (14:48)
--- NOTE | 2017-12-13 17:29 | P.HPIM ---
History of Present Illness Primary Care Physician: UNKNOWN History of Present Illness: Mrs. Ramirez is a 57 y/o female with scleroderma, COPD, A. fib, Pulmonary HTN, sarcoidosis, esophageal dysmotility. Pt follows with a Snuff Box Finisher at [facility]. She has a f/u appt with them on December 21. Pt reports that for the last 3 days her breathing has been significantly worse than baseline feeling SOB at rest or with exertion. No reported cough or wheezing. She had recently returned from [place] where she was vacationing with her family for 3-4 days and states that she was pushing herself there and walking a lot then. Pt was walking with her supplemental O2. She was not using her breathing treatments then and only uses the nebulizer treatments when she has severe SOB. She has not been using her nebulizer treatments at home. Pt reports that she is chronically on supplemental O2 but reports that her O2 sats have been decreasing into the 70's over the last few days periodically. In the ED she was given Solu-Medrol and Duonebs with some slight improvement. She had a Pulmonary CTA in the ED which noted no evidence of pulmonary embolism, scattered areas of ground-glass opacity in both lungs which may be infectious or inflammatory, and air and fluid in the esophagus. She is currently on 4L of supplemental O2 with stable saturations. Past Medical Hx: Right sided pneumothorax in 06/2017 A. fib Scleroderma/CREST syndrome COPD Fecal incontinence Right sided heart failure Pulmonary hypertension Esophageal dysmotility and hx of aspiration pneumonia Sarcoidosis. Elmo's granulomatosis History of tobacco abuse Insomnia Anxiety 2D echo (07/06/17): - Estimated ejection fraction in the range of 65-70% - Mild mitral valve regurgitation - Mild tricuspid valve regurgitation - The estimated pulmonary arterial pressure is 44.3 mmHg. Past Surgical Hx: VATS with apical bleb resection and chemical/mechanical pleurodesis on 07/09/[address] Morris Two C-sections. Pneumothorax on the left in 2011 Benign left breast lumpectomy Family Hx: Noncontributory Social Hx: Hx of tobacco use, quit around 5-6 years ago - Diagnosis (1) COPD (chronic obstructive pulmonary disease) (2) Pulmonary HTN (3) Scleroderma (4) Atrial fibrillation (5) Fecal incontinence (6) CREST (calcinosis, Raynaud's phenomenon, esophageal dysfunction, sclerodactyly, telangiectasia) Review of Systems All other systems reviewed negative except as stated in HPI Constitutional: Denies chills, Denies fever(s) Eyes: Denies double vision, Denies loss of vision Ears, Nose, Mouth, and Throat: Denies dizziness, Denies headache(s), Denies neck pain Cardiovascular: Reports shortness of breath, Reports shortness of breath with activity, Denies chest pain, Denies irregular heart rhythm Respiratory: Reports shortness of breath, Reports shortness of breath with activity, Denies change in phlegm color, Denies cough, Denies coughing up blood , Denies pain with cough, Denies wheezing Gastrointestinal: Denies abdominal pain, Denies constipation, Denies nausea, Denies vomiting Genitourinary: Denies urinary incontinence, Denies urinary urgency Musculoskeletal: Denies back pain, Denies neck pain Skin/Breast: Denies rash PMFSH - History History Provided By: Patient - Medical History Medical History: Medical History (Last Reviewed 02/17/18 @ 09:52 by Issa Gomez) History of scleroderma (Acute) Hyperlipemia (Acute) Hypothyroid (Acute) Benign breast lumps (Acute) Pneumothorax (Acute) Arthritis (Acute) CHF (congestive heart failure) (Acute) Oxygen dependent (Acute) Wears glasses - Surgical History Surgical History: Surgical History (Last Reviewed 02/17/18 @ 09:52 by Issa Gomez) H/O section (Acute) - Tobacco History Second Hand Smoke Exposure: No Smoking Status: Former smoker - Alcohol History How Often Do You Have a Drink Containing Alcohol: 2 to 4 times a month - Substance Use History Substance History: No History of Abuse - Travel History Recent Travel in the [place] Within the Last 8 Weeks: No Recent Travel Out of the Country Within the Last 8 Weeks: No - Immunization History Tetanus Immunization: <5 Years Hx Influenza Vaccine This Season: Yes Medications and Allergies Allergies Allergy/AdvReac Type Severity Reaction Status Date / Time codeine AdvReac Severe Nausea/Vomi Verified 02/09/18 09:51 ting Home Medications Medication Instructions Recorded Confirmed Type alprazolam 1 mg PO TID PRN 12/13/17 02/20/18 History diltiazem HCl [Cartia XT] 240 mg PO DAILY 12/13/17 02/09/18 History levothyroxine 125 mcg PO DAILY 12/13/17 02/09/18 History macitentan 10 mg PO DAILY 12/13/17 02/09/18 History omeprazole 20 mg PO DAILY 12/13/17 02/09/18 History promethazine 25 mg PO QPM PRN 12/13/17 02/09/18 History ranitidine HCl 150 mg PO DAILY 12/13/17 02/09/18 History sildenafil (antihypertensive) 20 mg PO TID 12/13/17 02/09/18 History simvastatin 20 mg PO QPM 12/13/17 02/09/18 History zaleplon 5 mg PO HS PRN 12/13/17 02/16/18 History furosemide [Lasix] 60 mg PO BID 01/03/18 02/09/18 History ascorbic acid (vitamin C) [Vitamin 100 mg PO DAILY 02/09/18 02/09/18 History C] aspirin [Aspirin Low Dose] 81 mg PO DAILY 02/09/18 02/09/18 History budesonide-formoterol 2 puff INHALATION BID 02/09/18 02/09/18 History calcium carbonate [Calcium 600] 600 mg PO DAILY 02/09/18 02/09/18 History carisoprodol 350 mg PO QID PRN 02/09/18 02/09/18 History cyanocobalamin (vitamin B-12) 1,000 mcg PO DAILY 02/09/18 02/09/18 History [Vitamin B-12] cyclobenzaprine 10 mg PO TID PRN 02/09/18 02/09/18 History folic acid 1 mg PO DAILY 02/09/18 02/09/18 History meloxicam 15 mg PO DAILY PRN 02/09/18 02/09/18 History potassium chloride 20 meq PO BID 02/09/18 02/09/18 History tiotropium bromide 1 cap INHALATION DAILY 02/09/18 02/09/18 History Exam Vital signs: Vital Signs 12/13/17 09:50 12/13/17 10:18 12/13/17 10:45 Temperature 98.4 F Pulse Rate 93 H 81 Respiratory Rate 22 20 Blood Pressure 143/75 H 144/63 H Pulse Oximetry 93 L 96 96 12/13/17 13:36 12/13/17 15:25 Temperature Pulse Rate 83 83 Respiratory Rate 18 18 Blood Pressure 127/63 Pulse Oximetry 95 Intake & Output 12/12/17 12/13/17 12/13/17 18:59 06:59 18:59 Weight 68.039 kg Narrative: GENERAL: NAD, AAOx3 SKIN: Warm and dry. HEAD: Atraumatic. Normocephalic. EYES: Pupils equal and round. No scleral icterus. No injection or drainage. ENT: No nasal bleeding or discharge. Mucous membranes pink and moist. NECK: Trachea midline. No JVD. CARDIO: Regular, 2/6 BHAVANA. RESP: No accessory muscle use. Decreased air movement. No wheezing ABD: +BS, soft, non-tender, nondistended. Hepatic and splenic margins not palpable. EXT: Extremities without clubbing, cyanosis, or edema. No obvious deformities. NEURO: Awake and alert. No obvious cranial nerve deficits. Motor grossly within normal limits. Five out of 5 muscle strength in the arms and legs. Normal speech. PSYCHIATRIC: Appropriate mood and affect; insight and judgment normal. Results - Labs CBC & Chem 7: 12/16/17 04:33 12/20/17 06:15 Labs: Short CBC 12/13/17 Range/Units 10:39 WBC 7.1 (4.0-11.0) th/mm3 Hgb 13.4 (11.6-15.3) gm/dL Hct 39.2 (35.0-46.0) % Plt Count 267 (150-450) th/mm3 BMP 12/13/17 10:39 Sodium 132 L Potassium 3.4 L Chloride 94 L Carbon Dioxide 26.1 BUN 14 Creatinine 0.86 Calcium 9.0 Cardiac Enzymes 12/13/17 Range/Units 10:39 Total Creatine Kinase 47 (26-192) U/L Troponin I Less than 0.02 L (0.02-0.05) ng/mL Liver Function 12/13/17 Range/Units 10:39 Total Bilirubin 0.6 (0.2-1.0) mg/dL AST 22 (15-37) U/L ALT 29 (10-53) U/L Alkaline Phosphatase 92 (45-117) U/L Albumin 3.4 (3.4-5.0) g/dL - Imaging Impressions Chest X-Ray 12/13/17 10:28 CONCLUSION: 1. Right apical pleural parenchymal change most characteristic of scarring. This is improved from the prior study. 2. Scarring with no new confluent infiltrates or effusions. Chest CTA 12/13/17 12:54 CONCLUSION: 1. No evidence of pulmonary embolism. 2. Scattered areas of groundglass opacity in both lungs which may be infectious or inflammatory. This could indicate underlying interstitial lung disease. 3. Air and fluid in the esophagus.. Caprini VTE Risk Assessment Caprini VTE Risk Assessment: Moderate/High Risk (score >= 2) Caprini Risk Assessment Model: Point Value = 1 Point Value = 2 Point Value = 3 Point Value = 5 Age 41-60 Minor surgery BMI > 25 kg/m2 Swollen legs Varicose veins or History of unexplained or recurrent spontaneous Oral contraceptives or hormone replacement Sepsis (< 1 month) Serious lung disease, including pneumonia (< 1 month) Abnormal pulmonary function Acute myocardial infarction Congestive heart failure (< 1 month) History of inflammatory bowel disease Medical patient at bed rest Age 61-74 Arthroscopic surgery Major open surgery (> 45 min) Laparoscopic surgery (> 45 min) Malignancy Confined to bed (> 72 hours) Immobilizing plaster cast Central venous access Age >= 75 History of VTE Family history of VTE Factor V Leiden Prothrombin [id number] Lupus anticoagulant Anticardiolipin antibodies Elevated serum homocysteine Heparin-induced thrombocytopenia Other congenital or acquired thrombophilia Stroke (< 1 month) Elective arthroplasty Hip, pelvis, or leg fracture Acute spinal cord injury (< 1 month) Prophylaxis Regimen: Total Risk Factor Score Risk Level Prophylaxis Regimen 0-1 Low Early ambulation 2 Moderate Order ONE of the following: *Sequential Compression Device (SCD) *Heparin 5000 units SQ BID 3-4 Higher Order ONE of the following medications: *Heparin 5000 units SQ TID *Enoxaparin/Lovenox 40 mg SQ daily (WT < 150 kg, CrCl > 30 mL/min) *Enoxaparin/Lovenox 30 mg SQ daily (WT < 150 kg, CrCl > 10-29 mL/min) *Enoxaparin/Lovenox 30 mg SQ BID (WT < 150 kg, CrCl > 30 mL/min) AND/OR *Sequential Compression Device (SCD) 5 or more Highest Order ONE of the following medications: *Heparin 5000 units SQ TID (Preferred with Epidurals) *Enoxaparin/Lovenox 40 mg SQ daily (WT < 150 kg, CrCl > 30 mL/min) *Enoxaparin/Lovenox 30 mg SQ daily (WT < 150 kg, CrCl > 10-29 mL/min) *Enoxaparin/Lovenox 30 mg SQ BID (WT < 150 kg, CrCl > 30 mL/min) AND *Sequential Compression Device (SCD) Assessment and Plan - Assessment (1) COPD (chronic obstructive pulmonary disease) Code(s): J44.9 - Chronic obstructive pulmonary disease, unspecified Status: Chronic Plan: COPD Sarcoidosis SOB Hypoxia - Pt is a 57 y/o female with scleroderma/CREST syndrome, COPD, A. fib, Pulmonary HTN, sarcoidosis, esophageal dysmotility. Pt follows with a Snuff Box Finisher at [facility]. - [place] [facility] [place] with complaints of worsening SOB x 3 days. She had recently returned from [place] where she was vacationing with her family for 3-4 days and states that she was pushing herself there and walking a lot then. Pt reports that she is chronically on supplemental O2 but reports that her O2 sats have been decreasing into the 70's over the last few days periodically. - In the ED she was given Solu-Medrol and Duonebs with some slight improvement. - Pulmonary CTA (12/13) --> No evidence of pulmonary embolism, scattered areas of ground-glass opacity in both lungs which may be infectious or inflammatory, and air and fluid in the esophagus. - She is currently on 4L of supplemental O2 with stable saturations. - Cont. Solumedrol 60mg Q6H - Cont. Duonebs Q4H scheduled and Q2H PRN - Cont. home meds, including Spiriva and Symbicort - Monitor clinical status closely - Supportive care - DVT prophylaxis with SCDs Pulmonary HTN - Cont. home meds, including Sildenafil, Lasix - Hold on resuming Aldactone for now as BP is fairly normal - Monitor vitals closely A. fib - Cont. 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 home meds Hyperlipidemia - Cont. home meds (2) Pulmonary HTN Code(s): I27.20 - Pulmonary hypertension, unspecified Status: Chronic (3) Scleroderma Code(s): M34.9 - Systemic sclerosis, unspecified Status: Acute (4) Atrial fibrillation Code(s): I48.91 - Unspecified atrial fibrillation Status: Chronic (5) Fecal incontinence Code(s): R15.9 - Full incontinence of feces Status: Chronic (6) CREST (calcinosis, Raynaud's phenomenon, esophageal dysfunction, sclerodactyly, telangiectasia) Code(s): M34.1 - CR(E)ST syndrome Status: Chronic - Attending Attestation The exam, history, and the medical decision-making described in the above note were completed with the assistance of the mid-level provider. I reviewed and agree with the findings presented. I attest that I had a [id number] encounter with the patient on the same day, and personally performed and documented my assessment and findings in the medical record. Patient examined. Assessment and plan formulated with Candi Almodovar PA-C. I agree with the above. (1) COPD (chronic obstructive pulmonary disease) Qualifiers: COPD type: COPD with acute exacerbation Qualified Code(s): J44.1 - Chronic obstructive pulmonary disease with (acute) exacerbation (4) Atrial fibrillation Qualifiers: Atrial fibrillation type: chronic Qualified Code(s): I48.2 - Chronic atrial fibrillation
[2017-12-13] MEDS ORDERED: Acetaminophen 325 MG Tablet PO PRN (17:31)
[2017-12-13] MEDS ORDERED: Carisoprodol 350 MG Tablet PO PRN (18:12)
[2017-12-13] MEDS: Budesonide-Formoterol 160/4.5 MCG 6 GM Inhaler INH SCH (22:59)
[2017-12-13] MEDS: Senna/Docusate Sodium 8.6/50 MG Tablet PO SCH (23:00)
[2017-12-13] MEDS: Furosemide 20 MG Tablet PO SCH (23:00)
[2017-12-13] MEDS: Gabapentin 300 MG Capsule PO SCH (23:00)
[2017-12-13] MEDS: MethylPREDNISolone Sod Succinate Inj 125 MG/2 ML Vial IV.PUSH SCH (23:09)
[2017-12-13] MEDS: Temazepam 15 MG Capsule PO PRN (23:10)
[2017-12-14] MEDS: Levothyroxine 125 MCG Tablet PO SCH (06:20)
[2017-12-14] MEDS: MethylPREDNISolone Sod Succinate Inj 125 MG/2 ML Vial IV.PUSH SCH ×4 (06:20→23:40)
[2017-12-14] MEDS: MACITENTAN 10 MG PO SCH (06:20)
--- NOTE | 2017-12-14 08:36 | P.PNIM ---
Subjective Interval history: Pt reports that she was requiring 5L overnight She is normally on 4L of supplemental O2 at home She did not get Duonebs overnight Pt with dry cough Physical Exam Vital signs: Vital Signs 12/13/17 09:50 12/13/17 10:18 12/13/17 10:45 Temperature 98.4 F Pulse Rate 93 H 81 Respiratory Rate 22 20 Blood Pressure 143/75 H 144/63 H Pulse Oximetry 93 L 96 96 12/13/17 13:36 12/13/17 15:25 12/13/17 18:13 Temperature Pulse Rate 83 83 82 Respiratory Rate 18 18 18 Blood Pressure 127/63 127/58 L Pulse Oximetry 95 95 12/13/17 18:51 12/13/17 23:23 12/13/17 23:56 Temperature 98.2 F Pulse Rate 82 72 Respiratory Rate 14 18 Blood Pressure 122/63 Pulse Oximetry 96 98 93 L 12/14/17 00:00 12/14/17 01:49 12/14/17 04:00 Temperature 98 F 97.8 F Pulse Rate 82 90 80 Respiratory Rate 16 17 Blood Pressure 124/69 125/66 Pulse Oximetry 97 95 12/14/17 07:49 12/14/17 08:00 Temperature 97.5 F L Pulse Rate 81 88 Respiratory Rate 20 14 Blood Pressure 119/58 L Pulse Oximetry 96 Intake & Output 12/13/17 12/14/17 12/14/17 18:59 06:59 18:59 Weight 68.039 kg Other: # Voids 3 # Bowel Movements 3 Narrative: General: NAD, AAOx3 Chest: Fine bibasilar crackles Cardiac: Regular Abd: +BS, soft ND/NT Ext: No edema Results - Labs CBC & Chem 7: 12/16/17 04:33 12/20/17 06:15 Laboratory Results - last 24 hr 12/13/17 12/13/17 12/13/17 10:39 10:39 11:21 WBC 7.1 RBC 4.52 Hgb 13.4 Hct 39.2 MCV 86.7 MCH 29.5 MCHC 34.1 RDW 20.8 H Plt Count 267 MPV 7.1 Neut % (Auto) 84.8 H Lymph % (Auto) 5.3 L [place] % (Auto) 6.8 Eos % (Auto) 2.8 Baso % (Auto) 0.3 Neut # (Auto) 6.1 Lymph # (Auto) 0.4 L [place] # (Auto) 0.5 Eos # (Auto) 0.2 Baso # (Auto) 0.0 WBC Differential . Differential Comment Auto diff final Puncture Site Right radial Patient Temperature 98.6 O2 Saturation 86 L* ABG pH 7.53 H* ABG pCO2 35 L ABG pO2 54 L* ABG HCO3 30 H ABG O2 Content 15.0 ABG Base Excess 6.5 H ABG Methemoglobin 1.0 Tay Test Present Hemoglobin 12.4 Carboxyhemoglobin 1.8 O2 Delivery Device Nasal cannula Liter Flow 2.00 Inspired O2 21 Critical Value Yes Sodium 132 L Potassium 3.4 L Chloride 94 L Carbon Dioxide 26.1 Anion Gap 12 BUN 14 Creatinine 0.86 Estimated GFR 68 L Random Glucose 146 H Calcium 9.0 Total Bilirubin 0.6 AST 22 ALT 29 Alkaline Phosphatase 92 Total Creatine Kinase 47 Troponin I Less than 0.02 L Total Protein 7.4 Albumin 3.4 - Imaging Impressions Chest X-Ray 12/13/17 10:28 CONCLUSION: 1. Right apical pleural parenchymal change most characteristic of scarring. This is improved from the prior study. 2. Scarring with no new confluent infiltrates or effusions. Chest CTA 12/13/17 12:54 CONCLUSION: 1. No evidence of pulmonary embolism. 2. Scattered areas of groundglass opacity in both lungs which may be infectious or inflammatory. This could indicate underlying interstitial lung disease. 3. Air and fluid in the esophagus.. Assessment and Plan - Assessment (1) COPD (chronic obstructive pulmonary disease) Code(s): J44.9 - Chronic obstructive pulmonary disease, unspecified Status: Chronic Plan: COPD Sarcoidosis SOB Hypoxia - Pt is a 57 y/o female with scleroderma/CREST syndrome, COPD, A. fib, Pulmonary HTN, sarcoidosis, esophageal dysmotility. Pt follows with a Varnish Dipper at [facility]. - She presented to the ED at [facility] on 12/13/17 with complaints of worsening SOB x 3 days. She had recently returned from [place] where she was vacationing with her family for 3-4 days and states that she was pushing herself there and walking a lot then. Pt reports that she is chronically on supplemental O2 but reports that her O2 sats have been decreasing into the 70's over the last few days periodically. - In the ED she was given Solu-Medrol and Duonebs with some slight improvement. - Pulmonary CTA (12/13) --> No evidence of pulmonary embolism, scattered areas of ground-glass opacity in both lungs which may be infectious or inflammatory, and air and fluid in the esophagus. - She is currently on 4L of supplemental O2 with stable saturations but overnight pt was requiring 5L. - Cont. Solu-Medrol 60mg Q6H - Cont. Duonebs Q4H scheduled and Q2H PRN - Cont. home meds, including Spiriva and Symbicort - Monitor clinical status closely - Supportive care - DVT prophylaxis with SCDs Pulmonary HTN - Cont. home meds, including Sildenafil, Lasix - Hold on resuming Aldactone for now as BP is fairly normal - Monitor vitals closely A. fib - Cont. Cardizem 240mg po daily - monitor car operator Hypothyroidism - Cont. home meds Hyperlipidemia - Cont. home meds (2) Pulmonary HTN Code(s): I27.20 - Pulmonary hypertension, unspecified Status: Chronic (3) Scleroderma Code(s): M34.9 - Systemic sclerosis, unspecified Status: Acute (4) Atrial fibrillation Code(s): I48.91 - Unspecified atrial fibrillation Status: Chronic (5) Fecal incontinence Code(s): R15.9 - Full incontinence of feces Status: Chronic (6) CREST (calcinosis, Raynaud's phenomenon, esophageal dysfunction, sclerodactyly, telangiectasia) Code(s): M34.1 - CR(E)ST syndrome Status: Chronic - Attending Attestation The exam, history, and the medical decision-making described in the above note were completed with the assistance of the mid-level provider. I reviewed and agree with the findings presented. I attest that I had a [id number] encounter with the patient on the same day, and personally performed and documented my assessment and findings in the medical record. Patient examined. Assessment and plan formulated with Candi Almodovar PA-C. I agree with the above. (1) COPD (chronic obstructive pulmonary disease) Qualifiers: COPD type: COPD with acute exacerbation Qualified Code(s): J44.1 - Chronic obstructive pulmonary disease with (acute) exacerbation (4) Atrial fibrillation Qualifiers: Atrial fibrillation type: chronic Qualified Code(s): I48.2 - Chronic atrial fibrillation
[2017-12-14] MEDS ORDERED: MACITENTAN 10 MG PO SCH (09:00)
[2017-12-14 09:40] LABS: Hematocrit 35.4 % (35.0-46.0); Lymph # (Auto) 0.3 th/mm3 (1.0-4.8); Lymph % (Auto) 5.8 % (9.0-44.0); Mean Corpuscular Hemoglobin 29.1 pg (27.0-34.0); Mean Corpuscular Volume 85.8 fL (80.0-100.0); Mean Platelet Volume 7.2 fL (7.0-11.0); Mono # (Auto) 0.1 th/mm3 (0.0-0.9); Mono % (Auto) 1.5 % (0.0-8.0); Neut # (Auto) 4.8 th/mm3 (1.8-7.7); Neut % (Auto) 92.7 % (16.0-70.0); Platelet Count 265 th/mm3 (150-450); Red Blood Count 4.13 mil/mm3 (4.00-5.30); Red Cell Distribution Width 20.5 % (11.6-17.2); White Blood Count 5.1 th/mm3 (4.0-11.0)
[2017-12-14 09:48] LABS: Prothrombin Time 9.9 sec (9.8-11.6)
[2017-12-14 10:03] LABS: Anion Gap 13 meq/L (5-15); Aspartate Aminotransferase 17 U/L (15-37); Blood Urea Nitrogen 16 mg/dL (7-18); Calcium 9.1 mg/dL (8.5-10.1); Carbon Dioxide 26.5 meq/L (21.0-32.0); Chloride 94 meq/L (98-107); Glomerular Filtration Rate Greater Than 89 mL/min (>89); Glucose,Random 139 mg/dL (74-106); Potassium 3.2 meq/L (3.5-5.1); Sodium 133 meq/L (136-145)
[2017-12-14 10:07] LABS: Alanine Aminotransferase 24 U/L (10-53); Alkaline Phosphatase 82 U/L (45-117); Total Protein 6.9 g/dL (6.4-8.2)
--- NOTE | 2017-12-14 11:15 | ECG ---
Date Performed: 12/13/2017 Time Performed: 10:26:39 PTAGE: 57 years EKG: Sinus rhythm LATE R WAVE PROGRESSION ABNORMAL ECG NO PREVIOUS TRACING DOCTOR: Clinton Cox Interpretating Date/Time 12/14/2017 11:14:48
[2017-12-14] MEDS: Pantoprazole Sodium 20 MG DR Tablet PO SCH (11:48)
[2017-12-14] MEDS: dilTIAZem CD 240 MG Capsule PO SCH (11:48)
[2017-12-14] MEDS: Budesonide-Formoterol 160/4.5 MCG 6 GM Inhaler INH SCH ×2 (11:49→21:33)
[2017-12-14] MEDS: Senna/Docusate Sodium 8.6/50 MG Tablet PO SCH ×2 (11:56→21:32)
[2017-12-14] MEDS: Furosemide 20 MG Tablet PO SCH ×2 (12:03→18:23)
[2017-12-14] MEDS: Gabapentin 300 MG Capsule PO SCH ×2 (12:04→21:32)
[2017-12-14] MEDS: Famotidine 20 MG Tablet PO SCH (12:04)
[2017-12-14] MEDS: Tiotropium Bromide 18 MCG/ACT Inhaler INH SCH (16:22)
[2017-12-14] MEDS: Temazepam 15 MG Capsule PO PRN (23:39)
[2017-12-15] MEDS: MACITENTAN 10 MG PO SCH (06:07)
[2017-12-15] MEDS: Levothyroxine 125 MCG Tablet PO SCH (06:07)
[2017-12-15] MEDS: MethylPREDNISolone Sod Succinate Inj 125 MG/2 ML Vial IV.PUSH SCH ×3 (06:07→17:21)
[2017-12-15 08:57] LABS: Baso % (Auto) 0.1 % (0.0-2.0); Hematocrit 34.3 % (35.0-46.0); Hemoglobin 11.3 gm/dL (11.6-15.3); Lymph # (Auto) 0.3 th/mm3 (1.0-4.8); Lymph % (Auto) 2.2 % (9.0-44.0); Mean Corpuscular Hemoglobin 28.7 pg (27.0-34.0); Mean Corpuscular Volume 86.9 fL (80.0-100.0); Mean Platelet Volume 7.2 fL (7.0-11.0); Mono # (Auto) 0.3 th/mm3 (0.0-0.9); Mono % (Auto) 2.7 % (0.0-8.0); Platelet Count 325 th/mm3 (150-450); Red Blood Count 3.94 mil/mm3 (4.00-5.30); Red Cell Distribution Width 20.8 % (11.6-17.2); White Blood Count 12.6 th/mm3 (4.0-11.0)
[2017-12-15 09:19] LABS: Anion Gap 9 meq/L (5-15); Blood Urea Nitrogen 21 mg/dL (7-18); Carbon Dioxide 24.7 meq/L (21.0-32.0); Chloride 100 meq/L (98-107); Glomerular Filtration Rate Greater Than 89 mL/min (>89); Glucose,Random 161 mg/dL (74-106); Potassium 4.5 meq/L (3.5-5.1); Sodium 134 meq/L (136-145)
[2017-12-15] MEDS: dilTIAZem CD 240 MG Capsule PO SCH (09:38)
[2017-12-15] MEDS: Gabapentin 300 MG Capsule PO SCH ×2 (09:38→22:37)
[2017-12-15] MEDS: Pantoprazole Sodium 20 MG DR Tablet PO SCH (09:38)
[2017-12-15] MEDS: Famotidine 20 MG Tablet PO SCH (09:39)
[2017-12-15] MEDS: Senna/Docusate Sodium 8.6/50 MG Tablet PO SCH ×2 (09:39→22:37)
[2017-12-15] MEDS: Budesonide-Formoterol 160/4.5 MCG 6 GM Inhaler INH SCH ×2 (09:40→22:35)
[2017-12-15] MEDS: Tiotropium Bromide 18 MCG/ACT Inhaler INH SCH (09:40)
[2017-12-15] MEDS: Furosemide 20 MG Tablet PO SCH ×2 (09:43→17:21)
--- NOTE | 2017-12-15 13:18 | P.PNIM ---
Subjective Interval history: Pt feeling slightly better today as far as her breathing goes She has had some slight dizziness when ambulating She reports painful swallowing and has had issues with thrush recently prior to this hospitalization Physical Exam Vital signs: Vital Signs 12/14/17 16:00 12/14/17 20:00 12/14/17 20:07 Temperature 97.8 F 97.8 F Pulse Rate 81 78 84 Respiratory Rate 16 14 18 Blood Pressure 127/58 L 125/60 Pulse Oximetry 96 98 96 12/14/17 23:10 12/15/17 00:00 12/15/17 03:51 Temperature 98.3 F Pulse Rate 83 73 80 Respiratory Rate 18 18 18 Blood Pressure 112/54 L Pulse Oximetry 97 12/15/17 04:00 12/15/17 07:41 12/15/17 08:55 Temperature 98 F 98.8 F Pulse Rate 72 73 79 Respiratory Rate 16 20 18 Blood Pressure 108/54 L 110/56 L Pulse Oximetry 97 96 98 12/15/17 11:52 12/15/17 12:18 Temperature 98.2 F Pulse Rate 72 73 Respiratory Rate 18 20 Blood Pressure 117/57 L Pulse Oximetry 98 97 Intake & Output 12/14/17 12/15/17 12/15/17 18:59 06:59 18:59 Intake Total 500 / 500 920 / 920 240 / 240 Output Total 600 / 600 Balance -100 / -100 920 / 920 240 / 240 Weight 68.039 kg Intake: Oral 500 / 500 920 / 920 240 / 240 Output: Urine 600 / 600 Other: # Voids 5 Date of Last Bowel Movement 12/15/17 Weight On Admission 68.039 kg Narrative: General: NAD, AAOx3 ENT: Thrush noted in the posterior pharynx Chest: Fine bibasilar crackles Cardiac: Regular Abd: +BS, soft ND/NT Ext: No edema Results - Labs CBC & Chem 7: 12/16/17 04:33 12/20/17 06:15 Laboratory Results - last 24 hr 12/15/17 12/15/17 07:39 07:39 WBC 12.6 H D RBC 3.94 L Hgb 11.3 L Hct 34.3 L MCV 86.9 MCH 28.7 MCHC 33.0 RDW 20.8 H Plt Count 325 MPV 7.2 Neut % (Auto) 95.0 H Lymph % (Auto) 2.2 L [place] % (Auto) 2.7 Eos % (Auto) 0.0 Baso % (Auto) 0.1 Neut # (Auto) 12.0 H Lymph # (Auto) 0.3 L [place] # (Auto) 0.3 Eos # (Auto) 0.0 Baso # (Auto) 0.0 WBC Differential . Differential Comment Auto diff final Sodium 134 L Potassium 4.5 D Chloride 100 Carbon Dioxide 24.7 Anion Gap 9 BUN 21 H Creatinine 0.66 Estimated GFR Greater than 89 Random Glucose 161 H Calcium 9.0 - Imaging Chest X-Ray 12/13/17 10:28 CONCLUSION: 1. Right apical pleural parenchymal change most characteristic of scarring. This is improved from the prior study. 2. Scarring with no new confluent infiltrates or effusions. Chest CTA 12/13/17 12:54 CONCLUSION: 1. No evidence of pulmonary embolism. 2. Scattered areas of groundglass opacity in both lungs which may be infectious or inflammatory. This could indicate underlying interstitial lung disease. 3. Air and fluid in the esophagus.. Assessment and Plan - Assessment (1) COPD (chronic obstructive pulmonary disease) Code(s): J44.9 - Chronic obstructive pulmonary disease, unspecified Status: Chronic Plan: COPD Sarcoidosis SOB Hypoxia - Pt is a 57 y/o female with scleroderma/CREST syndrome, COPD, A. fib, Pulmonary HTN, sarcoidosis, esophageal dysmotility. Pt follows with a Sap Gatherer at [facility]. - She presented to the ED at [facility] on 12/13/17 with complaints of worsening SOB x 3 days. She had recently returned from [place] where she was vacationing with her family for 3-4 days and states that she was pushing herself there and walking a lot then. Pt reports that she is chronically on supplemental O2 but reports that her O2 sats have been decreasing into the 70's over the last few days periodically. - In the ED she was given Solu-Medrol and Duonebs with some slight improvement. - Pulmonary CTA (12/13) --> No evidence of pulmonary embolism, scattered areas of ground-glass opacity in both lungs which may be infectious or inflammatory, and air and fluid in the esophagus. - She is currently on 4L of supplemental O2 with stable saturations - Cont. Solu-Medrol 60mg Q6H - Cont. Duonebs Q4H scheduled and Q2H PRN - Cont. home meds, including Spiriva and Symbicort - Add Nystatin S/S - Check O2 sats while ambulating - Monitor clinical status closely - Supportive care - DVT prophylaxis with SCDs Pulmonary HTN - Cont. home meds, including Sildenafil, Lasix - Hold on resuming Aldactone for now as BP is fairly normal - Monitor vitals closely A. fib - Cont. Cardizem 240mg po daily - hospital monitor Hypothyroidism - Cont. home meds Hyperlipidemia - Cont. home meds The exam, history, and the medical decision-making described in the above note were completed with the assistance of the mid-level provider. I reviewed and agree with the findings presented. I attest that I had a [id number] encounter with the patient on the same day, and personally performed and documented my assessment and findings in the medical record. copd. pulm htn. pt had acute/chronic exacerbation of lung dz after trip to [facility]. likely became hypoxic on her trip that contributed to her exacerbation. also within a day of stopping her prednisone taper she became more sob. iv solumedrol and hopefully convert tomorrow to taper. check o2 sat with ambulation on o2. pt reported dizziness with ambulation. - Attending Attestation The exam, history, and the medical decision-making described in the above note were completed with the assistance of the mid-level provider. I reviewed and agree with the findings presented. I attest that I had a [id number] encounter with the patient on the same day, and personally performed and documented my assessment and findings in the medical record. Patient examined. Assessment and plan formulated with Candi Almodovar PA-C. I agree with the above. (1) COPD (chronic obstructive pulmonary disease) Qualifiers: COPD type: COPD with acute exacerbation Qualified Code(s): J44.1 - Chronic obstructive pulmonary disease with (acute) exacerbation
[2017-12-15] MEDS: Nystatin Liq 500,000 UNIT/5 ML UDC SWISH-SWAL SCH ×2 (17:21→22:36)
[2017-12-15] MEDS: Temazepam 15 MG Capsule PO PRN (22:43)
[2017-12-16] MEDS: MethylPREDNISolone Sod Succinate Inj 125 MG/2 ML Vial IV.PUSH SCH ×5 (01:25→23:24)
[2017-12-16 04:52] LABS: Hematocrit 33.1 % (35.0-46.0); Hemoglobin 11.1 gm/dL (11.6-15.3); Lymph # (Auto) 0.3 th/mm3 (1.0-4.8); Lymph % (Auto) 3.3 % (9.0-44.0); Mean Corpuscular HGB Conc 33.5 % (32.0-36.0); Mean Corpuscular Hemoglobin 28.8 pg (27.0-34.0); Mean Corpuscular Volume 86.2 fL (80.0-100.0); Mean Platelet Volume 6.7 fL (7.0-11.0); Mono # (Auto) 0.2 th/mm3 (0.0-0.9); Mono % (Auto) 2.2 % (0.0-8.0); Neut # (Auto) 9.7 th/mm3 (1.8-7.7); Neut % (Auto) 94.5 % (16.0-70.0); Platelet Count 309 th/mm3 (150-450); Red Blood Count 3.85 mil/mm3 (4.00-5.30); Red Cell Distribution Width 20.7 % (11.6-17.2); White Blood Count 10.3 th/mm3 (4.0-11.0)
[2017-12-16 05:12] LABS: Calcium 9.1 mg/dL (8.5-10.1); Carbon Dioxide 23.9 meq/L (21.0-32.0); Potassium 4.1 meq/L (3.5-5.1)
[2017-12-16] MEDS: Levothyroxine 125 MCG Tablet PO SCH (05:43)
[2017-12-16] MEDS: MACITENTAN 10 MG PO SCH (05:52)
--- NOTE | 2017-12-16 07:42 | P.PNIM ---
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 Physical Exam Vital signs: Vital Signs 12/15/17 07:41 12/15/17 08:55 12/15/17 11:52 Temperature 98.8 F 98.2 F Pulse Rate 73 79 72 Respiratory Rate 20 18 18 Blood Pressure 110/56 L 117/57 L Pulse Oximetry 96 98 98 12/15/17 12:18 12/15/17 16:25 12/15/17 16:49 Temperature 97.4 F L Pulse Rate 73 68 74 Respiratory Rate 20 18 18 Blood Pressure 113/52 L Pulse Oximetry 97 96 12/15/17 19:54 12/15/17 19:55 12/15/17 20:00 Temperature 97.7 F Pulse Rate 72 110 H Respiratory Rate 16 17 Blood Pressure 143/74 H Pulse Oximetry 94 L 94 L 12/15/17 22:30 12/16/17 00:00 12/16/17 00:21 Temperature 97.8 F Pulse Rate 74 71 72 Respiratory Rate 17 20 Blood Pressure 112/63 Pulse Oximetry 99 12/16/17 01:00 12/16/17 04:00 12/16/17 04:08 Temperature 98.9 F Pulse Rate 71 75 77 Respiratory Rate 17 22 Blood Pressure 118/65 Pulse Oximetry 97 12/16/17 07:28 Temperature Pulse Rate 77 Respiratory Rate Blood Pressure Pulse Oximetry Intake & Output 12/15/17 12/16/17 12/16/17 18:59 06:59 18:59 Intake Total 720 / 720 Output Total 400 / 400 1752 / 1752 Balance 320 / 320 -1752 / -1752 Weight 68.039 kg 68.5 kg Intake: Oral 720 / 720 Output: Urine 400 / 400 1750 / 1750 Stool 2 / 2 Other: Date of Last Bowel Movement 12/15/17 12/16/17 # Bowel Movements 2 1 Weight On Admission 68.039 kg nad heart reg lung few basilar crackles thais bases abd s/nt ext no edema Results - Labs CBC & Chem 7: 12/16/17 04:33 12/16/17 04:33 Laboratory Results - last 24 hr 12/15/17 12/15/17 12/16/17 07:39 07:39 04:33 WBC 12.6 H D 10.3 RBC 3.94 L 3.85 L Hgb 11.3 L 11.1 L Hct 34.3 L 33.1 L MCV 86.9 86.2 MCH 28.7 28.8 MCHC 33.0 33.5 RDW 20.8 H 20.7 H Plt Count 325 309 MPV 7.2 6.7 L Neut % (Auto) 95.0 H 94.5 H Lymph % (Auto) 2.2 L 3.3 L [place] % (Auto) 2.7 2.2 Eos % (Auto) 0.0 0.0 Baso % (Auto) 0.1 0.0 Neut # (Auto) 12.0 H 9.7 H Lymph # (Auto) 0.3 L 0.3 L [place] # (Auto) 0.3 0.2 Eos # (Auto) 0.0 0.0 Baso # (Auto) 0.0 0.0 WBC Differential . . Differential Comment Auto diff final Auto diff final Sodium 134 L Potassium 4.5 D Chloride 100 Carbon Dioxide 24.7 Anion Gap 9 BUN 21 H Creatinine 0.66 Estimated GFR Greater than 89 Random Glucose 161 H Calcium 9.0 12/16/17 04:33 WBC RBC Hgb Hct MCV MCH MCHC RDW Plt Count MPV Neut % (Auto) Lymph % (Auto) [place] % (Auto) Eos % (Auto) Baso % (Auto) Neut # (Auto) Lymph # (Auto) [place] # (Auto) Eos # (Auto) Baso # (Auto) WBC Differential Differential Comment Sodium 135 L Potassium 4.1 Chloride 100 Carbon Dioxide 23.9 Anion Gap 11 BUN 22 H Creatinine 0.78 Estimated GFR 76 L Random Glucose 162 H Calcium 9.1 Assessment and Plan - Assessment (1) COPD (chronic obstructive pulmonary disease) Code(s): J44.9 - Chronic obstructive pulmonary disease, unspecified Status: Acute Plan: COPD Sarcoidosis SOB Hypoxia - Pt is a 57 y/o female with scleroderma/CREST syndrome, COPD, A. fib, Pulmonary HTN, sarcoidosis, esophageal dysmotility. Pt follows with a Supervisor Grinding at [facility]. - She presented to the ED at [facility] on 12/13/17 with complaints of worsening SOB x 3 days. She had recently returned from [place] where she was vacationing with her family for 3-4 days and states that she was pushing herself there and walking a lot then. Pt reports that she is chronically on supplemental O2 but reports that her O2 sats have been decreasing into the 70's over the last few days periodically. - In the ED she was given Solu-Medrol and Duonebs with some slight improvement. - Pulmonary CTA (12/13) --> No evidence of pulmonary embolism, scattered areas of ground-glass opacity in both lungs which may be infectious or inflammatory, and air and fluid in the esophagus. - She is currently on 4L of supplemental O2 with stable saturations - Cont. Solu-Medrol 60mg Q6H - Cont. Duonebs Q4H scheduled and Q2H PRN - Cont. home meds, including Spiriva and Symbicort - Added Nystatin S/S - Check O2 sats while ambulating - Monitor clinical status closely - Supportive care - DVT prophylaxis with SCDs monitor o2 sats with ambulation. has been getting hypoxic/dizzy despite the o2. Pulmonary HTN - Cont. home meds, including Sildenafil, Lasix - Hold on resuming Aldactone for now as BP is fairly normal - Monitor vitals closely A. fib - Cont. Cardizem 240mg po daily - playground monitor Hypothyroidism - Cont. home meds Hyperlipidemia - Cont. home meds
[2017-12-16] MEDS: Budesonide-Formoterol 160/4.5 MCG 6 GM Inhaler INH SCH ×2 (08:23→21:08)
[2017-12-16] MEDS: Senna/Docusate Sodium 8.6/50 MG Tablet PO SCH ×2 (08:23→21:07)
[2017-12-16] MEDS: dilTIAZem CD 240 MG Capsule PO SCH (08:23)
[2017-12-16] MEDS: Gabapentin 300 MG Capsule PO SCH ×2 (08:24→21:06)
[2017-12-16] MEDS: Nystatin Liq 500,000 UNIT/5 ML UDC SWISH-SWAL SCH ×4 (08:24→21:07)
[2017-12-16] MEDS: Pantoprazole Sodium 20 MG DR Tablet PO SCH (08:24)
[2017-12-16] MEDS: Famotidine 20 MG Tablet PO SCH (08:24)
[2017-12-16] MEDS: Furosemide 20 MG Tablet PO SCH ×2 (08:31→17:29)
[2017-12-16] MEDS: Tiotropium Bromide 18 MCG/ACT Inhaler INH SCH (12:24)
[2017-12-16] MEDS: Temazepam 15 MG Capsule PO PRN (23:24)
[2017-12-17] MEDS: MACITENTAN 10 MG PO SCH (05:12)
[2017-12-17] MEDS: MethylPREDNISolone Sod Succinate Inj 125 MG/2 ML Vial IV.PUSH SCH ×2 (05:12→18:02)
[2017-12-17] MEDS: Levothyroxine 125 MCG Tablet PO SCH (05:13)
--- NOTE | 2017-12-17 08:10 | P.PNIM ---
Subjective Interval history: more cough today. eager for dc Physical Exam Vital signs: Vital Signs 12/16/17 08:10 12/16/17 10:00 12/16/17 11:48 Temperature 98.2 F Pulse Rate 76 80 Respiratory Rate 20 Blood Pressure 121/65 Pulse Oximetry 99 96 12/16/17 12:20 12/16/17 15:19 12/16/17 15:35 Temperature 97.5 F L Pulse Rate 70 74 84 Respiratory Rate 20 18 Blood Pressure 118/60 Pulse Oximetry 98 94 L 12/16/17 15:59 12/16/17 17:00 12/16/17 18:55 Temperature 97.8 F 98.9 F Pulse Rate 77 83 77 Respiratory Rate 20 20 Blood Pressure 118/64 133/64 Pulse Oximetry 98 93 L 12/16/17 20:00 12/16/17 20:15 12/16/17 20:26 Temperature 97.9 F Pulse Rate 72 74 Respiratory Rate 18 Blood Pressure 130/62 Pulse Oximetry 99 98 12/16/17 21:00 12/17/17 00:00 12/17/17 00:33 Temperature 97.9 F 97.0 F L Pulse Rate 72 72 85 Respiratory Rate 20 Blood Pressure 130/62 116/55 L Pulse Oximetry 99 96 12/17/17 07:00 12/17/17 07:39 12/17/17 07:43 Temperature Pulse Rate 76 94 H Respiratory Rate 20 Blood Pressure Pulse Oximetry 84 L 91 L Intake & Output 12/16/17 12/17/17 12/17/17 18:59 06:59 18:59 Intake Total 950 / 950 Output Total 1050 / 1050 3000 / 3000 Balance -100 / -100 -3000 / -3000 Weight 69.9 kg Intake: Oral 950 / 950 Output: Urine 1050 / 1050 3000 / 3000 Other: Date of Last Bowel Movement 12/15/17 12/16/17 # Bowel Movements 5 heart reg lung scattered lower lung field crackles abd s/nt ext no edema Results - Labs CBC & Chem 7: 12/16/17 04:33 12/16/17 04:33 Assessment and Plan - Assessment (1) COPD (chronic obstructive pulmonary disease) Code(s): J44.9 - Chronic obstructive pulmonary disease, unspecified Status: Acute Plan: COPD Sarcoidosis SOB Hypoxia - Pt is a 57 y/o female with scleroderma/CREST syndrome, COPD, A. fib, Pulmonary HTN, sarcoidosis, esophageal dysmotility. Pt follows with a Credentialer at [facility]. - She presented to the ED at [facility] on 12/13/17 with complaints of worsening SOB x 3 days. She had recently returned from [place] where she was vacationing with her family for 3-4 days and states that she was pushing herself there and walking a lot then. Pt reports that she is chronically on supplemental O2 but reports that her O2 sats have been decreasing into the 70's over the last few days periodically. - In the ED she was given Solu-Medrol and Duonebs with some slight improvement. - Pulmonary CTA (12/13) --> No evidence of pulmonary embolism, scattered areas of ground-glass opacity in both lungs which may be infectious or inflammatory, and air and fluid in the esophagus. - She is currently on 4L of supplemental O2 with stable saturations - solumedrol to prednisone. - Cont. Duonebs Q4H scheduled and Q2H PRN - Cont. home meds, including Spiriva and Symbicort - Added Nystatin S/S - Check O2 sats while ambulating - Monitor clinical status closely - Supportive care - DVT prophylaxis with SCDs monitor o2 sats with ambulation. has been getting hypoxic/dizzy despite the o2. chest ct to evaluate for evolving infectious process. pt with more congested/ cough. convert to prednisone. addendum: repeat lung exam more diffuse rhonci/wheeze, basilar crackles. repeat ct chest looks like more diffuse ground glass interstitial ?edema compared to June. no fever but will consider covering with abx for atypical infection. will change po lasix to iv lasix. monitor bmp. her echo in shows ef 65%, mild mvr. I called her pulmonlogist at [facility] who said in September no evidence of right heart failure on her echo. She felt pt was safe to stay at [place] and the only reason to transfer would be if pt had severe exacerbation of her pulmonary htn. She felt story was not consistent. I will have our blasting gang miner evaluate her now but up to now pt was not interested in me consulting a local blasting gang miner. cont o2 and pt getting hypoxic and dizzy with ambulation. Pulmonary HTN - Cont. home meds, including Sildenafil, Lasix - Hold on resuming Aldactone for now as BP is fairly normal - Monitor vitals closely A. fib - Cont. Cardizem 240mg po daily - lunchroom monitor Hypothyroidism - Cont. home meds Hyperlipidemia - Cont. home meds
[2017-12-17] MEDS: Nystatin Liq 500,000 UNIT/5 ML UDC SWISH-SWAL SCH ×4 (08:34→22:16)
[2017-12-17] MEDS: Gabapentin 300 MG Capsule PO SCH ×2 (08:35→22:16)
[2017-12-17] MEDS: dilTIAZem CD 240 MG Capsule PO SCH (08:35)
[2017-12-17] MEDS: Pantoprazole Sodium 20 MG DR Tablet PO SCH (08:35)
[2017-12-17] MEDS: Famotidine 20 MG Tablet PO SCH (08:35)
[2017-12-17] MEDS: Senna/Docusate Sodium 8.6/50 MG Tablet PO SCH ×2 (08:39→22:17)
[2017-12-17] MEDS: Budesonide-Formoterol 160/4.5 MCG 6 GM Inhaler INH SCH ×2 (08:41→22:21)
[2017-12-17] MEDS: Furosemide 20 MG Tablet PO SCH (08:41)
[2017-12-17] MEDS: Tiotropium Bromide 18 MCG/ACT Inhaler INH SCH (08:41)
[2017-12-17] MEDS ORDERED: predniSONE 20 MG Tablet PO SCH (09:00)
--- NOTE | 2017-12-17 15:27 | CT ---
EXAM DATE: 12/17/2017 2:47 PM EDT AGE/SEX: 57 years / Female INDICATIONS: Patient complains of cough, short of breath. CLINICAL DATA: This is the patient's initial encounter. Patient reports that signs and symptoms have been present for 1 day and indicates a pain score of 0/10. MEDICAL/SURGICAL HISTORY: Chronic obstructive pulmonary disease. Congestive heart failure. pneumon ia None. RADIATION DOSE: 5.4 CTDI (mGy) COMPARISON: C, CHEST SINGLE AP, 07/13/2017. . TECHNIQUE: Multiple contiguous axial images were obtained through the chest without contrast. Image s were obtained in suspended respiration using multiple row detector helical technique. Using automa víctor exposure control and adjustment of the mA and/or kV according to patient size, radiation dose was kept as low as reasonably achievable to obtain optimal diagnostic quality images. DICOM format imag e data is available electronically for review and comparison. FINDINGS: Lungs: The lungs are symmetrically aerated. There is mild patchy perihilar groundglass opacities ext ending into the right middle lobe lingula. There is no focal consolidation, mass or nodule. And azygo s lobe variant is present containing the azygous vein. Mediastinum: There is good visualization of the great vessels of the middle mediastinum. No evidenc e of mediastinal or hilar adenopathy/mass. Coronary artery calcifications are present. The esophagus is diffusely prominent and contains fluid and food. Pleurae: No evidence of focal thickening or pleural effusion. Axillae: Unremarkable. Bony Structures: Unremarkable. Miscellaneous: The examination was extended to include the upper abdomen, and both adrenal glands ar e normal in size and configuration. CONCLUSION: 1. Mild patchy perihilar groundglass opacities. The differential diagnosis includes mild pulmonary e andrew or underlying interstitial lung disease. 2. Abnormal esophagus which is dilated and contains fluid and food. 3. Coronary artery calcifications. Electronically signed by: Juvenal Morrow MD 12/17/2017 3:25 PM EDT
[2017-12-17] MEDS ORDERED: Levofloxacin 500 mg Premix Inj 500 MG/100 ML PIGGYBACK IV.SIG ONE (16:46)
[2017-12-17] MEDS: guaiFENesin 600 MG ER Tablet PO SCH (22:16)
[2017-12-18] MEDS: Temazepam 15 MG Capsule PO PRN (00:44)
[2017-12-18] MEDS: MethylPREDNISolone Sod Succinate Inj 125 MG/2 ML Vial IV.PUSH SCH ×4 (00:46→17:07)
[2017-12-18 05:23] LABS: Calcium 9.2 mg/dL (8.5-10.1); Carbon Dioxide 29.4 meq/L (21.0-32.0); Potassium 3.3 meq/L (3.5-5.1)
[2017-12-18] MEDS: Levothyroxine 125 MCG Tablet PO SCH (05:37)
[2017-12-18] MEDS: MACITENTAN 10 MG PO SCH (05:38)
--- NOTE | 2017-12-18 09:02 | P.PNIM ---
Subjective Interval history: pt says she diuresed well after iv lasix last night. Physical Exam Vital signs: Vital Signs 12/17/17 11:00 12/17/17 11:16 12/17/17 12:08 Temperature 97.5 F L Pulse Rate 79 87 78 Respiratory Rate 24 20 Blood Pressure 129/60 Pulse Oximetry 91 L 12/17/17 14:59 12/17/17 15:46 12/17/17 20:00 Temperature 98 F 97.7 F Pulse Rate 81 75 75 Respiratory Rate 24 20 20 Blood Pressure 126/57 L 131/68 Pulse Oximetry 90 L 93 L 99 12/17/17 21:08 12/18/17 00:00 12/18/17 00:22 Temperature 97.6 F Pulse Rate 83 70 74 Respiratory Rate 18 18 18 Blood Pressure 132/60 Pulse Oximetry 95 98 96 12/18/17 03:45 12/18/17 04:00 12/18/17 07:40 Temperature 97.7 F Pulse Rate 72 75 80 Respiratory Rate 16 18 21 Blood Pressure 113/54 L Pulse Oximetry 98 97 12/18/17 07:41 12/18/17 08:28 Temperature 97.7 F Pulse Rate 77 Respiratory Rate 18 Blood Pressure 119/75 Pulse Oximetry 95 98 Intake & Output 12/17/17 12/18/17 12/18/17 18:59 06:59 18:59 Intake Total 1220 / 1220 100 / 100 Output Total 1700 / 1700 2100 / 2100 Balance -480 / -480 -2000 / -1999 Intake: IV 100 / 100 Oral 1220 / 1220 Output: Urine 1700 / 1700 2099 / 2100 Other: Date of Last Bowel Movement 12/17/17 # Bowel Movements 1 nad ambulated to br on 4lnc just now. diffuse rhonci bilaterally ext no edema heart reg Results - Labs CBC & Chem 7: 12/16/17 04:33 12/18/17 04:29 Laboratory Results - last 24 hr 12/18/17 04:29 Sodium 136 Potassium 3.3 L D Chloride 98 Carbon Dioxide 29.4 Anion Gap 9 BUN 26 H Creatinine 0.86 Estimated GFR 68 L Random Glucose 165 H Calcium 9.2 Microbiology 12/17/17 19:40 Urine - Clean Catch Urine Streptococcus pneumoniae Antigen ( M - Final Presumptive negative for streptococcus pneumoniae antigen, suggesting no current or recent infection. Infection due to Streptococcus pneumoniae cannot be ruled out since the antigen present in the sample may be below the detection limit of the test. 12/17/17 19:40 Urine - Clean Catch Urine Legionella Antigen - Final Presumptive negative for Legionella pneumophila serogroup 1 antigen in urine, suggesting no recent or recurrent infection. Infection due to Legionella cannot be ruled out since other serogroups and species may cause disease, antigen may not be present in urine in early infection, and the level of antigen present in the urine may be below the detection limit of the test. - Imaging Impressions Chest CT 12/17/17 08:08 CONCLUSION: 1. Mild patchy perihilar groundglass opacities. The differential diagnosis includes mild pulmonary edema or underlying interstitial lung disease. 2. Abnormal esophagus which is dilated and contains fluid and food. 3. Coronary artery calcifications. Assessment and Plan - Assessment (1) COPD (chronic obstructive pulmonary disease) Code(s): J44.9 - Chronic obstructive pulmonary disease, unspecified Status: Acute Plan: COPD Sarcoidosis SOB Hypoxia - Pt is a 57 y/o female with scleroderma/CREST syndrome, COPD, A. fib, Pulmonary HTN, sarcoidosis, esophageal dysmotility. Pt follows with a Assistant Professor Of Marine Biology at [facility]. - She presented to the ED at [facility] on 12/13/17 with complaints of worsening SOB x 3 days. She had recently returned from [place] where she was vacationing with her family for 3-4 days and states that she was pushing herself there and walking a lot then. Pt reports that she is chronically on supplemental O2 but reports that her O2 sats have been decreasing into the 70's over the last few days periodically. - In the ED she was given Solu-Medrol and Duonebs with some slight improvement. - Pulmonary CTA (12/13) --> No evidence of pulmonary embolism, scattered areas of ground-glass opacity in both lungs which may be infectious or inflammatory, and air and fluid in the esophagus. - Repeat CT chest 12/17. perihilar ground glass infiltrates. ?ILD vs edema vs ? infectious - She is currently on 4L of supplemental O2 with stable saturations - Pt does get hypoxic with ambulation despite o2. associated dizziness -I called her pulmonlogist at [place] [facility] who said in September no evidence of right heart failure on her echo. She felt pt was safe to stay at [place] and the only reason to transfer would be if pt had severe exacerbation of her pulmonary htn. She felt story was not consistent. - solumedrol and nebs. monitor o2 sats with exertion - cont emperic abx for atypical coverage - cont mucinex - sputum cx - nystatin for thrush - consulted pulmonary for opinion on her respiratory sx's -cont iv lasix this AM but will likely need to hold and check bmp. Pulmonary HTN - Cont. home meds, including Sildenafil, Lasix - A. fib - Cont. Cardizem 240mg po daily - secured entrance monitor Hypothyroidism - Cont. home meds Hyperlipidemia - Cont. home meds
[2017-12-18] MEDS: guaiFENesin 600 MG ER Tablet PO SCH ×2 (09:11→21:17)
[2017-12-18] MEDS: Nystatin Liq 500,000 UNIT/5 ML UDC SWISH-SWAL SCH ×4 (09:11→21:16)
[2017-12-18] MEDS: dilTIAZem CD 240 MG Capsule PO SCH (09:11)
[2017-12-18] MEDS: Pantoprazole Sodium 20 MG DR Tablet PO SCH (09:11)
[2017-12-18] MEDS: Senna/Docusate Sodium 8.6/50 MG Tablet PO SCH ×2 (09:12→21:17)
[2017-12-18] MEDS: Gabapentin 300 MG Capsule PO SCH ×2 (09:12→21:17)
[2017-12-18] MEDS: Famotidine 20 MG Tablet PO SCH (09:13)
[2017-12-18] MEDS: Budesonide-Formoterol 160/4.5 MCG 6 GM Inhaler INH SCH ×2 (09:20→21:23)
[2017-12-18] MEDS: Tiotropium Bromide 18 MCG/ACT Inhaler INH SCH (09:20)
--- NOTE | 2017-12-18 11:00 | MB ---
cc: Stacey Altamirano MD DATE: 12/18/2017 HISTORY OF PRESENT ILLNESS: The patient is a 57-year-old female with a past medical history of COPD, scleroderma, pulmonary hypertension, atrial fibrillation and esophageal dysmotility. She was admitted to [facility] on 12/13/[address] Perez's service for worsening shortness of breath and low O2 saturation. She is being followed up with a printmaker at the [facility] and has a followup appointment with him on 12/21/2017 The patient uses 4 liters of oxygen continuously at home in addition to her nebulizers, Symbicort and Spiriva. She had a chest x-ray on arrival, which showed right apical pleural parenchymal change characteristic of scarring, otherwise no confluent infiltrates or effusions. Subsequently, she underwent a CTA of the chest which showed no evidence of pulmonary embolism; however, it showed scattered areas of ground glass opacities in both lungs, which may be infectious or inflammatory in nature or possible interstitial lung disease. A repeat CT chest was obtained on 12/17/2017, which showed mild patchy perihilar ground glass opacities. She is currently on bronchodilators and IV steroids. The patient reports a productive cough with brown phlegm, chills and wheezing. She quit smoking 5 years ago and has a [id number] history of smoking. She is currently on the 4 liter oxygen with good saturations. She denies any chest pain or GI symptoms. PAST MEDICAL HISTORY: Significant for scleroderma/CREST syndrome, COPD, pulmonary hypertension, esophageal dysmotility and history of aspiration pneumonia, sarcoidosis, insomnia, anxiety, atrial fibrillation, and right-sided pneumothorax in 06/2017. PAST SURGICAL HISTORY: Previous VATS with apical bleb resection and pleurodesis in June with Dr. Morris, history of 2 C-sections, pneumothorax on the left in 2011, and benign left breast lumpectomy. FAMILY HISTORY: Noncontributory to present illness. SOCIAL HISTORY: Quit smoking approximately 5 years ago with a [id number] history of smoking. REVIEW OF SYSTEMS: As per HPI. Rest of review of systems is unremarkable. PHYSICAL EXAMINATION: GENERAL: A 57-year-old female sitting up in bed in mild respiratory distress. VITAL SIGNS: Temperature 97.6, pulse of 91, respiratory rate 24, blood pressure 132/63, saturation 95-99% on 4 liter oxygen. HEENT: Atraumatic, normocephalic. Pupils are equal, round, reactive to light and accommodation. Extraocular muscles intact. Conjunctivae pink. Nonicteric sclerae. Oral mucosa within normal. NECK: Supple. No JVD, adenopathy or thyromegaly. Trachea in the midline. CARDIOVASCULAR: Regular rate and rhythm. Normal S1, S2. PULMONARY: Bilateral equal air entry with coarse breath sounds and crackles. Overall diminished breath sounds. ABDOMEN: Soft, nontender. No distention. Positive bowel sounds. EXTREMITIES: No cyanosis, clubbing or edema. NEUROLOGIC: Awake, alert. No focal sensory deficit. LABORATORY DATA: WBC 10.3, hemoglobin 11.1, hematocrit 33, platelet count of 309. Sodium 136, potassium 3.6, chloride 98, CO2 of 29, BUN 26, creatinine 0.86, glucose 165. ABG was performed on arrival 09/13/2017 which showed a pH of 7.53, CO2 of 35, PaO2 of 54, bicarbonate 30, sats 86%. RADIOGRAPHIC STUDIES: A CT scan of the chest from 12/17/2017 showed a mild patchy perihilar ground glass opacities, dilated esophagus contains fluid and food, and coronary artery calcifications. IMPRESSION: 1. Acute hypoxemic respiratory failure. 2. Interstitial lung disease secondary to connective tissue disease. 3. History of scleroderma with CREST syndrome and sarcoidosis. 4. Pulmonary hypertension. 5. Chronic obstructive pulmonary disease, on 4 liter oxygen continuously. 6. Atrial fibrillation. 7. Hypothyroidism. 8. Hyperlipidemia. 9. Anemia. RECOMMENDATIONS: 1. Continue with oxygen and maintain sats above 92%. 2. Continue with current bronchodilators in the form of DuoNeb every 4 hours plus every 2 hours p.r.n. for shortness of breath. In addition, the patient is on Symbicort 2 puffs b.i.d. and Spiriva daily. Agree with IV steroids. She is currently on Solu-Medrol 60 mg IV every 6 hours. 3. Noninvasive positive pressure ventilation p.r.n. for respiratory distress. 4. Continue with current medications for pulmonary hypertension. She is currently on Revatio 20 mg t.i.d. and her home medications macitentan 10 mg daily for pulmonary hypertension. 5. She had 2 CT scans of the chest on 12/13/2017 and 12/17/2017, which showed no evidence of pulmonary embolism; however, it showed mild patchy perihilar ground glass opacities, which differential diagnosis could be a mild pulmonary edema versus interstitial lung disease. We will place the patient on empiric antibiotics in form of Rocephin and Zithromax. Her strep pneumonia and legionella urinary antigen are negative. We will obtain a sputum culture with Gram stain. Continue with diuretics. She is on Lasix 40 mg b.i.d. The patient had an echocardiogram in June per records, which showed an ejection fraction of 65-70%, moderate pulmonary hypertension with a PA pressure of 44 mmHg. 6. She has an appointment scheduled to followup with her printmaker at the [facility] on 12/21/2017. Continue current medical management. Further recommendations will be based on hospital course. MD ALEJANDRO Rabago/ANTOINETTE , 10:22 AM , 10:37 AM
[2017-12-18] MEDS: Azithromycin Inj 500 MG in Sodium Chlor 0.9% Inj 250 ML IV.SIG SCH (11:34)
[2017-12-19] MEDS: MethylPREDNISolone Sod Succinate Inj 125 MG/2 ML Vial IV.PUSH SCH ×4 (00:30→17:18)
[2017-12-19] MEDS: Temazepam 15 MG Capsule PO PRN (00:30)
[2017-12-19 04:59] LABS: Anion Gap 4 meq/L (5-15); Blood Urea Nitrogen 26 mg/dL (7-18); Calcium 8.9 mg/dL (8.5-10.1); Carbon Dioxide 29.8 meq/L (21.0-32.0); Chloride 103 meq/L (98-107); Glomerular Filtration Rate Greater Than 89 mL/min (>89); Glucose,Random 150 mg/dL (74-106); Potassium 4.6 meq/L (3.5-5.1); Sodium 137 meq/L (136-145)
[2017-12-19] MEDS: MACITENTAN 10 MG PO SCH (05:00)
[2017-12-19] MEDS: Levothyroxine 125 MCG Tablet PO SCH (05:00)
--- NOTE | 2017-12-19 08:56 | P.PNPL ---
Subjective Interval history: No events overnnight on 4L oxygen. Patient states she is feeling better. Afebrile. Physical Exam Vital signs: Vital Signs 12/18/17 09:25 12/18/17 12:00 12/18/17 13:14 Temperature 97.6 F 97.6 F Pulse Rate 91 H 101 H 78 Respiratory Rate 24 20 21 Blood Pressure 132/63 117/66 Pulse Oximetry 99 99 12/18/17 16:00 12/18/17 17:20 12/18/17 20:00 Temperature 98.3 F Pulse Rate 74 76 71 Respiratory Rate 14 19 Blood Pressure 107/50 L Pulse Oximetry 99 12/18/17 21:17 12/18/17 21:18 12/18/17 23:25 Temperature 97.9 F Pulse Rate 65 78 78 Respiratory Rate 18 18 18 Blood Pressure 115/54 L Pulse Oximetry 99 12/19/17 00:00 12/19/17 00:35 12/19/17 04:27 Temperature 97.7 F Pulse Rate 79 78 72 Respiratory Rate 16 18 Blood Pressure 124/58 L Pulse Oximetry 95 12/19/17 04:48 12/19/17 08:00 Temperature 98.3 F Pulse Rate 78 96 H Respiratory Rate 18 14 Blood Pressure 117/58 L Pulse Oximetry 98 Intake & Output 12/18/17 12/19/17 12/19/17 18:59 06:59 18:59 Intake Total 1670 / 1670 Output Total 1600 / 1600 2200 / 2200 Balance 70 / 70 -2200 / -2200 Intake: IV 350 / 350 Azithromycin Inj 500 MG In NS 250 / 250 Inj 250 ML @ 250 mls/hr IV.SIG Q24H MAXIMO Rx#:[id number] Rocephin Inj 1,000 MG In NS Inj 100 / 100 100 ML @ 200 mls/hr IV.SIG Q24H MAXIMO Rx#:[id number] Oral 1320 / 1320 Output: Urine 1600 / 1600 2200 / 2200 Other: Date of Last Bowel Movement 12/18/17 12/18/17 # Bowel Movements 1 - Constitutional no acute distress, cooperative - Routine HEENT Exam Head: Present: normocephalic, atraumatic Eye: Present: EOMI, PERRL, normal accommodation, conjunctivae pink ENT: Present: mucous membranes moist - Routine Neck Exam Present: supple, full ROM, trachea midline - Routine Respiratory Exam Present: rhonchi - Routine Cardiovascular Exam Present: RRR, S1, S2 - Routine Abdominal Exam Present: soft, normoactive bowel sounds - Routine Extremities Exam Present: full ROM, pulses intact - Routine Skin Exam Present: intact - Routine Neurological Exam Present: alert, oriented X3, CN II-XII intact - Routine Psychiatric Exam Present: normal affect Assessment and Plan - Plan 1. Acute hypoxemic respiratory failure. 2. Interstitial lung disease secondary to connective tissue disease. 3. History of scleroderma with CREST syndrome and sarcoidosis. 4. Pulmonary hypertension. 5. COPD, on 4 liter home oxygen continuously. 6. Atrial fibrillation. 7. Hypothyroidism. 8. Hyperlipidemia. 9. Anemia. Plan Continue with oxygen and maintain sats above 92%. Bronchodilators)DuoNeb, Symbicort 2 puffs b.i.d. and Spiriva daily. Continue with [id number]-[id number] 60 mg IV every 6 hours. BIPAP p.r.n. for respiratory distress. On Revatio 20 mg t.i.d. and macitentan 10 mg daily for pulmonary hypertension. Continue abx(Rocephin and Zithromax). Strep pneumonia and legionella urinary antigen are negative. Follow up on sputum cx Continue Lasix, Echo in June per records, EF 65-70%, moderate pulmonary hypertension with a PAP 44 mmHg. GI/DVT prophylaxis Continue treatment plan. Discussed with Dr. Perez
[2017-12-19] MEDS: Furosemide 40 MG Tablet PO SCH ×2 (09:02→17:18)
[2017-12-19] MEDS: guaiFENesin 600 MG ER Tablet PO SCH ×2 (09:02→21:17)
[2017-12-19] MEDS: dilTIAZem CD 240 MG Capsule PO SCH (09:02)
[2017-12-19] MEDS: Senna/Docusate Sodium 8.6/50 MG Tablet PO SCH ×2 (09:02→21:16)
[2017-12-19] MEDS: Gabapentin 300 MG Capsule PO SCH ×2 (09:02→21:18)
[2017-12-19] MEDS: Pantoprazole Sodium 20 MG DR Tablet PO SCH (09:03)
[2017-12-19] MEDS: Famotidine 20 MG Tablet PO SCH (09:03)
[2017-12-19] MEDS: Nystatin Liq 500,000 UNIT/5 ML UDC SWISH-SWAL SCH ×4 (09:03→21:16)
[2017-12-19] MEDS: Tiotropium Bromide 18 MCG/ACT Inhaler INH SCH (09:07)
[2017-12-19] MEDS: Budesonide-Formoterol 160/4.5 MCG 6 GM Inhaler INH SCH ×2 (09:07→21:18)
--- NOTE | 2017-12-19 09:44 | P.PNIM ---
Subjective Interval history: pt says she is feeling better. ambulates to bathroom. Physical Exam Vital signs: Vital Signs 12/18/17 12:00 12/18/17 13:14 12/18/17 16:00 Temperature 97.6 F 98.3 F Pulse Rate 101 H 78 74 Respiratory Rate 20 21 14 Blood Pressure 117/66 107/50 L Pulse Oximetry 99 99 12/18/17 17:20 12/18/17 20:00 12/18/17 21:17 Temperature 97.9 F Pulse Rate 76 71 65 Respiratory Rate 19 18 Blood Pressure 115/54 L Pulse Oximetry 99 12/18/17 21:18 12/18/17 23:25 12/19/17 00:00 Temperature Pulse Rate 78 78 79 Respiratory Rate 18 18 Blood Pressure Pulse Oximetry 12/19/17 00:35 12/19/17 04:27 12/19/17 04:48 Temperature 97.7 F 98.3 F Pulse Rate 78 72 78 Respiratory Rate 16 18 18 Blood Pressure 124/58 L 117/58 L Pulse Oximetry 95 98 12/19/17 08:00 Temperature 96.9 F L Pulse Rate 72 Respiratory Rate 20 Blood Pressure 120/59 L Pulse Oximetry 98 Intake & Output 12/18/17 12/19/17 12/19/17 18:59 06:59 18:59 Intake Total 1670 / 1670 Output Total 1600 / 1600 2200 / 2200 Balance 70 / 70 -2200 / -2200 Intake: IV 350 / 350 Azithromycin Inj 500 MG In NS 250 / 250 Inj 250 ML @ 250 mls/hr IV.SIG Q24H MAXIMO Rx#:[id number] Rocephin Inj 1,000 MG In NS Inj 100 / 100 100 ML @ 200 mls/hr IV.SIG Q24H MAXIMO Rx#:[id number] Oral 1320 / 1320 Output: Urine 1600 / 1600 2200 / 2200 Other: Date of Last Bowel Movement 12/18/17 12/18/17 # Bowel Movements 1 heart reg lung rhonci improved. some basilar crackles abd s/nt ext no edema Results - Labs CBC & Chem 7: 12/16/17 04:33 12/19/17 04:02 Laboratory Results - last 24 hr 12/19/17 04:02 Sodium 137 Potassium 4.6 D Chloride 103 Carbon Dioxide 29.8 Anion Gap 4 L BUN 26 H Creatinine 0.65 Estimated GFR Greater than 89 Random Glucose 150 H Calcium 8.9 Microbiology 12/18/17 09:20 Sputum - Expectorated Sputum Gram Stain - Final 12/17/17 19:40 Urine - Clean Catch Urine Streptococcus pneumoniae Antigen ( M - Final Presumptive negative for streptococcus pneumoniae antigen, suggesting no current or recent infection. Infection due to Streptococcus pneumoniae cannot be ruled out since the antigen present in the sample may be below the detection limit of the test. 12/17/17 19:40 Urine - Clean Catch Urine Legionella Antigen - Final Presumptive negative for Legionella pneumophila serogroup 1 antigen in urine, suggesting no recent or recurrent infection. Infection due to Legionella cannot be ruled out since other serogroups and species may cause disease, antigen may not be present in urine in early infection, and the level of antigen present in the urine may be below the detection limit of the test. Assessment and Plan - Assessment (1) COPD (chronic obstructive pulmonary disease) Code(s): J44.9 - Chronic obstructive pulmonary disease, unspecified Status: Acute Plan: COPD Sarcoidosis SOB Hypoxia - Pt is a 57 y/o female with scleroderma/CREST syndrome, COPD, A. fib, Pulmonary HTN, sarcoidosis, esophageal dysmotility. Pt follows with a Warehouse General Laborer at [facility]. - She presented to the ED at [facility] on 12/13/17 with complaints of worsening SOB x 3 days. She had recently returned from [place] where she was vacationing with her family for 3-4 days and states that she was pushing herself there and walking a lot then. Pt reports that she is chronically on supplemental O2 but reports that her O2 sats have been decreasing into the 70's over the last few days periodically. - In the ED she was given Solu-Medrol and Duonebs with some slight improvement. - Pulmonary CTA (12/13) --> No evidence of pulmonary embolism, scattered areas of ground-glass opacity in both lungs which may be infectious or inflammatory, and air and fluid in the esophagus. - Repeat CT chest 12/17. perihilar ground glass infiltrates. ?ILD vs edema vs ? infectious - She is currently on 4L of supplemental O2 with stable saturations - Pt does get hypoxic with ambulation despite o2. associated dizziness -I called her pulmonlogist at [place] Dr [facility] who said in September no evidence of right heart failure on her echo. She felt pt was safe to stay at [place] and the only reason to transfer would be if pt had severe exacerbation of her pulmonary htn. She felt story was not consistent. - solumedrol and nebs. monitor o2 sats with exertion - cont emperic abx for atypical bacteria coverage - cont mucinex - sputum cx pending - nystatin for thrush - consulted pulmonary for opinion on her respiratory sx's -cont po lasix. given 2 doses of iv lasix. Pulmonary HTN - Cont. home meds, including Sildenafil, Lasix - A. fib - Cont. Cardizem 240mg po daily - surveillance monitor Hypothyroidism - Cont. home meds Hyperlipidemia - Cont. home meds
[2017-12-19] MEDS: Azithromycin Inj 500 MG in Sodium Chlor 0.9% Inj 250 ML IV.SIG SCH (11:18)
[2017-12-20] MEDS: MethylPREDNISolone Sod Succinate Inj 125 MG/2 ML Vial IV.PUSH SCH ×3 (00:29→11:44)
[2017-12-20] MEDS: Temazepam 15 MG Capsule PO PRN (00:29)
[2017-12-20] MEDS: MACITENTAN 10 MG PO SCH (05:34)
[2017-12-20] MEDS: Levothyroxine 125 MCG Tablet PO SCH (05:35)
[2017-12-20 07:02] LABS: Anion Gap 8 meq/L (5-15); Blood Urea Nitrogen 23 mg/dL (7-18); Calcium 8.9 mg/dL (8.5-10.1); Carbon Dioxide 27.8 meq/L (21.0-32.0); Chloride 98 meq/L (98-107); Glomerular Filtration Rate Greater Than 89 mL/min (>89); Glucose,Random 158 mg/dL (74-106); Potassium 4.2 meq/L (3.5-5.1); Sodium 134 meq/L (136-145)
[2017-12-20] MEDS: guaiFENesin 600 MG ER Tablet PO SCH (08:47)
[2017-12-20] MEDS: Senna/Docusate Sodium 8.6/50 MG Tablet PO SCH (08:47)
[2017-12-20] MEDS: Gabapentin 300 MG Capsule PO SCH (08:47)
[2017-12-20] MEDS: Famotidine 20 MG Tablet PO SCH (08:47)
[2017-12-20] MEDS: Tiotropium Bromide 18 MCG/ACT Inhaler INH SCH (08:48)
[2017-12-20] MEDS: Nystatin Liq 500,000 UNIT/5 ML UDC SWISH-SWAL SCH ×2 (08:48→13:13)
[2017-12-20] MEDS: dilTIAZem CD 240 MG Capsule PO SCH (08:48)
[2017-12-20] MEDS: Pantoprazole Sodium 20 MG DR Tablet PO SCH (08:48)
[2017-12-20] MEDS: Budesonide-Formoterol 160/4.5 MCG 6 GM Inhaler INH SCH (08:51)
[2017-12-20] MEDS: Furosemide 40 MG Tablet PO SCH (08:51)
[2017-12-20] MEDS: Azithromycin Inj 500 MG in Sodium Chlor 0.9% Inj 250 ML IV.SIG SCH (11:45)
--- NOTE | 2017-12-20 14:32 | P.DS ---
<Candi Almodovar - Last Filed: 03/09/18 15:30> Date of admission: 12/13/17 15:32 Primary care physician: UNKNOWN Attending physician on discharge: Angelo Gonsalez Anticipated date of discharge: 12/20/17 Brief History from admission: Mrs. Ramirez is a 57 y/o female with scleroderma, COPD, A. fib, Pulmonary HTN, sarcoidosis, esophageal dysmotility. Pt follows with a International Logistics Analyst at [facility]. She has a f/u appt with them on December 21. Pt reports that for the last 3 days her breathing has been significantly worse than baseline feeling SOB at rest or with exertion. No reported cough or wheezing. She had recently returned from [place] where she was vacationing with her family for 3-4 days and states that she was pushing herself there and walking a lot then. Pt was walking with her supplemental O2. She was not using her breathing treatments then and only uses the nebulizer treatments when she has severe SOB. She has not been using her nebulizer treatments at home. Pt reports that she is chronically on supplemental O2 but reports that her O2 sats have been decreasing into the 70's over the last few days periodically. In the ED she was given Solu-Medrol and Duonebs with some slight improvement. She had a Pulmonary CTA in the ED which noted no evidence of pulmonary embolism, scattered areas of ground-glass opacity in both lungs which may be infectious or inflammatory, and air and fluid in the esophagus. She is currently on 4L of supplemental O2 with stable saturations. Past Medical Hx: Right sided pneumothorax in 06/2017 A. fib Scleroderma/CREST syndrome COPD Fecal incontinence Right sided heart failure Pulmonary hypertension Esophageal dysmotility and hx of aspiration pneumonia Sarcoidosis. Elmo's granulomatosis History of tobacco abuse Insomnia Anxiety 2D echo (07/06/17): - Estimated ejection fraction in the range of 65-70% - Mild mitral valve regurgitation - Mild tricuspid valve regurgitation - The estimated pulmonary arterial pressure is 44.3 mmHg. Past Surgical Hx: VATS with apical bleb resection and chemical/mechanical pleurodesis on 07/09/[address] Morris Two C-sections. Pneumothorax on the left in 2011 Benign left breast lumpectomy Family Hx: Noncontributory Social Hx: Hx of tobacco use, quit around 5-6 years ago DS: Diagnosis - Discharge Diagnosis (1) COPD (chronic obstructive pulmonary disease) Status: Chronic (2) Pulmonary HTN Status: Chronic (3) Scleroderma Status: Acute (4) Atrial fibrillation Status: Chronic (5) Fecal incontinence Status: Chronic (6) CREST (calcinosis, Raynaud's phenomenon, esophageal dysfunction, sclerodactyly, telangiectasia) Status: Chronic DS: Summary Hospital Course: COPD Sarcoidosis SOB Hypoxia - Pt is a 57 y/o female with scleroderma/CREST syndrome, COPD, A. fib, Pulmonary HTN, sarcoidosis, esophageal dysmotility. Pt follows with a International Logistics Analyst at [facility]. She presented to the ED at [facility] on 12/13/17 with complaints of worsening SOB x 3 days. She had recently returned from [place] where she was vacationing with her family for 3-4 days and states that she was pushing herself there and walking a lot then. Pt reports that she is chronically on supplemental O2 but reports that her O2 sats have been decreasing into the 70's over the last few days periodically. In the ED she was given Solu-Medrol and Duonebs with some slight improvement. Pulmonary CTA (12/13) --> No evidence of pulmonary embolism, scattered areas of ground-glass opacity in both lungs which may be infectious or inflammatory, and air and fluid in the esophagus. Repeat CT chest on 12/17 with noted perihilar ground glass infiltrates, ?ILD vs edema vs ?infectious, abnormal esophagus which is dilated and contains fluid and food, and coronary artery calcifications. She is currently on 4L of supplemental O2 which is her baseline with stable saturations. Pt does get hypoxic with ambulation despite o2 and occasionally has associated dizziness. Dr. Perez called the pts loan manager at [place], Dr Ken, who said in September the pt did not have evidence of right heart failure on her echo. She felt pt was safe to stay at [place] and the only reason to transfer would be if pt had severe exacerbation of her pulmonary htn. Pt was treated with Solu-Medrol and nebs. Emperic abx were started on for atypical bacteria coverage on Azithromycin and Rocephin on 12/18/17. Sputum cx with heavy growth of normal respiratory kuldeep. Strep pneumonia and legionella urinary antigen were negative. Pt was also given Mucinex and Nystatin for thrush. Pulmonology was consulted for opinion on her respiratory sx's and they recommended continuing current treatment plan. Pt is planned for discharge to home on 12/20. Pt has a followup appt with her physicians at [facility] on 12/21. Pt will be discharged home on a Prednisone taper of 30mg BID x 7 days, then decrease to 20mg po BID, then decrease to 20mg once daily x 7 days, then decrease to 10mg po daily x 7 days then stop. Further recommendations regarding continuation of Prednisone will be determined by her International Logistics Analyst. Pt will be discharged on Azithromycin and Nystatin S/S The evening prior to discharge the pt reportedly tripped of something on the floor in her room and fell onto her back. She complained of some back spasms and requested a prescription for muscle relaxers for discharge. A lumbar and thoracic Xray was requested on the day of discharge. Dr. Gonsalez looked up and reviewed the pts medications in [facility] and then wrote for Flexeril 5mg TID PRN x 3 days. Pulmonary HTN - Cont. home meds, including Revatio 20 mg t.i.d. and macitentan 10 mg daily, and Lasix. Pt was given 2 doses of iv Lasix during admission. She will be discharged on her home doses of Lasix 60mg po BID A. fib - Cont. Cardizem 240mg po daily. Hypothyroidism - Cont. home meds Hyperlipidemia - Cont. home meds - Time Spent with Patient Total time spent providing and/or coordinating discharge services: Greater than 30 minutes - Quality: VTE Deep Vein Thrombosis/Pulmonary Embolism Present on Admission: No Exam Vital signs: Vital Signs 12/19/17 14:20 12/19/17 14:24 12/19/17 16:00 Temperature 98.1 F Pulse Rate 70 98 H Respiratory Rate 16 26 H Blood Pressure 132/68 Pulse Oximetry 99 97 12/19/17 17:06 12/19/17 19:56 12/19/17 20:00 Temperature 97.8 F Pulse Rate 67 67 82 Respiratory Rate 14 18 Blood Pressure 130/66 Pulse Oximetry 99 96 12/19/17 20:03 12/20/17 00:04 12/20/17 00:06 Temperature 96.9 F L Pulse Rate 72 72 65 Respiratory Rate 20 Blood Pressure 148/81 H Pulse Oximetry 95 12/20/17 00:20 12/20/17 01:06 12/20/17 02:10 Temperature 96.6 F L 97.1 F L Pulse Rate 59 L 64 69 Respiratory Rate 17 16 18 Blood Pressure 112/60 122/63 Pulse Oximetry 98 98 12/20/17 03:16 12/20/17 04:04 12/20/17 04:10 Temperature 97.2 F L Pulse Rate 62 75 70 Respiratory Rate 16 17 Blood Pressure 112/60 Pulse Oximetry 99 12/20/17 04:24 12/20/17 08:06 12/20/17 08:38 Temperature 96.9 F L 97.9 F Pulse Rate 70 62 75 Respiratory Rate 18 15 18 Blood Pressure 115/59 L 122/59 L Pulse Oximetry 99 98 12/20/17 11:50 12/20/17 12:00 Temperature 98.1 F Pulse Rate 67 75 Respiratory Rate 16 15 Blood Pressure Pulse Oximetry 99 Intake & Output 12/19/17 12/20/17 12/20/17 18:59 06:59 18:59 Intake Total 1845 / 1845 240 / 240 Output Total 1600 / 1600 1700 / 1700 Balance 245 / 245 -1460 / -1460 Weight 70.4 kg Intake: IV 350 / 350 Azithromycin Inj 500 MG In NS 250 / 250 Inj 250 ML @ 250 mls/hr IV.SIG Q24H MAXIMO Rx#:[id number] Rocephin Inj 1,000 MG In NS Inj 100 / 100 100 ML @ 200 mls/hr IV.SIG Q24H MAXIMO Rx#:[id number] Oral 1495 / 1495 240 / 240 Output: Urine 1600 / 1600 1700 / 1700 Other: Date of Last Bowel Movement 12/19/17 12/19/17 12/20/17 # Bowel Movements 1 1 Results Procedures completed during hospitalization: See above Labs on day of discharge: Labs from last 24 hours 12/20/17 06:15 Sodium 134 L Potassium 4.2 Chloride 98 Carbon Dioxide 27.8 Anion Gap 8 BUN 23 H Creatinine 0.67 Estimated GFR Greater than 89 Random Glucose 158 H Calcium 8.9 - Impressions ITS Impressions Chest X-Ray 12/13/17 10:28 CONCLUSION: 1. Right apical pleural parenchymal change most characteristic of scarring. This is improved from the prior study. 2. Scarring with no new confluent infiltrates or effusions. Chest CTA 12/13/17 12:54 CONCLUSION: 1. No evidence of pulmonary embolism. 2. Scattered areas of groundglass opacity in both lungs which may be infectious or inflammatory. This could indicate underlying interstitial lung disease. 3. Air and fluid in the esophagus.. Chest CT 12/17/17 08:08 CONCLUSION: 1. Mild patchy perihilar groundglass opacities. The differential diagnosis includes mild pulmonary edema or underlying interstitial lung disease. 2. Abnormal esophagus which is dilated and contains fluid and food. 3. Coronary artery calcifications. <Angelo Gonsalez - Last Filed: 03/11/18 12:26> Date of admission: 12/13/17 15:32 Primary care physician: UNKNOWN DS: Diagnosis - Discharge Diagnosis (1) COPD (chronic obstructive pulmonary disease) Status: Chronic DS: Summary Hospital Course: The exam, history, and the medical decision-making described in the above note were completed with the assistance of the mid-level provider. I reviewed and agree with the findings presented. I attest that I had a [id number] encounter with the patient on the same day, and personally performed and documented my assessment and findings in the medical record. Patient examined. Assessment and plan formulated with Candi Almodovar PA-C. I agree with the above. - Time Spent with Patient Total time spent providing and/or coordinating discharge services: Greater than 30 minutes Results - Impressions ITS Impressions Chest X-Ray 12/13/17 10:28 CONCLUSION: 1. Right apical pleural parenchymal change most characteristic of scarring. This is improved from the prior study. 2. Scarring with no new confluent infiltrates or effusions. Chest CTA 12/13/17 12:54 CONCLUSION: 1. No evidence of pulmonary embolism. 2. Scattered areas of groundglass opacity in both lungs which may be infectious or inflammatory. This could indicate underlying interstitial lung disease. 3. Air and fluid in the esophagus.. Chest CT 12/17/17 08:08 CONCLUSION: 1. Mild patchy perihilar groundglass opacities. The differential diagnosis includes mild pulmonary edema or underlying interstitial lung disease. 2. Abnormal esophagus which is dilated and contains fluid and food. 3. Coronary artery calcifications. Thoracic Spine X-Ray 12/20/17 00:00 CONCLUSION: Degenerative changes. Lumbar Spine X-Ray 12/20/17 14:57 CONCLUSION: Atherosclerosis. Mild degenerative facet hypertrophic changes at L4-5 and L5-S1. Discharge Plan - Discharge Order Discharge Orders: Discharge Order (Routine); Ordered 12/20/17 Ordered By: Angelo Gonsalez - Physicians Team Primary Care Provider: UNKNOWN, Attending Provider: Jeff Perez Other Providers: Stacey Altamirano MD
--- NOTE | 2017-12-20 17:01 | XR ---
EXAM DATE: 12/20/2017 4:55 PM EDT AGE/SEX: 57 years / Female INDICATIONS: Back pain, post fall yesterday. CLINICAL DATA: This is the patient's initial encounter. Patient reports that signs and symptoms have been present for 1 day and indicates a pain score of 9/10. MEDICAL/SURGICAL HISTORY: None. None. COMPARISON: [facility] [place], [place], CT THORAX W CONTRAST, 07/05/2017. . FINDINGS: The vertebral bodies are in normal alignment without evidence of compression deformity. Bone density is normal for age. Soft tissues are grossly intact. Mild multilevel osteophyte formation. Aortic calcification. Mild disc space narrowing. CONCLUSION: Degenerative changes. Electronically signed by: Dhaval Overton MD 12/20/2017 5:00 PM EDT
--- NOTE | 2017-12-20 17:02 | XR ---
EXAM DATE: 12/20/2017 4:57 PM EDT AGE/SEX: 57 years / Female INDICATIONS: Lower back pain post fall yesterday. CLINICAL DATA: This is the patient's initial encounter. Patient reports that signs and symptoms have been present for 1 day and indicates a pain score of 9/10. MEDICAL/SURGICAL HISTORY: None. None. COMPARISON: [facility] [place], THORACIC SPINE AP/LAT/SW 3V, 12/20/2017. . FINDINGS: The vertebral bodies are in normal alignment without evidence of compression deformity. Bone density is normal for age. Soft tissues are grossly intact. Mild facet hypertrophic changes. Atherosclerotic calcification of the aorta and iliac vessels. CONCLUSION: Atherosclerosis. Mild degenerative facet hypertrophic changes at L4-5 and L5-S1. Electronically signed by: Dhaval Overton MD 12/20/2017 5:00 PM EDT
--- NOTE | 2017-12-24 12:14 | ED ---
HPI General Chief complaint: Respiratory Symptoms Stated complaint: Breathing Complaint Time Seen by Provider: 12/13/17 10:28 History of Present Illness HPI narrative: This is a 57 old female with a history of scleroderma, COPD, pulmonary hypertension, atrial fibrillation, crest syndrome, presents today with complaints of shortness of breath and weakness. Patient was recently in the mountains in [place] and when she returned home, she states she started experiencing shortness of breath. She denies any fevers, chills. She denies any productive cough. The patient did drive up there by car. She states that there were times when they stopped however they were driving straight through. The patient denies any previous history of pulmonary emboli or DVTs. Patient reports that she is chronically on oxygen. She does report that she has had to go up on her oxygen because of the shortness of breath. There is no chest pain , chest pressure. Related Data Home Medications Medication Instructions Recorded Confirmed alprazolam 1 mg PO TID PRN 12/13/17 12/13/17 cholestyramine (with sugar) 4 g PO BID 12/13/17 12/13/17 cyclobenzaprine 10 mg PO BID PRN 12/13/17 12/13/17 diltiazem HCl [Cartia XT] 240 mg PO DAILY 12/13/17 12/13/17 furosemide 60 mg PO BID 12/13/17 12/13/17 gabapentin 300 mg PO BID 12/13/17 12/13/17 levothyroxine 125 mcg PO DAILY 12/13/17 12/13/17 macitentan 10 mg PO DAILY 12/13/17 12/13/17 omeprazole 20 mg PO DAILY 12/13/17 12/13/17 promethazine 12.5 mg PO Q6H PRN 12/13/17 12/13/17 ranitidine HCl 150 mg PO DAILY 12/13/17 12/13/17 sildenafil (antihypertensive) 20 mg PO TID 12/13/17 12/13/17 simvastatin 20 mg PO QPM 12/13/17 12/13/17 spironolactone 50 mg PO DAILY 12/13/17 12/13/17 zaleplon 5 mg PO HS PRN 12/13/17 12/13/17 Previous Rx's Medication Instructions Recorded azithromycin 250 mg PO DAILY #2 tab 12/20/17 budesonide-formoterol [Symbicort] 2 puff INHALATION BID 30 Days g 12/20/17 cyclobenzaprine 5 mg PO TID #9 tab 12/20/17 ipratropium-albuterol 1 amp NEB Q6HR NEB ml 12/20/17 nystatin 5 ml SWISH-SWAL QID 7 Days #140 ml 12/20/17 prednisone [Deltasone] 20 mg PO BID #100 tab 12/20/17 tiotropium bromide [Spiriva with 1 cap INHALATION DAILY 30 Days inh 12/20/17 HandiHaler] Allergies Allergy/AdvReac Type Severity Reaction Status Date / Time codeine AdvReac Unknown NAUSEA Unverified 12/13/17 10:05 Review of Systems Except as stated in HPI: all other systems reviewed are negative Constitutional Denies chills and Denies fever(s) Eyes Reports system reviewed and no additional complaints, except as [facility] ENT Reports system reviewed and no additional complaints, except as [facility] Cardiovascular Denies chest pain, Reports irregular heart rhythm (History of A. fib.), Denies lightheadedness, Denies palpitations and Reports dyspnea Respiratory Denies hemoptysis, Denies pain on inspiration, Reports dyspnea and Reports dyspnea on exertion Gastrointestinal Reports system reviewed and no additional complaints, except as [facility] Genitourinary Reports system reviewed and no additional complaints, except as [facility] Musculoskeletal Reports system reviewed and no additional complaints, except as [facility] Neurologic Reports system reviewed and no additional complaints, except as [facility] PMFSH Social History Social History Substance History: No History of Abuse Second Hand Smoke Exposure: No Smoking Status: Former smoker How Often Do You Have a Drink Containing Alcohol: 2 to 4 times a month Recent Travel in [facility] within the Last 8 Weeks: No Recent Out of Country Travel within the Last 8 Weeks: No Immunization History Tetanus Immunization: <5 Years Hx Influenza Vaccine This Season: Yes Exam Narrative Exam Narrative: GENERAL: Well-developed well-nourished female in mild to moderate respiratory distress. SKIN: Focused skin assessment warm/dry. HEAD: Atraumatic. Normocephalic. EYES: No scleral icterus. No injection or drainage. ENT: No nasal bleeding or discharge. Mucous membranes pink and moist. NECK: Trachea midline. Supple. CARDIOVASCULAR: Regular rate and rhythm. No murmur appreciated. RESPIRATORY: No accessory muscle use. The patient does have mildly labored breathing. Patient has mild wheezes at the bilateral bases. No rales appreciated. GASTROINTESTINAL: Abdomen soft, non-tender, nondistended. Hepatic and splenic margins not palpable. MUSCULOSKELETAL: No obvious deformities. No clubbing. No cyanosis. No edema. NEUROLOGICAL: Awake and alert. No obvious cranial nerve deficits. Motor grossly within normal limits. Normal speech. PSYCHIATRIC: Appropriate mood and affect; insight and judgment normal. Course Initial Documented Vital Signs Temperature 98.4 F 12/13/17 09:50 Pulse Rate 93 H 12/13/17 09:50 Respiratory Rate 22 12/13/17 09:50 Blood Pressure 143/75 H 12/13/17 09:50 Pulse Oximetry 93 L 12/13/17 09:50 Last Documented Vital Signs Temperature 98.1 F 12/20/17 11:50 Pulse Rate 68 12/20/17 15:42 Respiratory Rate 20 12/20/17 15:42 Blood Pressure 122/59 L 12/20/17 08:38 Pulse Oximetry 99 12/20/17 11:50 Medical Decision Making [facility] Narrative Medical decision making narrative: This is a 57-year-old female with a history of scleroderma, COPD, crest syndrome, who presents today with shortness of breath. Patient was recently on a trip in the mountains. The patient's d- dimer was elevated. A CT pulmonary angiogram was ordered to rule out PE. There is no evidence of PE. The patient does have groundglass appearance and probable inflammatory versus infectious findings. Given this and the fact that she is still tachypneic despite breathing treatments, I will admit her to the hospital for further treatment and possible antibiotics. Case was discussed with Dr. Jeff Perez, [facility], who agrees. Differential Diagnosis Differential Diagnosis: COPD exacerbation versus pneumonia versus pulmonary embolus Lab Data Result diagrams: 12/16/17 04:33 12/20/17 06:15 Lab Results 12/13/17 12/13/17 12/13/17 Range/Units 10:39 10:39 11:21 WBC 7.1 (4.0-11.0) th/mm3 RBC 4.52 (4.00-5.30) mil/mm3 Hgb 13.4 (11.6-15.3) gm/dL Hct 39.2 (35.0-46.0) % MCV 86.7 (80.0-100.0) fL MCH 29.5 (27.0-34.0) pg MCHC 34.1 (32.0-36.0) % RDW 20.8 H (11.6-17.2) % Plt Count 267 (150-450) th/mm3 MPV 7.1 (7.0-11.0) fL Neut % (Auto) 84.8 H (16.0-70.0) % Lymph % (Auto) 5.3 L (9.0-44.0) % Angelina % (Auto) 6.8 (0.0-8.0) % Eos % (Auto) 2.8 (0.0-4.0) % Baso % (Auto) 0.3 (0.0-2.0) % Neut # (Auto) 6.1 (1.8-7.7) th/mm3 Lymph # (Auto) 0.4 L (1.0-4.8) th/mm3 Angelina # (Auto) 0.5 (0.0-0.9) th/mm3 Eos # (Auto) 0.2 (0.0-0.4) th/mm3 Baso # (Auto) 0.0 (0.0-0.2) th/mm3 WBC Differential . Differential Comment Auto diff final PT (9.8-11.6) sec INR Ratio Puncture Site Right radial Patient Temperature 98.6 O2 Saturation 86 L* (90-100) % ABG pH 7.53 H* (7.380-7.420) ABG pCO2 35 L (38-42) mmHg ABG pO2 54 L* (61-120) mmHg ABG HCO3 30 H (22-26) mmol/L ABG O2 Content 15.0 (12.0-20.0) Vol % ABG Base Excess 6.5 H (-2-2) mmol/L ABG Methemoglobin 1.0 (0-2) % Tay Test Present Hemoglobin 12.4 (12.0-16.0) G/DL Carboxyhemoglobin 1.8 (0-4) % O2 Delivery Device Nasal cannula Liter Flow 2.00 L/M Inspired O2 21 % Critical Value Yes Sodium 132 L (136-145) meq/L Potassium 3.4 L (3.5-5.1) meq/L Chloride 94 L (98-107) meq/L Carbon Dioxide 26.1 (21.0-32.0) meq/L Anion Gap 12 (5-15) meq/L BUN 14 (7-18) mg/dL Creatinine 0.86 (0.50-1.00) mg/dL Estimated GFR 68 L (>89) mL/min Random Glucose 146 H (74-106) mg/dL Calcium 9.0 (8.5-10.1) mg/dL Total Bilirubin 0.6 (0.2-1.0) mg/dL AST 22 (15-37) U/L ALT 29 (10-53) U/L Alkaline Phosphatase 92 (45-117) U/L Total Creatine Kinase 47 (26-192) U/L Troponin I Less than 0.02 L (0.02-0.05) ng/mL Total Protein 7.4 (6.4-8.2) g/dL Albumin 3.4 (3.4-5.0) g/dL 12/14/17 12/14/17 12/14/17 Range/Units 08:30 08:30 08:30 WBC 5.1 (4.0-11.0) th/mm3 RBC 4.13 (4.00-5.30) mil/mm3 Hgb 12.0 (11.6-15.3) gm/dL Hct 35.4 (35.0-46.0) % MCV 85.8 (80.0-100.0) fL MCH 29.1 (27.0-34.0) pg MCHC 34.0 (32.0-36.0) % RDW 20.5 H (11.6-17.2) % Plt Count 265 (150-450) th/mm3 MPV 7.2 (7.0-11.0) fL Neut % (Auto) 92.7 H (16.0-70.0) % Lymph % (Auto) 5.8 L (9.0-44.0) % Angelina % (Auto) 1.5 (0.0-8.0) % Eos % (Auto) 0.0 (0.0-4.0) % Baso % (Auto) 0.0 (0.0-2.0) % Neut # (Auto) 4.8 (1.8-7.7) th/mm3 Lymph # (Auto) 0.3 L (1.0-4.8) th/mm3 Angelina # (Auto) 0.1 (0.0-0.9) th/mm3 Eos # (Auto) 0.0 (0.0-0.4) th/mm3 Baso # (Auto) 0.0 (0.0-0.2) th/mm3 WBC Differential . Differential Comment Auto diff final PT 9.9 (9.8-11.6) sec INR 1.0 Ratio Puncture Site Patient Temperature O2 Saturation (90-100) % ABG pH (7.380-7.420) ABG pCO2 (38-42) mmHg ABG pO2 (61-120) mmHg ABG HCO3 (22-26) mmol/L ABG O2 Content (12.0-20.0) Vol % ABG Base Excess (-2-2) mmol/L ABG Methemoglobin (0-2) % Tay Test Hemoglobin (12.0-16.0) G/DL Carboxyhemoglobin (0-4) % O2 Delivery Device Liter Flow L/M Inspired O2 % Critical Value Sodium 133 L (136-145) meq/L Potassium 3.2 L (3.5-5.1) meq/L Chloride 94 L (98-107) meq/L Carbon Dioxide 26.5 (21.0-32.0) meq/L Anion Gap 13 (5-15) meq/L BUN 16 (7-18) mg/dL Creatinine 0.61 (0.50-1.00) mg/dL Estimated GFR Greater than 89 (>89) mL/min Random Glucose 139 H (74-106) mg/dL Calcium 9.1 (8.5-10.1) mg/dL Total Bilirubin 0.4 (0.2-1.0) mg/dL AST 17 (15-37) U/L ALT 24 (10-53) U/L Alkaline Phosphatase 82 (45-117) U/L Total Creatine Kinase (26-192) U/L Troponin I (0.02-0.05) ng/mL Total Protein 6.9 (6.4-8.2) g/dL Albumin 3.0 L (3.4-5.0) g/dL 12/15/17 12/15/17 12/16/17 Range/Units 07:39 07:39 04:33 WBC 12.6 H D 10.3 (4.0-11.0) th/mm3 RBC 3.94 L 3.85 L (4.00-5.30) mil/mm3 Hgb 11.3 L 11.1 L (11.6-15.3) gm/dL Hct 34.3 L 33.1 L (35.0-46.0) % MCV 86.9 86.2 (80.0-100.0) fL MCH 28.7 28.8 (27.0-34.0) pg MCHC 33.0 33.5 (32.0-36.0) % RDW 20.8 H 20.7 H (11.6-17.2) % Plt Count 325 309 (150-450) th/mm3 MPV 7.2 6.7 L (7.0-11.0) fL Neut % (Auto) 95.0 H 94.5 H (16.0-70.0) % Lymph % (Auto) 2.2 L 3.3 L (9.0-44.0) % Angelina % (Auto) 2.7 2.2 (0.0-8.0) % Eos % (Auto) 0.0 0.0 (0.0-4.0) % Baso % (Auto) 0.1 0.0 (0.0-2.0) % Neut # (Auto) 12.0 H 9.7 H (1.8-7.7) th/mm3 Lymph # (Auto) 0.3 L 0.3 L (1.0-4.8) th/mm3 Angelina # (Auto) 0.3 0.2 (0.0-0.9) th/mm3 Eos # (Auto) 0.0 0.0 (0.0-0.4) th/mm3 Baso # (Auto) 0.0 0.0 (0.0-0.2) th/mm3 WBC Differential . . Differential Comment Auto diff final Auto diff final PT (9.8-11.6) sec INR Ratio Puncture Site Patient Temperature O2 Saturation (90-100) % ABG pH (7.380-7.420) ABG pCO2 (38-42) mmHg ABG pO2 (61-120) mmHg ABG HCO3 (22-26) mmol/L ABG O2 Content (12.0-20.0) Vol % ABG Base Excess (-2-2) mmol/L ABG Methemoglobin (0-2) % Tay Test Hemoglobin (12.0-16.0) G/DL Carboxyhemoglobin (0-4) % O2 Delivery Device Liter Flow L/M Inspired O2 % Critical Value Sodium 134 L (136-145) meq/L Potassium 4.5 D (3.5-5.1) meq/L Chloride 100 (98-107) meq/L Carbon Dioxide 24.7 (21.0-32.0) meq/L Anion Gap 9 (5-15) meq/L BUN 21 H (7-18) mg/dL Creatinine 0.66 (0.50-1.00) mg/dL Estimated GFR Greater than 89 (>89) mL/min Random Glucose 161 H (74-106) mg/dL Calcium 9.0 (8.5-10.1) mg/dL Total Bilirubin (0.2-1.0) mg/dL AST (15-37) U/L ALT (10-53) U/L Alkaline Phosphatase (45-117) U/L Total Creatine Kinase (26-192) U/L Troponin I (0.02-0.05) ng/mL Total Protein (6.4-8.2) g/dL Albumin (3.4-5.0) g/dL 12/16/17 12/18/17 12/19/17 Range/Units 04:33 04:29 04:02 WBC (4.0-11.0) th/mm3 RBC (4.00-5.30) mil/mm3 Hgb (11.6-15.3) gm/dL Hct (35.0-46.0) % MCV (80.0-100.0) fL MCH (27.0-34.0) pg MCHC (32.0-36.0) % RDW (11.6-17.2) % Plt Count (150-450) th/mm3 MPV (7.0-11.0) fL Neut % (Auto) (16.0-70.0) % Lymph % (Auto) (9.0-44.0) % Angelina % (Auto) (0.0-8.0) % Eos % (Auto) (0.0-4.0) % Baso % (Auto) (0.0-2.0) % Neut # (Auto) (1.8-7.7) th/mm3 Lymph # (Auto) (1.0-4.8) th/mm3 Angelina # (Auto) (0.0-0.9) th/mm3 Eos # (Auto) (0.0-0.4) th/mm3 Baso # (Auto) (0.0-0.2) th/mm3 WBC Differential Differential Comment PT (9.8-11.6) sec INR Ratio Puncture Site Patient Temperature O2 Saturation (90-100) % ABG pH (7.380-7.420) ABG pCO2 (38-42) mmHg ABG pO2 (61-120) mmHg ABG HCO3 (22-26) mmol/L ABG O2 Content (12.0-20.0) Vol % ABG Base Excess (-2-2) mmol/L ABG Methemoglobin (0-2) % Tay Test Hemoglobin (12.0-16.0) G/DL Carboxyhemoglobin (0-4) % O2 Delivery Device Liter Flow L/M Inspired O2 % Critical Value Sodium 135 L 136 137 (136-145) meq/L Potassium 4.1 3.3 L D 4.6 D (3.5-5.1) meq/L Chloride 100 98 103 (98-107) meq/L Carbon Dioxide 23.9 29.4 29.8 (21.0-32.0) meq/L Anion Gap 11 9 4 L (5-15) meq/L BUN 22 H 26 H 26 H (7-18) mg/dL Creatinine 0.78 0.86 0.65 (0.50-1.00) mg/dL Estimated GFR 76 L 68 L Greater than 89 (>89) mL/min Random Glucose 162 H 165 H 150 H (74-106) mg/dL Calcium 9.1 9.2 8.9 (8.5-10.1) mg/dL Total Bilirubin (0.2-1.0) mg/dL AST (15-37) U/L ALT (10-53) U/L Alkaline Phosphatase (45-117) U/L Total Creatine Kinase (26-192) U/L Troponin I (0.02-0.05) ng/mL Total Protein (6.4-8.2) g/dL Albumin (3.4-5.0) g/dL 12/20/17 Range/Units 06:15 WBC (4.0-11.0) th/mm3 RBC (4.00-5.30) mil/mm3 Hgb (11.6-15.3) gm/dL Hct (35.0-46.0) % MCV (80.0-100.0) fL MCH (27.0-34.0) pg MCHC (32.0-36.0) % RDW (11.6-17.2) % Plt Count (150-450) th/mm3 MPV (7.0-11.0) fL Neut % (Auto) (16.0-70.0) % Lymph % (Auto) (9.0-44.0) % Angelina % (Auto) (0.0-8.0) % Eos % (Auto) (0.0-4.0) % Baso % (Auto) (0.0-2.0) % Neut # (Auto) (1.8-7.7) th/mm3 Lymph # (Auto) (1.0-4.8) th/mm3 Angelina # (Auto) (0.0-0.9) th/mm3 Eos # (Auto) (0.0-0.4) th/mm3 Baso # (Auto) (0.0-0.2) th/mm3 WBC Differential Differential Comment PT (9.8-11.6) sec INR Ratio Puncture Site Patient Temperature O2 Saturation (90-100) % ABG pH (7.380-7.420) ABG pCO2 (38-42) mmHg ABG pO2 (61-120) mmHg ABG HCO3 (22-26) mmol/L ABG O2 Content (12.0-20.0) Vol % ABG Base Excess (-2-2) mmol/L ABG Methemoglobin (0-2) % Tay Test Hemoglobin (12.0-16.0) G/DL Carboxyhemoglobin (0-4) % O2 Delivery Device Liter Flow L/M Inspired O2 % Critical Value Sodium 134 L (136-145) meq/L Potassium 4.2 (3.5-5.1) meq/L Chloride 98 (98-107) meq/L Carbon Dioxide 27.8 (21.0-32.0) meq/L Anion Gap 8 (5-15) meq/L BUN 23 H (7-18) mg/dL Creatinine 0.67 (0.50-1.00) mg/dL Estimated GFR Greater than 89 (>89) mL/min Random Glucose 158 H (74-106) mg/dL Calcium 8.9 (8.5-10.1) mg/dL Total Bilirubin (0.2-1.0) mg/dL AST (15-37) U/L ALT (10-53) U/L Alkaline Phosphatase (45-117) U/L Total Creatine Kinase (26-192) U/L Troponin I (0.02-0.05) ng/mL Total Protein (6.4-8.2) g/dL Albumin (3.4-5.0) g/dL Imaging Data Radiologist's impression: Chest X-Ray 12/13/17 10:28 CONCLUSION: 1. Right apical pleural parenchymal change most characteristic of scarring. This is improved from the prior study. 2. Scarring with no new confluent infiltrates or effusions. Chest CTA 12/13/17 12:54 CONCLUSION: 1. No evidence of pulmonary embolism. 2. Scattered areas of groundglass opacity in both lungs which may be infectious or inflammatory. This could indicate underlying interstitial lung disease. 3. Air and fluid in the esophagus.. Chest CT 12/17/17 08:08 CONCLUSION: 1. Mild patchy perihilar groundglass opacities. The differential diagnosis includes mild pulmonary edema or underlying interstitial lung disease. 2. Abnormal esophagus which is dilated and contains fluid and food. 3. Coronary artery calcifications. Thoracic Spine X-Ray 12/20/17 00:00 CONCLUSION: Degenerative changes. Lumbar Spine X-Ray 12/20/17 14:57 CONCLUSION: Atherosclerosis. Mild degenerative facet hypertrophic changes at L4-5 and L5-S1. Discharge Plan Discharge Disposition Patient Disposition: 30 Still Patient Discharge Order Discharge Orders: Discharge Order (Routine); Ordered 12/20/17 Ordered By: Angelo Gonsalez Discharge Details Diagnosis: Dyspnea and respiratory abnormalities, COPD (chronic obstructive pulmonary disease), Scleroderma, Atrial fibrillation Physicians Team ED Provider: Eric Steel Primary Care Provider: UNKNOWN, Attending Provider: Jeff Perez Other Providers: Stacey Altamirano Discharge Interventions Interventions: ED Discharge Assessment Last Done: 12/13/17 18:28 Vital Signs Last Done: 12/19/17 09:00 Status ED Status: Left Department Discharge Information Discharge Date/Time: 12/13/17 18:28
== END 2017-12-20 17:30 | disposition home or self-care (01) ==
LOC: NEPE 09:41 → NEDA 09:41 → OBSVTOIN 15:32 → NEDA 18:28 → NEPGCP 18:37 → HCIN 12-15 08:48
PROVIDERS: ADMIT Hospitalist; ATTEND Hospitalist
DX: E78.5 Hyperlipidemia, unspecified; M31.30 Wegener's granulomatosis without renal involvement; W01.0XXA Fall on same level from slipping, tripping and stumbling without subsequent striking against object, initial encounter; I50.9 Heart failure, unspecified; Z87.891 Personal history of nicotine dependence; G47.00 Insomnia, unspecified; B37.0 Candidal stomatitis; M62.830 Muscle spasm of back; R15.9 Full incontinence of feces; M34.1 CR(E)ST syndrome; Z99.81 Dependence on supplemental oxygen; D64.9 Anemia, unspecified; I48.91 Unspecified atrial fibrillation; E03.9 Hypothyroidism, unspecified; J96.01 Acute respiratory failure with hypoxia; Y92.230 Patient room in hospital as the place of occurrence of the external cause; M19.90 Unspecified osteoarthritis, unspecified site; I27.20 Pulmonary hypertension, unspecified; D86.9 Sarcoidosis, unspecified; I08.1 Rheumatic disorders of both mitral and tricuspid valves; J44.1 Chronic obstructive pulmonary disease with (acute) exacerbation; J84.9 Interstitial pulmonary disease, unspecified; I25.10 Atherosclerotic heart disease of native coronary artery without angina pectoris; F41.9 Anxiety disorder, unspecified

== ENCOUNTER 2017-12-27 17:41 | Inpatient (IN) ==
--- NOTE | 2017-12-27 18:16 | ED ---
HPI General Chief complaint: Respiratory Symptoms Stated complaint: Resp/Cardiac/Swollen Feet/Dr sent Time Seen by Provider: 12/27/17 18:13 Source: patient and family Mode of arrival: ambulatory Limitations: no limitations History of Present Illness HPI narrative: 57-year-old female patient with history of COPD, pulmonary hypertension, atrial fibrillation, CHF, crest syndrome, presents to the ER today because she states that she was here last week and they had taken her off her Lasix because her potassium was low, and she states that since then she has been having worsening dyspnea on exertion, general weakness, and her legs up and swelling. She denies any fevers or other issues. Related Data Home Medications Medication Instructions Recorded Confirmed alprazolam 1 mg PO TID PRN 12/13/17 12/27/17 cholestyramine (with sugar) 4 g PO BID 12/13/17 12/27/17 cyclobenzaprine 10 mg PO BID PRN 12/13/17 12/27/17 diltiazem HCl [Cartia XT] 240 mg PO DAILY 12/13/17 12/27/17 gabapentin 300 mg PO BID 12/13/17 12/27/17 levothyroxine 125 mcg PO DAILY 12/13/17 12/27/17 macitentan 10 mg PO DAILY 12/13/17 12/27/17 omeprazole 20 mg PO DAILY 12/13/17 12/27/17 promethazine 12.5 mg PO Q6H PRN 12/13/17 12/27/17 ranitidine HCl 150 mg PO DAILY 12/13/17 12/27/17 sildenafil (antihypertensive) 20 mg PO TID 12/13/17 12/27/17 simvastatin 20 mg PO QPM 12/13/17 12/27/17 zaleplon 5 mg PO HS PRN 12/13/17 12/27/17 prednisone [Deltasone] 10 mg PO BID 12/27/17 12/27/17 Previous Rx's Medication Instructions Recorded budesonide-formoterol [Symbicort] 2 puff INHALATION BID 30 Days g 12/20/17 cyclobenzaprine 5 mg PO TID #9 tab 12/20/17 ipratropium-albuterol 1 amp NEB Q6HR NEB ml 12/20/17 tiotropium bromide [Spiriva with 1 cap INHALATION DAILY 30 Days inh 12/20/17 HandiHaler] Allergies Allergy/AdvReac Type Severity Reaction Status Date / Time codeine AdvReac Severe Nausea/Vomi Verified 12/27/17 18:00 ting Review of Systems Except as stated in HPI: all other systems reviewed are negative [facility] Medical History Medical History Arthritis (Acute) Benign breast lumps (Acute) CHF (congestive heart failure) (Acute) History of scleroderma (Acute) Hyperlipemia (Acute) Hypothyroid (Acute) Oxygen dependent (Acute) Pneumothorax (Acute) Surgical History Surgical History H/O section (Acute) Social History Social History Substance History: No History of Abuse Second Hand Smoke Exposure: No Smoking Status: Former smoker Tobacco Type: Cigarettes How Often Do You Have a Drink Containing Alcohol: Never Recent Travel in [facility] within the Last 8 Weeks: No Recent Out of Country Travel within the Last 8 Weeks: No Immunization History Tetanus Immunization: >5 Years Hx Influenza Vaccine This Season: Yes Exam Narrative Exam Narrative: GENERAL: Well-developed middle-age female patient currently in mild respiratory distress. Awake and oriented 3. SKIN: Focused skin assessment warm/dry. HEAD: Atraumatic. Normocephalic. EYES: Pupils equal and round. No scleral icterus. No injection or drainage. ENT: No nasal bleeding or discharge. Mucous membranes pink and moist. NECK: Trachea midline. Supple. CARDIOVASCULAR: Regular rate and rhythm. No murmur appreciated. RESPIRATORY: Mild accessory muscle use. Decreased at the bases. Breath sounds equal bilaterally. GASTROINTESTINAL: Abdomen soft, non-tender, nondistended. Hepatic and splenic margins not palpable. MUSCULOSKELETAL: No obvious deformities. No clubbing. No cyanosis. Bilateral pitting edema of the legs. NEUROLOGICAL: Awake and alert. No obvious cranial nerve deficits. Motor grossly within normal limits. Normal speech. PSYCHIATRIC: Appropriate mood and affect; insight and judgment normal. Course Initial Documented Vital Signs Temperature 100.5 F H 12/27/17 17:45 Pulse Rate 102 H 12/27/17 17:45 Respiratory Rate 22 12/27/17 17:45 Blood Pressure 138/67 12/27/17 17:45 Pulse Oximetry 92 L 12/27/17 17:45 Last Documented Vital Signs Temperature 98.2 F 12/27/17 18:53 Pulse Rate 100 H 12/27/17 18:53 Respiratory Rate 22 12/27/17 18:53 Blood Pressure 145/69 H 12/27/17 18:53 Pulse Oximetry 94 L 12/27/17 20:44 Sign Out Sign Out Data: Patient Sign Out occurred on 12/27/17 at 19:36. Patient's care was discussed, and care was transferred from Harley Juarez MD to Melanie Chatman MD. Sign Out Comment: Patient has history of CHF, was taken off of Lasix last week, and here with shortness of breath and leg swelling. Workup initiated, Lasix given, awaiting workup for disposition. Last updated by Harley Juarez MD at 12/27/17 18:57 Post-Handoff Eval: During the course of the patient's emergency department visit, the patient's history, examination, and differential diagnosis were reviewed with the patient. The patient was placed on a case investigator with oximetry and frequent blood pressure monitoring. The patient had IV access obtained and blood work sent for analysis. The patient's case was checked out to me by at the conclusion of her shift. The patient presented with increasing shortness of breath and lower extremity edema. She reports that her Lasix was recently discontinued by the [facility]. The patient was initially provided a dose of Lasix IV. The diagnostic evaluation was remarkable for a white count of 8.2, platelets 316 , neutrophil percent 77.2, hemoglobin 12.2, PT 10.5, PTT 23.9, chemistry is remarkable for troponin I of less than 0.02, sodium 123, glucose 89, potassium 2.9 which was supplemented orally with K-Lyte 50 mEq p.o. 1, creatinine 0.48, BNP is 43 month chest x-ray shows slight increase in bilateral patchy parenchymal opacities with upper lobe predominance. The patient's case was discussed with Dr. Perez at approximately 9:10 PM. He did agree to admit the patient to the [facility] for continued evaluation and treatment of fluid overload, hyponatremia, hypokalemia. Medical Decision Making Differential Diagnosis Differential Diagnosis: CHF exacerbation versus COPD exacerbation versus other acute pulmonary processes Lab Data Result diagrams: 12/27/17 18:11 12/27/17 18:11 Lab Results 12/27/17 12/27/17 12/27/17 Range/Units 18:11 18:11 18:11 WBC 8.2 (4.0-11.0) th/mm3 RBC 3.86 L (4.00-5.30) mil/mm3 Hgb 12.2 (11.6-15.3) gm/dL Hct 34.3 L (35.0-46.0) % MCV 88.7 (80.0-100.0) fL MCH 31.6 (27.0-34.0) pg MCHC 35.6 (32.0-36.0) % RDW 12.5 (11.6-17.2) % Plt Count 316 (150-450) th/mm3 MPV 7.0 (7.0-11.0) fL Neut % (Auto) 77.2 H (16.0-70.0) % Lymph % (Auto) 11.0 (9.0-44.0) % Cross % (Auto) 10.0 H (0.0-8.0) % Eos % (Auto) 1.4 (0.0-4.0) % Baso % (Auto) 0.4 (0.0-2.0) % Neut # (Auto) 6.3 (1.8-7.7) th/mm3 Lymph # (Auto) 0.9 L (1.0-4.8) th/mm3 Cross # (Auto) 0.8 (0.0-0.9) th/mm3 Eos # (Auto) 0.1 (0.0-0.4) th/mm3 Baso # (Auto) 0.0 (0.0-0.2) th/mm3 WBC Differential . Differential Comment Auto diff final PT 10.5 (9.8-11.6) sec INR 1.0 Ratio APTT (24.3-30.1) sec Sodium 123 L* (136-145) meq/L Potassium 2.9 L* (3.5-5.1) meq/L Chloride 83 L (98-107) meq/L Carbon Dioxide 27.4 (21.0-32.0) meq/L Anion Gap 13 (5-15) meq/L BUN 13 (7-18) mg/dL Creatinine 0.48 L (0.50-1.00) mg/dL Estimated GFR Greater than 89 (>89) mL/min Random Glucose 89 (74-106) mg/dL Calcium 9.7 (8.5-10.1) mg/dL Total Bilirubin 0.5 (0.2-1.0) mg/dL AST 19 (15-37) U/L ALT 18 (10-53) U/L Alkaline Phosphatase 64 (45-117) U/L Troponin I Less than 0.02 L (0.02-0.05) ng/mL B-Natriuretic Peptide (0-100) pg/mL Total Protein 7.2 (6.4-8.2) g/dL Albumin 3.5 (3.4-5.0) g/dL 12/27/17 12/27/17 Range/Units 18:11 18:11 WBC (4.0-11.0) th/mm3 RBC (4.00-5.30) mil/mm3 Hgb (11.6-15.3) gm/dL Hct (35.0-46.0) % MCV (80.0-100.0) fL MCH (27.0-34.0) pg MCHC (32.0-36.0) % RDW (11.6-17.2) % Plt Count (150-450) th/mm3 MPV (7.0-11.0) fL Neut % (Auto) (16.0-70.0) % Lymph % (Auto) (9.0-44.0) % Cross % (Auto) (0.0-8.0) % Eos % (Auto) (0.0-4.0) % Baso % (Auto) (0.0-2.0) % Neut # (Auto) (1.8-7.7) th/mm3 Lymph # (Auto) (1.0-4.8) th/mm3 Cross # (Auto) (0.0-0.9) th/mm3 Eos # (Auto) (0.0-0.4) th/mm3 Baso # (Auto) (0.0-0.2) th/mm3 WBC Differential Differential Comment PT (9.8-11.6) sec INR Ratio APTT 23.9 L (24.3-30.1) sec Sodium (136-145) meq/L Potassium (3.5-5.1) meq/L Chloride (98-107) meq/L Carbon Dioxide (21.0-32.0) meq/L Anion Gap (5-15) meq/L BUN (7-18) mg/dL Creatinine (0.50-1.00) mg/dL Estimated GFR (>89) mL/min Random Glucose (74-106) mg/dL Calcium (8.5-10.1) mg/dL Total Bilirubin (0.2-1.0) mg/dL AST (15-37) U/L ALT (10-53) U/L Alkaline Phosphatase (45-117) U/L Troponin I (0.02-0.05) ng/mL B-Natriuretic Peptide 43 (0-100) pg/mL Total Protein (6.4-8.2) g/dL Albumin (3.4-5.0) g/dL Imaging Data Radiologist's impression: Chest X-Ray 12/27/17 18:07 CONCLUSION: Slight increase in patchy bilateral parenchymal opacities with upper lobe predominance. Discharge Plan Discharge Disposition Patient Disposition: 30 Still Patient Discharge Details Diagnosis: Pulmonary edema, Acute hyponatremia, Acute hypokalemia Physicians Team ED Provider: Melanie Chatman Primary Care Provider: Azam Ariza Attending Provider: Jeff Perez Status ED Status: Admitted Patient
[2017-12-27 18:46] LABS: Baso % (Auto) 0.4 % (0.0-2.0); Eos # (Auto) 0.1 th/mm3 (0.0-0.4); Eos % (Auto) 1.4 % (0.0-4.0); Hematocrit 34.3 % (35.0-46.0); Hemoglobin 12.2 gm/dL (11.6-15.3); Lymph # (Auto) 0.9 th/mm3 (1.0-4.8); Mean Corpuscular HGB Conc 35.6 % (32.0-36.0); Mean Corpuscular Hemoglobin 31.6 pg (27.0-34.0); Mean Corpuscular Volume 88.7 fL (80.0-100.0); Mono # (Auto) 0.8 th/mm3 (0.0-0.9); Neut # (Auto) 6.3 th/mm3 (1.8-7.7); Neut % (Auto) 77.2 % (16.0-70.0); Platelet Count 316 th/mm3 (150-450); Red Blood Count 3.86 mil/mm3 (4.00-5.30); Red Cell Distribution Width 12.5 % (11.6-17.2); White Blood Count 8.2 th/mm3 (4.0-11.0)
--- NOTE | 2017-12-27 18:59 | XR ---
EXAM DATE: 12/27/2017 6:20 PM EDT AGE/SEX: 57 years / Female INDICATIONS: Chest pain CLINICAL DATA: This is the patient's initial encounter. Patient reports that signs and symptoms have been present for 1 day and indicates a pain score of 2/10. MEDICAL/SURGICAL HISTORY: . Chronic obstructive pulmonary disease. Congestive heart failure. pn eumonia None. COMPARISON: [facility], CHEST 2V PA&LAT, 12/13/2017. [facility], CHEST SINGLE AP, 07/13/2017. [facility], CHEST SINGL E AP, 07/12/2017. [facility], CHEST SINGLE AP, 07/04/2017. . FINDINGS: There are patchy areas of airspace opacity in the mid and upper lungs bilaterally, more severe than o n prior examination. The lower lungs also have some mild patchy opacities. The heart is normal in siz e. Both hemidiaphragms well delineated. CONCLUSION: Slight increase in patchy bilateral parenchymal opacities with upper lobe predominance. Electronically signed by: Moris Devine MD 12/27/2017 6:58 PM EDT
[2017-12-27 19:02] LABS: Prothrombin Time 10.5 sec (9.8-11.6)
[2017-12-27 19:23] LABS: Alanine Aminotransferase 18 U/L (10-53); Albumin 3.5 g/dL (3.4-5.0); Anion Gap 13 meq/L (5-15); Aspartate Aminotransferase 19 U/L (15-37); Blood Urea Nitrogen 13 mg/dL (7-18); Calcium 9.7 mg/dL (8.5-10.1); Carbon Dioxide 27.4 meq/L (21.0-32.0); Chloride 83 meq/L (98-107); Glomerular Filtration Rate Greater Than 89 mL/min (>89); Glucose,Random 89 mg/dL (74-106)
[2017-12-27 19:24] LABS: Potassium 2.9 meq/L (3.5-5.1); Sodium 123 meq/L (136-145)
[2017-12-27 19:51] LABS: Alkaline Phosphatase 64 U/L (45-117); Total Protein 7.2 g/dL (6.4-8.2)
[2017-12-27] MEDS ORDERED: Potassium Chloride 25 MEQ Effervescent Tablet PO ONE (20:06)
--- NOTE | 2017-12-27 21:48 | P.HPIM ---
History of Present Illness Service: Mrs. Ramirez is a 57 y/o female with scleroderma, COPD, A. fib, Pulmonary HTN, , esophageal dysmotility. Pt follows with a Graphic Design Manager at [facility]. She was recently admitted to [place] and discharged on December 20 after returning from [place]. While there she completed a 1month prednisone taper and was getting hypoxic. She became more sob and began developing more lower ext edema. She was admitted to [place] for copd flare and diuresis of edema. She had CT chest neg for PE and also repeat CT showing groundglass change concerning for edema vs atypical infection vs flare of her interstit lung dz. PT was given steroids, abx, nebs, iv diuretics and discharged on December 20 to her appt at [place]. Pt says at [place] her 60mg bid lasix was stopped due to "hypokalemia"...Within 24hr of stopping the lasix she began with severe lower ext edema and more sob that is progressing. Past Medical Hx: Right sided pneumothorax in 06/2017 A. fib Scleroderma/CREST syndrome COPD Fecal incontinence Right sided heart failure Pulmonary hypertension Esophageal dysmotility and hx of aspiration pneumonia Sarcoidosis. Elmo's granulomatosis History of tobacco abuse Insomnia Anxiety 2D echo (07/06/17): - Estimated ejection fraction in the range of 65-70% - Mild mitral valve regurgitation - Mild tricuspid valve regurgitation - The estimated pulmonary arterial pressure is 44.3 mmHg. Past Surgical Hx: VATS with apical bleb resection and chemical/mechanical pleurodesis on 07/09/[address] Morris Two C-sections. Pneumothorax on the left in 2011 Benign left breast lumpectomy Family Hx: Noncontributory Social Hx: Hx of tobacco use, quit around 5-6 years ago Primary Care Physician: Azam Ariza - Diagnosis (1) Scleroderma (2) COPD (chronic obstructive pulmonary disease) (3) Pulmonary HTN (4) Atrial fibrillation Inpatient Certification: I certify that the inpatient services were ordered in accordance with Medicare regulations governing the order. This includes certification that hospital inpatient services are reasonable and necessary and in the case of services not specified as inpatient-only under 42 CFR 419.22(n), that they are appropriately provided as inpatient services in accordance to with the 2-midnight benchmark under 43 CFR 412.3(e) Review of Systems sob lower ext edema PMFSH - History History Provided By: Patient, Family Member - Medical History Medical History: Medical History (Last Reviewed 12/27/17 @ 18:15 by Harley Juarez MD) Arthritis Benign breast lumps CHF (congestive heart failure) History of scleroderma Hyperlipemia Hypothyroid Oxygen dependent Pneumothorax - Surgical History Surgical History: Surgical History (Last Reviewed 12/27/17 @ 18:15 by Harley Juarez MD) H/O section - Tobacco History Second Hand Smoke Exposure: No Tobacco Use In Past 30 Days: No (quit 5 years ago) Smoking Status: Former smoker Tobacco Type: Cigarettes - Alcohol History How Often Do You Have a Drink Containing Alcohol: Never - Substance Use History Substance History: No History of Abuse - Travel History Recent Travel in the [place] Within the Last 8 Weeks: No Recent Travel Out of the Country Within the Last 8 Weeks: No - Immunization History Tetanus Immunization: >5 Years Hx Influenza Vaccine This Season: Yes Medications and Allergies Allergies Allergy/AdvReac Type Severity Reaction Status Date / Time codeine AdvReac Severe Nausea/Vomi Verified 12/27/17 18:00 ting Home Medications Medication Instructions Recorded Confirmed Type alprazolam 1 mg PO TID PRN 12/13/17 12/27/17 History cholestyramine (with sugar) 4 g PO BID 12/13/17 12/27/17 History cyclobenzaprine 10 mg PO BID PRN 12/13/17 12/27/17 History diltiazem HCl [Cartia XT] 240 mg PO DAILY 12/13/17 12/27/17 History gabapentin 300 mg PO BID 12/13/17 12/27/17 History levothyroxine 125 mcg PO DAILY 12/13/17 12/27/17 History macitentan 10 mg PO DAILY 12/13/17 12/27/17 History omeprazole 20 mg PO DAILY 12/13/17 12/27/17 History promethazine 12.5 mg PO Q6H PRN 12/13/17 12/27/17 History ranitidine HCl 150 mg PO DAILY 12/13/17 12/27/17 History sildenafil (antihypertensive) 20 mg PO TID 12/13/17 12/27/17 History simvastatin 20 mg PO QPM 12/13/17 12/27/17 History zaleplon 5 mg PO HS PRN 12/13/17 12/27/17 History prednisone [Deltasone] 10 mg PO BID 12/27/17 12/27/17 History Exam Vital signs: Vital Signs 12/27/17 17:45 12/27/17 17:53 12/27/17 18:07 Temperature 100.5 F H 99.8 F H Pulse Rate 102 H 96 H 96 H Respiratory Rate 22 24 Blood Pressure 138/67 139/65 Pulse Oximetry 92 L 95 98 12/27/17 18:53 12/27/17 20:44 Temperature 98.2 F Pulse Rate 100 H Respiratory Rate 22 Blood Pressure 145/69 H Pulse Oximetry 95 94 L Intake & Output 12/27/17 12/27/17 12/28/17 06:59 18:59 06:59 Weight 69.4 kg heart reg lung few basilar crackles thais abd s/nt ext 2plus edema feet/legs thais Results - Labs CBC & Chem 7: 12/27/17 18:11 12/27/17 18:11 Labs: Short CBC 12/27/17 Range/Units 18:11 WBC 8.2 (4.0-11.0) th/mm3 Hgb 12.2 (11.6-15.3) gm/dL Hct 34.3 L (35.0-46.0) % Plt Count 316 (150-450) th/mm3 BMP 12/27/17 18:11 Sodium 123 L* Potassium 2.9 L* Chloride 83 L Carbon Dioxide 27.4 BUN 13 Creatinine 0.48 L Calcium 9.7 Cardiac Enzymes 12/27/17 Range/Units 18:11 Troponin I Less than 0.02 L (0.02-0.05) ng/mL Liver Function 12/27/17 Range/Units 18:11 Total Bilirubin 0.5 (0.2-1.0) mg/dL AST 19 (15-37) U/L ALT 18 (10-53) U/L Alkaline Phosphatase 64 (45-117) U/L Albumin 3.5 (3.4-5.0) g/dL - Imaging Impressions Chest X-Ray 12/27/17 18:07 CONCLUSION: Slight increase in patchy bilateral parenchymal opacities with upper lobe predominance. Caprini VTE Risk Assessment Caprini VTE Risk Assessment: Moderate/High Risk (score >= 2) Caprini Risk Assessment Model: Point Value = 1 Point Value = 2 Point Value = 3 Point Value = 5 Age 41-60 Minor surgery BMI > 25 kg/m2 Swollen legs Varicose veins or History of unexplained or recurrent spontaneous Oral contraceptives or hormone replacement Sepsis (< 1 month) Serious lung disease, including pneumonia (< 1 month) Abnormal pulmonary function Acute myocardial infarction Congestive heart failure (< 1 month) History of inflammatory bowel disease Medical patient at bed rest Age 61-74 Arthroscopic surgery Major open surgery (> 45 min) Laparoscopic surgery (> 45 min) Malignancy Confined to bed (> 72 hours) Immobilizing plaster cast Central venous access Age >= 75 History of VTE Family history of VTE Factor V Leiden Prothrombin [id number] Lupus anticoagulant Anticardiolipin antibodies Elevated serum homocysteine Heparin-induced thrombocytopenia Other congenital or acquired thrombophilia Stroke (< 1 month) Elective arthroplasty Hip, pelvis, or leg fracture Acute spinal cord injury (< 1 month) Prophylaxis Regimen: Total Risk Factor Score Risk Level Prophylaxis Regimen 0-1 Low Early ambulation 2 Moderate Order ONE of the following: *Sequential Compression Device (SCD) *Heparin 5000 units SQ BID 3-4 Higher Order ONE of the following medications: *Heparin 5000 units SQ TID *Enoxaparin/Lovenox 40 mg SQ daily (WT < 150 kg, CrCl > 30 mL/min) *Enoxaparin/Lovenox 30 mg SQ daily (WT < 150 kg, CrCl > 10-29 mL/min) *Enoxaparin/Lovenox 30 mg SQ BID (WT < 150 kg, CrCl > 30 mL/min) AND/OR *Sequential Compression Device (SCD) 5 or more Highest Order ONE of the following medications: *Heparin 5000 units SQ TID (Preferred with Epidurals) *Enoxaparin/Lovenox 40 mg SQ daily (WT < 150 kg, CrCl > 30 mL/min) *Enoxaparin/Lovenox 30 mg SQ daily (WT < 150 kg, CrCl > 10-29 mL/min) *Enoxaparin/Lovenox 30 mg SQ BID (WT < 150 kg, CrCl > 30 mL/min) AND *Sequential Compression Device (SCD) Assessment and Plan - Assessment (1) Scleroderma Code(s): M34.9 - Systemic sclerosis, unspecified Status: Acute Plan: 1. sob and severe lower extremity edema after stopping lasix 1 week ago. Pt recently admitted to [facility] for copd flare/bilateral ground glass lung infiltrates pulm edema vs atypical inf vs flare of interstitial lung dz. Pt was discharged from [place] on 12/20 and seen at [place] on 12/21. Lasix discontinued at [place]. IV lasix and kcl given in ED. will recheck bmp for na and k levels in AM and decide on further dosing sample patternmaker. cont scheduled duonebs and prednisone. cont pulmonary htn medications as prescribed oxygen and titrate PT eval. dvt prophylaxis 2. copd with recently flare 3. scleroderma and pulmonary htn 4. hyponatremia/hypokalemia 5. anxiety (2) COPD (chronic obstructive pulmonary disease) Code(s): J44.9 - Chronic obstructive pulmonary disease, unspecified Status: Chronic (3) Pulmonary HTN Code(s): I27.20 - Pulmonary hypertension, unspecified Status: Chronic (4) Atrial fibrillation Code(s): I48.91 - Unspecified atrial fibrillation Status: Chronic (2) COPD (chronic obstructive pulmonary disease) Qualifiers: COPD type: COPD with acute exacerbation Qualified Code(s): J44.1 - Chronic obstructive pulmonary disease with (acute) exacerbation (4) Atrial fibrillation Qualifiers: Atrial fibrillation type: chronic Qualified Code(s): I48.2 - Chronic atrial fibrillation
[2017-12-28 04:13] LABS: Anion Gap 8 meq/L (5-15); Blood Urea Nitrogen 7 mg/dL (7-18); Calcium 8.5 mg/dL (8.5-10.1); Carbon Dioxide 30.3 meq/L (21.0-32.0); Chloride 96 meq/L (98-107); Glomerular Filtration Rate Greater Than 89 mL/min (>89); Glucose,Random 106 mg/dL (74-106); Potassium 3.5 meq/L (3.5-5.1); Sodium 134 meq/L (136-145)
[2017-12-28] MEDS: Levothyroxine 125 MCG Tablet PO SCH (06:02)
[2017-12-28] MEDS ORDERED: MACITENTAN PO SCH (09:00)
[2017-12-28] MEDS: Famotidine 20 MG Tablet PO SCH (09:33)
[2017-12-28] MEDS: Pantoprazole Sodium 20 MG DR Tablet PO SCH (09:33)
[2017-12-28] MEDS: predniSONE 20 MG Tablet PO SCH ×2 (09:33→20:16)
[2017-12-28] MEDS: Gabapentin 300 MG Capsule PO SCH ×2 (09:33→20:16)
[2017-12-28] MEDS: dilTIAZem CD 120 MG Capsule PO SCH (09:41)
[2017-12-28] MEDS: Tiotropium Bromide 18 MCG/ACT Inhaler INH SCH (09:42)
[2017-12-28] MEDS: Budesonide-Formoterol 160/4.5 MCG 6 GM Inhaler INH SCH ×2 (09:42→20:17)
[2017-12-28] MEDS ORDERED: Acetaminophen 325 MG Tablet PO PRN (12:00)
[2017-12-28 13:41] LABS: Baso # (Auto) 0.1 th/mm3 (0.0-0.2); Baso % (Auto) 0.6 % (0.0-2.0); Eos # (Auto) 0.1 th/mm3 (0.0-0.4); Eos % (Auto) 0.6 % (0.0-4.0); Hematocrit 34.4 % (35.0-46.0); Hemoglobin 11.5 gm/dL (11.6-15.3); Lymph # (Auto) 0.1 th/mm3 (1.0-4.8); Lymph % (Auto) 1.2 % (9.0-44.0); Mean Corpuscular HGB Conc 33.5 % (32.0-36.0); Mean Corpuscular Hemoglobin 29.5 pg (27.0-34.0); Mean Corpuscular Volume 88.2 fL (80.0-100.0); Mean Platelet Volume 7.1 fL (7.0-11.0); Mono # (Auto) 0.4 th/mm3 (0.0-0.9); Mono % (Auto) 4.7 % (0.0-8.0); Neut # (Auto) 8.7 th/mm3 (1.8-7.7); Neut % (Auto) 92.9 % (16.0-70.0); Platelet Count 174 th/mm3 (150-450); Red Cell Distribution Width 20.4 % (11.6-17.2); White Blood Count 9.4 th/mm3 (4.0-11.0)
--- NOTE | 2017-12-28 13:57 | P.PNIM ---
Subjective Interval history: doing much better. less sob and less edema says she gets hypoxic at home on 5lnc Physical Exam Vital signs: Vital Signs 12/27/17 17:45 12/27/17 17:53 12/27/17 18:07 Temperature 100.5 F H 99.8 F H Pulse Rate 102 H 96 H 96 H Respiratory Rate 22 24 Blood Pressure 138/67 139/65 Pulse Oximetry 92 L 95 98 Pulse Oximetry [Resting on Room Air] Pulse Oximetry [Resting with Oxygen] 12/27/17 18:53 12/27/17 20:44 12/27/17 21:00 Temperature 98.2 F Pulse Rate 100 H 104 H Respiratory Rate 22 19 Blood Pressure 145/69 H 144/74 H Pulse Oximetry 95 94 L 94 L Pulse Oximetry [Resting on Room Air] Pulse Oximetry [Resting with Oxygen] 12/27/17 23:45 12/27/17 23:59 12/28/17 00:00 Temperature 98.7 F Pulse Rate 92 H 92 H 91 H Respiratory Rate 20 20 Blood Pressure 125/62 Pulse Oximetry 92 L Pulse Oximetry [Resting on Room Air] Pulse Oximetry [Resting with Oxygen] 12/28/17 03:46 12/28/17 03:58 12/28/17 04:00 Temperature 98.6 F Pulse Rate 98 H 95 H 89 Respiratory Rate 22 20 Blood Pressure 125/67 Pulse Oximetry 96 Pulse Oximetry [Resting on Room Air] Pulse Oximetry [Resting with Oxygen] 12/28/17 08:00 12/28/17 08:05 12/28/17 11:24 Temperature 98.4 F Pulse Rate 102 H 78 112 H Respiratory Rate 20 12 12 Blood Pressure 130/69 Pulse Oximetry 93 L 94 L Pulse Oximetry [Resting on Room Air] Pulse Oximetry [Resting with Oxygen] 12/28/17 11:59 12/28/17 12:11 Temperature 102.9 F H Pulse Rate Respiratory Rate Blood Pressure Pulse Oximetry Pulse Oximetry [Resting on Room Air] 88 L Pulse Oximetry [Resting with Oxygen] 92 L Intake & Output 12/27/17 12/28/17 12/28/17 18:59 06:59 18:59 Intake Total 240 / 240 Balance 240 / 240 Weight 69.4 kg 71.4 kg Intake: Oral 240 / 240 Other: # Voids 2 # Bowel Movements 0 Weight On Admission 71.6 kg heart reg lung less crackles abd s/nt ext trace pedal edema Results - Labs CBC & Chem 7: 12/28/17 13:28 12/28/17 03:02 Laboratory Results - last 24 hr 12/27/17 12/27/17 12/27/17 18:11 18:11 18:11 WBC 8.2 RBC 3.86 L Hgb 12.2 Hct 34.3 L MCV 88.7 MCH 31.6 MCHC 35.6 RDW 12.5 Plt Count 316 MPV 7.0 Neut % (Auto) 77.2 H Lymph % (Auto) 11.0 Mora % (Auto) 10.0 H Eos % (Auto) 1.4 Baso % (Auto) 0.4 Neut # (Auto) 6.3 Lymph # (Auto) 0.9 L Mora # (Auto) 0.8 Eos # (Auto) 0.1 Baso # (Auto) 0.0 WBC Differential . Differential Comment Auto diff final PT 10.5 INR 1.0 APTT Sodium 123 L* Potassium 2.9 L* Chloride 83 L Carbon Dioxide 27.4 Anion Gap 13 BUN 13 Creatinine 0.48 L Estimated GFR Greater than 89 Random Glucose 89 Calcium 9.7 Magnesium Total Bilirubin 0.5 AST 19 ALT 18 Alkaline Phosphatase 64 Troponin I Less than 0.02 L B-Natriuretic Peptide Total Protein 7.2 Albumin 3.5 12/27/17 12/27/17 12/28/17 18:11 18:11 03:02 WBC RBC Hgb Hct MCV MCH MCHC RDW Plt Count MPV Neut % (Auto) Lymph % (Auto) Mora % (Auto) Eos % (Auto) Baso % (Auto) Neut # (Auto) Lymph # (Auto) Mora # (Auto) Eos # (Auto) Baso # (Auto) WBC Differential Differential Comment PT INR APTT 23.9 L Sodium 134 L D Potassium 3.5 Chloride 96 L D Carbon Dioxide 30.3 Anion Gap 8 BUN 7 Creatinine 0.53 Estimated GFR Greater than 89 Random Glucose 106 Calcium 8.5 D Magnesium 2.0 Total Bilirubin AST ALT Alkaline Phosphatase Troponin I B-Natriuretic Peptide 43 Total Protein Albumin - Imaging Impressions Chest X-Ray 12/27/17 18:07 CONCLUSION: Slight increase in patchy bilateral parenchymal opacities with upper lobe predominance. Assessment and Plan - Assessment (1) Scleroderma Code(s): M34.9 - Systemic sclerosis, unspecified Status: Acute Plan: 1. sob and severe lower extremity edema after stopping lasix 1 week ago. Pt recently admitted to [place] for copd flare/bilateral ground glass lung infiltrates pulm edema vs atypical inf vs flare of interstitial lung dz. Pt was discharged from [place] on 12/20 and seen at [place] on 12/21. Lasix discontinued at [place]. good diuresis with iv lasix. cont po lasix. monitor na/k bilingual speech therapist. cont scheduled duonebs and prednisone. cont pulmonary htn medications as prescribed oxygen and titrate PT eval. dvt prophylaxis walk test on 5lnc to see if needs more o2 at home 2. copd with recently flare 3. scleroderma and pulmonary htn 4. hyponatremia/hypokalemia. improved 5. anxiety (2) COPD (chronic obstructive pulmonary disease) Code(s): J44.9 - Chronic obstructive pulmonary disease, unspecified Status: Chronic (3) Pulmonary HTN Code(s): I27.20 - Pulmonary hypertension, unspecified Status: Chronic (4) Atrial fibrillation Code(s): I48.91 - Unspecified atrial fibrillation Status: Chronic (2) COPD (chronic obstructive pulmonary disease) Qualifiers: COPD type: COPD with acute exacerbation Qualified Code(s): J44.1 - Chronic obstructive pulmonary disease with (acute) exacerbation (4) Atrial fibrillation Qualifiers: Atrial fibrillation type: chronic Qualified Code(s): I48.2 - Chronic atrial fibrillation
[2017-12-28 14:47] LABS: Hypersegmented Neutrophils 1+; Toxic Vacuolation Present
[2017-12-28] MEDS: MACITENTAN PO SCH (17:41)
[2017-12-28] MEDS: [UNRECOGNIZED DRUG - OTHER] PO SCH (17:41)
[2017-12-28] MEDS: Furosemide 40 MG Tablet PO SCH (17:42)
[2017-12-29] MEDS: Temazepam 15 MG Capsule PO PRN ×2 (00:59→22:19)
[2017-12-29 01:26] LABS: Bilirubin,Urine Negative (Negative); Clarity,Urine Clear (Clear); Color,Urine Yellow (Yellw/Straw); Glucose,Urine (UA) Negative (Negative); Leukocyte Esterase,Urine Negative (Negative); Mucus,Urine Few /lpf (Occasional); Nitrite,Urine Negative (Negative); Specific Gravity,Urine 1.006 (1.002-1.035); Squamous Epithelial Cell,Urine <1 /hpf (0-5)
[2017-12-29] MEDS: Levothyroxine 125 MCG Tablet PO SCH (05:01)
[2017-12-29 08:04] LABS: Hematocrit 31.3 % (35.0-46.0); Hemoglobin 10.7 gm/dL (11.6-15.3); Mean Corpuscular HGB Conc 34.2 % (32.0-36.0); Mean Corpuscular Hemoglobin 29.8 pg (27.0-34.0); Mean Corpuscular Volume 87.2 fL (80.0-100.0); Mean Platelet Volume 7.1 fL (7.0-11.0); Platelet Count 166 th/mm3 (150-450); Red Blood Count 3.59 mil/mm3 (4.00-5.30); Red Cell Distribution Width 20.1 % (11.6-17.2); White Blood Count 6.5 th/mm3 (4.0-11.0)
[2017-12-29 08:28] LABS: Calcium 8.7 mg/dL (8.5-10.1); Potassium 4.7 meq/L (3.5-5.1)
[2017-12-29 09:03] LABS: Lymphocytes 3 % (9-44); Monocytes 5 % (0-8); Platelet Estimate Normal (Normal); Platelet Morphology Normal (Normal)
[2017-12-29] MEDS: dilTIAZem CD 120 MG Capsule PO SCH (09:49)
[2017-12-29] MEDS: predniSONE 20 MG Tablet PO SCH (09:49)
[2017-12-29] MEDS: Pantoprazole Sodium 20 MG DR Tablet PO SCH (09:49)
[2017-12-29] MEDS: Famotidine 20 MG Tablet PO SCH (09:49)
[2017-12-29] MEDS: Gabapentin 300 MG Capsule PO SCH ×2 (09:49→21:16)
[2017-12-29] MEDS: Furosemide 40 MG Tablet PO SCH ×2 (09:49→17:18)
[2017-12-29] MEDS: MACITENTAN PO SCH (09:50)
[2017-12-29] MEDS: Budesonide-Formoterol 160/4.5 MCG 6 GM Inhaler INH SCH (09:50)
[2017-12-29] MEDS: [UNRECOGNIZED DRUG - OTHER] PO SCH (09:50)
[2017-12-29] MEDS: Tiotropium Bromide 18 MCG/ACT Inhaler INH SCH (09:51)
--- NOTE | 2017-12-29 10:07 | P.PNIM ---
Subjective Interval history: swelling much improved. high fevers yesterday. feels more chest congestion. Physical Exam Vital signs: Vital Signs 12/28/17 11:24 12/28/17 11:59 12/28/17 12:00 Temperature 102.9 F H 100.3 F H Pulse Rate 112 H 113 H Respiratory Rate 12 20 Blood Pressure 136/74 Pulse Oximetry 92 L Pulse Oximetry [Resting on Room Air] Pulse Oximetry [Resting with Oxygen] 12/28/17 12:11 12/28/17 15:45 12/28/17 16:00 Temperature 97.3 F L Pulse Rate 98 H 86 Respiratory Rate 14 20 Blood Pressure 116/74 Pulse Oximetry 96 Pulse Oximetry [Resting on Room Air] 88 L Pulse Oximetry [Resting with Oxygen] 92 L 12/28/17 20:00 12/28/17 21:45 12/28/17 23:45 Temperature 97.7 F Pulse Rate 82 85 79 Respiratory Rate 20 24 25 H Blood Pressure 108/74 Pulse Oximetry 96 92 L 97 Pulse Oximetry [Resting on Room Air] Pulse Oximetry [Resting with Oxygen] 12/29/17 00:00 12/29/17 04:00 12/29/17 04:20 Temperature 97.4 F L 97.6 F Pulse Rate 80 76 84 Respiratory Rate 20 22 17 Blood Pressure 120/74 122/59 L Pulse Oximetry 96 93 L 95 Pulse Oximetry [Resting on Room Air] Pulse Oximetry [Resting with Oxygen] 12/29/17 08:37 Temperature Pulse Rate 78 Respiratory Rate 16 Blood Pressure Pulse Oximetry 94 L Pulse Oximetry [Resting on Room Air] Pulse Oximetry [Resting with Oxygen] Intake & Output 12/28/17 12/29/17 12/29/17 18:59 06:59 18:59 Intake Total 600 / 600 480 / 480 Output Total 650 / 650 Balance -50 / -50 480 / 480 Weight 72.2 kg Intake: Oral 600 / 600 480 / 480 Output: Urine 650 / 650 Other: # Voids 3 # Bowel Movements 2 heart reg lung scattered rhonci thoughout both lung and some basilar crackles. abd s/nt ext no edema Results - Labs CBC & Chem 7: 12/29/17 07:26 12/29/17 07:26 Laboratory Results - last 24 hr 12/28/17 12/29/17 12/29/17 13:28 00:59 07:26 WBC 9.4 6.5 RBC 3.90 L 3.59 L Hgb 11.5 L 10.7 L Hct 34.4 L 31.3 L MCV 88.2 87.2 MCH 29.5 29.8 MCHC 33.5 34.2 RDW 20.4 H D 20.1 H Plt Count 174 D 166 MPV 7.1 7.1 Prelim Diff (Auto) Slide review pending Manual diff required Neut % (Auto) 92.9 H Lymph % (Auto) 1.2 L [place] % (Auto) 4.7 Eos % (Auto) 0.6 Baso % (Auto) 0.6 Neut # (Auto) 8.7 H Lymph # (Auto) 0.1 L [place] # (Auto) 0.4 Eos # (Auto) 0.1 Baso # (Auto) 0.1 WBC Differential . Manual diff final Diff Scan Auto diff confirmed Seg Neuts % (Manual) 88 H Band Neuts % (Manual) 4 Lymphocytes % (Manual) 3 L Monocytes % (Manual) 5 Abs Neuts (Manual) 6.0 Differential Comment . . Hypersegmented Neuts 1+ H Toxic Vacuolation Present H Platelet Estimate Normal Platelet Morphology Normal Sodium Potassium Chloride Carbon Dioxide Anion Gap BUN Creatinine Estimated GFR Random Glucose Calcium Urine Color Yellow Urine Clarity Clear Urine pH 7.0 Ur Specific [place] 1.006 Urine Protein Negative Urine Glucose (UA) Negative Urine Ketones Negative Urine Occult Blood Small H Urine Nitrate Negative Urine Bilirubin Negative Urine Urobilinogen Less than 2 Ur Leukocyte Esterase Negative Urine RBC 1 Urine WBC Less than 1 Ur Squamous Epith Cells <1 Urine Mucus Few H Micro UA Comment Culture not ind Urine Culture Comments Culture not ind 12/29/17 07:26 WBC RBC Hgb Hct MCV MCH MCHC RDW Plt Count MPV Prelim Diff (Auto) Neut % (Auto) Lymph % (Auto) [place] % (Auto) Eos % (Auto) Baso % (Auto) Neut # (Auto) Lymph # (Auto) [place] # (Auto) Eos # (Auto) Baso # (Auto) WBC Differential Diff Scan Seg Neuts % (Manual) Band Neuts % (Manual) Lymphocytes % (Manual) Monocytes % (Manual) Abs Neuts (Manual) Differential Comment Hypersegmented Neuts Toxic Vacuolation Platelet Estimate Platelet Morphology Sodium 132 L Potassium 4.7 D Chloride 97 L Carbon Dioxide 30.0 Anion Gap 5 BUN 14 Creatinine 0.69 Estimated GFR 88 L Random Glucose 166 H Calcium 8.7 Urine Color Urine Clarity Urine pH Ur Specific [place] Urine Protein Urine Glucose (UA) Urine Ketones Urine Occult Blood Urine Nitrate Urine Bilirubin Urine Urobilinogen Ur Leukocyte Esterase Urine RBC Urine WBC Ur Squamous Epith Cells Urine Mucus Micro UA Comment Urine Culture Comments Assessment and Plan - Assessment (1) Scleroderma Code(s): M34.9 - Systemic sclerosis, unspecified Status: Acute Plan: 1. sob and severe lower extremity edema after stopping lasix 1 week ago. Pt recently admitted to [place] for copd flare/bilateral ground glass lung infiltrates pulm edema vs atypical inf vs flare of interstitial lung dz. Pt was discharged from [place] on 12/20 and seen at [place] on 12/21. Lasix discontinued at [place]. good diuresis with iv lasix. cont po lasix. monitor na/k campus monitor. cont scheduled duonebs and steroids. cont pulmonary htn medications as prescribed oxygen and titrate. will likely need around 6lnc for dc home. Pt with fevers. felt to be lung source...infectious vs acute flare of her ILD abx and f/u blood and sputum cx's PT eval. dvt prophylaxis walk test on 5lnc to see if needs more o2 at home...failed. 2. copd with recently flare 3. scleroderma and pulmonary htn 4. hyponatremia/hypokalemia. improved 5. anxiety (2) COPD (chronic obstructive pulmonary disease) Code(s): J44.9 - Chronic obstructive pulmonary disease, unspecified Status: Chronic (3) Pulmonary HTN Code(s): I27.20 - Pulmonary hypertension, unspecified Status: Chronic (4) Atrial fibrillation Code(s): I48.91 - Unspecified atrial fibrillation Status: Chronic (2) COPD (chronic obstructive pulmonary disease) Qualifiers: COPD type: COPD with acute exacerbation Qualified Code(s): J44.1 - Chronic obstructive pulmonary disease with (acute) exacerbation (4) Atrial fibrillation Qualifiers: Atrial fibrillation type: chronic Qualified Code(s): I48.2 - Chronic atrial fibrillation
[2017-12-29] MEDS: Levofloxacin 500 mg Premix Inj 500 MG/100 ML PIGGYBACK IV.SIG SCH (12:43)
[2017-12-29] MEDS: MethylPREDNISolone Sod Succinate Inj 125 MG/2 ML Vial IV.PUSH SCH ×2 (13:06→21:16)
[2017-12-30] MEDS: Levothyroxine 125 MCG Tablet PO SCH (05:09)
[2017-12-30] MEDS: MethylPREDNISolone Sod Succinate Inj 125 MG/2 ML Vial IV.PUSH SCH ×3 (05:09→21:30)
[2017-12-30] MEDS: dilTIAZem CD 120 MG Capsule PO SCH (08:34)
[2017-12-30] MEDS: Gabapentin 300 MG Capsule PO SCH ×2 (08:34→21:31)
[2017-12-30] MEDS: Pantoprazole Sodium 20 MG DR Tablet PO SCH (08:34)
[2017-12-30] MEDS: MACITENTAN PO SCH (08:36)
[2017-12-30] MEDS: Furosemide 40 MG Tablet PO SCH ×2 (08:36→17:36)
[2017-12-30] MEDS: [UNRECOGNIZED DRUG - OTHER] PO SCH (08:36)
[2017-12-30] MEDS: Famotidine 20 MG Tablet PO SCH (08:42)
[2017-12-30] MEDS: Tiotropium Bromide 18 MCG/ACT Inhaler INH SCH (08:42)
[2017-12-30 10:03] LABS: Anion Gap 9 meq/L (5-15); Carbon Dioxide 27.7 meq/L (21.0-32.0); Chloride 95 meq/L (98-107); Glomerular Filtration Rate Greater Than 89 mL/min (>89); Glucose,Random 146 mg/dL (74-106); Sodium 132 meq/L (136-145)
[2017-12-30 10:10] LABS: Blood Urea Nitrogen 16 mg/dL (7-18)
--- NOTE | 2017-12-30 12:11 | P.PNIM ---
Subjective Interval history: seems less sob. no f/c overnight Physical Exam Vital signs: Vital Signs 12/29/17 12:22 12/29/17 15:34 12/29/17 16:00 Temperature 98.1 F Pulse Rate 70 85 77 Respiratory Rate 16 16 20 Blood Pressure 114/55 L Pulse Oximetry 95 12/29/17 19:45 12/29/17 20:00 12/30/17 00:00 Temperature 98.1 F 97.3 F L Pulse Rate 83 81 Respiratory Rate 17 20 Blood Pressure 121/67 101/53 L Pulse Oximetry 96 95 97 12/30/17 04:00 12/30/17 08:00 12/30/17 08:33 Temperature 97.4 F L 97.9 F Pulse Rate 78 78 76 Respiratory Rate 18 18 16 Blood Pressure 103/54 L 121/60 Pulse Oximetry 97 97 96 12/30/17 11:03 12/30/17 11:23 12/30/17 12:00 Temperature Pulse Rate 76 76 74 Respiratory Rate 18 Blood Pressure Pulse Oximetry Intake & Output 12/29/17 12/30/17 12/30/17 18:59 06:59 18:59 Intake Total 820 / 820 360 / 360 Balance 820 / 820 360 / 360 Weight 69.9 kg Intake: IV 100 / 100 Levaquin 500 mg Premix Inj 500 100 / 100 mg In 100 ml @ 100 mls/hr IV. SIG Q24H [facility] Rx#:[id number] Oral 720 / 720 360 / 360 Other: # Voids 4 2 Date of Last Bowel Movement 12/29/17 12/29/17 heart reg lung few rhonci thais with coughing abd s/nt ext no edema Results - Labs CBC & Chem 7: 12/29/17 07:26 12/30/17 08:48 Laboratory Results - last 24 hr 12/30/17 08:48 Sodium 132 L Potassium 4.0 Chloride 95 L Carbon Dioxide 27.7 Anion Gap 9 BUN 16 Creatinine 0.57 Estimated GFR Greater than 89 Random Glucose 146 H Calcium 9.0 Microbiology 12/28/17 14:38 Blood - Peripheral Aerobic Blood Culture - Preliminary No growth in 2 days 12/28/17 14:38 Blood - Peripheral Anaerobic Blood Culture - Preliminary No growth in 2 days 12/28/17 14:44 Blood - Peripheral Aerobic Blood Culture - Preliminary No growth in 2 days 12/28/17 14:44 Blood - Peripheral Anaerobic Blood Culture - Preliminary No growth in 2 days 12/29/17 10:50 Sputum - Expectorated Sputum Gram Stain - Final Assessment and Plan - Assessment (1) Scleroderma Code(s): M34.9 - Systemic sclerosis, unspecified Status: Acute Plan: 1. sob and severe lower extremity edema after stopping lasix 1 week ago. Pt recently admitted to [place] for copd flare/bilateral ground glass lung infiltrates pulm edema vs atypical inf vs flare of interstitial lung dz. Pt was discharged from [place] on 12/20 and seen at [place] on 12/21. Lasix discontinued at [place]. good diuresis with iv lasix. cont po lasix. monitor na/k court recording monitor. cont scheduled duonebs and steroids. cont pulmonary htn medications as prescribed oxygen and titrate. will likely need around 6lnc for dc home. redo walk test in AM and arrange as necessary Pt with fevers. felt to be lung source...infectious vs acute flare of her ILD. gs/sputum showing bacteria..will await cx. abx and f/u blood and sputum cx's PT eval. dvt prophylaxis walk test on 5lnc to see if needs more o2 at home...failed so far..recheck in AM. 2. copd with recently flare 3. scleroderma and pulmonary htn 4. hyponatremia/hypokalemia. improved 5. anxiety (2) COPD (chronic obstructive pulmonary disease) Code(s): J44.9 - Chronic obstructive pulmonary disease, unspecified Status: Chronic (3) Pulmonary HTN Code(s): I27.20 - Pulmonary hypertension, unspecified Status: Chronic (4) Atrial fibrillation Code(s): I48.91 - Unspecified atrial fibrillation Status: Chronic (2) COPD (chronic obstructive pulmonary disease) Qualifiers: COPD type: COPD with acute exacerbation Qualified Code(s): J44.1 - Chronic obstructive pulmonary disease with (acute) exacerbation (4) Atrial fibrillation Qualifiers: Atrial fibrillation type: chronic Qualified Code(s): I48.2 - Chronic atrial fibrillation
[2017-12-30] MEDS: Levofloxacin 500 mg Premix Inj 500 MG/100 ML PIGGYBACK IV.SIG SCH (13:29)
[2017-12-31] MEDS: Temazepam 15 MG Capsule PO PRN ×2 (00:02→23:42)
[2017-12-31] MEDS: MethylPREDNISolone Sod Succinate Inj 125 MG/2 ML Vial IV.PUSH SCH ×3 (06:15→22:02)
[2017-12-31] MEDS: Levothyroxine 125 MCG Tablet PO SCH (06:15)
[2017-12-31] MEDS: Gabapentin 300 MG Capsule PO SCH ×2 (09:49→22:02)
[2017-12-31] MEDS: [UNRECOGNIZED DRUG - OTHER] PO SCH (09:49)
[2017-12-31] MEDS: Famotidine 20 MG Tablet PO SCH (09:49)
[2017-12-31] MEDS: MACITENTAN PO SCH (09:49)
[2017-12-31] MEDS: dilTIAZem CD 120 MG Capsule PO SCH (09:49)
[2017-12-31] MEDS: Pantoprazole Sodium 20 MG DR Tablet PO SCH (09:49)
[2017-12-31] MEDS: Furosemide 40 MG Tablet PO SCH ×2 (09:49→17:55)
[2017-12-31] MEDS: Tiotropium Bromide 18 MCG/ACT Inhaler INH SCH (09:52)
--- NOTE | 2017-12-31 11:17 | P.PNIM ---
Subjective Interval history: overall getting close to baseline. might be ready by tomorrow. Physical Exam Vital signs: Vital Signs 12/30/17 11:23 12/30/17 12:00 12/30/17 16:00 Temperature 97.7 F 97.8 F Pulse Rate 76 89 92 H Respiratory Rate 18 18 Blood Pressure 128/61 121/58 L Pulse Oximetry 97 97 12/30/17 16:34 12/30/17 20:00 12/30/17 20:06 Temperature 97.8 F Pulse Rate 77 80 81 Respiratory Rate 18 17 18 Blood Pressure 115/57 L Pulse Oximetry 96 96 12/30/17 23:00 12/31/17 00:00 12/31/17 03:00 Temperature 97.8 F Pulse Rate 79 76 68 Respiratory Rate 20 17 18 Blood Pressure 114/59 L Pulse Oximetry 98 12/31/17 04:00 12/31/17 08:00 12/31/17 08:11 Temperature 97.5 F L 97.6 F Pulse Rate 72 80 75 Respiratory Rate 19 18 20 Blood Pressure 122/58 L 116/56 L Pulse Oximetry 96 99 98 Intake & Output 12/30/17 12/31/17 12/31/17 18:59 06:59 18:59 Intake Total 1060 / 1060 460 / 460 Balance 1060 / 1060 460 / 460 Weight 69.6 kg Intake: IV 100 / 100 Levaquin 500 mg Premix Inj 500 100 / 100 mg In 100 ml @ 100 mls/hr IV. SIG Q24H [facility] Rx#:[id number] Oral 960 / 960 460 / 460 Other: # Voids 4 3 Date of Last Bowel Movement 12/29/17 12/30/17 heart reg lung thais rhonci with cough. abd s/nt ext no edema Results - Labs CBC & Chem 7: 12/29/17 07:26 12/30/17 08:48 Microbiology 12/28/17 14:38 Blood - Peripheral Aerobic Blood Culture - Preliminary No growth in 3 days 12/28/17 14:38 Blood - Peripheral Anaerobic Blood Culture - Preliminary No growth in 3 days 12/28/17 14:44 Blood - Peripheral Aerobic Blood Culture - Preliminary No growth in 3 days 12/28/17 14:44 Blood - Peripheral Anaerobic Blood Culture - Preliminary No growth in 3 days 12/29/17 10:50 Sputum - Expectorated Sputum Gram Stain - Final 12/29/17 10:50 Sputum - Expectorated Sputum Sputum Culture - Final Assessment and Plan - Assessment (1) Scleroderma Code(s): M34.9 - Systemic sclerosis, unspecified Status: Acute Plan: 1. sob and severe lower extremity edema after stopping lasix 1 week ago. Pt recently admitted to [place] for copd flare/bilateral ground glass lung infiltrates pulm edema vs atypical inf vs flare of interstitial lung dz. Pt was discharged from [place] on 12/20 and seen at [place] on 12/21. Lasix discontinued at [place]. good diuresis with iv lasix. cont po lasix. monitor na/k laboratory monitor. cont scheduled duonebs and steroids. add mucomyst cont pulmonary htn medications as prescribed oxygen and titrate. Pt with fevers. felt to be lung source...infectious vs acute flare of her ILD. gs/sputum showing bacteria..will await cx. abx and f/u blood and sputum cx's PT eval. dvt prophylaxis walk test on 5lnc to see if needs more o2 at home...failed so far..recheck walk test today possible dc tomorrow. 2. copd with recently flare 3. scleroderma and pulmonary htn 4. hyponatremia/hypokalemia. improved 5. anxiety (2) COPD (chronic obstructive pulmonary disease) Code(s): J44.9 - Chronic obstructive pulmonary disease, unspecified Status: Chronic (3) Pulmonary HTN Code(s): I27.20 - Pulmonary hypertension, unspecified Status: Chronic (4) Atrial fibrillation Code(s): I48.91 - Unspecified atrial fibrillation Status: Chronic (2) COPD (chronic obstructive pulmonary disease) Qualifiers: COPD type: COPD with acute exacerbation Qualified Code(s): J44.1 - Chronic obstructive pulmonary disease with (acute) exacerbation (4) Atrial fibrillation Qualifiers: Atrial fibrillation type: chronic Qualified Code(s): I48.2 - Chronic atrial fibrillation
[2017-12-31] MEDS: Naproxen 500 MG Tablet PO SCH ×2 (13:30→22:02)
[2017-12-31] MEDS: Levofloxacin 500 mg Premix Inj 500 MG/100 ML PIGGYBACK IV.SIG SCH (13:30)
[2017-12-31] MEDS: RESP: Acetylcysteine 10% 4 ML Neb NEB SCH ×2 (16:03→19:27)
[2018-01-01] MEDS: RESP: Acetylcysteine 10% 4 ML Neb NEB SCH (00:22)
[2018-01-01] MEDS: MethylPREDNISolone Sod Succinate Inj 125 MG/2 ML Vial IV.PUSH SCH ×3 (06:22→22:23)
[2018-01-01] MEDS: Levothyroxine 125 MCG Tablet PO SCH (06:22)
[2018-01-01] MEDS: Famotidine 20 MG Tablet PO SCH (08:33)
[2018-01-01] MEDS: Pantoprazole Sodium 20 MG DR Tablet PO SCH (08:34)
[2018-01-01] MEDS: dilTIAZem CD 120 MG Capsule PO SCH (08:34)
[2018-01-01] MEDS: Gabapentin 300 MG Capsule PO SCH ×2 (08:34→20:17)
[2018-01-01] MEDS: MACITENTAN PO SCH (08:35)
[2018-01-01] MEDS: [UNRECOGNIZED DRUG - OTHER] PO SCH (08:35)
[2018-01-01] MEDS: Tiotropium Bromide 18 MCG/ACT Inhaler INH SCH (08:35)
[2018-01-01] MEDS: Furosemide 40 MG Tablet PO SCH ×2 (08:46→17:51)
--- NOTE | 2018-01-01 11:47 | P.PNIM ---
Subjective Interval history: nebs timed out. wasn't getting mucomyst I ordered. Physical Exam Vital signs: Vital Signs 12/31/17 11:51 12/31/17 11:52 12/31/17 11:53 Temperature Pulse Rate 82 Respiratory Rate 24 Blood Pressure Pulse Oximetry 95 Pulse Oximetry [Resting on Room Air] 87 L Pulse Oximetry [Resting with Oxygen] 95 12/31/17 12:00 12/31/17 16:00 12/31/17 16:06 Temperature 98.2 F 97.8 F Pulse Rate 94 H 83 79 Respiratory Rate 19 18 24 Blood Pressure 130/62 123/59 L Pulse Oximetry 99 95 97 Pulse Oximetry [Resting on Room Air] Pulse Oximetry [Resting with Oxygen] 12/31/17 19:28 12/31/17 20:00 01/01/18 00:00 Temperature 97.6 F 97.3 F L Pulse Rate 85 79 Respiratory Rate 18 18 Blood Pressure 123/59 L 109/52 L Pulse Oximetry 96 93 L 96 Pulse Oximetry [Resting on Room Air] Pulse Oximetry [Resting with Oxygen] 01/01/18 00:20 01/01/18 04:00 01/01/18 08:00 Temperature 97.4 F L 97.6 F Pulse Rate 88 73 Respiratory Rate 18 20 Blood Pressure 118/56 L 101/58 L Pulse Oximetry 98 97 97 Pulse Oximetry [Resting on Room Air] Pulse Oximetry [Resting with Oxygen] 01/01/18 11:25 Temperature Pulse Rate 77 Respiratory Rate 12 Blood Pressure Pulse Oximetry Pulse Oximetry [Resting on Room Air] Pulse Oximetry [Resting with Oxygen] Intake & Output 12/31/17 01/01/18 01/01/18 18:59 06:59 18:59 Intake Total 100 / 100 480 / 480 Balance 100 / 100 480 / 480 Intake: IV 100 / 100 Levaquin 500 mg Premix Inj 500 100 / 100 mg In 100 ml @ 100 mls/hr IV. SIG Q24H [facility] Rx#:[id number] Oral 480 / 480 Other: # Voids 2 Date of Last Bowel Movement 12/30/17 12/30/17 haert reg lung thais rhonci abd s/nt ext no edema Results - Labs CBC & Chem 7: 12/29/17 07:26 12/30/17 08:48 Microbiology 12/28/17 14:38 Blood - Peripheral Aerobic Blood Culture - Preliminary No growth in 4 days 12/28/17 14:38 Blood - Peripheral Anaerobic Blood Culture - Preliminary No growth in 4 days 12/28/17 14:44 Blood - Peripheral Aerobic Blood Culture - Preliminary No growth in 4 days 12/28/17 14:44 Blood - Peripheral Anaerobic Blood Culture - Preliminary No growth in 4 days 12/29/17 10:50 Sputum - Expectorated Sputum Gram Stain - Final 12/29/17 10:50 Sputum - Expectorated Sputum Sputum Culture - Final Assessment and Plan - Assessment (1) Scleroderma Code(s): M34.9 - Systemic sclerosis, unspecified Status: Acute Plan: 1. sob and severe lower extremity edema after stopping lasix 1 week ago. Pt recently admitted to [facility] for copd flare/bilateral ground glass lung infiltrates pulm edema vs atypical inf vs flare of interstitial lung dz. Pt currently seems to have persistent pna sx's and had low grade fevers. Pt was discharged from [place] on 12/20 and seen at [place] on 12/21. Lasix discontinued at [place]. good diuresis with iv lasix. cont po lasix. monitor na/k classroom monitor. cont scheduled duonebs and steroids. add mucomyst cont pulmonary htn medications as prescribed oxygen and titrate. Pt with fevers. felt to be lung source...infectious vs acute flare of her ILD. gs/sputum nml kuldeep. PT eval. dvt prophylaxis redo walk test on her BL oxygen. 2. copd with recently flare 3. scleroderma and pulmonary htn 4. hyponatremia/hypokalemia. improved 5. anxiety (2) COPD (chronic obstructive pulmonary disease) Code(s): J44.9 - Chronic obstructive pulmonary disease, unspecified Status: Chronic (3) Pulmonary HTN Code(s): I27.20 - Pulmonary hypertension, unspecified Status: Chronic (4) Atrial fibrillation Code(s): I48.91 - Unspecified atrial fibrillation Status: Chronic (2) COPD (chronic obstructive pulmonary disease) Qualifiers: COPD type: COPD with acute exacerbation Qualified Code(s): J44.1 - Chronic obstructive pulmonary disease with (acute) exacerbation (4) Atrial fibrillation Qualifiers: Atrial fibrillation type: chronic Qualified Code(s): I48.2 - Chronic atrial fibrillation
[2018-01-01] MEDS: Levofloxacin 500 mg Premix Inj 500 MG/100 ML PIGGYBACK IV.SIG SCH (12:19)
[2018-01-01] MEDS: Temazepam 15 MG Capsule PO PRN (22:23)
[2018-01-02] MEDS: Levothyroxine 125 MCG Tablet PO SCH (06:43)
[2018-01-02] MEDS: MethylPREDNISolone Sod Succinate Inj 125 MG/2 ML Vial IV.PUSH SCH ×3 (06:43→21:13)
[2018-01-02] MEDS: dilTIAZem CD 120 MG Capsule PO SCH (08:53)
[2018-01-02] MEDS: Pantoprazole Sodium 20 MG DR Tablet PO SCH (08:53)
[2018-01-02] MEDS: Gabapentin 300 MG Capsule PO SCH ×2 (08:53→21:13)
[2018-01-02] MEDS: [UNRECOGNIZED DRUG - OTHER] PO SCH (08:54)
[2018-01-02] MEDS: Tiotropium Bromide 18 MCG/ACT Inhaler INH SCH (08:54)
[2018-01-02] MEDS: MACITENTAN PO SCH (08:54)
[2018-01-02] MEDS: Famotidine 20 MG Tablet PO SCH (08:54)
[2018-01-02] MEDS: Furosemide 40 MG Tablet PO SCH ×2 (08:57→17:31)
--- NOTE | 2018-01-02 10:00 | P.PNIM ---
Subjective Interval history: feels close to baseline. mucomyst helped. Physical Exam Vital signs: Vital Signs 01/01/18 11:25 01/01/18 12:00 01/01/18 14:41 Temperature 98.2 F Pulse Rate 77 78 Respiratory Rate 12 20 Blood Pressure 114/56 L Pulse Oximetry 93 L Pulse Oximetry [Exertion with Oxygen] 93 L 85 L Pulse Oximetry [Resting with Oxygen] 96 96 01/01/18 16:00 01/01/18 16:16 01/01/18 19:49 Temperature 97.5 F L Pulse Rate 80 73 78 Respiratory Rate 20 12 Blood Pressure 119/60 Pulse Oximetry 96 Pulse Oximetry [Exertion with Oxygen] Pulse Oximetry [Resting with Oxygen] 01/01/18 20:00 01/01/18 20:50 01/01/18 20:51 Temperature 97.8 F Pulse Rate 78 80 Respiratory Rate 18 Blood Pressure 121/60 Pulse Oximetry 95 95 Pulse Oximetry [Exertion with Oxygen] Pulse Oximetry [Resting with Oxygen] 01/01/18 23:49 01/02/18 00:00 01/02/18 00:05 Temperature 97.9 F Pulse Rate 77 79 78 Respiratory Rate 16 18 Blood Pressure 114/56 L Pulse Oximetry 96 Pulse Oximetry [Exertion with Oxygen] Pulse Oximetry [Resting with Oxygen] 01/02/18 03:47 01/02/18 04:00 01/02/18 04:11 Temperature 97.8 F Pulse Rate 81 82 80 Respiratory Rate 20 16 Blood Pressure 120/59 L Pulse Oximetry 96 Pulse Oximetry [Exertion with Oxygen] Pulse Oximetry [Resting with Oxygen] 01/02/18 08:48 Temperature Pulse Rate 77 Respiratory Rate 12 Blood Pressure Pulse Oximetry 97 Pulse Oximetry [Exertion with Oxygen] Pulse Oximetry [Resting with Oxygen] Intake & Output 01/01/18 01/02/18 01/02/18 18:59 06:59 18:59 Intake Total 460 / 460 960 / 960 Output Total 1200 / 1200 1200 / 1200 Balance -740 / -740 -240 / -240 Weight 71.3 kg Intake: IV 100 / 100 Levaquin 500 mg Premix Inj 500 100 / 100 mg In 100 ml @ 100 mls/hr IV. SIG Q24H [facility] Rx#:[id number] Oral 360 / 360 960 / 960 Output: Urine 1200 / 1200 1200 / 1200 Other: Date of Last Bowel Movement 12/30/17 01/02/18 # Bowel Movements 1 1 heart reg lung improved areas of rhonci thais abd s/nt ext no edema Results - Labs CBC & Chem 7: 12/29/17 07:26 12/30/17 08:48 Microbiology 12/28/17 14:38 Blood - Peripheral Aerobic Blood Culture - Preliminary No growth in 4 days 12/28/17 14:38 Blood - Peripheral Anaerobic Blood Culture - Preliminary No growth in 4 days 12/28/17 14:44 Blood - Peripheral Aerobic Blood Culture - Preliminary No growth in 4 days 12/28/17 14:44 Blood - Peripheral Anaerobic Blood Culture - Preliminary No growth in 4 days Assessment and Plan - Assessment (1) Scleroderma Code(s): M34.9 - Systemic sclerosis, unspecified Status: Acute Plan: 1. sob and severe lower extremity edema after stopping lasix 1 week ago. Pt recently admitted to [place] for copd flare/bilateral ground glass lung infiltrates pulm edema vs atypical inf vs flare of interstitial lung dz. Pt currently seems to have persistent pna sx's and had low grade fevers. Pt was discharged from [place] on 12/20 and seen at [place] on 12/21. Lasix discontinued at [place]. good diuresis with iv lasix. cont po lasix. monitor na/k case monitor. cont scheduled duonebs and steroids. add mucomyst cont pulmonary htn medications as prescribed oxygen and titrate. Pt with fevers. felt to be lung source...infectious vs acute flare of her ILD. gs/sputum nml kuldeep. PT eval. dvt prophylaxis redo walk test failed on 5LNC but with 6lnc she sustained her sat above 90percent. arrange 6lnc. dc home in AM. 2. copd with recently flare 3. scleroderma and pulmonary htn 4. hyponatremia/hypokalemia. improved 5. anxiety (2) COPD (chronic obstructive pulmonary disease) Code(s): J44.9 - Chronic obstructive pulmonary disease, unspecified Status: Chronic (3) Pulmonary HTN Code(s): I27.20 - Pulmonary hypertension, unspecified Status: Chronic (4) Atrial fibrillation Code(s): I48.91 - Unspecified atrial fibrillation Status: Chronic (2) COPD (chronic obstructive pulmonary disease) Qualifiers: COPD type: COPD with acute exacerbation Qualified Code(s): J44.1 - Chronic obstructive pulmonary disease with (acute) exacerbation (4) Atrial fibrillation Qualifiers: Atrial fibrillation type: chronic Qualified Code(s): I48.2 - Chronic atrial fibrillation
[2018-01-02] MEDS: Levofloxacin 500 mg Premix Inj 500 MG/100 ML PIGGYBACK IV.SIG SCH (13:08)
[2018-01-02] MEDS: Temazepam 15 MG Capsule PO PRN (21:13)
[2018-01-03] MEDS: Levothyroxine 125 MCG Tablet PO SCH (06:19)
[2018-01-03] MEDS: MethylPREDNISolone Sod Succinate Inj 125 MG/2 ML Vial IV.PUSH SCH (06:19)
[2018-01-03 08:32] VITALS: PULSE 78; RESP 20
[2018-01-03 08:33] VITALS: O2SAT 98
[2018-01-03] MEDS: MACITENTAN PO SCH (08:54)
[2018-01-03] MEDS: [UNRECOGNIZED DRUG - OTHER] PO SCH (08:54)
[2018-01-03] MEDS: Famotidine 20 MG Tablet PO SCH (08:55)
[2018-01-03] MEDS: Gabapentin 300 MG Capsule PO SCH (08:55)
[2018-01-03] MEDS: Pantoprazole Sodium 20 MG DR Tablet PO SCH (08:56)
[2018-01-03] MEDS: dilTIAZem CD 120 MG Capsule PO SCH (08:56)
[2018-01-03] MEDS: Tiotropium Bromide 18 MCG/ACT Inhaler INH SCH (09:02)
[2018-01-03] MEDS: Furosemide 40 MG Tablet PO SCH (10:33)
[2018-01-03 10:37] VITALS: BP 132/61; TEMP 97.5
--- NOTE | 2018-01-03 11:34 | P.DS ---
Date of admission: 12/27/17 21:11 Primary care physician: Azam Ariza Attending physician on discharge: Jeff Perez Anticipated date of discharge: 01/03/18 Brief History from admission: Mrs. Ramirez is a 57 y/o female with scleroderma, COPD, A. fib, Pulmonary HTN, , esophageal dysmotility. Pt follows with a Macroeconomics Professor at [facility]. She was recently admitted to [place] and discharged on December 20 after returning from [place]. While there she completed a 1month prednisone taper and was getting hypoxic. She became more sob and began developing more lower ext edema. She was admitted to [facility] for copd flare and diuresis of edema. She had CT chest neg for PE and also repeat CT showing groundglass change concerning for edema vs atypical infection vs flare of her interstit lung dz. PT was given steroids, abx, nebs, iv diuretics and discharged on December 20 to her appt at [place]. Pt says at [place] her 60mg bid lasix was stopped due to "hypokalemia"...Within 24hr of stopping the lasix she began with severe lower ext edema and more sob that is progressing. DS: Diagnosis - Discharge Diagnosis (1) Acute hyponatremia Status: Acute (2) Acute hypokalemia Status: Acute (3) COPD (chronic obstructive pulmonary disease) Status: Chronic (4) Scleroderma Status: Acute (5) CREST (calcinosis, Raynaud's phenomenon, esophageal dysfunction, sclerodactyly, telangiectasia) Status: Chronic DS: Medications - Discharge Medications Prescriptions: acetylcysteine 2 ml NEB Q4HR NEB PRN 30 Days ml PRN Reason: congestion/cough cyclobenzaprine 10 mg PO BID PRN 14 Days tab PRN Reason: muscle spasms levofloxacin [Levaquin] 500 mg PO DAILY 5 Days #5 tab potassium chloride 20 meq PO BID 30 Days #60 tab prednisone [Deltasone] See Taper PO DIRECTED #25 tab DS: Summary Hospital Course: Scleroderma 1. sob and severe lower extremity edema after stopping lasix 1 week ago. Pt recently admitted to [facility] for copd flare/bilateral ground glass lung infiltrates pulm edema vs atypical inf vs flare of interstitial lung dz. Pt currently seems to have persistent pna sx's and had low grade fevers. Pt was discharged from [place] on 12/20 and seen at [place] on 12/21. Lasix discontinued at [place]. good diuresis with iv lasix. cont po lasix. monitor na/k residential assistant. cont scheduled duonebs and steroids. add mucomyst cont pulmonary htn medications as prescribed oxygen and titrate. Pt with fevers. felt to be lung source...infectious vs acute flare of her ILD. gs/sputum nml kuldeep. PT eval. dvt prophylaxis redo walk test failed on 5LNC but with 6lnc she sustained her sat above 90percent. arrange 6lnc. dc home in AM. 2. copd with recently flare 3. scleroderma and pulmonary htn 4. hyponatremia/hypokalemia. improved 5. anxiety - Time Spent with Patient Total time spent providing and/or coordinating discharge services: Greater than 30 minutes - Quality: VTE Deep Vein Thrombosis/Pulmonary Embolism Present on Admission: No Exam Vital signs: Vital Signs 01/02/18 12:00 01/02/18 15:45 01/02/18 16:00 Temperature 97.7 F 97.5 F L Pulse Rate 89 85 86 Respiratory Rate 20 12 20 Blood Pressure 116/63 111/58 L Pulse Oximetry 96 95 01/02/18 20:00 01/02/18 20:10 01/02/18 20:48 Temperature 97.4 F L Pulse Rate 78 88 82 Respiratory Rate 18 18 Blood Pressure 119/57 L Pulse Oximetry 95 97 01/02/18 21:01 01/02/18 23:54 01/03/18 00:00 Temperature 98.0 F Pulse Rate 82 78 78 Respiratory Rate 18 20 Blood Pressure 114/59 L Pulse Oximetry 96 01/03/18 00:40 01/03/18 04:00 01/03/18 04:07 Temperature 98.0 F Pulse Rate 82 91 H 78 Respiratory Rate 16 20 Blood Pressure 130/56 L Pulse Oximetry 92 L 01/03/18 04:27 01/03/18 08:00 01/03/18 08:31 Temperature 97.5 F L Pulse Rate 86 77 78 Respiratory Rate 18 20 20 Blood Pressure 132/61 Pulse Oximetry 98 01/03/18 08:32 Temperature Pulse Rate Respiratory Rate Blood Pressure Pulse Oximetry 98 Intake & Output 01/02/18 01/03/18 01/03/18 18:59 06:59 18:59 Intake Total 100 / 100 240 / 240 Output Total 2200 / 2200 1000 / 1000 Balance -2100 / -2100 -760 / -760 Weight 70.6 kg Intake: IV 100 / 100 Levaquin 500 mg Premix Inj 500 100 / 100 mg In 100 ml @ 100 mls/hr IV. SIG Q24H [facility] Rx#:[id number] Oral 240 / 240 Output: Urine 2200 / 2200 1000 / 1000 Narrative: heart reg lung improved clear upper lobes bilaterally with few crackles in the bilateral bases abd s/nt ext no edema Results Procedures completed during hospitalization: None - Impressions ITS Impressions Chest X-Ray 12/27/17 18:07 CONCLUSION: Slight increase in patchy bilateral parenchymal opacities with upper lobe predominance. Discharge Plan - Discharge Disposition Patient Disposition: 01 Discharge Home - Discharge Condition Condition: Stable - Discharge Order Discharge Orders: Discharge Order (Routine); Ordered 01/03/18 Ordered By: Eli Hayes - Discharge Details Anticipated Discharge Date: 01/03/18 Discharge Comment: dc home in AM on 01/03 once 6LNC continuous o2 arranged per case management. - Physicians Team Primary Care Provider: Azam Ariza Attending Provider: Jeff Perez Other Providers: [facility]
== END 2018-01-03 15:20 | disposition home or self-care (01) ==
LOC: NEPC 17:41 → NEDA 21:11 → N04 23:25
PROVIDERS: ADMIT Hospitalist; ATTEND Hospitalist

== ENCOUNTER 2018-02-15 14:27 | Inpatient (IN) ==
[2018-02-15] MEDS ORDERED: Sod Chloride 0.9% Inj 1,000 ML IV.CONT SCH (19:00)
[2018-02-15] MEDS ORDERED: Sodium Chloride 0.9% 2 ML Flush PRN IV.FLUSH (20:19)
--- NOTE | 2018-02-15 21:17 | P.PNCS ---
Subjective Interval history: Pt with progressive rectal prolapse over last few months - sched for prolapse tomorrow Pthas sign medical problems making outpt bowel prep difficult She requires admission for IVF, cont pulm therapy, medical management Objective Objective Remarks: PE alert HEENT - pink membranes, non-icteric Chest - on O2, coarse, decr bases Abd - soft, mild tympany, non-tender Extr - no C, C, mild edema Assessment and Plan - Plan Imp: gentle bowel prep IVF hydration pulm inhalers OOB prolapse repair tomorrow
[2018-02-15] MEDS: Sod Chloride 0.9% Inj 1,000 ML IV.SIG SCH (21:35)
[2018-02-15] MEDS: Furosemide 20 MG Tablet PO SCH (21:35)
[2018-02-15] MEDS: Sodium Chloride 0.9% 2 ML Flush BID IV.FLUSH SCH (21:35)
[2018-02-15] MEDS: Tiotropium Bromide 18 MCG/ACT Inhaler INH SCH (21:35)
[2018-02-15] MEDS: Budesonide-Formoterol 160/4.5 MCG 6 GM Inhaler INH SCH (21:35)
[2018-02-16] MEDS ORDERED: Sodium Chlor 0.9% Inj 500 ML IV.SIG SCH (05:00)
[2018-02-16] MEDS: Levothyroxine 125 MCG Tablet PO SCH (06:12)
--- NOTE | 2018-02-16 09:10 | P.CONIM ---
History of Present Illness Requesting Physician: Francisco Medina Reason for Consult: pre-op medical management Primary Care Provider: Azam Ariza Family Provider: UNKNOWN History of Present Illness: Mrs. Ramirez is a 57 y/o female with scleroderma, COPD on 6L continually at home, A. fib, Pulmonary HTN, , esophageal dysmotility. Patient admitted by Dr. Medina pre-op for repair of rectal prolapse. Given patient's chronic medical problems which make outpt bowel prep difficult she required admission for IVF, cont pulm therapy, medical management. We have been consulted for pre-op medical management. Patient offers no speific complaints at this time. Patient denies SOB, chest pain, N/V, fevers or chills. Past Medical Hx: Right sided pneumothorax in 06/2017 A. fib Scleroderma/CREST syndrome COPD Fecal incontinence Right sided heart failure Pulmonary hypertension Esophageal dysmotility and hx of aspiration pneumonia Sarcoidosis. Elmo's granulomatosis History of tobacco abuse Insomnia Anxiety 2D echo (07/06/17): - Estimated ejection fraction in the range of 65-70% - Mild mitral valve regurgitation - Mild tricuspid valve regurgitation - The estimated pulmonary arterial pressure is 44.3 mmHg. Past Surgical Hx: VATS with apical bleb resection and chemical/mechanical pleurodesis on 07/09/[address] Morris Two C-sections. Pneumothorax on the left in 2011 Benign left breast lumpectomy Family Hx: Noncontributory Social Hx: Hx of tobacco use, quit around 5-6 years ago Review of Systems All other systems reviewed negative except as stated in HPI [facility] - History History Provided By: Patient - Medical History Medical History: Medical History (Last Reviewed 02/17/18 @ 09:52 by Issa Gomez) History of scleroderma (Acute) Hyperlipemia (Acute) Hypothyroid (Acute) Benign breast lumps (Acute) Pneumothorax (Acute) Arthritis (Acute) CHF (congestive heart failure) (Acute) Oxygen dependent (Acute) Wears glasses - Surgical History Surgical History: Surgical History (Last Reviewed 02/17/18 @ 09:52 by Issa Gomez) H/O section (Acute) - Tobacco History Second Hand Smoke Exposure: No Smoking Status: Former smoker Tobacco Type: Cigarettes - Alcohol History How Often Do You Have a Drink Containing Alcohol: Never - Substance Use History Substance History: No History of Abuse Medications and Allergies Allergies Allergy/AdvReac Type Severity Reaction Status Date / Time codeine AdvReac Severe Nausea/Vomi Verified 02/09/18 09:51 ting Home Medications Medication Instructions Recorded Confirmed Type alprazolam 1 mg PO TID PRN 12/13/17 02/20/18 History diltiazem HCl [Cartia XT] 240 mg PO DAILY 12/13/17 02/09/18 History levothyroxine 125 mcg PO DAILY 12/13/17 02/09/18 History macitentan 10 mg PO DAILY 12/13/17 02/09/18 History omeprazole 20 mg PO DAILY 12/13/17 02/09/18 History promethazine 25 mg PO QPM PRN 12/13/17 02/09/18 History ranitidine HCl 150 mg PO DAILY 12/13/17 02/09/18 History sildenafil (antihypertensive) 20 mg PO TID 12/13/17 02/09/18 History simvastatin 20 mg PO QPM 12/13/17 02/09/18 History zaleplon 5 mg PO HS PRN 12/13/17 02/16/18 History furosemide [Lasix] 60 mg PO BID 01/03/18 02/09/18 History ascorbic acid (vitamin C) [Vitamin 100 mg PO DAILY 02/09/18 02/09/18 History C] aspirin [Aspirin Low Dose] 81 mg PO DAILY 02/09/18 02/09/18 History budesonide-formoterol 2 puff INHALATION BID 02/09/18 02/09/18 History calcium carbonate [Calcium 600] 600 mg PO DAILY 02/09/18 02/09/18 History carisoprodol 350 mg PO QID PRN 02/09/18 02/09/18 History cyanocobalamin (vitamin B-12) 1,000 mcg PO DAILY 02/09/18 02/09/18 History [Vitamin B-12] cyclobenzaprine 10 mg PO TID PRN 02/09/18 02/09/18 History folic acid 1 mg PO DAILY 02/09/18 02/09/18 History meloxicam 15 mg PO DAILY PRN 02/09/18 02/09/18 History potassium chloride 20 meq PO BID 02/09/18 02/09/18 History tiotropium bromide 1 cap INHALATION DAILY 02/09/18 02/09/18 History Active Medications: Active Medications Albuterol (Duoneb Neb (Mila)) 1 ampul NEB Q6HR NEB [facility] Last Admin: 02/16/18 03:49 Dose: 1 ampul Alprazolam (Xanax) 1 mg PO TID PRN PRN Reason: Anxiety Last Admin: 02/15/18 21:34 Dose: 1 mg Budesonide/Formoterol Fumarate (Symbicort 160/4.5 Mcg Inh) 2 puff INH BID [facility] Last Admin: 02/15/18 21:35 Dose: 2 puff Carisoprodol (Soma) 350 mg PO QID PRN PRN Reason: MUSCLE PAIN Cyclobenzaprine HCl (Flexeril) 10 mg PO TID PRN PRN Reason: SPASM Diltiazem HCl (Cardizem Cd 24hr) 240 mg PO DAILY [facility] Furosemide (Lasix) 60 mg PO BID [facility] Last Admin: 02/15/18 21:35 Dose: Not Given Sodium Chloride (Ns Inj) 1,000 mls @ 60 mls/hr IV.SIG .[id number] [facility] Last Admin: 02/15/18 21:35 Dose: 60 mls/hr Cefazolin Sodium 1,000 mg/ (Sodium Chloride) 100 mls @ 200 mls/hr IV.SIG BLEACH MAKER [facility] Stop: 02/18/18 19:59 Metronidazole/Sodium Chloride (Flagyl 500 Mg Inj) 100 mls @ 100 mls/hr IV.SIG BLEACH MAKER [facility] Stop: 02/16/18 18:30 Sodium Chloride (Ns Inj) 500 mls @ 30 mls/hr IV.SIG .Q10H [facility] Lactated Ringer's (Lr 1000 Ml Inj) 1,000 mls @ 30 mls/hr IV.SIG .Q24H [facility] Stop: 02/17/18 04:29 Levothyroxine Sodium (Synthroid) 125 mcg PO DAILY@0600 [facility] Last Admin: 02/16/18 06:12 Dose: 125 mcg Meloxicam (Mobic) 15 mg PO DAILY PRN PRN Reason: Pain 1-10 Pantoprazole Sodium (Protonix) 20 mg PO DAILY [facility] Pt:Opsumit( Macitentan) 10 Mg Tablet 0 each PO DAILY [facility] Promethazine HCl (Phenergan) 12.5 mg PO Q6H PRN PRN Reason: NAUSEA Sildenafil Citrate (Revatio) 20 mg PO TID [facility] Last Admin: 02/15/18 21:34 Dose: 20 mg Sodium Chloride (Ns Flush) 2 ml IV.FLUSH BID [facility] Last Admin: 02/15/18 21:35 Dose: 2 ml Sodium Chloride (Ns Flush) 2 ml IV.FLUSH PRN PRN PRN Reason: FLUSH AFTER USING IV ACCESS Tiotropium Schuyler (Spiriva 18 Mcg Inh) 18 mcg INH DAILY [facility] Last Admin: 02/15/18 21:35 Dose: 18 mcg Zolpidem Tartrate (Ambien) 10 mg PO HS PRN PRN Reason: Insomnia Last Admin: 02/16/18 00:04 Dose: 10 mg Exam Vital signs: Vital Signs 02/15/18 17:39 02/15/18 20:00 02/15/18 20:32 Temperature 97.5 F L 97.7 F Pulse Rate 72 71 76 Respiratory Rate 17 19 18 Blood Pressure 109/56 L 122/59 L Pulse Oximetry 100 99 99 02/16/18 00:00 02/16/18 03:51 02/16/18 08:00 Temperature 98.4 F 97.9 F Pulse Rate 83 85 75 Respiratory Rate 21 14 18 Blood Pressure 136/65 102/54 L Pulse Oximetry 95 97 98 Intake & Output 02/15/18 02/16/18 02/16/18 18:59 06:59 18:59 Weight 69.4 kg 73 kg Other: # Voids 2 3 Date of Last Bowel Movement 02/15/18 # Bowel Movements 3 Weight On Admission 69.4 kg Narrative: GENERAL: This is a well-nourished, well-developed patient, in no apparent distress. CARDIOVASCULAR: Regular rate and rhythm RESPIRATORY: GASTROINTESTINAL: Abdomen soft, non-tender, nondistended. Normal active bowel sounds MUSCULOSKELETAL: Extremities without clubbing, cyanosis, or edema. NEURO: Alert & Oriented x4 to person, place, time, situation. Moves all ext x4 Results - Labs CBC & Chem 7: 02/21/18 03:51 02/25/18 04:06 Assessment and Plan - Assessment (1) Rectal prolapse Code(s): K62.3 - Rectal prolapse Status: Acute Plan: Mrs. Ramirez is a 57 y/o female with scleroderma, COPD on 6L continually at home, A. fib, Pulmonary HTN, , esophageal dysmotility. Patient admitted by Dr. Medina pre-op for repair of rectal prolapse. Given patient's chronic medical problems which make outpt bowel prep difficult she required admission for IVF, cont pulm therapy, medical management. We have been consulted for pre-op medical management. Rectal prolapse Plan for repair of rectal prolapse today with Dr. Medina Given patient's chronic medical problems which make outpt bowel prep difficult she required admission for IVF, cont pulm therapy, medical management. Update: patient seen with Dr. Gonsalez at 1800 patient S/P rectal prolapse repair 02/[address] Medina COPD (chronic obstructive pulmonary disease) Patient has is chronically on 6L supplemental oxygen at home - will continue while in hospital Continue patient's home budesonide-formoterol and tiotropium bromide inhalers add duonebs if needed Pulmonary HTN Continue patient's home macitentan 10 mg daily and sildenafil 20 mg TID Atrial fibrillation Continue patient's Diltiazem 120 mg PO daily for rate control DVT prophylaxis with SCDs - Attending Attestation Patient examined. Assessment and plan formulated with Eli Hayes PA-C. I agree with the above.
[2018-02-16] MEDS: MACITENTAN PO SCH (09:24)
[2018-02-16] MEDS: Pantoprazole Sodium 20 MG DR Tablet PO SCH (09:27)
[2018-02-16] MEDS: Furosemide 20 MG Tablet PO SCH ×2 (09:27→21:29)
[2018-02-16] MEDS: dilTIAZem CD 240 MG Capsule PO SCH (09:27)
[2018-02-16] MEDS: Budesonide-Formoterol 160/4.5 MCG 6 GM Inhaler INH SCH ×2 (09:29→21:20)
[2018-02-16] MEDS: Sodium Chloride 0.9% 2 ML Flush BID IV.FLUSH SCH ×2 (09:29→21:30)
[2018-02-16] MEDS: Tiotropium Bromide 18 MCG/ACT Inhaler INH SCH (09:29)
[2018-02-16] MEDS: Sod Chloride 0.9% Inj 1,000 ML IV.SIG SCH ×2 (09:30→14:03)
[2018-02-16] MEDS ORDERED: HYDROmorphone PF Inj 2 MG/ML Vial ONE ×2 (12:44→12:45)
[2018-02-16] MEDS ORDERED: Tetracaine PF 1% Inj 20 MG/2 ML Ampul ONE (13:02)
[2018-02-16] MEDS ORDERED: Phenylephrine/NS 1000 MCG/10ML Syringe IV.PUSH ONE (13:15)
[2018-02-16] MEDS ORDERED: Glycopyrrolate Inj 1 MG/5 ML Syringe IV.PUSH ONE (13:15)
[2018-02-16] MEDS ORDERED: Lidocaine PF 1% Inj 5 ML Syringe OTHER ONE (13:15)
[2018-02-16] MEDS ORDERED: Lidocaine 2%/Epinephrine 1:200,000 PF Inj 20 ML Vial ONE ×2 (13:21→13:58)
[2018-02-16] MEDS ORDERED: Potassium Chlor 40 mEq Premix 40 MEQ/100 ML PIGGYBACK IV.SIG PRN (14:48)
[2018-02-16] MEDS ORDERED: Potassium Chlor 20 mEq Premix 20 MEQ/100 ML PIGGYBACK IV.SIG PRN (14:48)
[2018-02-16] MEDS ORDERED: Acetaminophen 325 MG Tablet PO PRN (14:48)
[2018-02-16] MEDS ORDERED: *morphine SULFATE 10 MG/ML PERIprocedure ONLY ONE ×2 (14:58→16:02)
[2018-02-16] MEDS ORDERED: fentaNYL Citrate Inj 100 MCG/2 ML Ampul ONE (14:59)
[2018-02-16] MEDS ORDERED: KCL 20 mEq/D5W/NaCl 0.9% Inj 1,000 ML ONE (15:32)
[2018-02-16] MEDS: KCL 20 mEq/D5W/NaCl 0.9% Inj 1,000 ML IV.CONT SCH (15:45)
[2018-02-16] MEDS: Ketorolac Inj 30 MG/ML (IVP) Vial IV.PUSH PRN (18:28)
[2018-02-17] MEDS: Ketorolac Inj 30 MG/ML (IVP) Vial IV.PUSH PRN ×3 (03:26→17:44)
[2018-02-17] MEDS: KCL 20 mEq/D5W/NaCl 0.9% Inj 1,000 ML IV.CONT SCH ×2 (03:30→14:59)
[2018-02-17 05:01] LABS: Baso % (Auto) 0.3 % (0.0-2.0); Eos % (Auto) 0.6 % (0.0-4.0); Hematocrit 35.7 % (35.0-46.0); Hemoglobin 11.9 gm/dL (11.6-15.3); Lymph # (Auto) 0.2 th/mm3 (1.0-4.8); Lymph % (Auto) 4.4 % (9.0-44.0); Mean Corpuscular HGB Conc 33.2 % (32.0-36.0); Mean Corpuscular Hemoglobin 29.2 pg (27.0-34.0); Mean Corpuscular Volume 87.9 fL (80.0-100.0); Mean Platelet Volume 7.3 fL (7.0-11.0); Mono # (Auto) 0.2 th/mm3 (0.0-0.9); Mono % (Auto) 3.8 % (0.0-8.0); Neut # (Auto) 4.2 th/mm3 (1.8-7.7); Neut % (Auto) 90.9 % (16.0-70.0); Platelet Count 339 th/mm3 (150-450); Red Blood Count 4.06 mil/mm3 (4.00-5.30); Red Cell Distribution Width 16.5 % (11.6-17.2); White Blood Count 4.6 th/mm3 (4.0-11.0)
--- NOTE | 2018-02-17 05:05 | XR ---
EXAM DATE: 02/17/2018 4:18 AM EDT AGE/SEX: 57 years / Female INDICATIONS: . Shortness of breath, decreased O2 saturation CLINICAL DATA: This is the patient's initial encounter. Patient reports that signs and symptoms have been present for 1 day and indicates a pain score of 0/10. MEDICAL/SURGICAL HISTORY: Chronic obstructive pulmonary disease. Congestive heart failure. Non e. COMPARISON: [facility] [place], CHEST 1V SINGLE AP, 12/27/2017. . FINDINGS: PA and lateral views of the chest. Increased hazy bilateral pulmonary parenchymal opacity is again id entified. Patchy consolidation or atelectasis now seen at the left lung base. Cardiomediastinal silho uette unchanged. No evidence of pleural effusion or pneumothorax. CONCLUSION: 1. Increased bilateral diffuse hazy pulmonary parenchymal opacity. 2. Patchy consolidation or atelectasis at the left lung base. Electronically signed by: Jase Meadows MD 02/17/2018 5:03 AM EDT
[2018-02-17 05:25] LABS: Calcium 8.5 mg/dL (8.5-10.1); Carbon Dioxide 28.3 meq/L (21.0-32.0); Potassium 3.1 meq/L (3.5-5.1)
[2018-02-17] MEDS: Levothyroxine 125 MCG Tablet PO SCH (06:08)
--- NOTE | 2018-02-17 09:19 | P.PNIM ---
Subjective Interval history: Follow up: COPD, Pulmonary, HTN s/p rectal prolapse repair 02/16 Patient desaturated through the night requiring face mask oxygen support - now back on her baseline 2L via NC Patient reports feeling well at this time denies SOB c/o feeling hungry and thirsty Physical Exam Vital signs: Vital Signs 02/16/18 09:29 02/16/18 10:01 02/16/18 12:00 Temperature 98.4 F Pulse Rate 74 76 Respiratory Rate 15 17 Blood Pressure 107/55 L Pulse Oximetry 98 95 98 02/16/18 15:00 02/16/18 15:15 02/16/18 15:30 Temperature 97.9 F Pulse Rate 62 64 66 Respiratory Rate 16 16 16 Blood Pressure 111/55 L 109/66 98/55 L Pulse Oximetry 96 99 98 02/16/18 15:45 02/16/18 16:00 02/16/18 16:30 Temperature Pulse Rate 68 68 76 Respiratory Rate 16 16 16 Blood Pressure 119/57 L 125/59 L 129/63 Pulse Oximetry 98 98 96 02/16/18 17:00 02/16/18 17:49 02/16/18 19:00 Temperature 98.5 F Pulse Rate 76 76 68 Respiratory Rate 16 16 17 Blood Pressure 120/60 123/57 L 119/59 L Pulse Oximetry 96 93 L 99 02/16/18 20:00 02/16/18 21:39 02/16/18 23:00 Temperature 98.2 F Pulse Rate 67 Respiratory Rate 16 17 Blood Pressure 118/59 L Pulse Oximetry 99 96 02/17/18 00:42 02/17/18 03:00 02/17/18 03:44 Temperature 98.4 F Pulse Rate 74 97 H Respiratory Rate 16 17 24 Blood Pressure 118/59 L Pulse Oximetry 76 L 88 L 02/17/18 08:35 02/17/18 08:36 Temperature Pulse Rate 93 H Respiratory Rate 16 Blood Pressure Pulse Oximetry 97 Intake & Output 02/16/18 02/17/18 02/17/18 18:59 06:59 18:59 Intake Total 1999 / 1999 2640 / 2640 Output Total 610 / 610 1100 / 1100 Balance 1390 / 1390 1540 / 1540 Weight 71.5 kg Intake: IV 1400 / 1400 2400 / 2400 D5W/NS + KCL 20 mEq Inj 1,000 1000 / 1000 ML @ 80 mls/hr IV.CONT .[id number] [facility] Rx#:[id number] Ofirmev Inj 1,000 mg In 100 ml 100 / 100 @ 400 mls/hr IV.SIG Q6H PRN Rx# :[id number] NS Inj 1,000 ML @ 60 mls/hr IV. 1000 / 1000 1000 / 1000 SIG .[id number] [facility] Rx#:[id number] Ancef Inj 1,000 MG In NS Inj 200 / 200 200 / 200 100 ML @ 200 mls/hr IV.SIG REEL WINDER [facility] Rx#:[id number] Flagyl 500 MG Inj 100 ML @ 100 100 / 100 200 / 200 mls/hr IV.SIG Q8H [facility] Rx#: [id number] Oral 240 / 240 Anesthesia Amount 600 / 600 Output: Urine 1100 / 1100 Estimated Blood Loss 10 / 10 Urine Amount (Catheter) 600 / 600 Indwelling Urethral Catheter 600 / 600 Other: Date of Last Bowel Movement 02/16/18 Narrative: GENERAL: This is a well-nourished, well-developed patient, in no apparent distress. CARDIOVASCULAR: Regular rate and rhythm RESPIRATORY: diminished bilateral bases GASTROINTESTINAL: Abdomen soft, non-tender, mildly distended. hypoactive bowel sounds MUSCULOSKELETAL: Extremities without clubbing, cyanosis, or edema. NEURO: Alert & Oriented x4 to person, place, time, situation. Moves all ext x4 - Urinary Catheter Management Indwelling Urethral Catheter Cath placed during this visit: yes Reason for continuing: Hourly intake/output Insertion date: 02/16/18 Insertion time: 13:20 Results - Labs CBC & Chem 7: 02/21/18 03:51 02/25/18 04:06 Laboratory Results - last 24 hr 02/17/18 02/17/18 04:18 04:18 WBC 4.6 RBC 4.06 Hgb 11.9 Hct 35.7 MCV 87.9 MCH 29.2 MCHC 33.2 RDW 16.5 Plt Count 339 MPV 7.3 Neut % (Auto) 90.9 H Lymph % (Auto) 4.4 L [place] % (Auto) 3.8 Eos % (Auto) 0.6 Baso % (Auto) 0.3 Neut # (Auto) 4.2 Lymph # (Auto) 0.2 L [place] # (Auto) 0.2 Eos # (Auto) 0.0 Baso # (Auto) 0.0 WBC Differential . Differential Comment Auto diff final Sodium 142 Potassium 3.1 L Chloride 105 Carbon Dioxide 28.3 Anion Gap 9 BUN 11 Creatinine 0.72 Estimated GFR 83 L Random Glucose 142 H Calcium 8.5 - Imaging Impressions Chest X-Ray 02/17/18 04:18 CONCLUSION: 1. Increased bilateral diffuse hazy pulmonary parenchymal opacity. 2. Patchy consolidation or atelectasis at the left lung base. Assessment and Plan - Assessment (1) Rectal prolapse Code(s): K62.3 - Rectal prolapse Status: Acute Plan: Mrs. Ramirez is a 57 y/o female with scleroderma, COPD on 6L continually at home, A. fib, Pulmonary HTN, , esophageal dysmotility. Patient admitted by Dr. Medina pre-op for repair of rectal prolapse. Given patient's chronic medical problems which make outpt bowel prep difficult she required admission for IVF, cont pulm therapy, medical management. We have been consulted for pre-op medical management. Rectal prolapse Plan for repair of rectal prolapse today with Dr. Medina Given patient's chronic medical problems which make outpt bowel prep difficult she required admission for IVF, cont pulm therapy, medical management. S/P rectal prolapse repair 02/[address] Medina diet per surgery continue IVFs COPD (chronic obstructive pulmonary disease) Patient has is chronically on 6L supplemental oxygen at home - will continue while in hospital Continue patient's home budesonide-formoterol and tiotropium bromide inhalers add duonebs if needed Patient desaturated through the night - per nursing patient was mouth breathing and did require face mask Patient now back on 6L and saturating 93% CXR 02/17 reviewed and reveals: 1. Increased bilateral diffuse hazy pulmonary parenchymal opacity. 2. Patchy consolidation or atelectasis at the left lung base. added IS 10 times per hour Pulmonary HTN Continue patient's home macitentan 10 mg daily and sildenafil 20 mg TID Atrial fibrillation Continue patient's Diltiazem 120 mg PO daily for rate control Hypokalemia potassium 3.1 (02/17) replaced DVT prophylaxis with SCDs - Attending Attestation Patient examined. Assessment and plan formulated with Eli Hayes PA-C. I agree with the above.
[2018-02-17] MEDS: Pantoprazole Sodium 20 MG DR Tablet PO SCH (09:28)
[2018-02-17] MEDS: dilTIAZem CD 240 MG Capsule PO SCH (09:28)
[2018-02-17] MEDS: Pantoprazole Inj 40 MG Vial IV.PUSH SCH (09:29)
[2018-02-17] MEDS: MACITENTAN PO SCH (09:30)
[2018-02-17] MEDS: Sodium Chloride 0.9% 2 ML Flush BID IV.FLUSH SCH ×2 (09:30→22:07)
[2018-02-17] MEDS: Tiotropium Bromide 18 MCG/ACT Inhaler INH SCH (09:32)
[2018-02-17] MEDS: Budesonide-Formoterol 160/4.5 MCG 6 GM Inhaler INH SCH ×2 (09:32→22:08)
[2018-02-17] MEDS: Heparin - SQ 10,000 UNITS/ML Vial SQ SCH ×2 (09:44→22:07)
[2018-02-17] MEDS: Furosemide 20 MG Tablet PO SCH ×2 (09:54→22:06)
[2018-02-17] MEDS: Sod Chloride 0.9% Inj 1,000 ML IV.SIG SCH (09:54)
--- NOTE | 2018-02-17 21:26 | P.PNCS ---
Subjective Colorectal Surgery Post Op Day #: 1 Interval history: afebrile, VSS UO good O2 sat OK Objective Result Diagrams: 02/17/18 04:18 02/17/18 04:18 Objective Remarks: PE alert Abd - soft, wound dry, mild tympany Assessment and Plan - Plan Imp: stable post-op OOB decr IVF start PO
[2018-02-18] MEDS: Sod Chloride 0.9% Inj 1,000 ML IV.SIG SCH ×2 (04:16→19:24)
[2018-02-18 05:02] LABS: Baso % (Auto) 0.5 % (0.0-2.0); Eos # (Auto) 0.2 th/mm3 (0.0-0.4); Eos % (Auto) 2.4 % (0.0-4.0); Hematocrit 30.2 % (35.0-46.0); Lymph # (Auto) 0.7 th/mm3 (1.0-4.8); Lymph % (Auto) 9.9 % (9.0-44.0); Mean Corpuscular Hemoglobin 29.2 pg (27.0-34.0); Mean Corpuscular Volume 88.3 fL (80.0-100.0); Mean Platelet Volume 7.3 fL (7.0-11.0); Mono # (Auto) 0.5 th/mm3 (0.0-0.9); Mono % (Auto) 7.3 % (0.0-8.0); Neut # (Auto) 5.5 th/mm3 (1.8-7.7); Neut % (Auto) 79.9 % (16.0-70.0); Platelet Count 235 th/mm3 (150-450); Red Blood Count 3.42 mil/mm3 (4.00-5.30); Red Cell Distribution Width 16.6 % (11.6-17.2); White Blood Count 6.9 th/mm3 (4.0-11.0)
[2018-02-18 05:14] LABS: Calcium 8.5 mg/dL (8.5-10.1); Carbon Dioxide 27.6 meq/L (21.0-32.0); Potassium 3.4 meq/L (3.5-5.1)
[2018-02-18] MEDS: Levothyroxine 125 MCG Tablet PO SCH (08:30)
[2018-02-18] MEDS: Tiotropium Bromide 18 MCG/ACT Inhaler INH SCH (08:47)
[2018-02-18] MEDS: KCL 20 mEq/D5W/NaCl 0.9% Inj 1,000 ML IV.CONT SCH (08:47)
[2018-02-18] MEDS: Budesonide-Formoterol 160/4.5 MCG 6 GM Inhaler INH SCH ×2 (08:48→20:55)
[2018-02-18] MEDS: Pantoprazole Inj 40 MG Vial IV.PUSH SCH (08:56)
[2018-02-18] MEDS: Heparin - SQ 10,000 UNITS/ML Vial SQ SCH ×2 (08:57→20:54)
[2018-02-18] MEDS: MACITENTAN PO SCH (08:57)
[2018-02-18] MEDS: Furosemide 20 MG Tablet PO SCH ×2 (08:58→20:53)
[2018-02-18] MEDS: dilTIAZem CD 240 MG Capsule PO SCH (09:15)
[2018-02-18] MEDS: Sodium Chloride 0.9% 2 ML Flush BID IV.FLUSH SCH ×2 (09:16→20:54)
[2018-02-18] MEDS: Ketorolac Inj 30 MG/ML (IVP) Vial IV.PUSH PRN (09:17)
--- NOTE | 2018-02-18 21:36 | P.PNCS ---
Subjective Colorectal Surgery Post Op Day #: 2 Interval history: afebrile, VSS UO good octavio PO Objective Result Diagrams: 02/18/18 04:24 02/18/18 04:24 Objective Remarks: PE alert Abd - soft, wound dry, mild tympany little flatus Assessment and Plan - Plan Imp: OOB decr IVF start PO, adv slowly DC plans
[2018-02-19] MEDS: KCL 20 mEq/D5W/NaCl 0.9% Inj 1,000 ML IV.CONT SCH ×2 (00:13→00:47)
[2018-02-19] MEDS: Levothyroxine 125 MCG Tablet PO SCH (06:13)
[2018-02-19] MEDS: Sod Chloride 0.9% Inj 1,000 ML IV.SIG SCH (08:00)
[2018-02-19] MEDS: Pantoprazole Inj 40 MG Vial IV.PUSH SCH (08:51)
[2018-02-19] MEDS: dilTIAZem CD 240 MG Capsule PO SCH (08:51)
[2018-02-19] MEDS: Heparin - SQ 10,000 UNITS/ML Vial SQ SCH ×2 (08:51→21:05)
[2018-02-19] MEDS: Furosemide 20 MG Tablet PO SCH ×2 (08:51→21:05)
[2018-02-19] MEDS: Sodium Chloride 0.9% 2 ML Flush BID IV.FLUSH SCH ×2 (08:52→21:06)
[2018-02-19] MEDS: Budesonide-Formoterol 160/4.5 MCG 6 GM Inhaler INH SCH ×2 (09:40→21:00)
--- NOTE | 2018-02-19 09:55 | P.PNCS ---
Subjective Colorectal Surgery Post Op Day #: 3 Interval history: No N or V. Anxious,some pain. Breathing comfortably now. Objective Result Diagrams: 02/18/18 04:24 02/18/18 04:24 Objective Remarks: Abd - soft, wound dry, clean Assessment and Plan - Plan OOB walking Regular diet Add Entereg
[2018-02-19] MEDS: MACITENTAN PO SCH (16:55)
[2018-02-19] MEDS: Tiotropium Bromide 18 MCG/ACT Inhaler INH SCH (16:56)
[2018-02-20] MEDS: Sod Chloride 0.9% Inj 1,000 ML IV.SIG SCH (01:00)
[2018-02-20] MEDS: Levothyroxine 125 MCG Tablet PO SCH (06:36)
[2018-02-20] MEDS: Furosemide 20 MG Tablet PO SCH (09:08)
[2018-02-20] MEDS: Meloxicam 15 MG Tablet PO PRN (09:08)
[2018-02-20] MEDS: dilTIAZem CD 240 MG Capsule PO SCH (09:08)
[2018-02-20] MEDS: Heparin - SQ 10,000 UNITS/ML Vial SQ SCH ×2 (09:09→21:39)
[2018-02-20] MEDS: Pantoprazole Inj 40 MG Vial IV.PUSH SCH (09:09)
[2018-02-20] MEDS: Sodium Chloride 0.9% 2 ML Flush BID IV.FLUSH SCH (09:10)
[2018-02-20] MEDS: Budesonide-Formoterol 160/4.5 MCG 6 GM Inhaler INH SCH ×2 (09:11→21:46)
[2018-02-20] MEDS: Tiotropium Bromide 18 MCG/ACT Inhaler INH SCH (09:11)
[2018-02-20] MEDS: MACITENTAN PO SCH (09:11)
--- NOTE | 2018-02-20 11:17 | P.PNCS ---
Subjective Colorectal Surgery Post Op Day #: 4 Interval history: Still no BMs. Some flatus. Chronic constipation takes daily Mag Citrate. Comfortable. No N or V. Limited PO intake. Objective Result Diagrams: 02/18/18 04:24 02/18/18 04:24 Objective Remarks: Abd - soft, wound dry, clean, no redness but moderate distention Assessment and Plan - Plan OOB walking Regular diet No Mag Citrate for now; may eventually need laxative however
--- NOTE | 2018-02-20 15:29 | P.PNIM ---
Subjective Interval history: Follow up: COPD, Pulmonary, HTN s/p rectal prolapse repair 02/16 denies SOB c/o abd distention, N/V x 3 today Physical Exam Vital signs: Vital Signs 02/19/18 15:28 02/19/18 16:00 02/19/18 16:50 Temperature Pulse Rate 99 H 103 H 99 H Respiratory Rate 16 Blood Pressure Pulse Oximetry 02/19/18 18:00 02/19/18 19:00 02/19/18 20:00 Temperature 98.6 F Pulse Rate 89 85 86 Respiratory Rate 18 Blood Pressure 129/58 L Pulse Oximetry 89 L 02/19/18 20:29 02/19/18 21:00 02/19/18 22:00 Temperature Pulse Rate 83 87 86 Respiratory Rate 18 Blood Pressure Pulse Oximetry 91 L 02/19/18 23:00 02/20/18 00:00 02/20/18 01:00 Temperature 98.6 F Pulse Rate 81 81 88 Respiratory Rate 18 Blood Pressure 121/53 L Pulse Oximetry 90 L 02/20/18 02:00 02/20/18 03:00 02/20/18 04:00 Temperature 98.4 F Pulse Rate 88 91 H 91 H Respiratory Rate 18 Blood Pressure 132/61 Pulse Oximetry 91 L 02/20/18 04:10 02/20/18 05:00 02/20/18 06:00 Temperature Pulse Rate 100 H 97 H 96 H Respiratory Rate 18 Blood Pressure Pulse Oximetry 02/20/18 07:00 02/20/18 08:00 02/20/18 08:05 Temperature 98.9 F Pulse Rate 91 H 87 91 H Respiratory Rate 16 16 Blood Pressure 110/56 L Pulse Oximetry 94 L 93 L 02/20/18 09:00 02/20/18 10:00 02/20/18 11:00 Temperature 98.3 F Pulse Rate 89 87 90 Respiratory Rate 17 Blood Pressure 123/65 Pulse Oximetry 93 L 02/20/18 12:00 02/20/18 13:00 02/20/18 14:00 Temperature Pulse Rate 91 H 97 H 98 H Respiratory Rate Blood Pressure Pulse Oximetry Intake & Output 02/19/18 02/20/18 02/20/18 18:59 06:59 18:59 Intake Total 1120 / 1120 200 / 200 Output Total 400 / 400 420 / 420 Balance 720 / 720 -220 / -220 Weight 79 kg Intake: IV 1000 / 1000 D5W/NS + KCL 20 mEq Inj 1,000 1000 / 1000 ML @ 50 mls/hr IV.CONT .Q20H [facility] Rx#:[id number] Oral 120 / 120 200 / 200 Output: Urine 400 / 400 420 / 420 Other: # Incontinent Voids 3 2 Narrative: GENERAL: This is a well-nourished, well-developed patient, in no apparent distress. CARDIOVASCULAR: Regular rate and rhythm RESPIRATORY: diminished bilateral bases GASTROINTESTINAL: Abdomen soft, non-tender, distended. high pitched tinkling bowel sounds MUSCULOSKELETAL: Extremities without clubbing, cyanosis, or edema. NEURO: Alert & Oriented x4 to person, place, time, situation. Moves all ext x4 - Urinary Catheter Management Indwelling Urethral Catheter Cath placed during this visit: yes, but has since been removed by the nurse Reason for continuing: Continue criteria not met Insertion date: 02/16/18 Insertion time: 13:20 Removal date: 02/17/18 Removal time: 17:00 Results - Labs CBC & Chem 7: 02/21/18 03:51 02/25/18 04:06 Assessment and Plan - Assessment (1) Rectal prolapse Code(s): K62.3 - Rectal prolapse Status: Acute Plan: Mrs. Ramirez is a 57 y/o female with scleroderma, COPD on 6L continually at home, A. fib, Pulmonary HTN, , esophageal dysmotility. Patient admitted by Dr. Medina pre-op for repair of rectal prolapse. Given patient's chronic medical problems which make outpt bowel prep difficult she required admission for IVF, cont pulm therapy, medical management. We have been consulted for pre-op medical management. Rectal prolapse Plan for repair of rectal prolapse today with Dr. Medina Given patient's chronic medical problems which make outpt bowel prep difficult she required admission for IVF, cont pulm therapy, medical management. S/P rectal prolapse repair 02/[address] Medina diet per surgery 02/20 patient has not had post-op BM will defer to colorectal surgery continue IVFs Ileus N/V NPO NG tube to LIWS IVF Dr. Gonsalez discussed with Dr. Delaney COPD (chronic obstructive pulmonary disease) Patient has is chronically on 6L supplemental oxygen at home - will continue while in hospital Continue patient's home budesonide-formoterol and tiotropium bromide inhalers add duonebs if needed Patient desaturated through the night - per nursing patient was mouth breathing and did require face mask Patient now back on 6L and saturating 93% CXR 02/17 reviewed and reveals: 1. Increased bilateral diffuse hazy pulmonary parenchymal opacity. 2. Patchy consolidation or atelectasis at the left lung base. added IS 10 times per hour Pulmonary HTN Continue patient's home macitentan 10 mg daily and sildenafil 20 mg TID Atrial fibrillation Continue patient's Diltiazem 120 mg PO daily for rate control Hypokalemia potassium 3.1 (02/17) potassium 3.4 on (02/18) replaced recheck CBC and BMP in AM DVT prophylaxis with SCDs - Attending Attestation Patient examined. Assessment and plan formulated with Eli Hayes PA-C. I agree with the above. Nursing reports that pt has vomited several times since noon. Pt c/o abdominal discomfort and distension. Pt with distended abdomen. High pitched bowel sounds on auscultation. Case d/w CRS, Dr. Delaney. Obtain KUB Place NGT to intermittent low wall suction. NPO Repeat KUB in AM Repeat labs in AM
--- NOTE | 2018-02-20 17:56 | XR ---
EXAM DATE: 02/20/2018 12:00 AM EDT AGE/SEX: 57 years / Female INDICATIONS: Distention. Possible ileus. Abdominal pain. CLINICAL DATA: This is the patient's initial encounter. Patient reports that signs and symptoms have been present for 3 days and indicates a pain score of 7/10. MEDICAL/SURGICAL HISTORY: None. None. COMPARISON: No prior exams available for comparison. FINDINGS: A single AP portable supine view of the abdomen was obtained and demonstrates a moderate amount of g as appears to be the stomach. There are multiple loops of borderline dilated air-containing small bow el. There is a relative paucity of colonic bowel gas. There is no definite free air on the supine marlon dy with limited sensitivity. The bony structures are intact. There are multiple overlying electrocard iogram leads. CONCLUSION: Abnormal bowel gas pattern of concern for early small bowel obstruction. Electronically signed by: Juvenal Morrow MD 02/20/2018 5:55 PM EDT
[2018-02-20] MEDS: KCL 20 mEq/NACL 0.45% Inj 1,000 ML IV.CONT SCH (18:11)
[2018-02-20] MEDS ORDERED: Promethazine 25 MG Supp RECTAL PRN (18:30)
--- NOTE | 2018-02-20 19:17 | XR ---
EXAM DATE: 02/20/2018 12:00 AM EDT AGE/SEX: 57 years / Female INDICATIONS: Concern for aspiration post NG tube placement. CLINICAL DATA: This is the patient's initial encounter. Patient reports that signs and symptoms have been present for 1 day and indicates a pain score of 0/10. MEDICAL/SURGICAL HISTORY: Congestive heart failure. Chronic obstructive pulmonary disease. Scl eroderma. Pulmonary hypertension. Atrial fibrillation. None. COMPARISON: [facility] – [place], CHEST SINGLE AP, 07/13/2017. . FINDINGS: A single AP portable erect view the chest was obtained and demonstrates placement of nasogastric tube in the stomach. Mild patchy opacity is present in the perihilar regions and both lung bases with no consolidation. The right costophrenic angle appears mildly blunted. The heart size is within normal l imits. Right apical pleural parenchymal change is noted consistent with scarring. CONCLUSION: 1. Interval placement of nasogastric tube. 2. Mild patchy opacity in the perihilar regions and both lung bases with no consolidation. 3. Right apical pleural parenchymal change most characteristic of scarring. Electronically signed by: Juvenal Morrow MD 02/20/2018 7:15 PM EDT
[2018-02-20] MEDS: KCL 20 mEq/D5W/NaCl 0.9% Inj 1,000 ML IV.CONT SCH ×2 (19:46→19:47)
[2018-02-21] MEDS: KCL 20 mEq/NACL 0.45% Inj 1,000 ML IV.CONT SCH (05:05)
[2018-02-21] MEDS: Levothyroxine 125 MCG Tablet PO SCH (05:13)
[2018-02-21 05:32] LABS: Anion Gap 12 meq/L (5-15); Blood Urea Nitrogen 12 mg/dL (7-18); Calcium 8.7 mg/dL (8.5-10.1); Carbon Dioxide 32.5 meq/L (21.0-32.0); Chloride 95 meq/L (98-107); Glomerular Filtration Rate Greater Than 89 mL/min (>89); Glucose,Random 98 mg/dL (74-106); Potassium 3.3 meq/L (3.5-5.1); Sodium 139 meq/L (136-145)
[2018-02-21 06:12] LABS: Baso # (Auto) 0.1 th/mm3 (0.0-0.2); Baso % (Auto) 0.6 % (0.0-2.0); Eos # (Auto) 0.3 th/mm3 (0.0-0.4); Eos % (Auto) 2.6 % (0.0-4.0); Hematocrit 33.6 % (35.0-46.0); Hemoglobin 10.9 gm/dL (11.6-15.3); Lymph # (Auto) 1.1 th/mm3 (1.0-4.8); Lymph % (Auto) 9.6 % (9.0-44.0); Mean Corpuscular HGB Conc 32.4 % (32.0-36.0); Mean Corpuscular Hemoglobin 28.3 pg (27.0-34.0); Mean Corpuscular Volume 87.3 fL (80.0-100.0); Mean Platelet Volume 7.7 fL (7.0-11.0); Mono # (Auto) 0.9 th/mm3 (0.0-0.9); Mono % (Auto) 7.5 % (0.0-8.0); Neut # (Auto) 9.2 th/mm3 (1.8-7.7); Neut % (Auto) 79.7 % (16.0-70.0); Platelet Count 436 th/mm3 (150-450); Red Blood Count 3.84 mil/mm3 (4.00-5.30); White Blood Count 11.6 th/mm3 (4.0-11.0)
[2018-02-21 06:55] LABS: Platelet Morphology Normal (Normal)
[2018-02-21] MEDS: dilTIAZem CD 240 MG Capsule PO SCH (08:05)
[2018-02-21] MEDS: MACITENTAN PO SCH (08:06)
[2018-02-21] MEDS: Pantoprazole Inj 40 MG Vial IV.PUSH SCH (08:06)
[2018-02-21] MEDS: Heparin - SQ 10,000 UNITS/ML Vial SQ SCH ×2 (08:06→20:43)
[2018-02-21] MEDS: Tiotropium Bromide 18 MCG/ACT Inhaler INH SCH (08:07)
[2018-02-21] MEDS: Budesonide-Formoterol 160/4.5 MCG 6 GM Inhaler INH SCH ×2 (08:07→20:45)
--- NOTE | 2018-02-21 08:40 | XR ---
EXAM DATE: 02/21/2018 8:00 AM EDT AGE/SEX: 57 years / Female INDICATIONS: Abdominal pain. CLINICAL DATA: This is the patient's initial encounter. Patient reports that signs and symptoms have been present for 3 days and indicates a pain score of 7/10. MEDICAL/SURGICAL HISTORY: Congestive heart failure. Chronic obstructive pulmonary disease. Scl eroderma. Pulmonary hypertension. Atrial fibrillation. None. COMPARISON: [facility] – [place], ABDOMEN 1V KUB, 02/20/2018. . FINDINGS: Minimal gaseous distention of the small bowel. Nasogastric tube across the GE junction. Nasogastric was relatively gasless. The portion of the bony skeleton visualized is unremarkable. CONCLUSION: Nasogastric tube across the GE junction. Less dilatation of proximal small bowel Electronically signed by: Pito Garcia MD 02/21/2018 8:38 AM EDT
--- NOTE | 2018-02-21 09:18 | P.PNIM ---
Subjective Interval history: pt sitting in chair. miserable denies flatus Physical Exam Vital signs: Vital Signs 02/20/18 10:00 02/20/18 11:00 02/20/18 12:00 Temperature 98.3 F Pulse Rate 87 90 91 H Respiratory Rate 17 Blood Pressure 123/65 Pulse Oximetry 93 L 02/20/18 13:00 02/20/18 14:00 02/20/18 15:00 Temperature 98.6 F Pulse Rate 97 H 98 H 86 Respiratory Rate 17 Blood Pressure 99/64 L Pulse Oximetry 92 L 02/20/18 16:00 02/20/18 17:00 02/20/18 18:00 Temperature Pulse Rate 94 H 94 H 96 H Respiratory Rate Blood Pressure Pulse Oximetry 02/20/18 19:00 02/20/18 19:24 02/20/18 20:00 Temperature 98.1 F Pulse Rate 98 H 90 Respiratory Rate 18 Blood Pressure 113/65 Pulse Oximetry 98 97 02/20/18 21:00 02/20/18 22:00 02/20/18 23:00 Temperature 98 F Pulse Rate 98 H 96 H 96 H Respiratory Rate 18 Blood Pressure 113/65 Pulse Oximetry 97 02/21/18 00:00 02/21/18 01:00 02/21/18 02:00 Temperature Pulse Rate 94 H 97 H 94 H Respiratory Rate Blood Pressure Pulse Oximetry 02/21/18 03:00 02/21/18 04:00 02/21/18 05:00 Temperature 97.6 F Pulse Rate 98 H 98 H 94 H Respiratory Rate 18 Blood Pressure 125/58 L Pulse Oximetry 96 02/21/18 06:00 02/21/18 08:00 Temperature Pulse Rate 94 H Respiratory Rate Blood Pressure Pulse Oximetry 95 Intake & Output 02/20/18 02/21/18 02/21/18 18:59 06:59 18:59 Intake Total 500 / 500 1000 / 1000 Output Total 1325 / 1325 700 / 700 Balance -825 / -825 300 / 300 Weight 75 kg Intake: IV 1000 / 1000 Potassium Chlor 20 mEq/NACL 0. 1000 / 1000 45% Inj 1,000 ML @ 84 mls/hr IV .CONT .[id number] [facility] Rx#:[id number] Oral 500 / 500 Output: Emesis 600 / 600 Urine Amount (Catheter) 200 / 200 Indwelling Urethral Catheter 200 / 200 Gastric Drainage 525 / 525 700 / 700 Left Nare Nasogastric Tube 525 / 525 700 / 700 Other: # Voids 1 # Emeses 4 sitting in chair oriented ngt to suction heart reg lung cta abd mild distention. no bs ext no edema - Urinary Catheter Management Indwelling Urethral Catheter Cath placed during this visit: yes, but has since been removed by the nurse Reason for continuing: Continue criteria not met Insertion date: 02/16/18 Insertion time: 13:20 Removal date: 02/17/18 Removal time: 17:00 Results - Labs CBC & Chem 7: 02/21/18 03:51 02/21/18 03:51 Laboratory Results - last 24 hr 02/21/18 02/21/18 03:51 03:51 WBC 11.6 H RBC 3.84 L Hgb 10.9 L Hct 33.6 L MCV 87.3 MCH 28.3 MCHC 32.4 RDW 17.0 Plt Count 436 D MPV 7.7 Prelim Diff (Auto) Slide review pending Neut % (Auto) 79.7 H Lymph % (Auto) 9.6 Orange % (Auto) 7.5 Eos % (Auto) 2.6 Baso % (Auto) 0.6 Neut # (Auto) 9.2 H Lymph # (Auto) 1.1 Orange # (Auto) 0.9 Eos # (Auto) 0.3 Baso # (Auto) 0.1 WBC Differential . Diff Scan Auto diff confirmed Differential Comment . Platelet Estimate High H Platelet Morphology Normal Sodium 139 Potassium 3.3 L Chloride 95 L Carbon Dioxide 32.5 H Anion Gap 12 BUN 12 Creatinine 0.48 L Estimated GFR Greater than 89 Random Glucose 98 Calcium 8.7 - Imaging Impressions Abdomen X-Ray 02/20/18 00:00 CONCLUSION: Abnormal bowel gas pattern of concern for early small bowel obstruction. Chest X-Ray 02/20/18 00:00 CONCLUSION: 1. Interval placement of nasogastric tube. 2. Mild patchy opacity in the perihilar regions and both lung bases with no consolidation. 3. Right apical pleural parenchymal change most characteristic of scarring. Abdomen X-Ray 02/21/18 08:00 CONCLUSION: Nasogastric tube across the GE junction. Less dilatation of proximal small bowel Assessment and Plan - Assessment (1) Rectal prolapse Code(s): K62.3 - Status: Acute Plan: Mrs. Ramirez is a 57 y/o female with scleroderma, COPD on 6L continually at home, A. fib, Pulmonary HTN, , esophageal dysmotility. Patient admitted by Dr. Medina pre-op for repair of rectal prolapse. Given patient's chronic medical problems which make outpt bowel prep difficult she required admission for IVF, cont pulm therapy, medical management. Rectal prolapse Given patient's chronic medical problems which make outpt bowel prep difficult she required admission for IVF, cont pulm therapy, medical management. S/P rectal prolapse repair 02/[address] Medina Ileus Pt had ngt placed on 02/20 for n/v and concern for Ileus Kub today looks slightly better. no flatus cont ivf with ns with kcl taking po meds. PT/ambulation. Dr. Gonsalez discussed with Dr. Delaney on 02/20 COPD (chronic obstructive pulmonary disease) Patient has is chronically on 6L supplemental oxygen at home - will continue while in hospital Continue patient's home budesonide-formoterol and tiotropium bromide inhalers add duonebs if needed CXR 02/17 reviewed and reveals: 1. Increased bilateral diffuse hazy pulmonary parenchymal opacity. 2. Patchy consolidation or atelectasis at the left lung base. Pulmonary HTN Continue patient's home macitentan 10 mg daily and sildenafil 20 mg TID Atrial fibrillation Continue patient's Diltiazem 120 mg PO daily for rate control Hypokalemia cont ivf. increase kcl in ivf. DVT prophylaxis with SCDs
--- NOTE | 2018-02-21 16:52 | P.PNCS ---
Subjective Colorectal Surgery Post Op Day #: 5 Interval history: afebrile, VSS UO good - after khan placed 1100cc NGT less +flatus Objective Result Diagrams: 02/21/18 03:51 02/21/18 03:51 Objective Remarks: Abd - soft, wound dry, clean, no redness but some tympany Assessment and Plan - Plan OON - walking NGT to gravity check residual follow urine/lytes
[2018-02-21] MEDS: Ketorolac Inj 30 MG/ML (IVP) Vial IV.PUSH PRN (20:43)
[2018-02-22 05:43] LABS: Anion Gap 13 meq/L (5-15); Blood Urea Nitrogen 12 mg/dL (7-18); Calcium 8.7 mg/dL (8.5-10.1); Carbon Dioxide 25.7 meq/L (21.0-32.0); Chloride 100 meq/L (98-107); Glomerular Filtration Rate Greater Than 89 mL/min (>89); Glucose,Random 76 mg/dL (74-106); Potassium 3.6 meq/L (3.5-5.1); Sodium 139 meq/L (136-145)
[2018-02-22] MEDS: Levothyroxine 125 MCG Tablet PO SCH (05:49)
[2018-02-22] MEDS: Pantoprazole Inj 40 MG Vial IV.PUSH SCH (09:53)
[2018-02-22] MEDS: dilTIAZem CD 240 MG Capsule PO SCH (09:54)
[2018-02-22] MEDS: MACITENTAN PO SCH (09:54)
[2018-02-22] MEDS: Heparin - SQ 10,000 UNITS/ML Vial SQ SCH ×2 (09:55→21:11)
[2018-02-22] MEDS: Meloxicam 15 MG Tablet PO PRN (09:55)
--- NOTE | 2018-02-22 10:22 | P.PNIM ---
Subjective Interval history: moved bowels last night. no nausea/vomiting while ngt clamped Physical Exam Vital signs: Vital Signs 02/21/18 11:00 02/21/18 12:00 02/21/18 13:00 Temperature 98.2 F Pulse Rate 90 85 89 Respiratory Rate 18 Blood Pressure 138/65 Pulse Oximetry 98 02/21/18 13:56 02/21/18 14:54 02/21/18 15:50 Temperature 98.6 F Pulse Rate 93 H 89 93 H Respiratory Rate 18 Blood Pressure 123/58 L Pulse Oximetry 96 02/21/18 16:49 02/21/18 17:25 02/21/18 19:00 Temperature 98.4 F Pulse Rate 84 91 H 89 Respiratory Rate 18 Blood Pressure 129/62 Pulse Oximetry 97 02/21/18 20:00 02/21/18 21:00 02/21/18 22:00 Temperature Pulse Rate 92 H 90 88 Respiratory Rate Blood Pressure Pulse Oximetry 02/21/18 23:00 02/22/18 00:00 02/22/18 01:00 Temperature 98.2 F Pulse Rate 88 79 83 Respiratory Rate 15 Blood Pressure 125/57 L Pulse Oximetry 96 02/22/18 02:00 02/22/18 02:07 02/22/18 03:00 Temperature 98.0 F Pulse Rate 85 93 H Respiratory Rate 15 Blood Pressure 118/57 L Pulse Oximetry 96 93 L 02/22/18 04:00 02/22/18 05:00 02/22/18 06:00 Temperature Pulse Rate 85 85 86 Respiratory Rate Blood Pressure Pulse Oximetry 02/22/18 07:00 Temperature 98.4 F Pulse Rate 89 Respiratory Rate 16 Blood Pressure 120/58 L Pulse Oximetry Intake & Output 02/21/18 02/22/18 02/22/18 18:59 06:59 18:59 Intake Total 600 / 600 1200 / 1200 Output Total 1900 / 1900 560 / 560 Balance -1300 / -1300 640 / 640 Weight 74 kg Intake: IV 500 / 500 1000 / 1000 Potassium Chlor 20 mEq/NACL 0. 500 / 500 45% Inj 1,000 ML @ 84 mls/hr IV .CONT .[id number] [facility] Rx#:[id number] NS + KCl 40 mEq Inj 1,000 ML @ 1000 / 1000 80 mls/hr IV.CONT .[id number] [facility] Rx#:[id number] Oral 100 / 100 200 / 200 Output: Urine Amount (Catheter) 1650 / 1650 550 / 550 Indwelling Urethral Catheter 1650 / 1650 550 / 550 Gastric Drainage 250 / 250 Left Nare Nasogastric Tube 250 / 250 Other: Date of Last Bowel Movement 02/21/18 # Bowel Movements 1 heart reg lung good air entry. scattered course bs abd nt.minimal bs ext no edema - Urinary Catheter Management Indwelling Urethral Catheter Cath placed during this visit: yes, but has since been removed by the nurse Reason for continuing: Hourly intake/output Insertion date: 02/21/18 Insertion time: 11:00 Removal date: 02/17/18 Removal time: 17:00 Results - Labs CBC & Chem 7: 02/21/18 03:51 02/22/18 04:58 Laboratory Results - last 24 hr 02/22/18 04:58 Sodium 139 Potassium 3.6 Chloride 100 Carbon Dioxide 25.7 Anion Gap 13 BUN 12 Creatinine 0.48 L Estimated GFR Greater than 89 Random Glucose 76 Calcium 8.7 Assessment and Plan - Assessment (1) Rectal prolapse Code(s): K62.3 - Rectal prolapse Status: Acute Plan: Mrs. Ramirez is a 57 y/o female with scleroderma, COPD on 6L continually at home, A. fib, Pulmonary HTN, , esophageal dysmotility. Patient admitted by Dr. Medina pre-op for repair of rectal prolapse. Given patient's chronic medical problems which make outpt bowel prep difficult she required admission for IVF, cont pulm therapy, medical management. Rectal prolapse Given patient's chronic medical problems which make outpt bowel prep difficult she required admission for IVF, cont pulm therapy, medical management. S/P rectal prolapse repair 02/[address] Medina Ileus Pt had ngt placed on 02/20 for n/v and concern for Ileus Kub today looks slightly better. flatus and bm on 02/21 ngt clamped defer advancement of diet and removal of ngt to CRS cont ivf with ns with kcl taking po meds. PT/ambulation. COPD (chronic obstructive pulmonary disease) Patient has is chronically on 6L supplemental oxygen at home - will continue while in hospital Continue patient's home budesonide-formoterol and tiotropium bromide inhalers add duonebs if needed CXR 02/17 reviewed and reveals: 1. Increased bilateral diffuse hazy pulmonary parenchymal opacity. 2. Patchy consolidation or atelectasis at the left lung base. Pulmonary HTN Continue patient's home macitentan 10 mg daily and sildenafil 20 mg TID Atrial fibrillation Continue patient's Diltiazem 120 mg PO daily for rate control Hypokalemia cont ivf. increase kcl in ivf. DVT prophylaxis with SCDs
[2018-02-22] MEDS: Budesonide-Formoterol 160/4.5 MCG 6 GM Inhaler INH SCH ×2 (11:16→21:12)
[2018-02-22] MEDS: Tiotropium Bromide 18 MCG/ACT Inhaler INH SCH (11:16)
[2018-02-22] MEDS: Carisoprodol 350 MG Tablet PO PRN (15:03)
[2018-02-22] MEDS: Ketorolac Inj 30 MG/ML (IVP) Vial IV.PUSH PRN (21:13)
--- NOTE | 2018-02-22 21:36 | P.PNCS ---
Subjective Colorectal Surgery Post Op Day #: 6 Interval history: afebrile, VSS UO good NGT less BM X2 Objective Result Diagrams: 02/21/18 03:51 02/22/18 04:58 Objective Remarks: Abd - soft, wound dry, clean, no redness but less tympany Assessment and Plan - Plan OOB - walking follow urine/lytes try PO
[2018-02-23] MEDS: Levothyroxine 125 MCG Tablet PO SCH (05:31)
[2018-02-23 06:05] LABS: Anion Gap 16 meq/L (5-15); Blood Urea Nitrogen 8 mg/dL (7-18); Calcium 7.9 mg/dL (8.5-10.1); Carbon Dioxide 24.4 meq/L (21.0-32.0); Chloride 100 meq/L (98-107); Glomerular Filtration Rate Greater Than 89 mL/min (>89); Glucose,Random 76 mg/dL (74-106); Potassium 3.5 meq/L (3.5-5.1); Sodium 140 meq/L (136-145)
--- NOTE | 2018-02-23 09:19 | P.PNIM ---
Subjective Interval history: tolerating liquids. ngt out. denies any sob and feels breathing is baseline, Physical Exam Vital signs: Vital Signs 02/22/18 10:00 02/22/18 11:00 02/22/18 11:24 Temperature 97.8 F Pulse Rate 80 83 79 Respiratory Rate 17 Blood Pressure 125/62 Pulse Oximetry 97 02/22/18 11:27 02/22/18 12:00 02/22/18 13:00 Temperature Pulse Rate 88 85 Respiratory Rate Blood Pressure Pulse Oximetry 97 02/22/18 14:00 02/22/18 15:00 02/22/18 15:24 Temperature 98.3 F Pulse Rate 85 82 86 Respiratory Rate 20 18 Blood Pressure 130/83 Pulse Oximetry 96 98 02/22/18 16:00 02/22/18 17:00 02/22/18 18:00 Temperature Pulse Rate 83 93 H 82 Respiratory Rate Blood Pressure Pulse Oximetry 02/22/18 19:00 02/22/18 19:17 02/22/18 20:00 Temperature 98.6 F Pulse Rate 90 82 92 H Respiratory Rate 18 16 Blood Pressure 117/53 L Pulse Oximetry 96 02/22/18 21:00 02/22/18 22:00 02/22/18 23:00 Temperature 98.4 F Pulse Rate 88 90 86 Respiratory Rate 16 Blood Pressure 116/58 L Pulse Oximetry 96 02/23/18 00:00 02/23/18 01:00 02/23/18 02:00 Temperature Pulse Rate 86 82 82 Respiratory Rate Blood Pressure Pulse Oximetry 02/23/18 03:00 02/23/18 04:00 02/23/18 05:00 Temperature 98.4 F Pulse Rate 80 78 85 Respiratory Rate 16 Blood Pressure 110/54 L Pulse Oximetry 96 02/23/18 06:00 02/23/18 07:00 02/23/18 08:48 Temperature 98.5 F Pulse Rate 82 94 H 92 H Respiratory Rate 17 18 Blood Pressure 116/59 L Pulse Oximetry 95 02/23/18 08:49 Temperature Pulse Rate Respiratory Rate Blood Pressure Pulse Oximetry 92 L Intake & Output 02/22/18 02/23/18 02/23/18 18:59 06:59 18:59 Intake Total 1450 / 1450 720 / 720 Output Total 1700 / 1700 650 / 650 Balance -250 / -250 70 / 70 Weight 73 kg Intake: IV 1000 / 1000 NS + KCl 40 mEq Inj 1,000 ML @ 1000 / 1000 80 mls/hr IV.CONT .[id number] [facility] Rx#:[id number] Oral 450 / 450 720 / 720 Output: Urine Amount (Catheter) 1700 / 1700 650 / 650 Indwelling Urethral Catheter 1700 / 1700 650 / 650 Other: Date of Last Bowel Movement 02/22/18 # Bowel Movements 3 heart reg lung course bs abd bs/soft ext no edema khan - Urinary Catheter Management Indwelling Urethral Catheter Cath placed during this visit: yes, but has since been removed by the nurse Reason for continuing: Hourly intake/output Insertion date: 02/21/18 Insertion time: 11:00 Removal date: 02/17/18 Removal time: 17:00 Results - Labs CBC & Chem 7: 02/21/18 03:51 02/23/18 05:31 Laboratory Results - last 24 hr 02/23/18 05:31 Sodium 140 Potassium 3.5 Chloride 100 Carbon Dioxide 24.4 Anion Gap 16 H BUN 8 Creatinine 0.32 L Estimated GFR Greater than 89 Random Glucose 76 Calcium 7.9 L D Assessment and Plan - Assessment (1) Rectal prolapse Code(s): K62.3 - Rectal prolapse Status: Acute Plan: Mrs. Ramirez is a 57 y/o female with scleroderma, COPD on 6L continually at home, A. fib, Pulmonary HTN, , esophageal dysmotility. Patient admitted by Dr. Medina pre-op for repair of rectal prolapse. Given patient's chronic medical problems which make outpt bowel prep difficult she required admission for IVF, cont pulm therapy, medical management. Rectal prolapse Given patient's chronic medical problems which make outpt bowel prep difficult she required admission for IVF, cont pulm therapy, medical management. S/P rectal prolapse repair 02/[address] Medina Ileus Pt had ngt placed on 02/20 for n/v and concern for Ileus Kub today looks better. flatus and bm on 02/21 and 02/22 ngt taken out 02/22. tolerating liquids dc khan if ok with CRS diet advancement per CRS cont ivf with ns with kcl...stop tanya to avoid resp. sx's taking po meds. PT/ambulation. dc when ok with CRS COPD (chronic obstructive pulmonary disease) Patient has is chronically on 6L supplemental oxygen at home - will continue while in hospital Continue patient's home budesonide-formoterol and tiotropium bromide inhalers add duonebs if needed CXR 02/17 reviewed and reveals: 1. Increased bilateral diffuse hazy pulmonary parenchymal opacity. 2. Patchy consolidation or atelectasis at the left lung base. Pulmonary HTN Continue patient's home macitentan 10 mg daily and sildenafil 20 mg TID Atrial fibrillation Continue patient's Diltiazem 120 mg PO daily for rate control Hypokalemia cont ivf. increase kcl in ivf. DVT prophylaxis with SCDs
[2018-02-23] MEDS ORDERED: Potassium Chloride 10 MEQ ER Capsule PO ONE (09:20)
[2018-02-23] MEDS: Tiotropium Bromide 18 MCG/ACT Inhaler INH SCH (09:50)
[2018-02-23] MEDS: Budesonide-Formoterol 160/4.5 MCG 6 GM Inhaler INH SCH ×2 (09:52→20:43)
[2018-02-23] MEDS: MACITENTAN PO SCH (09:54)
[2018-02-23] MEDS: dilTIAZem CD 240 MG Capsule PO SCH (09:56)
[2018-02-23] MEDS: Heparin - SQ 10,000 UNITS/ML Vial SQ SCH ×2 (10:00→20:40)
[2018-02-23] MEDS: Pantoprazole Inj 40 MG Vial IV.PUSH SCH (10:03)
[2018-02-23] MEDS: Carisoprodol 350 MG Tablet PO PRN (23:33)
[2018-02-24 04:37] LABS: Anion Gap 8 meq/L (5-15); Blood Urea Nitrogen 6 mg/dL (7-18); Calcium 7.9 mg/dL (8.5-10.1); Carbon Dioxide 28.1 meq/L (21.0-32.0); Chloride 100 meq/L (98-107); Glomerular Filtration Rate Greater Than 89 mL/min (>89); Glucose,Random 85 mg/dL (74-106); Potassium 3.8 meq/L (3.5-5.1); Sodium 136 meq/L (136-145)
[2018-02-24] MEDS: Levothyroxine 125 MCG Tablet PO SCH (05:38)
--- NOTE | 2018-02-24 08:56 | P.PNIM ---
Subjective Interval history: on edge bed. eating would like khan out breathing ok. Physical Exam Vital signs: Vital Signs 02/23/18 08:49 02/23/18 09:00 02/23/18 10:00 Temperature Pulse Rate 108 H 105 H Respiratory Rate Blood Pressure Pulse Oximetry 92 L 02/23/18 11:00 02/23/18 12:00 02/23/18 14:00 Temperature 99.3 F Pulse Rate 102 H 108 H 81 Respiratory Rate 16 Blood Pressure 122/62 Pulse Oximetry 93 L 02/23/18 15:00 02/23/18 15:52 02/23/18 16:00 Temperature 98.7 F Pulse Rate 81 102 H 82 Respiratory Rate 17 16 Blood Pressure 102/51 L Pulse Oximetry 97 02/23/18 17:00 02/23/18 18:00 02/23/18 19:00 Temperature 98.0 F Pulse Rate 81 82 84 Respiratory Rate 20 Blood Pressure 115/56 L Pulse Oximetry 97 02/23/18 20:00 02/23/18 20:48 02/23/18 21:00 Temperature Pulse Rate 86 89 90 Respiratory Rate 20 Blood Pressure Pulse Oximetry 90 L 02/23/18 22:00 02/23/18 23:00 02/24/18 00:00 Temperature 98.1 F Pulse Rate 90 92 H 94 H Respiratory Rate 18 Blood Pressure 107/51 L Pulse Oximetry 95 02/24/18 01:00 02/24/18 02:00 02/24/18 03:00 Temperature 98.4 F Pulse Rate 104 H 90 88 Respiratory Rate 16 Blood Pressure 93/51 L Pulse Oximetry 95 02/24/18 04:00 02/24/18 05:00 02/24/18 06:00 Temperature Pulse Rate 84 86 96 H Respiratory Rate Blood Pressure Pulse Oximetry 02/24/18 08:47 Temperature Pulse Rate 90 Respiratory Rate 18 Blood Pressure Pulse Oximetry 95 Intake & Output 02/23/18 02/24/18 02/24/18 18:59 06:59 18:59 Intake Total 240 / 240 1480 / 1480 Output Total 750 / 750 1750 / 1750 Balance -510 / -510 -270 / -270 Weight 74 kg Intake: IV 1000 / 1000 NS + KCl 40 mEq Inj 1,000 ML @ 1000 / 1000 70 mls/hr IV.CONT .[id number] [facility] Rx#:[id number] Oral 240 / 240 480 / 480 Output: Urine Amount (Catheter) 750 / 750 1750 / 1750 Indwelling Urethral Catheter 750 / 750 1750 / 1750 Other: Date of Last Bowel Movement 02/23/18 # Bowel Movements 2 heart reg lung basilar crackles abd s/nt ext no edema khan - Urinary Catheter Management Indwelling Urethral Catheter Cath placed during this visit: yes, but has since been removed by the nurse Reason for continuing: Hourly intake/output Insertion date: 02/21/18 Insertion time: 11:00 Removal date: 02/23/18 Removal time: 10:00 Results - Labs CBC & Chem 7: 02/21/18 03:51 02/24/18 03:49 Laboratory Results - last 24 hr 02/24/18 03:49 Sodium 136 Potassium 3.8 Chloride 100 Carbon Dioxide 28.1 Anion Gap 8 BUN 6 L Creatinine 0.39 L Estimated GFR Greater than 89 Random Glucose 85 Calcium 7.9 L Assessment and Plan - Assessment (1) Rectal prolapse Code(s): K62.3 - Rectal prolapse Status: Acute Plan: Mrs. Ramirez is a 57 y/o female with scleroderma, COPD on 6L continually at home, A. fib, Pulmonary HTN, , esophageal dysmotility. Patient admitted by Dr. Medina pre-op for repair of rectal prolapse. Given patient's chronic medical problems which make outpt bowel prep difficult she required admission for IVF, cont pulm therapy, medical management. Rectal prolapse Given patient's chronic medical problems which make outpt bowel prep difficult she required admission for IVF, cont pulm therapy, medical management. S/P rectal prolapse repair 02/[address] Medina Ileus Pt had ngt placed on 02/20 for n/v and concern for Ileus Kub today looks better. flatus and bm on 02/21 and 02/22 ngt taken out 02/22. tolerating liquids diet advancement per CRS taking po meds. PT/ambulation. would stop ivf today to avoid respiratory deterioration. having some more crackles on exam. try to remove khan today as pt hoping to go home tomorrow. If retains then put it back in . dc when ok with CRS COPD (chronic obstructive pulmonary disease) Patient has is chronically on 6L supplemental oxygen at home - will continue while in hospital Continue patient's home budesonide-formoterol and tiotropium bromide inhalers add duonebs if needed CXR 02/17 reviewed and reveals: 1. Increased bilateral diffuse hazy pulmonary parenchymal opacity. 2. Patchy consolidation or atelectasis at the left lung base. Pulmonary HTN Continue patient's home macitentan 10 mg daily and sildenafil 20 mg TID Atrial fibrillation Continue patient's Diltiazem 120 mg PO daily for rate control Hypokalemia DVT prophylaxis with SCDs
[2018-02-24] MEDS: Pantoprazole Inj 40 MG Vial IV.PUSH SCH (09:19)
[2018-02-24] MEDS: Heparin - SQ 10,000 UNITS/ML Vial SQ SCH ×2 (09:19→20:43)
[2018-02-24] MEDS: dilTIAZem CD 240 MG Capsule PO SCH (09:19)
[2018-02-24] MEDS: MACITENTAN PO SCH (09:20)
[2018-02-24] MEDS: Budesonide-Formoterol 160/4.5 MCG 6 GM Inhaler INH SCH ×2 (09:20→20:48)
[2018-02-24] MEDS: Tiotropium Bromide 18 MCG/ACT Inhaler INH SCH (09:20)
[2018-02-24] MEDS: Furosemide 20 MG Tablet PO SCH ×2 (12:28→18:00)
[2018-02-24] MEDS: Ketorolac Inj 30 MG/ML (IVP) Vial IV.PUSH PRN ×2 (12:33→22:42)
[2018-02-24] MEDS: Meloxicam 15 MG Tablet PO PRN (18:04)
--- NOTE | 2018-02-24 21:53 | P.PNCS ---
Subjective Colorectal Surgery Post Op Day #: 8 Interval history: afebrile, VSS UO good +BM Objective Result Diagrams: 02/21/18 03:51 02/24/18 03:49 Objective Remarks: Abd - soft, wound dry, clean, min tympany Assessment and Plan - Plan OOB - walking try PO, adv cont pulm toilet
[2018-02-25 04:44] LABS: Anion Gap 13 meq/L (5-15); Blood Urea Nitrogen 8 mg/dL (7-18); Calcium 7.7 mg/dL (8.5-10.1); Carbon Dioxide 25.7 meq/L (21.0-32.0); Chloride 98 meq/L (98-107); Glomerular Filtration Rate Greater Than 89 mL/min (>89); Glucose,Random 104 mg/dL (74-106); Potassium 3.7 meq/L (3.5-5.1); Sodium 137 meq/L (136-145)
[2018-02-25] MEDS: Levothyroxine 125 MCG Tablet PO SCH (05:21)
[2018-02-25] MEDS: dilTIAZem CD 240 MG Capsule PO SCH (08:23)
[2018-02-25] MEDS: Pantoprazole Inj 40 MG Vial IV.PUSH SCH (08:23)
--- NOTE | 2018-02-25 08:23 | P.PNIM ---
Subjective Interval history: doing well. bowels moving octavio diet Physical Exam Vital signs: Vital Signs 02/24/18 08:47 02/24/18 09:00 02/24/18 10:00 Temperature Pulse Rate 90 92 H 86 Respiratory Rate 18 Blood Pressure Pulse Oximetry 95 02/24/18 11:00 02/24/18 12:00 02/24/18 13:00 Temperature 97.9 F Pulse Rate 92 H 102 H 86 Respiratory Rate 18 Blood Pressure 122/61 Pulse Oximetry 100 02/24/18 13:27 02/24/18 14:00 02/24/18 15:00 Temperature 98.2 F Pulse Rate 91 H 80 80 Respiratory Rate 16 18 Blood Pressure 121/86 Pulse Oximetry 100 02/24/18 16:00 02/24/18 17:00 02/24/18 18:00 Temperature Pulse Rate 82 81 79 Respiratory Rate Blood Pressure Pulse Oximetry 02/24/18 19:00 02/24/18 20:00 02/24/18 21:00 Temperature 98.8 F Pulse Rate 97 H 94 H 108 H Respiratory Rate 18 Blood Pressure 113/59 L Pulse Oximetry 99 02/24/18 22:00 02/24/18 23:00 02/25/18 00:00 Temperature Pulse Rate 96 H 95 H 104 H Respiratory Rate Blood Pressure Pulse Oximetry 99 02/25/18 01:00 02/25/18 02:00 02/25/18 03:00 Temperature 98.4 F Pulse Rate 98 H 98 H 92 H Respiratory Rate 20 Blood Pressure 126/58 L Pulse Oximetry 95 95 02/25/18 04:00 02/25/18 05:00 02/25/18 06:00 Temperature 98.2 F Pulse Rate 92 H 92 H 94 H Respiratory Rate 18 Blood Pressure 123/58 L Pulse Oximetry 98 02/25/18 07:40 Temperature 98.1 F Pulse Rate 80 Respiratory Rate 18 Blood Pressure 114/57 L Pulse Oximetry 98 Intake & Output 02/24/18 02/25/18 02/25/18 18:59 06:59 18:59 Intake Total 1720 / 1720 204 / 204 Output Total 900 / 900 650 / 650 Balance 820 / 820 -446 / -446 Weight 71.5 kg Intake: IV 1000 / 1000 54 / 54 NS + KCl 40 mEq Inj 1,000 ML @ 1000 / 1000 70 mls/hr IV.CONT .[id number] [facility] Rx#:[id number] Zofran Inj 8 MG In D5W Inj 50 54 / 54 ML @ 108 mls/hr IV.SIG Q6H PRN Rx#:[id number] Oral 720 / 720 150 / 150 Output: Urine 900 / 900 650 / 650 Other: Date of Last Bowel Movement 02/24/18 02/24/18 heart reg lung good air entry abd s/bs/ ext no edema - Urinary Catheter Management Indwelling Urethral Catheter Cath placed during this visit: yes, but has since been removed by the nurse Reason for continuing: Hourly intake/output Insertion date: 02/21/18 Insertion time: 11:00 Removal date: 02/23/18 Removal time: 10:00 Results - Labs CBC & Chem 7: 02/21/18 03:51 02/25/18 04:06 Laboratory Results - last 24 hr 02/25/18 04:06 Sodium 137 Potassium 3.7 Chloride 98 Carbon Dioxide 25.7 Anion Gap 13 BUN 8 Creatinine 0.56 Estimated GFR Greater than 89 Random Glucose 104 Calcium 7.7 L Assessment and Plan - Assessment (1) Rectal prolapse Code(s): K62.3 - Rectal prolapse Status: Acute Plan: Mrs. Ramirez is a 57 y/o female with scleroderma, COPD on 6L continually at home, A. fib, Pulmonary HTN, , esophageal dysmotility. Patient admitted by Dr. Medina pre-op for repair of rectal prolapse. Given patient's chronic medical problems which make outpt bowel prep difficult she required admission for IVF, cont pulm therapy, medical management. Rectal prolapse Given patient's chronic medical problems which make outpt bowel prep difficult she required admission for IVF, cont pulm therapy, medical management. S/P rectal prolapse repair 02/[address] Medina Ileus Pt had ngt placed on 02/20 for n/v and concern for Ileus Kub today looks better. flatus and bm on 02/21 and 02/22 ngt taken out 02/22. tolerating liquids diet advancement per CRS taking po meds. PT/ambulation. ivf stopped. khan out yesterday. pt will be discharged home today. COPD (chronic obstructive pulmonary disease) Patient has is chronically on 6L supplemental oxygen at home - will continue while in hospital Continue patient's home budesonide-formoterol and tiotropium bromide inhalers add duonebs if needed CXR 02/17 reviewed and reveals: 1. Increased bilateral diffuse hazy pulmonary parenchymal opacity. 2. Patchy consolidation or atelectasis at the left lung base. Pulmonary HTN Continue patient's home macitentan 10 mg daily and sildenafil 20 mg TID Atrial fibrillation Continue patient's Diltiazem 120 mg PO daily for rate control Hypokalemia DVT prophylaxis with SCDs
[2018-02-25] MEDS: Heparin - SQ 10,000 UNITS/ML Vial SQ SCH (08:24)
[2018-02-25] MEDS: Tiotropium Bromide 18 MCG/ACT Inhaler INH SCH (08:25)
[2018-02-25] MEDS: Budesonide-Formoterol 160/4.5 MCG 6 GM Inhaler INH SCH (08:25)
[2018-02-25] MEDS: MACITENTAN PO SCH (08:35)
[2018-02-25] MEDS: Furosemide 20 MG Tablet PO SCH (08:35)
--- NOTE | 2018-02-25 15:36 | P.DCO ---
- Diagnosis (1) Rectal prolapse Status: Acute (2) COPD (chronic obstructive pulmonary disease) Status: Chronic - Home Health Nursing Order: Medical education, Signs/symptoms of disease process, Medication education-adverse effect, Nursing assessment with vital signs - Case Management Consult No - Certification I have seen patient Rosamaria Ramirez on 02/25/18. My clinical findings support the need for the requested home health care services because: Need for psychosocial assistance I certify that my clinical findings support that this patient is homebound because: Hx COPD - exertion dyspnea/weakness, Need for psychosocial assistance (2) COPD (chronic obstructive pulmonary disease) Qualifiers: COPD type: COPD with acute exacerbation Qualified Code(s): J44.1 - Chronic obstructive pulmonary disease with (acute) exacerbation
--- NOTE | 2018-03-09 20:00 | MP ---
cc: Francisco Medina MD, Andrew H MD DATE OF OPERATION: 02/16/2018 PREOPERATIVE DIAGNOSIS: Full-thickness rectal prolapse. PROCEDURE: Exploratory laparotomy with rectopexy. POSTOPERATIVE DIAGNOSIS: Full-thickness rectal prolapse. SURGEON: Francisco Medina MD VETERINARY PHYSIOLOGIST. Avinash Carlton MD DESCRIPTION OF PROCEDURE: The patient was placed in the supine position. After adequate epidural anesthesia her legs were placed in the universal stirrups and supported appropriately. Abdomen and perineum were then prepped with Betadine solution and draped in usual sterile fashion. With Dr. Carlton's assistance, the abdomen was opened through a lower midline incision. Upon entering the abdominal cavity, some adhesions to the parietal peritoneum were taken down. It was a very deep cul-de-sac consistent with her prolapse. The colon was palpated and felt to be pretty unremarkable. The small bowel was run from the ligament of Treitz down to the ileocecal valve and felt to be normal. Great vessels were of normal caliber and slightly calcified. The uterus and ovaries were appropriate for the patient's age. First, the sigmoid colon was mobilized medially by dividing along the white line of Toldt. The left ureter was identified and carefully preserved. The right retroperitoneal space was then opened and the bowel dissected off the presacral fascia down toward the pelvic floor. After full mobilization, the cul-de-sac was opened and the bowel straightened in preparation for the rectopexy. After adequate straightening 2 mattress sutures of 0 Prolene were placed on each side of the rectosigmoid securing it firmly to the presacral fascia. After 4 stitches were placed, there appeared to be adequate fixation of the rectum. The lumen of the rectum appeared adequate with no compromise. Hemostasis was achieved at all sites. The midline incision was then closed anatomically using a running #1 PDS suture to reapproximate the midline fascia. The subcutaneous tissue was irrigated copiously and the skin closed with a running subcuticular Vicryl suture. Wound area was washed with normal saline and dried, sterile dressing of Telfa and gauze applied. The patient tolerated the procedure quite well and was brought to the recovery room in stable condition. Sponge and needle counts were correct at the end of the procedure. Francisco Medina MD AHR/ct , 07:36 PM , 07:44 PM
--- NOTE | 2018-03-16 12:02 | MD ---
cc: Francisco Medina MD DATE OF DISCHARGE: 02/25/2018 ADMITTING DIAGNOSES: Full-thickness rectal prolapse, history of scleroderma, severe chronic obstructive pulmonary disease with pulmonary hypertension. PROCEDURES: 02/16/2018: Exploratory laparotomy with rectopexy. DISCHARGE DIAGNOSES: Full-thickness rectal prolapse, severe chronic obstructive pulmonary disease and pulmonary hypertension, postoperative ileus. No history of atrial fibrillation. HISTORY OF PRESENT ILLNESS: Ms. Ramirez is a 57-year-old female with significant COPD and pulmonary hypertension. For the last several months has been having more trouble with rectal prolapse. She prolapses very easily; is able to reduce it on her own, but is having more trouble sitting and performing daily activities. She feels it interferes with her overall quality of life on an increasing level. The patient has been evaluated medically and she does have significant COPD and pulmonary hypertension, but felt to have an acceptable medical risk for the proposed exploratory laparotomy and rectopexy. Recent colonoscopy was pretty unremarkable except for the edema and changes consistent with her prolapsed rectum. She was admitted at this time for preoperative evaluation and the proposed rectopexy surgery. She was on prednisone last few weeks, but this has been weaned off and she has not been on any steroids presently. She does maintain a nasal O2 all the time. Please see the consultations and admitting history and physical for more complete past medical and surgical history. PERTINENT PHYSICAL: GENERAL: Very pleasant, chronically ill-appearing female in no acute distress. ABDOMEN: Abdomen was soft and doughy not really distended. No tympany. No rebound or guarding. No masses. RECTAL: Anal inspection revealed a very patulous anal canal; full-thickness rectal prolapse was easily produced. It was able to be reduced without much discomfort. Very poor sphincter tone. HOSPITAL COURSE: After admission, the patient was taken to the operating room on 02/16/2018 at which point, she underwent exploratory laparotomy and rectopexy. This was done under epidural anesthesia. The patient tolerated the procedure remarkably well. Postoperatively, she did have some atelectasis and patchy consolidation requiring respiratory therapy and pulmonary toilet. She also developed a postop ileus with distention of her small bowel. This was treated conservatively and gradually resolved. As her bowel function improved, her diet was advanced. She required physical therapy for additional muscle strengthening and some increased ambulation. She also had some urinary retention requiring reinsertion of a Dodson catheter and urinary drainage. She continued to improve slowly with her bowel function and her diet. She was unable to be weaned off her IV fluids. Hospitalist's were managing her respiratory therapy and pulmonary hypertension and atrial fibrillation medically. The patient was doing well enough to be considered for discharge to be discharged home on 02/25/2018 with home health care to assist in her postop care. DISCHARGE INSTRUCTIONS: The patient was discharged; she eating a regular diet. She was encouraged to continue gentle laxatives to avoid constipation. Nasal oxygen was to continue as preop. All preop medications were to be continued and postop pain medication was provided. The patient will be seen in the office in 1-2 weeks' time for routine followup. Any problems prior to the scheduled office visit she was encouraged to call for more urgent attention. MD MARIBETH Ellis/eveline , 09:28 AM , 09:40 AM LAILA
== END 2018-02-25 09:52 | disposition home health service (06) ==
LOC: N07 16:22 → HCPC 02-16 15:44
PROVIDERS: ADMIT Colon & Rectal Surgery; ATTEND Colon & Rectal Surgery